=== PATIENT | female | born 1960 | race Caucasian/White ===

== ENCOUNTER → 2018-11-15 08:52 | Outpatient (CLI) | payer OTHER, SELFPAY ==
--- NOTE | 2018-11-15 08:55 | BI_ITS ---
MAMMOGRAPHY - UNILATERAL SCREENING: LEFT BREAST REASON FOR EXAM: Female, 58 years old. Routine annual screening examination (unilateral). PERTINENT HISTORY: Personal history of breast cancer. Prior right mastectomy. TECHNIQUE: Digital unilateral breast angie (3D mammographic acquisition) in the CC and MLO projections. 2-D mediolateral oblique (MLO) and craniocaudad (CC) views of both breasts were obtained. CAD: Full Field Digital Mammography with Computer Added Detection was performed. COMPARISON: Comparison is made with prior study dated September 03, 2017 and November 28, 2015. FINDINGS: Breast Composition: There are scattered areas of fibroglandular density. There are no dominant masses or suspicious calcifications. Stable small bilateral axillary lymph nodes. No other significant abnormalities are identified. There has been no significant change since the prior study. BI/UNILAT LT SCRN W/CAD IMPRESSION: Stable unilateral screening mammogram. Yearly follow-up mammogram recommended. (A) ASSESSMENT CATEGORY: BIRADS Category 2: Benign. A letter regarding these results will be sent to the patient by the facility within 30 days. Approximately 10% of breast cancers are not detected by mammography. A normal mammogram should not delay biopsy of a clinically suspicious abnormality. [id number] Electronically Signed: Dereje Glez MD at 8:52 EST , Service support ,
== END ==
PROVIDERS: Referring Provider Obstetrics & Gynecology; Visit Provider Obstetrics & Gynecology
DX: Z12.31 Encounter for screening mammogram for malignant neoplasm of breast (principal); Z85.3 Personal history of malignant neoplasm of breast; Z90.10 Acquired absence of unspecified breast and nipple
CPT/HCPCS: 77061; 77063; 77067; G0279

== ENCOUNTER 2018-12-15 10:44 | Day surgery (SDC) | payer OTHER, SELFPAY ==
--- NOTE | 2018-12-08 10:20 | PCM.HPOB.BLA ---
History and Physical Date of Admission: 12/08/18 Name: DANIELLE BERRY Age: 58 Date of : 1960 HISTORY OF PRESENT ILLNESS: On 12/08/2018, Danielle Berry, a 58 year old female 1 0 0 0 1, presented for: PREOPERATIVE HISTORY AND PHYSICAL Danielle is here for pre-op appt for LEEP. Consents are signed and packet provided. She wants antibiotic for possible infection of tooth. She has issue with her Dentist because he wants to try and preserve tooth and she just wants it pulled. Off and on pain and feels she needs something. She feels we did not discuss her pathology from the Colposcopy. Advised that we did talk to her about proceeding with LEEP d/t results of colpo. That is why she is here today. LMT -- Here for preop appt prior to planned LEEP for moderate cervical dysplasia confirmed on colposcopy after HGSIL pap obtained. Reviewed R,B,A of this procedure as well as the anticipated preop, operative and postop recovery (activity restrictions) and follow up paps. EB PATH: ECC: - POSITIVE FOR HIGH-GRADE SQUAMOUS INTRAEPITHELIAL LESION (MJ- II-III). Informed of this by phone when she was made aware that the LEEP procedure was recommended, and reviewed these path results again. Advised further that ABX NOT indicated for this procedure and reviewed rationale in limiting antibiotic use to avoid resistance over time. Recommend she see her dentist re any dental concerns. Will check CBC prior to surgery. EB ALLERGIES: Penicillin, Swelling MEDICATIONS HISTORY: Patient is also takin. No Meds REVIEW OF SYSTEMS: GENERAL - Denies fever, or chills SKIN - Denies skin changes EYES - Denies visual changes EARS - Denies difficulty hearing NOSE - Denies nasal congestion or bleeding MOUTH - tooth pain NECK - Denies pain or swelling RESPIRATORY - Denies shortness of breath or wheezing CARDIOVASCULAR - Denies palpitations or chest pain GASTROINTESTINAL - Denies nausea, vomiting, diarrhea, constipation GENITOURINARY - Denies dysuria, frequency of urination, urgency, or hesitancy MUSCULOSKELETAL - Denies joint or muscle pain NEUROLOGICAL - Denies localized numbness or weakness PSYCHIATRIC - Denies depression or anxiety ENDOCRINE - Denies heat or cold intolerance, weight loss or gain HEMATO-IMMUNOLOGIC - Denies excesive bleeding with cuts PAST HISTORY: Breast/Ovarian/Colon Cancers - denies family hx, self - rt breast Infections - Chicken pox and Measles Illnesses - h/o breast cancer and RT Mastectomy Accidents - no injuries of consequence History of Abnormal PAPS - YES Hospitalizations - see surgery and Childbirth colonoscopy and large polyp removed 2017; SURGICAL HISTORY: 1. Tonsils, 1963 2. , 1979 3. Right Mastectomy, 2002 MENSTRUAL HISTORY: LMP Known?- Postmenopausal, Prior Menses - 01/31/2007, LMP - 07/03/10 PAST PREGNANCIES: Total Pregnancies - 1; Full Term Pregnancies - 1; Premature - 0; Abortions, Induced - 0; Abortions, Spontaneous - 0; Ectopics - 0; Multiple Births - 0; Living Children - 1 FAMILY HISTORY: Mother - FH: Hypertension; Mother - Stroke; Brother - FH: Multiple sclerosis; SOCIAL HISTORY: Alcohol Use - denies drinking Smoking - 1 PPD, ATQ Diet - no special diet Lifestyle - single Exercise - minimal Seat Belt Use - always Employer - [employer] Job Description - [employer] Illicit Drug Use - denies use of street drugs Sexual Activity - Residence - lives with granddaughter Hours Worked - 40+ Children Name(s) - Anupam- has custody of Asharia, granddaughter Control - postmenopausal PHYSICAL EXAMINATION BP- 140/70 Sitting, Right arm, regular cuff Temp- 97.9 Taken Orally Weight- 186.00 lbs Height- 63.75 inch BMI:32.25 CONSTITUTIONAL - NAD, well nourished, and well developed HEENT - Normocephalic, PERRLA, EOMI NECK - no nuchal rigidity EXTREMITIES - No edema or calf tenderness NEUROLOGICAL - Cranial nerves II-XII grossly intact PSYCHIATRIC - A and O to time, place, person, mood and affect ASSESSMENT: 1. Moderate Cervical Dysplasia 2. High Grade Squamous Intraepithelial Lesion On Cytologic Smear Of Cervix (hgsil) PLAN BY DIAGNOSIS: 1. High Grade Squamous Intraepithelial Lesion On Cytologic Smear Of Cervix (hgsil) and Moderate Cervical Dysplasia Planned LEEP WITH TOP HAT in OR R,B,A and treatment success reviewed. Discussed the anticipated preop, operative and postop recovery courses. Resume activity but remain at pelvic rest for 2 wk after LEEP to allow healing. RTO in 2 wk for postop check up Plan pap q 4-6 mo for one year after LEEP to confirm full resolution, treatment.
[2018-12-08 10:49] LABS: Hematocrit 41.9 % (37-47); Hemoglobin 13.5 g/dl (12.0-15.0); Mean Corp Hgb Conc 32.2 g/gl (32-36); Mean Corpuscular Hgb 30.8 pg (27.0-32.0); Mean Corpuscular Volume 95.4 fL (81-99); Mean Platelet Vol. 8.9 fl (6.2-12.0); Platelet Count 339 K/mm3 (150-450); RBC Distribution Width CV 12.7 % (11.6-14.6); RBC Distribution Width SD 43.9 fl (35.1-43.9); Red Blood Count 4.39 M/mm3 (4.2-5.4); White Blood Count 11.7 K/mm3 (4.4-11.0)
[2018-12-08 10:50] LABS: Scan Indicated on CBC? Y/N NO
[2018-12-08 11:04] LABS: International Normalized Ratio 0.9; Prothrombin Time (Protime)PT. 12.3 SECONDS (11.7-14.9)
[2018-12-08 11:05] LABS: Partial Thromboplast Time 29.2 Seconds (24.1-36.2)
--- NOTE | 2018-12-15 | IMM_PTH ---
PATIENT: DANIELLE PARRA LOC: [facility] [place] U#:[id number] AGE/SX: 58/F ROOM: RE12/15/[address]: Dr. Suzanne Bardales MD : 1960 BED: DIS: 12/15/2018 SPEC #: [id number] RECD: 12/17/18 11:12 STATUS: NEDA MAXIMUS #: [id number] ANAI: 12/15/18 00:[address]: Suzanne Bardales DEPT: IMMUNOHISTOCHEMISTRY RECD BY: Florecita Rose ENTERED: 12/17/18 11:14 SP TYPE: IMMUNO OTHR DR: No Primary Care Phys Tissues: B - Endocervical Procedures: p16 (initial) KI-67 (add) P16 (add) PHYSICIAN & INSTITUTION [place] [id number] SPECIMEN INFORMATION: Tissue Source: B - Endocervical, LEEP conization Clinical Info: Moderate cervical dysplasia; HGSIL Specimen Number: [id number] B1 & B4 CPT code: 20772, 96721 x3 METHODOLOGY: Deparaffinized sections of prefer/formalin-fixed tissue or PAP/DQ stained slides are incubated with monoclonal/polyclonal antibodies/oligonucleotide probes. Localization is made via biotin free immunoperoxidase method. Appropriate controls are performed and reacted as expected. Results on target cell population are indicated in the following table: RESULTS: ANTIBODY / CLONE RESULT Block B1 P16 (E6H4) positive, focal and patchy Ki-67 (30-9) positive, low Block B4 P16 (E6H4) positive, focal block staining Ki-67 (30-9) positive These tests were developed and their performance characteristics determined by [facility]. They may not have been cleared or approved by the U.S. Food and Drug Administration. The FDA has determined that such clearance or approval is not necessary. INTERPRETATION: B. Endocervical, LEEP conization: Focal mild and moderate squamous dysplasia. SJ:nikko 12/20/18
[2018-12-15 11:18] VITALS: BP 138/68; PULSE 94; RESP 18; TEMP 36.8; O2SAT 94; BMI 31.4
--- NOTE | 2018-12-15 12:30 | CONE_PTH ---
PATIENT: DANIELLE PARRA LOC: [facility] [place] U#:[id number] AGE/SX: 58/F ROOM: RE12/15/[address]: Dr. Suzanne Bardales MD : 1960 BED: DIS: 12/15/2018 SPEC #: [id number] RECD: 12/15/18 16:19 STATUS: NEDA MAXIMUS #: [id number] ANAI: 12/15/18 12:[address]: Suzanne Bardales DEPT: SURGICAL PATHOLOGY RECD BY: Eusebio Jenkins ENTERED: 12/16/18 13:01 SP TYPE: Leep Cone CHRISTIAN DR: Shanon Primary Care Phys Tissues: A - UTERINE CERVIX LEEP B - UTERINE CERVIX LEEP Procedures: Surgery Specimen Level V HEADER OPERATION: LEEP cone PRE-OP DIAGNOSIS: Moderate cervical dysplasia; high-grade squamous intraepithelial lesion TISSUE SUBMITTED: A - Top hat of cervix, B - Endocervical LEEP MICROSCOPIC DIAGNOSIS A. Top hat of cervix, LEEP conization: Negative for dysplasia. B. Endocervical, LEEP conization: Focal mild to moderate squamous dysplasia with HPV changes (HGSIL and MJ I-II). Focal mild chronic inflammation. The resection margins are free of dysplastic changes. SJ:rg 12/17/18 COMMENT B. Immunohistochemistry ([id number]) for surrogate HPV marker (p16) supports the above diagnosis. MICROSCOPIC DESCRIPTION Slides are reviewed. GROSS DESCRIPTION A - Received in fixative is one container labeled with the patient's name and designated top hat of cervix. The specimen consists of a kennedy, indurated piece of tissue measuring 1 x 1 x 0.5 cm. No mucosal lesion is identified. The nonmucosal surface is inked black. The specimen is serially sectioned and submitted entirely in two cassettes. B - Received in fixative is one container labeled with the patient's name and designated endocervical LEEP. The specimen consists of a piece of kennedy, indurated tissue consistent with LEEP conization measuring 1.5 x 1.5 cm and up to 1 cm in length. No mucosal lesion is identified. The nonmucosal surface is inked black. The specimen is serially sectioned and submitted entirely in four cassettes with each containing one quadrant. / MARY:nikko 12/16/18 TC:5 CPT: 55662 x2
[2018-12-15] MEDS: FERRIC SUBSULFATE 8 GM SOLN (12:31)
--- NOTE | 2018-12-15 12:35 | DCINST_ITS ---
Discharge Diet: No Restrictions Discharge Activity: May Shower, May Take a Tub Bath Return to work on:: 12/16/18 May resume sexual activity in: 2 weeks Weight Bearing Status: Weight bearing as tolerated Additional Activity Instructions:: NOTHING IN VAGINA FOR TWO WEEKS TO ALLOW HEALING. Call your doctor if you observe: Fever of 101 or Higher, Using more than one pad per hour Additional Instructions: Take Tylenol 500 - 1000 mg by mouth every 8 hrs if needed for pain. You may add Aleve OR ibuprofen to this. This procedure normally does not require pain medication. Expect a discharge for a few weeks. Allergies/Adverse Reactions: Allergies Penicillins Allergy (Verified 12/07/18 14:04) Swelling Medications to take at Discharge Mv-Mn/Folic Acid/Calcium/Vit K [Women's 50 Plus Daily Formula] 1 each PO DAILY 12/07/18 [place]-3 Fatty Acids [Fish Oil Concentrate] 2,000 mg PO DAILY 12/07/18 Omeprazole 20 mg PO DAILY 12/07/18 Primary Care Physician: Care Physician,No Primary [Primary Care Provider] - Test Results: Test results from this visit will be discussed in further detail at your follow- up appointment, if applicable. Please Follow Up With: Suzanne Bardales MD - [phone] When: First pap due in March 2019 Proposed Discharge Date: 12/15/18
--- NOTE | 2018-12-15 12:35 | PCM.OPRPT ---
Report of Operation Date of Procedure: 12/15/18 Pre-Operative Diagnosis: HGSIL pap, moderate to severe cervical dysplasia Post-Operative Diagnosis: Same Surgery/Procedure Performed:: LEEP cervical biopsy with top hat Description of Surgical Findings:: OPERATIVE FINDINGS: Nonparous appearing cervix, with transitional zone within the endocervical canal Narrative Account: After the risks, benefits, alteratives of the procedure were reviewed with the patient informed consent was obtained. The patient was taken to the OR with IV running and placed in dorsal supine position on the operating table. She was given IV sedation , and then repositioned to the dorsal lithotomy position and was prepped and draped in the usual sterile fashion. A coated Graves speculum was placed, the cervix was identified and a 10cc paracervical block of 1% lidocaine was instilled at the 2:00, 4:00, 8:00 and 10:00 positions. A loop electrical excision procedure was then performed at a power of 50-50 with blend of 1 between cut and coag. The biopsy was performed with a single pass. Excellent hemostasis was noted. A top hat biopsy was then collected. Monsels was applied to the cervix then. Excellent hemostasis was noted. A sponge stick was then used to remove any remaining tissue and blood from the upper vagina and cervix . All instruments were then removed from the vagina. The patient was awakened from her IV sedation, and then transferred to her recovery room bed in stable condition after tolerating the procedure well. Sponge , instrument, and needle counts were correct x two. Medications given intraoperatively included: the 10cc of 1% lidocaine with epinephrine as paracervical block. For a complete listing of medications given intraoperatively, please see the anesthesia record. Type of Anesthesia:: IV Sedation, Local - paracervical block of 10 cc 1% lidocaine without epinephrine Anesthesiologist: Yolie Jauregui Specimen's removed: LEEP biopsy with top hat biopsy Drains: none Estimated Blood Loss (mL): minimal Description of Procedure: LR - Complications None. - Admit VTE Documentation VTE Present on Admission: No VTE Mechan Device Prophylaxis: SCD's VTE Pharm Prophylaxis ordered?: No
[2018-12-15 12:45] VITALS: BP 112/57; BP 138/68; PULSE 96; RESP 16; TEMP 36.1; O2SAT 95
[2018-12-15 12:50] VITALS: BP 106/54; BP 138/68; PULSE 84; RESP 16; O2SAT 97
[2018-12-15 12:55] VITALS: BP 105/60; BP 138/68; PULSE 85; RESP 16; O2SAT 97
[2018-12-15 13:00] VITALS: BP 107/65; BP 138/68; PULSE 83; RESP 16; TEMP 36.2; O2SAT 98
[2018-12-15 13:27] VITALS: BP 138/68
== END 2018-12-15 13:40 | disposition home or self-care (01) ==
LOC: SDC 10:47 → AC 10:53
PROVIDERS: Referring Provider Obstetrics & Gynecology; Visit Provider Obstetrics & Gynecology
PROC: 0UBC7ZZ Excision of Cervix, Via Natural or Artificial Opening (ICD-10-PCS; CPT 57522; principal; 2018-12-15 12:15)
DX: N87.1 Moderate cervical dysplasia (principal); F17.200 Nicotine dependence, unspecified, uncomplicated; Z78.0 Asymptomatic menopausal state; Z85.3 Personal history of malignant neoplasm of breast; Z90.11 Acquired absence of right breast and nipple
CPT/HCPCS: 57522; 36415; 85027; 85610; 85730; 88307; 88341; 88342; J7120; J2405

== ENCOUNTER → 2019-10-04 13:50 | Outpatient (CLI) | payer OTHER, SELFPAY ==
[2019-10-04 13:14] VITALS: BMI 31.9
--- NOTE | 2019-10-04 13:52 | CT_ITS ---
STUDY: LOW DOSE CT LUNG CANCER SCREENING REASON FOR EXAM: Female, 59 years old. Screening RADIATION DOSAGE (If Supplied By Facility): CTDIvol = ( 3.02 ) mGy, DLP = ( 103.82 ) mGycm TECHNIQUE: No contrast was administered. Low dose technique was utilized (average mAS-38 and kVp 120). 1.25 mm axial source images with a slice interval of 1.25-mm were reconstructed in lung windows. 2.5 mm axial source images with a slice interval of 2.5-mm were reconstructed in lung windows. 5.0 mm axial source images with a slice interval of 5.0-mm were reconstructed in soft tissue windows. Nodule measured using lung windows on PACS and/or independent workstation with automated measurement of minimum and maximum diameter. Nodule measurement reported as average diameter rounded to the nearest whole number. Growth is defined as an increase ins size of greater than 1.5 mm. COMPARISON: None. NODULES: Total lung nodules (excluding granulomas): 0 Emphysema: None Endobronchial lesion: None Aorta: Normal Coronary arteries: Mild coronary artery calcifications. Heart: Normal Pulmonary artery: Normal Mediastinal nodes: Normal Other chest and abdominal findings: There are innumerable centrilobular bilateral groundglass opacities, most prominent in the upper lobes. CT/Low Dose CT Lung Screening IMPRESSION: No significant pulmonary nodules or masses. Lung RADS 1. Innumerable centrilobular bilateral ground glass opacities most prominent in the upper lobes, likely inflammatory. Mild coronary artery calcifications. IMPORTANT NOTES FOR USE: ACR Lung-RADS Version 1.0 Assessment Categories Release Date: February 13, 2014 Category: Coded 0-4 bases on nodule(s) with highest degree of suspicion. Negative screen is defined as categories 1 and 2; a positive screen is defined as categories 3 and 4. Category 3 and 4A nodules that are unchanged on interval CT should be coded as category 2, and individuals returned to screening in 12 months. Category 4X: Category 3 or 4 nodules with additional imaging findings that increase the suspicion of lung cancer, such as spiculation, GGN that doubles in size in 1 year, enlarged lymph notes, etc. Category Modifiers: S (significant finding unrelated to lung cancer) and C (prior history of treated lung cancer) may be added to the 0-4 Lung-RADS Electronically Signed: Devan Minaya, at 19:24 EST Tel , Service support ,
== END ==
PROVIDERS: Referring Provider Nurse Practitioner Family; Visit Provider Nurse Practitioner Family
DX: Z12.2 Encounter for screening for malignant neoplasm of respiratory organs (principal); F17.200 Nicotine dependence, unspecified, uncomplicated
CPT/HCPCS: G0297

== ENCOUNTER → 2020-03-23 | Outpatient (CLI) | payer OTHER, SELFPAY ==
[2019-10-04 13:14] VITALS: BMI 31.9
[2020-03-27 14:08] LABS: Age Gdln ACOG Testing 30-65 (.)
[2020-03-28 05:34] LABS: HPV APTIMA, High Risk Negative (Negative); HPV Reflexed? NOT INDICATED
== END | disposition home or self-care (01) ==
LOC: LABSPEC 11:05
PROVIDERS: Visit Provider Obstetrics & Gynecology
DX: N87.1 Moderate cervical dysplasia (principal)
CPT/HCPCS: 88175; G0145

== ENCOUNTER → 2020-04-27 07:23 | Outpatient (CLI) | payer OTHER, SELFPAY ==
[2019-10-04 13:14] VITALS: BMI 31.9
--- NOTE | 2020-04-27 07:12 | BI_ITS ---
MAMMOGRAPHY - UNILATERAL SCREENING: LEFT BREAST REASON FOR EXAM: Female, 59 years old. Routine annual screening examination (unilateral). PERTINENT HISTORY: Personal history of breast cancer. Prior right mastectomy and chemotherapy. TECHNIQUE: Digital unilateral breast madiha (3D mammographic acquisition) in the CC and MLO projections. 2-D mediolateral oblique (MLO) and craniocaudad (CC) views of both breasts were obtained. CAD: Full Field Digital Mammography with Computer Added Detection was performed. COMPARISON: Comparison is made with prior examination degenerated September 03, 2017 and September 03, 2017. FINDINGS: Breast Composition: There are scattered areas of fibroglandular density. There are no dominant masses or suspicious calcifications. Stable small benign-appearing bilateral axillary lymph nodes. No other significant abnormalities are identified. There has been no significant change since the prior study. BI/SCREEN MAMM (CAD) W/MADIHA UNI L IMPRESSION: Stable unilateral screening mammogram. Yearly follow-up mammogram recommended. (A) ASSESSMENT CATEGORY: BIRADS Category 2: Benign. A letter regarding these results will be sent to the patient by the facility within 30 days. Approximately 10% of breast cancers are not detected by mammography. A normal mammogram should not delay biopsy of a clinically suspicious abnormality. [id number] Electronically Signed: Dereje Glez, at 8:23 EDT , Service support ,
== END ==
PROVIDERS: PCP Obstetrics & Gynecology; Referring Provider Obstetrics & Gynecology; Visit Provider Obstetrics & Gynecology
DX: Z12.31 Encounter for screening mammogram for malignant neoplasm of breast (principal); Z85.3 Personal history of malignant neoplasm of breast
CPT/HCPCS: 77063; 77067

== ENCOUNTER → 2020-10-09 15:15 | Outpatient (CLI) | payer OTHER, SELFPAY ==
[2019-10-04 13:14] VITALS: BMI 31.9
[2020-10-09 14:40] VITALS: BMI 31.6
--- NOTE | 2020-10-09 15:17 | CT_ITS ---
STUDY: LOW DOSE CT LUNG CANCER SCREENING REASON FOR EXAM: Female, 60 years old. TOBACCO USE.. 1 PPD X 47 YEARS. COPD. BREAST CANCER/MASTECTOMY/CHEMO/RAD RADIATION DOSAGE (If Supplied By Facility): CTDIvol = ( 3.02 ) mGy, DLP = ( 95.91 ) mGycm TECHNIQUE: No contrast was administered. Low dose technique was utilized (average mAS-38 and kVp 120). 1.25 mm axial source images with a slice interval of 1.25-mm were reconstructed in lung windows. 2.5 mm axial source images with a slice interval of 2.5-mm were reconstructed in lung windows. 5.0 mm axial source images with a slice interval of 5.0-mm were reconstructed in soft tissue windows. Nodule measured using lung windows on PACS and/or independent workstation with automated measurement of minimum and maximum diameter. Nodule measurement reported as average diameter rounded to the nearest whole number. Growth is defined as an increase ins size of greater than 1.5 mm. COMPARISON: Comparison is made with prior study dated 10/04/2019. Surgical clips are seen in the right axillary region. Small benign appearing axillary lymph nodes are seen in the left axillary region. NODULES: None Emphysema: None Endobronchial lesion: None Aorta: Atherosclerotic calcification of the aortic arch. Coronary arteries: Mild coronary artery calcification. Mediastinal nodes: Small benign-appearing mediastinal lymph nodes. Other chest and abdominal findings: CT/Low Dose CT Lung Screening IMPRESSION: Lung-RADS category 2 - Continue annual screening with LDCT in 12 months. IMPORTANT NOTES FOR USE: ACR Lung-RADS Version 1.0 Assessment Categories Release Date: February 13, 2014 Category: Coded 0-4 bases on nodule(s) with highest degree of suspicion. Negative screen is defined as categories 1 and 2; a positive screen is defined as categories 3 and 4. Category 3 and 4A nodules that are unchanged on interval CT should be coded as category 2, and individuals returned to screening in 12 months. Category 4X: Category 3 or 4 nodules with additional imaging findings that increase the suspicion of lung cancer, such as spiculation, GGN that doubles in size in 1 year, enlarged lymph notes, etc. Category Modifiers: S (significant finding unrelated to lung cancer) and C (prior history of treated lung cancer) may be added to the 0-4 Lung-RADS Electronically Signed: Dereje Glez, at 15:44 EST , Service support ,
== END ==
PROVIDERS: Referring Provider Nurse Practitioner Family; Visit Provider Nurse Practitioner Family
DX: Z12.2 Encounter for screening for malignant neoplasm of respiratory organs (principal); Z72.0 Tobacco use
CPT/HCPCS: G0297

== ENCOUNTER → 2020-11-20 15:44 | Outpatient (CLI) | payer OTHER, SELFPAY ==
[2020-10-25 18:00] VITALS: BMI 31.9
--- NOTE | 2020-11-20 15:51 | BD_ITS ---
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 COMPARISON: None. FINDINGS: Lumbar Spine (L1-L4): g/cm2 (1.108) / T-score (-0.6) / Z-score (0.8) Findings are suggestive of normal bone density with a low fracture risk. Left Femur Total: g/cm2 (0.896) / T-score (-0.9) / Z-score (0.1) Left Femoral Neck: g/cm2 (0.815) / T-score (-1.6) / Z-score (-0.3) Right Femur Total: g/cm2 (0.878) / T-score (-1.0) / Z-score (0.0) Right Femoral Neck: g/cm2 (0.816) / T-score (-1.6) / Z-score (-0.3) BD/Dexa Bone Density Study IMPRESSION: The patient is considered osteopenic as outlined below according to World Harrison Organization (WHO) criteria with a moderate fracture risk. Reference Information: The T-score is the number of standard deviations above or below the standard which is normal for young adults at their peak bone mineral density. The World Health Organization (WHO) interprets the T-scores as follows: Above -1 Normal bone density Between -1 and -2.5 Osteopenia Equal to / or below -2.5 Osteoporosis As a practical clinical guideline, osteopenia may be graded as follows: Mild -1 through -1.5 Moderate -1.6 through -2.0 Severe -2.1 through -2.4 The Z-score is the number of standard deviations above or below age-matched controls. A Z-score of less than -1.5 would be considered abnormal. References: 1. NIH Osteoporosis and Related Bone Diseases www osteo.org 2. International Society for Clinical Densitometry www iscd.org 3. National Osteoporosis Foundation www nof.org Electronically Signed: Dereje Glez MD at 9:34 EST , Service support ,
[2020-11-20 17:12] LABS: Absolute Lymphocyte Count 4.86 X10^3/uL (0.83-4.51); Absolute Neutrophil Count 8.1 X10^3/uL (2.0-7.7); Basophil# 0.09 X10^3/uL; Basophil% 0.6 % (0-1); Eosinophil# 0.35 X10^3/uL; Eosinophils% 2.5 % (0-5); Hematocrit 40.9 % (37-47); Hemoglobin 13.7 g/dL (12.0-15.0); Lymphocyte # 4.86 X10^3/ul (4.0); Lymphocyte % 34.2 % (19-41); Mean Corp Hgb Conc 33.5 g/dL (32-36); Mean Corpuscular Hgb 31.2 pg (27.0-32.0); Mean Corpuscular Volume 93.2 fL (81-99); Mean Platelet Vol. 8.9 fl (6.2-12.0); Monocyte# 0.79 X10^3/uL; Monocyte% 5.6 % (0-10); NRBC Flagged by Analyzer 0 % (0-5); Neutrophil # 8.05 X10^3/uL (2.7-7.7); Neutrophil % 56.7 % (47-70); Platelet Count 429 K/mm3 (150-450); RBC Distribution Width CV 12.2 % (11.6-14.6); RBC Distribution Width SD 42.6 fl (35.1-43.9); Red Blood Count 4.39 M/mm3 (4.2-5.4); White Blood Count 14.2 K/mm3 (4.4-11.0)
[2020-11-20 17:32] LABS: Vitamin D,25 Hydroxy 33.2 ng/mL
[2020-11-20 17:39] LABS: AST(SGOT) 20 U/L (15-37); Alanine Aminotransfer ALT/SGPT 27 U/L (13-56); Albumin, Serum 3.8 g/dL (3.2-5.0); Alkaline Phosphatase 123 U/L (45-117); Anion Gap 9 (5-15); BUN 17 mg/dL (7-18); BUN/Creat Ratio 18.8 RATIO (10-20); Calcium,Total 9.7 mg/dL (8.5-10.1); Chloride 109 mmol/L (98-107); Cholesterol 285 mg/dL (200); Creatinine, Serum 0.91 mg/dL (0.55-1.02); EST Glomerular Filtration Rate 67 mL/min (>60); Est Glom Filt Rate - Afr Amer 81 mL/min (>60); Glucose 98 mg/dL (74-106); High Density Lipoprotein 37 mg/dL; Protein, Total 7.8 g/dL (6.4-8.2); Sodium Level 139 mmol/L (136-145); Triglycerides 427 mg/dL
== END ==
PROVIDERS: PCP Internal Medicine; Referring Provider Internal Medicine; Visit Provider Internal Medicine
DX: R03.0 Elevated blood-pressure reading, without diagnosis of hypertension (principal); K21.9 Gastro-esophageal reflux disease without esophagitis; E55.9 Vitamin D deficiency, unspecified; Z78.0 Asymptomatic menopausal state; M85.80 Other specified disorders of bone density and structure, unspecified site
CPT/HCPCS: 36415; 77080; 80053; 80061; 82306; 85025

== ENCOUNTER 2021-10-22 16:27 | Outpatient (CLI) | payer OTHER, SELFPAY ==
--- NOTE | 2021-10-22 16:32 | CT_ITS ---
STUDY: LOW DOSE CT LUNG CANCER SCREENING REASON FOR EXAM: Female, 61 years old. Lung cancer screening -- 48 pk yr history;asymptomatic; current smoker RADIATION DOSAGE (If Supplied By Facility): CTDIvol = ( 2.01 ) mGy, DLP = ( 63.69 ) mGycm TECHNIQUE: No contrast was administered. Low dose technique was utilized (average mAS-38 and kVp 120). 1.25 mm axial source images with a slice interval of 1.25-mm were reconstructed in lung windows. 2.5 mm axial source images with a slice interval of 2.5-mm were reconstructed in lung windows. 5.0 mm axial source images with a slice interval of 5.0-mm were reconstructed in soft tissue windows. Nodule measured using lung windows on PACS and/or independent workstation with automated measurement of minimum and maximum diameter. Nodule measurement reported as average diameter rounded to the nearest whole number. Growth is defined as an increase ins size of greater than 1.5 mm. COMPARISON: Comparison is made with prior study dated 10/09/2020. Once again, surgical clips are seen in the right axillary region. The patient is status post right mastectomy. NODULES: No suspicious nodules are seen. Emphysema: No significant emphysematous changes are seen. Endobronchial lesion: None Aorta: Atherosclerotic plaque formation of the aortic arch. Coronary arteries: Mild degree of coronary artery calcification. Heart: Unremarkable Pulmonary artery: Unremarkable Mediastinal nodes: Small mediastinal lymphadenopathy. Other chest and abdominal findings: Degenerative changes of the dorsal spine. CT/Low Dose CT Lung Screening IMPRESSION: Lung-RADS category 2 - Continue annual screening with LDCT in 12 months. IMPORTANT NOTES FOR USE: ACR Lung-RADS Version 1.1 Assessment Categories Release Date: 2018 Category: Coded 0-4 bases on nodule(s) with highest degree of suspicion. Negative screen is defined as categories 1 and 2; a positive screen is defined as categories 3 and 4. Category 3 and 4A nodules that are unchanged on interval CT should be coded as category 2, and individuals returned to screening in 12 months. Category 4X: Category 3 or 4 nodules with additional imaging findings that increase the suspicion of lung cancer, such as spiculation, GGN that doubles in size in 1 year, enlarged lymph notes, etc. Category Modifiers: S (significant finding unrelated to lung cancer) Electronically Signed: Dereje Glez MD at 8:14 EST , Service support ,
== END 2021-10-22 23:59 | disposition short-term general hospital (02) ==
LOC: CT 16:30
PROVIDERS: PCP Internal Medicine; Referring Provider Nurse Practitioner Family; Visit Provider Nurse Practitioner Family
DX: Z12.2 Encounter for screening for malignant neoplasm of respiratory organs (principal); Z87.891 Personal history of nicotine dependence
CPT/HCPCS: 71271

== ENCOUNTER → 2022-04-10 | Outpatient (CLI) | payer OTHER, SELFPAY ==
[2022-04-16 17:19] LABS: HPV APTIMA, High Risk Negative (Negative)
== END | disposition home or self-care (01) ==
LOC: LABSPEC 15:40
PROVIDERS: PCP Internal Medicine; Visit Provider Student in an Organized Health Care Education/Training Program
DX: Z12.4 Encounter for screening for malignant neoplasm of cervix (principal)
CPT/HCPCS: 87624; 88175; G0145

== ENCOUNTER → 2022-04-28 | Outpatient (CLI) | payer OTHER, SELFPAY ==
--- NOTE | 2022-04-28 15:42 | BI_ITS ---
MAMMOGRAPHY - UNILATERAL SCREENING: LEFT BREAST REASON FOR EXAM: Female, 61 years old. Routine annual screening examination (unilateral). PERTINENT HISTORY: Personal history of breast cancer. Prior right mastectomy and chemotherapy. TECHNIQUE: Digital unilateral breast madiha (3D mammographic acquisition) in the CC and MLO projections. 2-D mediolateral oblique (MLO) and craniocaudad (CC) views of both breasts were obtained. CAD: Full Field Digital Mammography with Computer Added Detection was performed. COMPARISON: Comparison is made with prior study dated 04/27/2020 and 11/15/2018. FINDINGS: Breast Composition: There are scattered areas of fibroglandular density. There are no dominant masses or suspicious calcifications. Stable small benign-appearing bilateral axillary lymph nodes. No other significant abnormalities are identified. There has been no significant change since the prior study. BI/SCREEN MAMM (CAD) W/MADIHA UNI L IMPRESSION: Stable unilateral screening mammogram. Yearly follow-up mammogram recommended. (A) ASSESSMENT CATEGORY: BIRADS Category 2: Benign. A letter regarding these results will be sent to the patient by the facility within 30 days. Approximately 10% of breast cancers are not detected by mammography. A normal mammogram should not delay biopsy of a clinically suspicious abnormality. [id number] Electronically Signed: Dereje Glez MD at 8:17 EDT ,
== END | disposition home or self-care (01) ==
LOC: OPBI 15:40
PROVIDERS: PCP Internal Medicine; Visit Provider Student in an Organized Health Care Education/Training Program
DX: Z12.31 Encounter for screening mammogram for malignant neoplasm of breast (principal); Z85.3 Personal history of malignant neoplasm of breast; Z90.11 Acquired absence of right breast and nipple; Z92.21 Personal history of antineoplastic chemotherapy
CPT/HCPCS: 77063; 77067

== ENCOUNTER → 2023-07-17 | Outpatient (CLI) | payer OTHER, SELFPAY ==
[2023-07-17 12:17] LABS: Absolute Lymphocyte Count 2.83 X10^3/uL (0.83-4.51); Absolute Neutrophil Count 5.2 X10^3/uL (2.0-7.7); Basophil# 0.08 X10^3/uL; Basophil% 0.9 % (0-1); Eosinophil# 0.24 X10^3/uL; Eosinophils% 2.7 % (0-5); Hemoglobin 12.6 g/dL (12.0-15.0); Lymphocyte # 2.83 X10^3/ul (0.83-4.51); Lymphocyte % 31.5 % (19-41); Mean Corp Hgb Conc 32.3 g/dL (32-36); Mean Corpuscular Hgb 31.3 pg (27.0-32.0); Mean Corpuscular Volume 96.8 fL (81-99); Mean Platelet Vol. 9.3 fl (6.2-12.0); Monocyte# 0.57 X10^3/uL; Monocyte% 6.3 % (0-10); NRBC Flagged by Analyzer 0 % (0-5); Neutrophil # 5.21 X10^3/uL (2.7-7.7); Neutrophil % 57.9 % (47-70); Platelet Count 365 K/mm3 (150-450); RBC Distribution Width CV 12.5 % (11.6-14.6); RBC Distribution Width SD 44.9 fl (35.1-43.9); Red Blood Count 4.03 M/mm3 (4.2-5.4)
--- NOTE | 2023-07-17 12:36 | RAD_ITS ---
INDICATION: Right Knee Pain EXAMINATION/TECHNIQUE: X-RAY - RIGHT XR Knee 3 Views COMPARISON: FINDINGS: SOFT TISSUES: No soft tissue swelling or gas. No radiopaque foreign body. Mild effusion. BONES/JOINTS: No acute fracture or subluxation.. Normal alignment. Preservation of the joint space.. No sclerotic or destructive changes observed. RAD/Knee 3 Views IMPRESSION: No acute bony injury. Mild effusion. Electronically Signed: Hernandez Dye DO at 19:49 EDT ,
[2023-07-17 12:50] LABS: AST(SGOT) 14 U/L (15-37); Alanine Aminotransfer ALT/SGPT 21 U/L (13-56); Albumin, Serum 3.5 g/dL (3.2-5.0); Alkaline Phosphatase 84 U/L (45-117); Anion Gap 2 (5-15); BUN 13 mg/dL (7-18); BUN/Creat Ratio 16.7 RATIO (10-20); Calcium,Total 8.8 mg/dL (8.5-10.1); Chloride 110 mmol/L (98-107); Cholesterol 256 mg/dL (200); Creatinine, Serum 0.78 mg/dL (0.55-1.02); EST Glomerular Filtration Rate 79 mL/min (>60); Est Glom Filt Rate - Afr Amer 96 mL/min (>60); Globulin 3.5 g/dL (2.2-4.2); Glucose 104 mg/dL (74-106); High Density Lipoprotein 51 mg/dL; Potassium 4.1 mmol/L (3.5-5.1); Sodium Level 139 mmol/L (136-145); Triglycerides 183 mg/dL; Very Low Density Lipoprotein 37 mg/dL (5-40)
== END | disposition home or self-care (01) ==
PROVIDERS: PCP Internal Medicine; Referring Provider Internal Medicine; Visit Provider Internal Medicine
DX: E78.5 Hyperlipidemia, unspecified (principal); M25.561 Pain in right knee
CPT/HCPCS: 36415; 73562; 80053; 80061; 85025

== ENCOUNTER → 2023-12-03 | Outpatient (CLI) | payer OTHER, SELFPAY ==
--- NOTE | 2023-12-03 15:20 | BD_ITS ---
STUDY: DUAL ENERGY X-RAY ABSORPTIOMETRY / DXA REASON FOR EXAM: Female, 63 years old. Post Menopausal TECHNIQUE: Bone Mineral Density (BMD) measurements of lumbar spine and bilateral hips were obtained. COMPARISON: Comparison is made with prior study dated November 20, 2020. FINDINGS: Lumbar Spine (L1-L4): g/cm2 (0.968) / T-score (-0.8) / Z-score (1.0) Findings are suggestive of normal bone density with a low fracture risk. Left Femur Total: g/cm2 (0.787) / T-score (-1.3) / Z-score (0.0) Left Femoral Neck: g/cm2 (0.637) / T-score (-1.9) / Z-score (-0.4) Right Femur Total: g/cm2 (0.799) / T-score (-1.2) / Z-score (0.1) Right Femoral Neck: g/cm2 (0.636) / T-score (-1.9) / Z-score (-0.4) The T-Scores on the most recent prior examination were: Lumbar Spine (L1-L4): There has been worsening of bone density since the previous examination. Left Femur Total: which represents a worsening of 5.4%. Right Femur Total: which represents a worsening of 2%. BD/Dexa Bone Density Study IMPRESSION: The patient is considered osteopenic as outlined below according to World Harrison Organization (WHO) criteria with a moderate fracture risk. There has been worsening of bone density since the previous examination. Reference Information: The T-score is the number of standard deviations above or below the standard which is normal for young adults at their peak bone mineral density. The World Health Organization (WHO) interprets the T-scores as follows: Above -1 Normal bone density Between -1 and -2.5 Osteopenia Equal to / or below -2.5 Osteoporosis As a practical clinical guideline, osteopenia may be graded as follows: Mild -1 through -1.5 Moderate -1.6 through -2.0 Severe -2.1 through -2.4 The Z-score is the number of standard deviations above or below age-matched controls. A Z-score of less than -1.5 would be considered abnormal. References: 1. NIH Osteoporosis and Related Bone Diseases www osteo.org 2. International Society for Clinical Densitometry www iscd.org 3. National Osteoporosis Foundation www nof.org Electronically Signed: Dereje Glez MD at 13:27 EST ,
== END | disposition home or self-care (01) ==
LOC: OPBD 14:59
PROVIDERS: PCP Internal Medicine; Referring Provider Internal Medicine; Visit Provider Internal Medicine
DX: Z78.0 Asymptomatic menopausal state (principal)
CPT/HCPCS: 77080

== ENCOUNTER 2024-02-15 09:28 | Day surgery (SDC) | payer OTHER, SELFPAY ==
--- NOTE | 2024-02-15 | GASB_PTH ---
PATIENT: DANIELLE PARRA LOC: EN U#:[id number] AGE/SX: 63/F ROOM: RE02/15/[address]: Dr. Merissa Best MD : 1960 BED: DIS: 02/15/2024 SPEC #: [id number] RECD: 02/15/24 12:50 STATUS: NEDA MAXIMUS #: [id number] ANAI: 02/15/24 00:[address]: Merissa Best DEPT: SURGICAL PATHOLOGY RECD BY: Miguel Vila ENTERED: 02/15/24 12:50 SP TYPE: Gastric Bx OTHR DR: Dr. Naomi Ingram MD Tissues: A - Gastric mucous membrane B - Gastric mucous membrane C - Sigmoid colon biopsy D - Rectum, NOS Procedures: Surgery Specimen Level IV HEADER OPERATION: Colonoscopy with polypectomy and biopsy, EGD with biopsies PRE-OP DIAGNOSIS: Sol's esophagus, history of colon polyp, family history of colon cancer TISSUE SUBMITTED: A- Pre-pylorus erosion biopsy, B- GE junction biopsy, C- Sigmoid polyp x2, D- Rectum polyp biopsy MICROSCOPIC DIAGNOSIS A. Pre-pyloric erosion, biopsy: Chronic gastritis. B. Gastroesophageal junction, biopsy: Mild chronic inflammation. Focal change of reflux. Intestinal metaplasia (goblet cell metaplasia) is not identified. See comment. C. Sigmoid polyp, biopsy: Fragments of colonic mucosa with focal hyperplastic change and mucosal denudation. D. Rectal polyp, biopsy: Hyperplastic polyp. AM/mr 02/16/2024 COMMENT A. The results of immunohistochemistry for Helicobacter pylori will be reported separately ([id number]). B. Alcian blue/PAS stain with matched control supports the above diagnosis. MICROSCOPIC DESCRIPTION Slides are reviewed. GROSS DESCRIPTION A. Received in fixative is one container labeled with the patient's name and designated Pre-pylorus erosion biopsy. The specimen consists of one irregular fragment of light kennedy soft tissue that measures 0.5 x 0.25 x 0.25 cm. The specimen is totally submitted in one cassette. B. Received in fixative is one container labeled with the patient's name and designated GE junction biopsy. The specimen consists of multiple irregular fragments of light kennedy soft tissue that in aggregate measure 1.0 x 0.25 x 0.25 cm. The specimen is totally submitted in one cassette. C. Received in fixative is one container labeled with the patient's name and designated Sigmoid polyp x2. The specimen consists of two irregular fragments of light kennedy soft tissue that in aggregate measure 2.0 x 0.5 x 0.25 cm. The specimen is totally submitted in one cassette. D. Received in fixative is one container labeled with the patient's name and designated Rectum polyp biopsy. The specimen consists of one irregular fragment of light kennedy soft tissue that measures 0.25 x 0.25 x 0.25 cm. The specimen is totally submitted in one cassette. Mr 02/15/2024 TC:5 CPT:[id number]
[2024-02-15 09:40] VITALS: BP 135/96; PULSE 103; RESP 16; TEMP 36.6; O2SAT 99; BMI 26.4
--- NOTE | 2024-02-15 09:42 | HP.PCM_ITS ---
HPI - General General Date of Service: 02/15/24 [facility] Narrative DANIELLE PARRA, is a 63 F who presents for EGD and colonoscopy. Patient does have a history of Sol's however has not been taking omeprazole as she had some reactions with skin issue as well as achiness. Patient denies having any reflux or heartburn states she feels good. Otherwise patient denies other changes since office visit. office visit 12/09/23 [facility] HPI: 63-year-old female presents for EGD and colonoscopy. Patient's last EGD and colonoscopy was 2017- do not currently have the report- will request. Patient states she had a large polyp greater than a centimeter at that time, patient's sister also was diagnosed with colon cancer age 61. Patient also has a history of Sol's with no dysplasia. Patient states she was on omeprazole 20 mg back around 2018 but thought she was better and also had some questionable skin issue felt weird so she came off the omeprazole patient did recently go back on it she saw her PCP who encouraged her to take it again patient took it for about 2 weeks 40 mg p.o. daily and stated that she had some achiness in crampy abdominal discomfort so she stopped again states that she was only having reflux maybe twice a week and it was mild. Patient does have Pepcid at home that she would take occasionally if she was really nauseous or gagging. Patient states she has bowel movements daily denies any blood. Patient denies any chronic abdominal pain nausea or vomiting. [facility] Medical History (Updated 02/10/24 @ 14:13 by Anna Gonzales) Sol esophagus Breast cancer, right Cancer Colon cancer screening Difficulty chewing Effusion, right knee Encounter for screening for malignant neoplasm of lung in current smoker with 30 pack year history or greater GERD (gastroesophageal reflux disease) GI problem High cholesterol History of breast cancer History of stress test Hyperlipidemia leep cone Osteopenia Restless legs Right knee pain Seasonal allergies Smoker Tobacco use disorder, continuous Wears glasses Home Medications [id number] ac 400 mcg-calcium carb 500 mg-vit K1 20 mcg tablet 1 ea PO DAILY SUPPLEMENT 12/07/18 [History Last Taken Unknown] omega-3 fatty acids 1,000 mg capsule 2,000 mg PO DAILY SUPPLEMENT 12/07/18 [History Last Taken Unknown] cholecalciferol (vitamin D3) 50 mcg (2,000 unit) capsule 50 mcg PO DAILY 09/19 12/08 [History Last Taken Unknown] olopatadine 0.2 % eye drops (Pataday Once Daily Relief) 1 drp ophthalmic (eye) QAM PRN itching 07/17/23 [History Last Taken Unknown] Allergy/AdvReac Type Severity Reaction Status Date / Time Penicillins Allergy Swelling Verified 02/15/24 09:39 Family History Sister Colon cancer Thyroid disorder Mother Arthritis Hypertension Mental disorder Psychiatric care Thyroid disorder Father Hypertension Thyroid disorder Grandmother Mental disorder Brother Thyroid disorder Surgical History (Updated 02/10/24 @ 14:13 by Anna Gonzales) H/O LEEP History of section History of colonoscopy with polypectomy History of esophagogastroduodenoscopy (EGD) History of lumpectomy of right breast History of right mastectomy History of tonsillectomy History of tooth extraction (~08/2023) History of wisdom tooth extraction Social History Smoking Status: Current every day smoker tobacco type: cigarettes Tobacco: How many years used: 50 Electronic Cigarette Use: not used second hand exposure: No quit status: considering quitting alcohol intake: never substance use type: does not use what type of physical activity do you participate in: other details: AROUND THE HOUSE Past Medical/Surgical History Planned Operation Planned Operative Procedure/s: EGD, CSCOPE S.O.S: No Previous Hospitalizations/Surgeries HX Hospitalizations: No HX of Surgeries: TONSILLECTOMY CHILD WISDOM TEETH REMOVED ADULT 1980 RIGHT MOD RAD MASTECTOMY 2002 2017 COLONOSCOPY/EGD COLON POLYP REMOVAL Any Problems With Anesthesia: No You/Your Family Experience Fever (Hyperthermia) With Anes: No Cholinesterase deficiency: No Cardiovascular Hx Chest Pain within Last 2 months: No Hx of Irregular Heartbeat and/or Afib: No Hx Heart Attack: No Hx Congestive Heart Failure: No Hx Rheumatic Fever: No Hx Hypertension: No Hx Internal Defibrillator: No Hx Pacemaker: No Hx Cardiac Catheterization: No Hx Cardiac Surgery/Stents/Etc.: No Hx Stress Test: Yes (OVER 5 YRS AGO/ STATES NEG) Hx Pain in Legs when Walking/Leg Cramps: No Respiratory Chronic Cough: No HX of Shortness of Breath: No Hoarseness: No Hx Chronic Obstructive Pulmonary Disease (COPD): No Hx Asthma: No Hx Emphysema: No Hx Sleep Apnea: No Hx Respiratory Tract Infection/Cold (presently): No Do You Snore Loudly (louder than talking or can be heard): No Do You Often Feel Tired/ Fatigued/ Sleepy Dring Daytime?: No Has Anyone Observed You Stop Breathing During Sleep?: No Result (for STOP score): Negative Hx Smoking: Yes (1PPD X 47 YRS) Smoking Status: Current every day smoker Gastrointestinal Controlled With Meds: Yes (OMEPRAZOLE) Hx Gastrointestinal Disorders: Yes (COLON POLYP PER HX) Hx Gastrointestinal Bleed: No Hx Ulcer: No Hx Hiatal Hernia: No Difficulty Chewing/Swallowing: No Special diet followed at home: No Hx Unplanned Weight Loss of 20#: No HX Unplanned Weight Gain of 20#: No Neurological Hx Seizures: No HX Syncope/Blackout Spells/Unconsciousness: No Hx Transient Ischemic Attacks (TIA): No Hx Multiple Sclerosis: No Hx Parkinson's Disease: No Hx Head/Neck Injury: Yes (PER HX) Hx Headaches: No Hx Back Injury/Pain: No Recent Onset of Speech Difficulty: No Restless Legs: Yes (NO MEDS) Does patient have nerve stimulator: No Blood Disorder Hx Leukemia: No Bleeding Tendencies: No Hx Deep Vein Thrombosis: No Hx High Cholesterol: Yes (NO MEDS) Blood Transmitted Disease: No Hx Hepatitis: No Hx Cirrhosis: No Hx Anemia: No Hx Blood Disorders: No Reproduction : No Is Patient Lactating: No Hx Hysterectomy: No Hx Tubal Ligation: No Are You Post Menopause: Yes Genitourinary Hx Renal Disease: No (DENIES PROBLEMS VOIDING POST OP) Musculoskeletal Hx Arthritis: No Hx Rheumatoid Arthritis: No Hx Gout: No Recent Onset of an Orthopedic Problem: No Endocrine Hx Diabetes: No Thyroid Disease: No Hx Steroid Therapy: No Psycho/Social Hx Substance Use: No Hx Alcohol Use: No Hx Anxiety: No Hx Depression: No Mental Illness: No Hx Dementia: No Miscellaneous Hx Cancer: Yes (breast/ MASTECTOMY) Recent Exposure to Contagious Disease: No Hx of C-Diff: No Any Loose Teeth: No (RECENT DENTAL PAIN/ BAD TOOTH) Allergies Penicillins Allergy (Verified 02/15/24 09:39) Swelling Discharge Is Pt Admitted From a [facility], or a Skilled Nursing: No After D/C, Where Do you Plan to Go: Return Home From the PAT History Number of Risk Factors: 1 Physical Exam Const alert, oriented x3 and no apparent distress HEENT normocephalic and head/scalp atraumatic Resp normal respiratory effort Cardio regular rate GI soft to palpation and non-tender; Negative for non-distended Palpation: Negative for guarding Extremity no clubbing, cyanosis or edema Skin no rashes or lesions noted Neuro CN's II-XII intact bilaterally Psych mental status grossly normal Assessment & Plan Assessment/Plan (1) Sol esophagus: (2) Hx of colonic polyp: (3) FH: colon cancer: Surgery Risks - Colonoscopy I discussed with the patient the risks of the procedure: Yes Risks Include but are not Limited To: Risks include but are not limited to: Bleeding, perforation requiring further surgery, inability to complete colonoscopy requiring barium enema.
[2024-02-15] MEDS: Lactated Ringers 1,000 ML 15 ML IV (09:49)
--- NOTE | 2024-02-15 10:30 | IMM_PTH ---
PATIENT: DANIELLE PARRA LOC: EN U#:[id number] AGE/SX: 63/F ROOM: RE02/15/[address]: Dr. Merissa Best MD : 1960 BED: DIS: 02/15/2024 SPEC #: [id number] RECD: 02/15/24 12:47 STATUS: NEDA REQ #: [id number] ANAI: 02/15/24 10:[address]: Merissa Best DEPT: IMMUNOHISTOCHEMISTRY RECD BY: Austin Kaplan ENTERED: 02/15/24 12:48 SP TYPE: IMMUNO OTHR DR: Dr. Naomi Ingram MD Tissues: A - Pylorus Procedures: H Pylori (initial) PHYSICIAN & INSTITUTION [place] [address] SPECIMEN INFORMATION: Tissue Source: A- Pre-pylorus erosion Clinical Info: Sol's esophagus, history of colon polyp, family history of colon cancer Specimen Number: [id number] CPT code: 01983 METHODOLOGY: Deparaffinized sections of prefer/formalin-fixed tissue or PAP/DQ stained slides are incubated with monoclonal/polyclonal antibodies/oligonucleotide probes. Localization is made via biotin free immunoperoxidase method. Appropriate controls are performed and reacted as expected. Results on target cell population are indicated in the following table: RESULTS: ANTIBODY / CLONE RESULT Block A H Pylori (polyclonal) negative These tests were developed and their performance characteristics determined by [facility]. They may not have been cleared or approved by the U.S. Food and Drug Administration. The FDA has determined that such clearance or approval is not necessary. The above immunohistochemical/dualISH markers are ordered and reviewed by the Pathologist. INTERPRETATION: A. Pre-pylorus erosion, biopsy: Negative for Helicobacter pylori organisms. SHERLYN/ 02/16/2024
[2024-02-15 10:40] VITALS: BP 110/73; BP 135/96; PULSE 82; RESP 16; O2SAT 97
[2024-02-15 10:41] VITALS: BP 113/65; BP 135/96; PULSE 78; RESP 16; TEMP 36; O2SAT 97
--- NOTE | 2024-02-15 10:44 | OP.CCLET_ITS ---
02/15/2024 Naomi Ingram MD [address] [place] [address] [place] [address] Re : Upper GI endoscopy procedure for Alicia Berry Dear Dr. Ingram This procedure was performed on Thursday, February 15, 2024. My impressions and recommendations are as follows: Impressions : - Z-line irregular. Biopsied. - Erosive gastropathy with stigmata of recent bleeding. Biopsied. - Normal examined duodenum. - The examination was otherwise normal. Recommendations : - Await pathology results. - Discharge patient to home. - Resume previous diet. - Continue present medications. - Use Protonix (pantoprazole) 40 mg PO daily. My findings are described in the full procedure note, which is enclosed. If I can be of further assistance, please feel free to contact me at Doctor phone number(s): , Work: . Sincerely, MD Merissa Sun MD 02/15/2024 10:44:13 AM This report has been signed electronically.
--- NOTE | 2024-02-15 10:44 | OP.EGD_ITS ---
Patient Name: Alicia Berry Procedure Date: 02/15/2024 9:32 AM Date of : 1960 Age: 63 Procedure: Upper GI endoscopy Indications: Follow-up of Sol's esophagus Providers: Merissa Best MD Referring MD: Naomi Ingram MD Medicines: Monitored Anesthesia Care Patient Profile: This is a 63 year old female. Complications: No immediate complications. Procedure: Pre-Anesthesia Assessment: - Prior to the procedure, a History and Physical was performed, and patient medications and allergies were reviewed. The patient's tolerance of previous anesthesia was also reviewed. The risks and benefits of the procedure and the sedation options and risks were discussed with the patient. All questions were answered, and informed consent was obtained. Prior Anticoagulants: The patient has taken no anticoagulant or antiplatelet agents. ASA Grade Assessment: Per anesthesia. After reviewing the risks and benefits, the patient was deemed in satisfactory condition to undergo the procedure. After obtaining informed consent, the endoscope was passed under direct vision. Throughout the procedure, the patient's blood pressure, pulse, and oxygen saturations were monitored continuously. The pediatric colonoscope was introduced through the mouth, and advanced to the second part of duodenum. The upper GI endoscopy was accomplished without difficulty. The patient tolerated the procedure well. Scope In: 10:07:49 AM Scope Out: 10:13:14 AM Total Procedure Duration Time 0 hours 5 minutes 25 seconds Findings: The Z-line was irregular. Biopsies were taken with a cold forceps for histology. A few localized less than 5 mm erosions with stigmata of recent bleeding were found in the prepyloric region of the stomach. Biopsies were taken with a cold forceps for histology. Biopsies were taken with a cold forceps for Helicobacter pylori cultures. The examined duodenum was normal. The exam was otherwise without abnormality. Impression: - Z-line irregular. Biopsied. - Erosive gastropathy with stigmata of recent bleeding. Biopsied. - Normal examined duodenum. - The examination was otherwise normal. Recommendation: - Await pathology results. - Discharge patient to home. - Resume previous diet. - Continue present medications. - Use Protonix (pantoprazole) 40 mg PO daily. Procedure Code(s): --- Professional --- 21070, PT, Esophagogastroduodenoscopy, flexible, transoral; with biopsy, single or multiple Diagnosis Code(s): --- Professional --- K22.89, Other specified disease of esophagus K92.2, Gastrointestinal hemorrhage, unspecified K22.70, Sol's esophagus without dysplasia CPT copyright 2021 [employer]. All rights reserved. The codes documented in this report are preliminary and upon digital x ray service engineer review may be revised to meet current compliance requirements. MD Merissa Sun MD 02/15/2024 10:44:13 AM This report has been signed electronically. Number of Addenda: 0 Note Initiated On: 02/15/2024 9:32 AM
--- NOTE | 2024-02-15 10:50 | OP.CCLET_ITS ---
02/15/2024 Naomi Ingram MD [address] [place] [address] [place] [address] Re : Colonoscopy procedure for Alicia Berry Dear Dr. Ingram This procedure was performed on Thursday, February 15, 2024. My impressions and recommendations are as follows: Impressions : - Two 3 to 5 mm polyps in the sigmoid colon, removed with a hot snare. Resected and retrieved. - One less than 5 mm polyp in the rectum, removed with a cold biopsy forceps. Resected and retrieved. - The examination was otherwise normal. Recommendations : - Discharge patient to home. - Resume previous diet. - Continue present medications. - Await pathology results. - Repeat colonoscopy in 3 - 5 years for surveillance based on pathology results. My findings are described in the full procedure note, which is enclosed. If I can be of further assistance, please feel free to contact me at Doctor phone number(s): , Work: . Sincerely, MD Merissa Sun MD 02/15/2024 10:50:16 AM This report has been signed electronically.
--- NOTE | 2024-02-15 10:50 | OP.COLON_ITS ---
Patient Name: Alicia Berry Procedure Date: 02/15/2024 10:13 AM Date of : 1960 Age: 63 Procedure: Colonoscopy Indications: High risk colon cancer surveillance: Personal history of colonic polyps Providers: Merissa Best MD Referring MD: Naomi Ingram MD Medicines: Monitored Anesthesia Care Patient Profile: This is a 63 year old female. Last Colonoscopy: 2017. Complications: No immediate complications. Procedure: Pre-Anesthesia Assessment: - Prior to the procedure, a History and Physical was performed, and patient medications and allergies were reviewed. The patient's tolerance of previous anesthesia was also reviewed. The risks and benefits of the procedure and the sedation options and risks were discussed with the patient. All questions were answered, and informed consent was obtained. Prior Anticoagulants: The patient has taken no anticoagulant or antiplatelet agents. ASA Grade Assessment: Per anesthesia. After reviewing the risks and benefits, the patient was deemed in satisfactory condition to undergo the procedure. After I obtained informed consent, the scope was passed under direct vision. Throughout the procedure, the patient's blood pressure, pulse, and oxygen saturations were monitored continuously. The pediatric colonoscope was introduced through the anus and advanced to the cecum, identified by the appendiceal orifice, ileocecal valve and palpation. The colonoscopy was technically difficult and complex due to a tortuous colon. The patient tolerated the procedure well. The quality of the bowel preparation was good. Scope In: 10:14:16 AM Scope Withdrawal Time 0 hours 11 minutes 44 seconds Scope Out: 10:36:48 AM Total Procedure Duration Time 0 hours 22 minutes 32 seconds Findings: The perianal and digital rectal examinations were normal. Two semi-pedunculated polyps were found in the sigmoid colon. The polyps were 3 to 5 mm in size. These polyps were removed with a hot snare. Resection and retrieval were complete. A less than 5 mm polyp was found in the rectum. The polyp was sessile. The polyp was removed with a cold biopsy forceps. Resection and retrieval were complete. The exam was otherwise without abnormality. Impression: - Two 3 to 5 mm polyps in the sigmoid colon, removed with a hot snare. Resected and retrieved. - One less than 5 mm polyp in the rectum, removed with a cold biopsy forceps. Resected and retrieved. - The examination was otherwise normal. Recommendation: - Discharge patient to home. - Resume previous diet. - Continue present medications. - Await pathology results. - Repeat colonoscopy in 3 - 5 years for surveillance based on pathology results. Procedure Code(s): --- Professional --- 01473, PT, Colonoscopy, flexible; with removal of tumor(s), polyp(s), or other lesion(s) by snare technique 15403, 59, Colonoscopy, flexible; with biopsy, single or multiple Diagnosis Code(s): --- Professional --- Z86.010, Personal history of colonic polyps D12.5, Benign neoplasm of sigmoid colon D12.8, Benign neoplasm of rectum CPT copyright 2021 [employer]. All rights reserved. The codes documented in this report are preliminary and upon jig and fixture builder apprentice review may be revised to meet current compliance requirements. MD Merissa Sun MD 02/15/2024 10:50:16 AM This report has been signed electronically. Number of Addenda: 0 Note Initiated On: 02/15/2024 10:13 AM
[2024-02-15 10:51] VITALS: BP 126/58; BP 135/96; PULSE 74; RESP 16; TEMP 36.1; O2SAT 96
[2024-02-15 11:21] VITALS: BP 135/96
== END 2024-02-15 11:22 | disposition home or self-care (01) ==
LOC: EN 09:30 → AC 09:32
PROVIDERS: PCP Internal Medicine; Referring Provider Internal Medicine; Visit Provider Surgery
PROC: 0DJD8ZZ Inspection of Lower Intestinal Tract, Via Natural or Artificial Opening Endoscopic (ICD-10-PCS; CPT 45378; principal; 2024-02-15 10:25)
DX: Z12.11 Encounter for screening for malignant neoplasm of colon (principal); K22.70 Barrett's esophagus without dysplasia; K62.1 Rectal polyp; E78.00 Pure hypercholesterolemia, unspecified; F17.210 Nicotine dependence, cigarettes, uncomplicated; Z80.0 Family history of malignant neoplasm of digestive organs; Z86.010 Personal history of colon polyps; K21.00 Gastro-esophageal reflux disease with esophagitis, without bleeding; Z79.899 Other long term (current) drug therapy; K29.50 Unspecified chronic gastritis without bleeding
CPT/HCPCS: 45385; 45380; 43239; 88305; 88342; J7120

== ENCOUNTER 2024-02-25 18:45 | Emergency (ER) | payer OTHER, SELFPAY ==
[2024-02-25 18:46] VITALS: BP 170/78; PULSE 92; RESP 14; TEMP 35.5; O2SAT 100; BMI 27.9
--- NOTE | 2024-02-25 19:37 | EX.ED.DYSGE1 ---
HPI History of Present Illness Chief Complaint: Allergic Reaction Narrative Narrative: Concerns for sudden swelling right side of face and neck half hour ago after eating avocado and a little sardines. She has eaten this in the past. No trouble swallowing no dyspnea. 10 days post EGD with reported gastritis. She is on pantoprazole and Carafate for 2 weeks. Denies abdominal pain. Denies history of similar. Reports it was firm on her right jawline and upper neck region. Prior similar symptoms: No PFSH PFSH Medical History Sol esophagus Breast cancer, right Cancer Colon cancer screening Difficulty chewing Effusion, right knee Encounter for screening for malignant neoplasm of lung in current smoker with 30 pack year history or greater GERD (gastroesophageal reflux disease) GI problem High cholesterol History of breast cancer History of stress test Hyperlipidemia leep cone Osteopenia Restless legs Right knee pain Seasonal allergies Smoker Tobacco use disorder, continuous Wears glasses Home Medications dshfzxrs-rbn-bvttr ac 400 mcg-calcium carb 500 mg-vit K1 20 mcg tablet 1 ea PO DAILY SUPPLEMENT 12/07/18 [History Last Taken Unknown] omega-3 fatty acids 1,000 mg capsule 2,000 mg PO DAILY SUPPLEMENT 12/07/18 [History Last Taken Unknown] cholecalciferol (vitamin D3) 50 mcg (2,000 unit) capsule 50 mcg PO DAILY 10/09/20 [History Last Taken Unknown] olopatadine 0.2 % eye drops (Pataday Once Daily Relief) 1 drp ophthalmic (eye) QAM PRN itching 07/17/23 [History Last Taken Unknown] pantoprazole 40 mg tablet,delayed release 40 mg PO DAILY #30 tabs 02/15/24 [Rx Last Taken Unknown] sucralfate 1 gram tablet 1 g PO 4X/DAY #56 tabs 02/15/24 [Rx Last Taken Unknown] Allergy/AdvReac Type Severity Reaction Status Date / Time Penicillins Allergy Swelling Verified 02/25/24 18:47 Family History Sister Colon cancer Thyroid disorder Mother Arthritis Hypertension Mental disorder Psychiatric care Thyroid disorder Father Hypertension Thyroid disorder Grandmother Mental disorder Brother Thyroid disorder Surgical History H/O LEEP History of section History of colonoscopy with polypectomy History of esophagogastroduodenoscopy (EGD) History of lumpectomy of right breast History of right mastectomy History of tonsillectomy History of tooth extraction (~08/2023) History of wisdom tooth extraction Social History Smoking Status: Current every day smoker tobacco type: cigarettes Tobacco: How many years used: 50 Electronic Cigarette Use: not used second hand exposure: No quit status: considering quitting alcohol intake: never substance use type: does not use what type of physical activity do you participate in: other details: AROUND THE HOUSE ROS ROS ED Constitutional Constitutional ED: Denies chills, fever(s) or sweats Eyes Eyes: Denies change in vision ENT ENT ED: Reports other Details: Right side facial swelling ; Denies dysphagia or sore throat Cardiovascular Cardiovascular: Denies chest pain, leg edema, palpitations or racing heartbeat Respiratory/Chest Respiratory/Chest: Denies cough, dyspnea or dyspnea on exertion Gastrointestinal Gastrointestinal: Denies abdominal pain, diarrhea, nausea or vomiting Genitourinary Genitourinary ED: Denies dysuria, hematuria or urinary frequency Musculoskeletal Musculoskeletal: Denies back pain, extremity pain or neck pain Integumentary Denies rash or wounds Neurologic Neurologic: Denies headache(s), paresthesias or weakness EXAM Physical Exam Const Vital Signs: 02/25/24 18:46 Temperature 96 F L Temperature Source Temporal Pulse Rate 92 Respiratory Rate 14 Blood Pressure 170/78 H Blood Pressure Mean 108 Pulse Ox 100 Positive well nourished and well developed General Appearance ED: well developed and NAD HEENT Reports moist mucous membranes HEENT Narrative: No lip or tongue swelling. No stridor. Slight swelling noted submandibular asymmetric right compared to left. Airway patent. normocephalic and atraumatic Eyes PERRL, EOMs intact bilaterally and conjunctivae normal General Eye ED: Yes normal appearance of both eyes Neck no lymphadenopathy and supple General: Negative for tenderness Chest Wall Chest: Negative for tenderness Resp normal respiratory effort and normal air movement Effort and Inspection: symmetric chest movement; Negative for respiratory distress Cardio regular rate, regular rhythm and no murmurs Peripheral Pulses: pulses 2+ throughout GI normal to inspection, nondistended, normoactive bowel sounds and non-tender Palpation: Negative for guarding or rebound tenderness present Back/Spine no CVA tenderness and no thoracic nor lumbar tenderness Extremity normal to inspection General Extremety ED: Negative for edema or tenderness General Extremity: Negative for edema Neuro oriented x3 and no sensory deficits noted Sensorium / Orientation: awake and alert Skin no rashes or lesions noted and no wounds MDM MDM MDM Narrative Medical decision making narrative: Interventions / MDM: Differential diagnosis: Allergic reaction, facial swelling Diagnosis considered but do not suspect: No clinical infection. My EKG interpretation: N/A Imaging independently reviewed and interpreted by myself: N/A External documents reviewed: N/A Test considered but not ordered:N/A ED course: Patient no airway compromise she has asymmetric swelling currently is not as firm. She did confirm that it is improving. Order for Benadryl and Pepcid avoided prednisone as she is dealing with gastritis on medication with recent EGD. 193: Apparently patient declined Benadryl and Pepcid. She states she has this at home. Her swelling was more improved on reevaluation. Discussed if symptoms recur to take Benadryl and Pepcid with strict return precautions. All questions were answered. Re-evaluation: stable Disposition discussed with patient/family/significant other: Patient Case discussed with consulting clinician: N/A This note was generated with [employer] dictation software. It may contain incorrect words, spelling, and punctuation that were not noted in checking the note before signing. Discharge Plan Triage Chief Complaint: Allergic Reaction ED Provider: Henry Phillips Dx/Rx/DC Orders Clinical Impression: Right facial swelling, Allergic reaction Instructions: ED Allergic Reaction Local Other Prescriptions: No Action cholecalciferol (vitamin D3) 50 mcg (2,000 unit) capsule 50 mcg PO DAILY olopatadine [Pataday Once Daily Relief] 0.2 % drops 1 drp ophthalmic (eye) QAM PRN (Reason: itching) omega-3 fatty acids 1,000 MG capsule 2,000 mg PO DAILY [id number]-calcium carb-K1 1 EACH tablet 1 ea PO DAILY sucralfate [sucralfate] 1 gram tablet 1 g PO 4X/DAY Qty: 56 0RF Rx Instructions: Take 1 hour before meals and at bedtime pantoprazole 40 mg tablet,delayed release (DR/EC) 40 mg PO DAILY Qty: 30 3RF Primary Care Provider: Naomi Ingram Referrals: Naomi Ingram MD [Primary Care Provider] - 1 Week Activity Restrictions/Additional Instructions: Your symptoms are improving while in the ED. You declined the medications. May use Benadryl 25 mg every 6 hours as needed. Use Pepcid daily for the next 5 days. If symptoms worsens, return to the ED for reevaluation. Disposition Disposition: Home, Self Care
[2024-02-25 19:57] VITALS: BP 120/64; PULSE 92; RESP 16; TEMP 36.8; O2SAT 100
== END 2024-02-25 19:58 | disposition home or self-care (01) ==
PROVIDERS: Emergency Provider Emergency Medicine; PCP Internal Medicine; Visit Provider Emergency Medicine
DX: R22.0 Localized swelling, mass and lump, head (principal); T78.40XA Allergy, unspecified, initial encounter; F17.210 Nicotine dependence, cigarettes, uncomplicated; E78.00 Pure hypercholesterolemia, unspecified; K21.9 Gastro-esophageal reflux disease without esophagitis; Z79.899 Other long term (current) drug therapy
CPT/HCPCS: 99282

== ENCOUNTER → 2024-04-28 | Outpatient (CLI) | payer OTHER, SELFPAY ==
[2024-04-28 17:09] LABS: ALB/GLOB Ratio 0.9 RATIO (0.9-2.4); AST(SGOT) 13 U/L (15-37); Alanine Aminotransfer ALT/SGPT 16 U/L (13-56); Albumin, Serum 3.5 g/dL (3.2-5.0); Alkaline Phosphatase 77 U/L (45-117); Anion Gap 6 (5-15); BUN 13 mg/dL (7-18); BUN/Creat Ratio 15.3 RATIO (10-20); Calcium,Total 9.3 mg/dL (8.5-10.1); Chloride 108 mmol/L (98-107); Cholesterol 253 mg/dL (200); Creatinine, Serum 0.85 mg/dL (0.55-1.02); EST Glomerular Filtration Rate 72 mL/min (>60); Est Glom Filt Rate - Afr Amer 87 mL/min (>60); Globulin 3.8 g/dL (2.2-4.2); Glucose 109 mg/dL (74-106); High Density Lipoprotein 50 mg/dL; Potassium 4.6 mmol/L (3.5-5.1); Protein, Total 7.3 g/dL (6.4-8.2); Sodium Level 139 mmol/L (136-145); Triglycerides 151 mg/dL; Very Low Density Lipoprotein 30 mg/dL (5-40)
== END | disposition home or self-care (01) ==
LOC: BIMLAB 14:39
PROVIDERS: PCP Internal Medicine; Visit Provider Internal Medicine
DX: E78.5 Hyperlipidemia, unspecified (principal)
CPT/HCPCS: 36415; 80053; 80061

== ENCOUNTER → 2025-03-24 | Outpatient (CLI) | payer MEDICARE, OTHER, SELFPAY ==
[2025-03-24 12:25] LABS: Absolute Lymphocyte Count 3.17 X10^3/uL (0.83-4.51); Absolute Neutrophil Count 5.9 X10^3/uL (2.0-7.7); Basophil# 0.07 X10^3/uL; Basophil% 0.7 % (0-1); Eosinophil# 0.23 X10^3/uL; Eosinophils% 2.3 % (0-5); Hematocrit 34.8 % (37-47); Hemoglobin 11.1 g/dL (12.0-15.0); Lymphocyte # 3.17 X10^3/ul (0.83-4.51); Lymphocyte % 31.8 % (19-41); Mean Corp Hgb Conc 31.9 g/dL (32-36); Mean Corpuscular Hgb 28.7 pg (27.0-32.0); Mean Corpuscular Volume 89.9 fL (81-99); Mean Platelet Vol. 8.9 fl (6.2-12.0); NRBC Flagged by Analyzer 0 % (0-5); Neutrophil # 5.86 X10^3/uL (2.7-7.7); Neutrophil % 58.9 % (47-70); Platelet Count 357 K/mm3 (150-450); RBC Distribution Width CV 13.2 % (11.6-14.6); RBC Distribution Width SD 43.8 fl (35.1-43.9); Red Blood Count 3.87 M/mm3 (4.2-5.4)
[2025-03-24 12:49] LABS: ALB/GLOB Ratio 1.5 RATIO (0.9-2.4); AST(SGOT) 20 U/L (<=31); Alanine Aminotransfer ALT/SGPT 15 U/L (<=34); Albumin, Serum 4.1 g/dL (3.4-4.8); Alkaline Phosphatase 82 U/L (35-104); Anion Gap 10 (5-15); BUN 12 mg/dL (4-19); BUN/Creat Ratio 15.8 RATIO (10-20); Calcium,Total 9.2 mg/dL (7.6-11.0); Carbon Dioxide 21.6 mmol/L (21.0-32.0); Chloride 107 mmol/L (98-108); Cholesterol 268 mg/dL (<=200); Creatinine, Serum 0.76 mg/dL (0.70-1.20); EST Glomerular Filtration Rate 86 (>60); Globulin 2.8 g/dL (2.2-4.2); Glucose 94 mg/dL (70-99); High Density Lipoprotein 49 mg/dL; Low Density Lipoprotein Calc. 166 mg/dL; Potassium 4.1 mmol/L (3.3-5.1); Sodium Level 138 mmol/L (133-145); Total Bilirubin 0.15 mg/dL (0.00-1.30); Triglycerides 264 mg/dL; Very Low Density Lipoprotein 53 mg/dL (5-40); cholesterol:hdl ratio screen 5.43
== END | disposition home or self-care (01) ==
LOC: BIMLAB 11:04
PROVIDERS: PCP Internal Medicine; Referring Provider Internal Medicine; Visit Provider Internal Medicine
DX: E78.5 Hyperlipidemia, unspecified (principal)
CPT/HCPCS: 36415; 80053; 80061; 85025

== ENCOUNTER → 2025-04-20 | Outpatient (CLI) | payer MEDICARE, OTHER, SELFPAY ==
--- NOTE | 2025-04-20 07:59 | CT_ITS ---
PROCEDURE: LOW DOSE CT LUNG SCREENING 04/20/2025 REASON FOR EXAM: LUNG CA SCREENING 1 pack per day smoker times 50 years. History of right breast cancer TECHNIQUE: LOW DOSE CT LUNG SCREENING Coronal and Sagittal reconstruction series were provided. One or more dose reduction techniques were used (e.g., Automated exposure control, adjustment of the mA and/or kV according to patient size, use of iterative reconstruction technique). REFERENCE LINK: [email or web address] Lung-RADS RADIATION DOSE SUMMARY: CTDlvol: 12.19 mGy DLP: 292.45 mGycm COMPARISON: 10/22/2021 FINDINGS: PULMONARY NODULES: (Only nodules >3mm are reported) Lung windows show underlying emphysema with chronic interstitial changes in both lung wooten. Chronic bronchitis noted without organized infiltrate or effusion. No suspicious noncalcified mass or nodule. No significant interval change compared to the previous study. Limited soft tissue windows show a normal-appearing thyroid gland. No suspicious axillary mediastinal or perihilar adenopathy. There are punctate coronary artery calcifications. Evidence of previous mastectomy. Limited cuts of the upper abdomen show stable enlargement of the left adrenal gland. Bony structures show degenerative change CT/Low Dose CT Lung Screening IMPRESSION: No suspicious noncalcified mass or nodule. Chronic interstitial changes in bot h lung wooten without a superimposed process or significant change since the previous study Coronary artery calcification (CAC) is is present Lung-RADS Category: 2 BENIGN (BASED ON IMAGING FEATURES OR INDOLENT BEHAVIOR). RECOMMEND 12-MONTH SCREENING LDCT. Other Significant Findings: Reading Location: [id number]
--- OUTSIDE RECORDS SUMMARY | 2025-04-20 08:19 | XMS RPT_ITS | CCD ---
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 Naomi Devine Primary Care Provider [phone] Dr. Naomi Ingram Attending Provider [phone] Dr. Naomi Ingram Referring Provider [phone] Dr. Naomi Ingram Primary Care Provider [phone] Dr. Naomi Ingram Attending Provider [phone] Dr. Naomi Ingram Referring Provider [phone] Dr. Merissa Best Attending Provider Dr. Merissa Best Other Provider ADRIAN PINEDA MD Attending NAOMI Draper MD Primary Care NAOMI Devine MD Primary Care ADRIAN Paez MD Attending Dr. Naomi Draper MD Primary Care Provider Dr. Naomi Ingram MD Attending Provider [phone] Dr. Naomi Ingram MD Referring Provider [phone] Naomi Ingram Attending Naomi Draper Referring Naomi Draper Primary Care Unavailable Oleghe, Efewongbe Attending Unavailable Oleghe, Efewongbe Primary Care Unavailable Oleghe, Efewongbe Attending Unavailable Oleghe, Efewongbe Referring Unavailable Oleghe, Efewongbe Primary Care Unavailable Oleghe, Efewongbe Attending Unavailable Oleghe, Efewongbe Referring Unavailable Oleghe, Efewongbe Primary Care Unavailable Oleghe, Efewongbe Attending Unavailable Oleghe, Efewongbe Referring Unavailable Oleghe, Efewongbe Primary Care Unavailable Oleghe, Efewongbe Attending Unavailable Oleghe, Efewongbe Referring Unavailable Oleghe, Efewongbe Primary Care Unavailable Allergies Allergy Classification Reported Allergen(s) Allergy Type Date of Onset Reaction(s) Facility (8 sources) Penicillins; Translations: [Penicillins] Allergy to substance 2 [facility] (2 sources) Penicillin; Translations: [penicillin] Drug Allergy as a young child, thinks she had swelling [facility] Medications Current Medications Medication Drug Class(es) Dates Sig (Normalized) Sig (Original) boswalia (2 sources) Start: 03-24-2025 boswalia Active PO DAILY March 24, 2025 12:00am joint pain daily cholecalciferol 0.05 mg oral capsule (7 sources) Vitamin D Start: 10-09-2020 take 1 capsule by mouth once daily Cholecalciferol (Vitamin D3) 50 mcg (2,000 unit) capsule Active 50 ug PO DAILY October 09, 2020 1:00am Fish Oils (2 sources) Start: 07-15-2023 Fish Oil 1000 mg oral capsule Dose : 1,000 mg = 1 cap(s), Oral, 0 Refill(s) Start Date: 07/15/23 Status: Ordered Repeat number: 1 Start: 07-15-2023 Fish Oil 1000 mg oral capsule Dose : 1,000 mg = 1 cap(s), Oral, 0 Refill(s) Start Date: 07/15/23 Status: Ordered Multivitamin preparation (2 sources) Start: 07-15-2023 take 1 tablet by mouth once daily Multivitamin Dose = 1 tab(s), Oral, Daily, 0 Refill(s) Start Date: 07/15/23 Status: Ordered Repeat number: 1 Start: 07-15-2023 take 1 tablet by yadira th once daily Multivitamin Dose = 1 tab(s), Oral, Daily, 0 Refill(s) Start Date: 07/15/23 Status: Ordered Ng-Lof-Zcekc-Calcium Carb-K1 (5 sources) Start: 12-07-2018 St-Xzv-Ekhhi-C alcium Carb-K1 Active 1 EACH PO DAILY December 07, 2018 12:00am Start: 12-07-2018 Hl-Qdu-Npwus-C alcium Carb-K1 Active 1 EACH PO DAILY December 07, 2018 1:00am Wg-Rnd-Tfgdi-Calcium Carb-K1 1 EACH tablet (2 sources) Start: 12-07-2018 take 1 tablet by mouth once daily Ya-Uey-Umuua-Calcium Carb-K1 1 EACH tablet Active 1 NMA PO DAILY December 07, 2018 1:00am olopatadine 2 mg/ml ophthalmic solution (5 sources) Histamine-1 Receptor Inhibitor Start: 07-17-2023 take 0.2 drop(s) into the eye(s) once daily in the morning as needed Olopatadine (Pataday Once Daily Relief) 0.2 % drops Active 1 NMA OPHTHALMIC EVERY MORNING as needed for itching July 17, 2023 12:00am Start: 07-17-2023 take 0.2 drop(s) int o the eye(s) once daily in the morning Olopatadine (Pataday Once Daily Relief) 0.2 % drops Active 1 DRP OPHTHALMIC EVERY MORNING July 17, 2023 12:00am Dresden-3 Fatty Acids (5 sources) Start: 12-07-2018 take 2000 mg by mout h once daily Dresden-3 Fatty Acids Active 2000 MG PO DAILY December 07, 2018 12:00am Start: 12-07-2018 take 2000 mg by mouth once ciera ly Dresden-3 Fatty Acids Active 2000 MG PO DAILY December 07, 2018 1:00am Dresden-3 Fatty Acids 1,000 MG capsule (2 sources) Start: 12-07-2018 take 1 capsule by mouth once daily Dresden-3 Fatty Acids 1,000 MG capsule Active 2000 mg PO DAILY December 07, 2018 1:00am Vitamin D3 (2 sources) Start: 07-15-2023 Vitamin D3 qDa y, 0 Refill(s) Start Date: 07/15/23 Status: Ordered Repeat number: 1 Start: 07-15-2023 Vitamin D3 qDa y, 0 Refill(s) Start Date: 07/15/23 Status: Ordered Completed/Discontinued Medications Medication Drug Class(es) Dates Sig (Normalized) Sig (Original) 24 hr nicotine 0.875 mg/hr transdermal system (5 sources) Cholinergic Nicotinic Agonist Start: 07-17-2023 End: 02-10-2024 apply 1 dose transdermal route every twenty-four hours Nicotine 21 mg/24 hr patch 24 hour Discontinued 1 NMA TD Q24H July 17, 2023 12:00am February 10, 2024 2:01pm Start: 07-17-2023 End: 02-10-2024 apply 1 dose transdermal route every twenty-four hours Nicotine Discontinued 1 PATCH TD Q24H July 17, 2023 12:00am February 10, 2024 2:01pm omeprazole 40 mg delayed release oral capsule (12 sources) Proton Pump Inhibitor Start: 11-05-2023 End: 12-09-2023 take 1 capsule by mouth once daily 30 minutes before breakfast Omeprazole 40 mg capsule,delayed release(DR/EC) Discontinued 40 mg PO DAILY November 05, 2023 1:00am December 09, 2023 4:03pm Take 30 minutes before breakfast Start: 12-07-2018 End: 10-25-2020 take 1 tablet by mouth once daily Omeprazole 20 MG tablet,delayed release (DR/EC) Discontinued 20 mg PO DAILY December 07, 2018 1:00am October 25, 2020 6:57pm pantoprazole 40 mg delayed release oral tablet (7 sources) Proton Pump Inhibitor Start: 02-15-2024 End: 03-24-2025 take 1 tablet by mouth once daily 30 minutes before breakfast Pantoprazole 40 mg tablet,delayed release (DR/EC) Discontinued 40 mg PO DAILY April 28, 2024 12:00am March 24, 2025 10:43am Take 30 minutes before breakfast sucralfate 1000 mg oral tablet (4 sources) Aluminum Complex Start: 02-15-2024 End: 04-28-2024 take 1 tablet by mouth four times daily 1 hour(s) before bedtime Sucralfate 1 gram tablet Discontinued 1 g PO 4 TIMES DAILY February 15, 2024 12:00am April 28, 2024 1:53pm Take 1 hour before meals and at bedtime Problems Active Problems Problem Classification Problem Date Documented Date Episodic/Chronic Allergic reactions (3 sources) Allergic reaction; Translations: [Allergy, unspecified, initial encounter] 02-25-2024 Episodic Disorders of lipid metabolism (12 sources) Hyperlipidemia; Translations: [Hyperlipidemia, unspecified] Onset: 04-05-2025 07-17-2023 Chronic Esophageal disorders (14 sources) Sol's esophagus; Translations: [Sol's esophagus without dysplasia] 11-05-2023 Chronic Essential hypertension (5 sources) Hypertensive disorder; Translations: [Essential (primary) hypertension] Onset: 04-05-2025 04-28-2024 Chronic Gastritis and duodenitis (5 sources) Chronic gastritis; Translations: [Unspecified chronic gastritis without bleeding] Onset: 04-05-2025 03-24-2025 Chronic Nonmalignant breast conditions (1 source) Other specified disorders of breast; Translations: [Other specified disorders of breast] Onset: 03-10-2025 Episodic Other and unspecified benign neoplasm (4 sources) History of polyp of colon; Translations: [Personal history of colonic polyps] 12-09-2023 Episodic Other and unspecified benign neoplasm (4 sources) Personal history of colonic polyps; Translations: [Personal history of colonic polyps] 12-09-2023 Episodic Other bone disease and musculoskeletal deformities (7 sources) Osteopenia; Translations: [Other specified disorders of bone density and structure, unspecified site] 11-05-2023 Episodic Other bone disease and musculoskeletal deformities (4 sources) Other specified disorders of bone density and structure, unspecified site; Translations: [Disorder of bone and cartilage, unspecified] Onset: 04-05-2025 11-05-2023 Episodic Other bone disease and musculoskeletal deformities (1 source) Other specified disorders of bone density and structure, left thigh; Translations: [Other specified disorders of bone density and structure, left thigh] Onset: 03-10-2025 Episodic Other female genital disorders (2 sources) Dysplasia of cervix uteri, unspecified; Translations: [Dysplasia of cervix uteri, unspecified] Onset: 07-15-2023 Episodic Other non-traumatic joint disorders (5 sources) Effusion of right knee joint; Translations: [Effusion, right knee] 07-27-2023 Episodic Other non-traumatic joint disorders (5 sources) Pain in right knee; Translations: [Right knee pain] 07-17-2023 Episodic Other screening for suspected conditions (not mental disorders or infectious disease) (20 sources) Patient encounter status; Translations: [Encounter for screening for malignant neoplasm of respiratory organs] Onset: 03-10-2025 10-22-2021 Episodic Other skin disorders (3 sources) Facial swelling ; Translations: [Localized swelling, mass and lump, head] 02-25-2024 Episodic Residual codes; unclassified (4 sources) Family history of cancer of colon; Translations: [Family history of malignant neoplasm of digestive organs] 12-09-2023 Episodic Comment on above: Sister diagnosed at age 61 Residual codes; unclassified (4 sources) Family history of malignant neoplasm of digestive organs; Translations: [Family history of malignant neoplasm of gastrointestinal tract] 12-09-2023 Episodic Substance-related disorders (12 sources) Tobacco dependence, continuous; Translations: [Nicotine dependence, unspecified, with unspecified nicotine-induced disorders] Onset: 04-05-2025 07-17-2023 Chronic Unclassified (1 source) Mammographic fibroglandular density, left breast; Translations: [Mammographic fibroglandular density, left breast] Onset: 03-10-2025 Past or Other Problems Problem Classification Problem Date Documented Da te Episodic/Chronic Unclassified (5 sources) [place] 05-09-2022 Results Test Name Value Interpretation Reference Range Facility Absolute lymphocyte countOrd ered By: Naomi Ingram on 03-24-2025 Lymphocytes Auto (Unsp spec) [#/Vol] 3.17 10*3/uL 0.83-4.51 [facility] Absolute neutrophil countOrd ered By: Naomi Ingram on 03-24-2025 Neutrophils (Bld) [#/Vol] 5.9 10*3/uL 2.0-7.7 [facility] Anion gap in Serum or Plasma Ordered By: Naomi Ingram on 03-24-2025 Anion gap [Moles/Vol] 10 mmol/L 5-15 [facility] Automated lymphocyte count a s percentage of total leukocytesOrdered By: Naomi Ingram on 03-24-2025 Lymphocytes/100 WBC Auto (Unsp spec) 31.8 % 19-41 [facility] BUN/creatinine ratioOrdered By: Naomi Ingram on 03-24-2025 Urea nitrogen/Creatinine [Mass ratio] 15.8 mg/mg 10-20 [facility] Basophil percentageOrdered B y: Naomi Ingram on 03-24-2025 Basophils/100 WBC (Bld) 0.7 % 0-1 [facility] Bilirubin, totalOrdered By: Naomi Ingram on 03-24-2025 Bilirubin [Mass/Vol] 0.15 mg/dL 0.00-1.30 [facility] CBC W/Diff, Automatedon Absolute Lymph 3.17 X10 3/uL Normal 0.83-4.51 [facility] Comment on above: Performed By: #### L 100.0100, L500.4050, L500.4100 #### [facility] [address] [place], [address] Absolute Neut 5.9 X10 3/uL Normal 2.0-7.7 [facility] Comment on above: Performed By: #### L 100.0100, L500.4050, L500.4100 #### [facility] [address] [place], [address] Basophils/100 WBC (Bld) 0.7 % Normal 0-1 [facility] Comment on above: Performed By: #### L 100.0100, L500.4050, L500.4100 #### [facility] [address] [place], [address] Eosinophils/100 WBC (Bld) 2.3 % Normal 0-5 [facility] Comment on above: Performed By: #### L 100.0100, L500.4050, L500.4100 #### [facility] [address] [place], [address] Erythrocyte distribution width (RBC) [Ratio] 13.2 % Normal 11.6-14.6 [facility] Comment on above: Performed By: #### L 100.0100, L500.4050, L500.4100 #### [facility] [address] [place], [address] Hematocrit (Bld) [Volume fraction] 34.8 % Low 37-47 [facility] Comment on above: Performed By: #### L 100.0100, L500.4050, L500.4100 #### [facility] [address] [place], [address] Hemoglobin (Bld) [Mass/Vol] 11.1 g/dL Low 12.0-15.0 [facility] Comment on above: Performed By: #### L 100.0100, L500.4050, L500.4100 #### [facility] [address] [place], [address] IG% 0.300 Normal 0.0-0.9 [facility] Comment on above: Result Comment: IG% - Immature Granulocytes (promyelocytes, myelocytes and metamyelocytes) > 1% indicates that a LEFT SHIFT is Present. Performed By: #### L 100.0100, L500.4050, L500.4100 #### [facility] [address] [place], [address] Lymphocytes/100 WBC (Bld) 31.8 % Normal 19-41 [facility] Comment on above: Performed By: #### L 100.0100, L500.4050, L500.4100 #### [facility] [address] [place], [address] MCH (RBC) [Entitic mass] 28.7 pg Normal 27.0-32.0 [facility] Comment on above: Performed By: #### L 100.0100, L500.4050, L500.4100 #### [facility] [address] [place], [address] MCHC (RBC) [Mass/Vol] 31.9 g/dL Low 32-36 [facility] Comment on above: Performed By: #### L 100.0100, L500.4050, L500.4100 #### [facility] [address] [place], [address] MCV (RBC) [Entitic vol] 89.9 fL Normal 81-99 [facility] Comment on above: Performed By: #### L 100.0100, L500.4050, L500.4100 #### [facility] [address] [place], [address] Monocytes/100 WBC (Bld) 6.0 % Normal 0-10 [facility] Comment on above: Performed By: #### L 100.0100, L500.4050, L500.4100 #### [facility] [address] [place], [address] Neutrophils/100 WBC (Bld) 58.9 % Normal 47-70 [facility] Comment on above: Performed By: #### L 100.0100, L500.4050, L500.4100 #### [facility] [address] [place], [address] Nucleated RBC (Bld) [#/Vol] 0 10*3/uL Normal 0-5 [facility] Comment on above: Performed By: #### L 100.0100, L500.4050, L500.4100 #### [facility] [address] [place], [address] Platelet mean volume (Bld) [Entitic vol] 8.9 fL Normal 6.2-12.0 [facility] Comment on above: Performed By: #### L 100.0100, L500.4050, L500.4100 #### [facility] [address] [place], [address] Platelets (Bld) [#/Vol] 357 10*3/uL Normal 150-450 [facility] Comment on above: Performed By: #### L 100.0100, L500.4050, L500.4100 #### [facility] [address] [place], [address] RBC (Bld) [#/Vol] 3.87 10*6/uL Low 4.2-5.4 [facility] Comment on above: Performed By: #### L 100.0100, L500.4050, L500.4100 #### [facility] [address] [place], [address] RDW SD 43.8 fl Normal 35.1-43.9 [facility] Comment on above: Performed By: #### L 100.0100, L500.4050, L500.4100 #### [facility] [address] [place], [address] WBC (Bld) [#/Vol] 10.0 10*3/uL Normal 4.4-11.0 [facility] Comment on above: Performed By: #### L 100.0100, L500.4050, L500.4100 #### [facility] [address] [place], [address] Calculated very low density lipoprotein (VLDL) cholesterol measurementOrdered By: Naomi Ingram on 03-24-2025 Calculated very low density lipoprotein (VLDL) cholesterol measurement 53 mg/dL High 5-40 [facility] Carbon dioxide, total [Moles /volume] in Central venous bloodOrdered By: Naomi Ingram on 03-24-2025 CO2 [Moles/Vol] 21.6 mmol/L 21.0-32.0 [facility] Chloride assayOrdered By: Jeremiah Ingram on 03-24-2025 Chloride [Moles/Vol] 107 mmol/L 98-108 [facility] Comprehensive Metabolic Prof ilon 03-24-2025 Albumin [Mass/Vol] 4.1 g/dL Normal 3.4-4.8 [facility] Comment on above: Performed By: #### L 100.0100, L500.4050, L500.4100 #### [facility] [address] [place], [address] Albumin/Globulin [Mass ratio] 1.5 {ratio} Normal 0.9-2.4 [facility] Comment on above: Performed By: #### L 100.0100, L500.4050, L500.4100 #### [facility] [address] [place], [address] ALK PHOS 82 U/L Normal 35-104 [facility] Comment on above: Performed By: #### L 100.0100, L500.4050, L500.4100 #### [facility] [address] [place], [address] ALT [Catalytic activity/Vol] 15 U/L Normal <=34 [facility] Comment on above: Performed By: #### L 100.0100, L500.4050, L500.4100 #### [facility] [address] [place], [address] AST [Catalytic activity/Vol] 20 U/L Normal <=31 [facility] Comment on above: Performed By: #### L 100.0100, L500.4050, L500.4100 #### [facility] [address] [place], [address] Bilirubin [Mass/Vol] 0.15 mg/dL Normal 0.00-1.30 [facility] Comment on above: Performed By: #### L 100.0100, L500.4050, L500.4100 #### [facility] [address] [place], [address] BUN/CRE 15.8 RATIO Normal 10-20 [facility] Comment on above: Performed By: #### L 100.0100, L500.4050, L500.4100 #### [facility] [address] [place], [address] Calcium [Mass/Vol] 9.2 mg/dL Normal 7.6-11.0 [facility] Comment on above: Performed By: #### L 100.0100, L500.4050, L500.4100 #### [facility] [address] [place], [address] Chloride [Moles/Vol] 107 mmol/L Normal 98-108 [facility] Comment on above: Performed By: #### L 100.0100, L500.4050, L500.4100 #### [facility] [address] [place], [address] CO2 [Moles/Vol] 21.6 mmol/L Normal 21.0-32.0 [facility] Comment on above: Performed By: #### L 100.0100, L500.4050, L500.4100 #### [facility] [address] [place], [address] Creatinine [Mass/Vol] 0.76 mg/dL Normal 0.70-1.20 [facility] Comment on above: Performed By: #### L 100.0100, L500.4050, L500.4100 #### [facility] [address] [place], [address] GAP 10 Normal 5-15 [facility] Comment on above: Performed By: #### L 100.0100, L500.4050, L500.4100 #### [facility] [address] [place], [address] GFR/1.73 sq M.predicted among non-blacks MDRD (S/P/Bld) [Vol rate/Area] 86 mL/min/{1.73_m2} Normal >60 [facility] Comment on above: Result Comment: mL/m in/1.73m2 CKD-EPI Creatinine Equation (2020) Performed By: #### L 100.0100, L500.4050, L500.4100 #### [facility] [address] [place], [address] Globulin (S) [Mass/Vol] 2.8 g/dL Normal 2.2-4.2 [facility] Comment on above: Performed By: #### L 100.0100, L500.4050, L500.4100 #### [facility] [address] [place], [address] Glucose [Mass/Vol] 94 mg/dL Normal 70-99 [facility] Comment on above: Performed By: #### L 100.0100, L500.4050, L500.4100 #### [facility] [address] [place], [address] Potassium [Moles/Vol] 4.1 mmol/L Normal 3.3-5.1 [facility] Comment on above: Performed By: #### L 100.0100, L500.4050, L500.4100 #### [facility] [address] [place], [address] Sodium [Moles/Vol] 138 mmol/L Normal 133-145 [facility] Comment on above: Performed By: #### L 100.0100, L500.4050, L500.4100 #### [facility] [address] [place], [address] T PROT 7.0 g/dL Normal 5.9-8.4 [facility] Comment on above: Performed By: #### L 100.0100, L500.4050, L500.4100 #### [facility] [address] [place], [address] Urea nitrogen [Mass/Vol] 12 mg/dL Normal 4-19 [facility] Comment on above: Performed By: #### L 100.0100, L500.4050, L500.4100 #### [facility] [place], [address] Eosinophil percentageOrdered By: Naomi Ingram on 03-24-2025 Eosinophils/100 WBC (Bld) 2.3 % 0-5 [facility] Erythrocyte distribution wid th ratioOrdered By: [facility] on 03-24-2025 Erythrocyte distribution width (RBC) [Ratio] 13.2 % 11.6-14.6 [facility] Erythrocyte distribution wid th standard deviationOrdered By: harshacusterpamela Ingram on 03-24-2025 Erythrocyte distribution width (RBC) [Ratio] 43.8 fl 35.1-43.9 [facility] Glomerular filtration rate ( GFR) estimation/1.73 sq m using serum, plasma, or whole bOrdered By: harshacusterpamela Ingram on 03-24-2025 GFR/1.73 sq M.predicted among non-blacks MDRD (S/P/Bld) [Vol rate/Area] 86 mL/min/{1.73_m2} >60 [facility] Comment on above: mL/min/1.73m2 CKD-EP I Creatinine Equation (2020) Hematocrit Auto (Bld) [Volum e fraction]Ordered By: Naomi Ingram on 03-24-2025 Hematocrit (Bld) [Volume fraction] 34.8 % Low 37-47 [facility] Hemoglobin measurementOrdere d By: Naomi Ingram on 03-24-2025 Hemoglobin (Bld) [Mass/Vol] 11.1 g/dL Low 12.0-15.0 [facility] Immature granulocytes/100 WB C Auto (Bld)Ordered By: Naomi Ingram on 03-24-2025 Immature granulocytes/100 WBC (Bld) 0.300 % 0.0-0.9 [facility] Comment on above: IG% - Immature Granu locytes (promyelocytes, myelocytes and metamyelocytes) > 1% indicates that a LEFT SHIFT is Present. Internal Medicine Office Vis gautam 03-24-2025 Internal Medicine Office Visit [facility] [address] [place], [place] [address] OFFICE VISIT Date of Service: 03/24/25 MR#: [id number] Acct: [id number] Name: DANIELLE PARRA Rep #: [id number] : 1960 Provider: Dr. Naomi swenson MD Age/Sex: 64/F Location: [facility] Status: Signed Intake Vital Signs 08/29/24 15:06 03/24/25 10:41 Height 5 ft 4 in 5 ft 4 in Weight: 165 lb BMI 28.3 BP 136/60 H Blood Pressure Location Lt brachial Position Sitting Respiration 18 Pulse 81 Pulse Source Monitor Temp 97.4 F L Temp Source Temporal Pulse Oximetry (%) 95 Oxygen Delivery Method room air Intake Visit Reasons: 6 M FU Chief Complaint: 6 month Is patient in pain?: No Allergies Penicillins Allergy (Verified 03/24/25 10:42) Swelling Medications ???Medication ???Instructions ???Recorded ???Confirmed ???Type tdgmlscm-diy-cacpf ac 400 1 ea PO DAILY SUPPLEMENT 12/07/18 03/24/25 History mcg-calcium carb 500 mg-vit K1 20 mcg tablet omega-3 fatty acids 1,000 mg 2,000 mg PO DAILY SUPPLEMENT 12/0703/24/25 History capsule cholecalciferol (vitamin D3) 50 50 mcg PO DAILY 10/09/20 03/24/25 History mcg (2,000 unit) capsule olopatadine 0.2 % eye drops 1 drp ophthalmic (eye) QAM PRN 03/24/25 History (Pataday Once Daily Relief) itching boswalia PO DAILY 03/24/25 History Have you fallen in the past year?: No PFSH Medical History (Updated 03/24/25 @ 11:[address] Naomi Ingram MD) Health care maintenance Chronic gastritis Hypertension Wears glasses Cancer Restless legs Difficulty chewing Smoker History of stress test Osteopenia Colon cancer screening Effusion, right knee Right knee pain Hyperlipidemia Tobacco use disorder, continuous Encounter for screening for malignant neoplasm of lung in current smoker with 30 pack year history or greater Sol esophagus GERD (gastroesophageal reflux disease) GI problem History of breast cancer Seasonal allergies leep cone High cholesterol Breast cancer, right Surgical History History of tooth extraction ( 08/2023) History of esophagogastroduodenoscopy (EGD) H/O LEEP History of colonoscopy with polypectomy History of tonsillectomy History of wisdom tooth extraction History of lumpectomy of right breast History of section History of right mastectomy Family History Sister Colon cancer Thyroid disorder Mother Arthritis Hypertension Mental disorder Psychiatric care Thyroid disorder Father Hypertension Thyroid disorder Grandmother Mental disorder Brother Thyroid disorder Social History Smoking Status: Current every day smoker tobacco type: cigarettes Tobacco: How many years used: 50 Electronic Cigarette Use: not used second hand exposure: No quit status: considering quitting alcohol intake: never substance use type: does not use what type of physical activity do you participate in: other details: AROUND THE HOUSE HPI HPI Chief Complaint: 6 month Details: DANIELLE PARRA, is a 64 F who presents to the office today for follow-up of her chronic conditions. No acute concerns at this time. Since her last visit, she states that she retired and so has been more active. Has also cut back on how much she smokes and made dietary changes. History of hypertension currently not on medication. She states that she has checked it at home and her readings have been good. Blood pressure today at 136/60 mmHg. Also history of hyperlipidemia, currently not on medication and she is not really open to. Again as above she states that she has made dietary and lifestyle modifications. History of gastritis/reflux, had an EGD less than a year ago which was suggestive of chronic gastritis and recommendation was for Protonix. No dark or bloody stool or unintentional weight changes. For the most part, up-to-date on her age-appropriate screenings. Follows up with [facility] in [place] and recently had a mammogram/bone density scan. Last colonoscopy was less than a year ago and she questions her follow-up recommendation due to polyps and her family history. Up-to-date on her vaccines including pneumonia which she states that she received last year. ROS Const Constitutional: No body ache, chills, excessive sweating, fatigue, fever(s), frequent falls, headache(s), snoring, weight change, sleep problems, abnormal sleep pattern or change in appetite Eyes Eyes: No blurry vision, change in vision, bulging eyes, floaters, visual disturbances, eye pain or Light sensitivity ENT ENT: No abnormal hearing, ear or mastoid pain, tinnitus, balance problems, nosebleed/epistaxis, nasal (more content not included)... Normal [facility] LDL calc ser/plasOrdered By: Naomi Ingram on 03-24-2025 Cholesterol in LDL [Mass/Vol] 166 mg/dL [facility] Comment on above: Gaptzijazi=314-616 m g/dL & Higher Isdf=845 mg/dL or greater Laboratory - Chemistry and C hemistry - challengeOrdered By: Naomi Ingram on 03-24-2025 AST [Catalytic activity/Vol] 20 U/L <32 [facility] Lipid Profileon 03-24-2025 CHOL:HDL 5.43 Normal [facility] Comment on above: Performed By: #### L 100.0100, L500.4050, L500.4100 #### [facility] [address] [place], [address] Cholesterol [Mass/Vol] 268 mg/dL High <=200 [facility] Comment on above: Result Comment: Chol esterol level, Desirable <200 mg/dL Borderline high cholesterol 200-239 mg/dL High cholesterol >=240 mg/dL Recommendations of the NCEP Adult Treatment Panel for the following risk-cutoff thresholds for the [place] population. Performed By: #### L 100.0100, L500.4050, L500.4100 #### [facility] [address] [place], [address] Cholesterol in HDL [Mass/Vol] 49 mg/dL Normal [facility] Comment on above: Result Comment: [place] onal Cholesterol Education Program (NCEP) guidelines: <40 mg/dL: Low HDL-cholesterol (major risk factor for CHD) >= 60 mg/dL: High HDL-cholesterol (negative risk factor for CHD) HDL-cholesterol is affected by a number of factors, e.g. smoking, exercise, hormones, sex and age. Performed By: #### L 100.0100, L500.4050, L500.4100 #### [facility] [address] [place], [address] Cholesterol in LDL [Mass/Vol] 166 mg/dL Normal [facility] Comment on above: Result Comment: Bord cilrck=123-153 mg/dL Higher Otrc=305 mg/dL or greater Performed By: #### L 100.0100, L500.4050, L500.4100 #### [facility] [address] [place], [address] Cholesterol in VLDL [Mass/Vol] 53 mg/dL High 5-40 [facility] Comment on above: Performed By: #### L 100.0100, L500.4050, L500.4100 #### [facility] [address] [place], [address] Triglyceride [Mass/Vol] 264 mg/dL High [facility] Comment on above: Result Comment: The drugs N-Acetylcysteine and Metamizole may falsely depress this assay. Normal range: <150 mg/dL Borderline High: 150-199 mg/dL High: 200-499 mg/dL Very High: >500 mg/dL Performed By: #### L 100.0100, L500.4050, L500.4100 #### [facility] [address] [place], [address] MCV (mean corpuscular volume ) determinationOrdered By: Naomi Ingram on 03-24-2025 MCV (RBC) [Entitic vol] 89.9 fL 81-99 [facility] Mean corpuscular hemoglobin (MCH) determinationOrdered By: Naomi Ingram on 03-24-2025 MCH (RBC) [Entitic mass] 28.7 pg 27.0-32.0 [facility] Mean corpuscular hemoglobin concentration (MCHC) determinationOrdered By: Naomi Ingram on 03-24-2025 MCHC (RBC) [Mass/Vol] 31.9 g/dL Low 32-36 [facility] Mean platelet volume determi nationOrdered By: Naomi Ingram on 03-24-2025 Platelet mean volume (Bld) [Entitic vol] 8.9 fL 6.2-12.0 [facility] Monocyte percentageOrdered B y: Naomi Ingram on 03-24-2025 Monocytes/100 WBC (Bld) 6.0 % 0-10 [facility] Neutrophil percentageOrdered By: Naomi Ingram on 03-24-2025 Neutrophils/100 WBC (Bld) 58.9 % 47-70 [facility] Nucleated red blood cell per centageOrdered By: Naomi Ingram on 03-24-2025 Nucleated RBC/100 WBC (Bld) [Ratio] 0 % 0-5 [facility] Platelet countOrdered By: Jeremiah Ingram on 03-24-2025 Platelets (Bld) [#/Vol] 357 10*3/uL 150-450 [facility] Potassium measurement (mass/ volume)Ordered By: Naomi Ingram on 03-24-2025 Potassium (Unsp spec) [Mass/Vol] 4.1 mmol/L 3.3-5.1 [facility] RBC Auto (Bld) [#/Vol]Ordere d By: Naomi Ingram on 03-24-2025 RBC (Bld) [#/Vol] 3.87 10*6/uL Low 4.2-5.4 [facility] Screening total cholesterol/ high density lipoprotein (HDL) cholesterol ratioOrdered By: Naomi Ingram on 03-24-2025 Cholesterol.total/Chol esterol in HDL [Mass ratio] 5.43 {ratio} [facility] Serum creatinine measurement (mass/volume)Ordered By: Naomi Ingram on 03-24-2025 Creatinine [Mass/Vol] 0.76 mg/dL 0.70-1.20 [facility] Serum globulin measurementOr dered By: Naomi Ingram on 03-24-2025 Globulin (S) [Mass/Vol] 2.8 g/dL 2.2-4.2 [facility] Serum glucose measurement (m ass/volume)Ordered By: Naomi Ingram on 03-24-2025 Glucose [Mass/Vol] 94 mg/dL 70-99 [facility] Serum or plasma alanine zhao otransferase (ALT) measurementOrdered By: Naomi Ingram on 03-24-2025 ALT [Catalytic activity/Vol] 15 U/L <35 [facility] Serum or plasma albumin gladys urement (mass/volume)Ordered By: Naomi Ingram on 03-24-2025 Albumin [Mass/Vol] 4.1 g/dL 3.4-4.8 [facility] Serum or plasma albumin/glob ulin mass ratioOrdered By: [facility]pamela Ingram on 03-24-2025 Albumin/Globulin [Mass ratio] 1.5 {ratio} 0.9-2.4 [facility] Serum or plasma alkaline evan sphatase measurementOrdered By: Naomi Ingram 03-24-2025 ALP [Catalytic activity/Vol] 82 U/L 35-104 [facility] Serum or plasma calcium gladys urement (mass/volume)Ordered By: Naomi Ingram 03-24-2025 Calcium [Mass/Vol] 9.2 mg/dL 7.6-11.0 [facility] Serum or plasma cholesterol in HDL measurement (mass/volume)Ordered By: Naomi Ingram on 03-24-2025 Cholesterol in HDL [Mass/Vol] 49 mg/dL >40 [facility] Comment on above: National Cholesterol Education Program (NCEP) guidelines:<40 mg/dL: Low HDL-cholesterol (major risk factor for CHD)>= 60 mg/dL: High HDL-cholesterol (negative risk factor for CHD)HDL-cholesterol is affected by a number of factors, e.g. smoking, exercise, hormones, sex and age. Serum or plasma cholesterol measurement (mass/volume)Ordered By: Naomi Ingram on 03-24-2025 Cholesterol [Mass/Vol] 268 mg/dL High <201 [facility] Comment on above: Cholesterol level, D esirable <200 mg/dLBorderline high cholesterol 200-239 mg/dLHigh cholesterol >=240 mg/dLRecommendations of the NCEP Adult Treatment Panel for the following risk-cutoff thresholds for the [place] population. Serum or plasma urea nitroge n measurement (mass/volume)Ordered By: Naomi Ingram on 03-24-2025 Urea nitrogen [Mass/Vol] 12 mg/dL 4-19 [facility] Sodium levelOrdered By: Clyde bah Nataly on 03-24-2025 Sodium [Moles/Vol] 138 mmol/L 133-145 [facility] Total proteinOrdered By: Ankush paintingpamela Ingram on 03-24-2025 Protein [Mass/Vol] 7.0 g/dL 5.9-8.4 [facility] Triglycerides measurementOrd ered By: Naomi Ingram on 03-24-2025 Triglyceride [Mass/Vol] 264 mg/dL High <199 [facility] Comment on above: The drugs N-Acetylcy steine and Metamizole may falsely depress this assay. Normal range: <150 mg/dLBorderline High: 150-199 mg/dLHigh: 200-499 mg/dLVery High: >500 mg/dL White blood cell (WBC) count Ordered By: Naomi Ingram on 03-24-2025 WBC (Bld) [#/Vol] 10.0 10*3/uL 4.4-11.0 [facility] US BREAST LEFT LIMITEDon US BREAST LEFT LIMITED ORIGINAL FROM: [place] [id number] PROCEDURE FOR: DANIELLE PARRA [address] [place] [address] Home: PID#: [id number] Exam#: [id number] : 1960 Age: 64 TO: ADRIAN PINEDA MD [address] [place], [place] [address] Fax: NO FAX EXAMINATION: ULTRASOUND OF THE LEFT BREAST 03/17/2025 8:24 am TECHNIQUE: Color flow and tidwell scale targeted ultrasound of the left breast were performed. Permanently stored images were reviewed. COMPARISON: 03/17/2025, 03/10/2025 HISTORY: ORDERING SYSTEM PROVIDED HISTORY: Reason for Exam: Asymmetry FINDINGS: There are no significant sonographic findings to correlate with the mammographic findings from the 03/10/2025 screening mammogram. IMPRESSION: There are no significant sonographic findings to correlate with the mammographic findings, this is consistent with normal breast tissue, this is benign and no follow-up imaging is needed. Edison Osheazipallavi risk calculations do not apply for this patient. BIRADS: BI-RADS: 1: Negative RECALL: 1 year screening RECALL TYPE: mammo LETTER SENT: Normal BI-RADS 1 and 2 Interpreted by: Gabriel Mendoza MD Preliminary Report By: Gabriel Mendoza MD Electronically signed By Gabriel Mendoza MD Dictated Date: 03/20/2025 1:09:37 PM Prelim Date: 03/20/2025 1:11:06 PM Sign Date: 03/20/2025 1:11:06 PM Ordering Provider: ADRIAN PINEDA [employer] Sales Agent: DOUG CAMPOS RT (R, CT), [facility] letter sent: Normal BI-RADS 1 and 2 Ultrasound BI-RADS: 1 Negative Normal [facility] MAMMOGRAM DIAGNOSTIC LEFT W/TOMOon 03-17-2025 MD MAMMOGRAM DIAGNOSTIC LEFT W/NORM ORIGINAL FROM: [place] [address] PROCEDURE FOR: DANIELLE PARRA [address] [place] [address] Home: PID#: [id number] Exam#: [id number] : 1960 Age: 64 TO: ADRIAN PINEDA MD [address] [place] [address] Fax: NO FAX EXAMINATION: DIAGNOSTIC DIGITAL LEFT BREAST MAMMOGRAM WITH TOMOSYNTHESIS, 03/17/2025 8:24 am TECHNIQUE: Diagnostic mammography of the left breast was performed with tomosynthesis. 2D standard and 3D tomosynthesis combination imaging performed through the left breast. Computer aided detection was utilized in the interpretation of this exam. Current study was also evaluated with a Computer Aided Detection (CAD) system. COMPARISON: 03/10/2025 HISTORY: ORDERING SYSTEM PROVIDED HISTORY: Reason for Exam: Left breast asymmetry FINDINGS: BREAST DENSITY: There are scattered areas of fibroglandular density. Left breast asymmetry does not persist with additional imaging. No significant masses, calcifications, or other findings. IMPRESSION: Left breast asymmetry does not persist with additional imaging, ultrasound is recommended to further evaluate, ultrasound will be performed the same day and reported separately. Edison Miranda risk calculations do not apply for this patient. BIRADS: BI-RADS: 0: Incomplete: Need Additional Imaging Evaluation RECALL: immediate RECALL TYPE: US LETTER SENT: Normal-Needs additional work up BI-RADS 0 Interpreted by: Gabriel Mendoza MD Preliminary Report By: Gabriel Mendoza MD Electronically signed By Gabriel Mendoza MD Dictated Date: 03/17/2025 8:47:55 AM Prelim Date: 03/17/2025 1:35:14 PM Sign Date: 03/17/2025 1:35:14 PM Ordering Provider: ADRIAN PINEDA [employer] Sales Agent: LUIS CUTLER RT (R)(M) letter sent: Normal-Needs additional work up BI-RADS 0 Mammogram BI-RADS: 0 Indeterminate Normal [facility] BD BONE DENSITY DEXA AXIAL S [facility] 03-14-2025 BD BONE DENSITY DEXA AXIAL [place] ORIGINAL EXAMINATION: BONE DENSITOMETRY 03/10/2025 1:55 pm TECHNIQUE: A bone density dual x-ray absorptiometry (DEXA) scan was performed of the axial (e.g. hips, spine) and/or appendicular (e.g. radius) skeleton as appropriate. COMPARISON: None. HISTORY: Reason for Exam: Screening FINDINGS: T Score Left Femoral Neck: -2.0 Left Femoral Neck: 0.625 (g/cm2) T Score Left Hip: -1.4 Left Hip: 0.768 (g/cm2) T Score Lumbar Spine: -0.9 Lumbar Spine: 0.951 (g/cm2) FRAX: 10 year fracture risk assessment Major osteoporotic fracture: 11% Hip fracture: 2.7% The BHOF f/k/a NOF recommends that FDA-approved medical therapies be considered in post-menopausal women and men age >/= 50 years with a: * Hip or vertebral fracture, or * T-score of /= 20% for major osteoporotic fractures or * >/= 3% for hip fractures All treatment decisions require clinical judgement and consideration of individual patient factors, including patient preferences, comorbidities, previous drug use, risk factors not captured in the FRAX registered model (e.g., frailty, falls, vitamin D deficiency, increased bone turnover, interval significant decline in bone density) and possible under- or over-estimation of fracture risk by FRAX. IMPRESSION: Osteopenia. I have personally reviewed the images of this examination and agree with the resident's findings and interpretation. Interpreted by: Suzette Fortune MD Preliminary Report By: Ac Jiménez MD Electronically signed By Suzette Fortune MD Dictated Date: 03/14/2025 8:37:34 AM Prelim Date: 03/14/2025 5:24:52 PM Sign Date: 03/14/2025 5:24:52 PM Ordering Provider: ADRIAN Pollard [facility] MA MAMMOGRAM SCREENING LEFT W/TOMOon 03-13-2025 MA MAMMOGRAM SCREENING LEFT W/NORM ORIGINAL FROM: [place] [address] PROCEDURE FOR: DANIELLE PARRA [address] [place] [address] Home: PID#: [id number] Exam#: [id number] : 1960 Age: 64 TO: ADRIAN PINEDA MD [address] [place] [address] Fax: NO FAX EXAMINATION: SCREENING DIGITAL LEFT MAMMOGRAM WITH TOMOSYNTHESIS, 03/10/2025 1:41 pm TECHNIQUE: Screening mammography of the left breast was performed with tomosynthesis. 2D standard and 3D tomosynthesis combination imaging performed through the left breast in the MLO and CC projection. Computer aided detection was utilized in the interpretation of this exam. COMPARISON: 07/23/2023 HISTORY: Breast cancer screening. FINDINGS: BREAST DENSITY: There are scattered areas of fibroglandular density. There is a 7 mm asymmetry in the superior portion of the left breast posterior depth seen only on the MLO view. There are no other significant masses, calcifications, or other findings. IMPRESSION: The 7 mm asymmetry in the superior portion of the left breast seen only on the MLO view is indeterminate. Additional views with spot compression tomosynthesis in the MLO projection along with a regular full field ML view are recommended. If a mass is confirmed, then an ultrasound will be recommended. We will contact the patient to arrange for the exam. Edison Miranda risk calculations do not apply for this patient. BIRADS: BI-RADS: 0: Incomplete: Need Additional Imaging Evaluation RECALL: immediate RECALL TYPE: Mammo+US LETTER SENT: Abnormal-Needs additional work up BI-RADS 0 Interpreted by: Dk Perry MD Preliminary Report By: Dk Perry MD Electronically signed By Dk Perry MD Dictated Date: 03/13/2025 9:25:27 PM Prelim Date: 03/13/2025 9:27:58 PM Sign Date: 03/13/2025 9:27:58 PM Ordering Provider: ADRIAN PINEDA [employer] Sales Agent: LUIS CUTLER RT (R)(M) letter sent: Abnormal-Needs additional work up BI-RADS 0 Mammogram BI-RADS: 0 Indeterminate Normal [facility] Internal Medicine Office Vis gautam 08-29-2024 Internal Medicine Office Visit [facility] [address] [place] [address] OFFICE VISIT Date of Service: 08/29/24 MR#: [id number] Acct: [id number] Name: DANIELLE PARRA Rep #: [id number] : 1960 Provider: Dr. Naomi swenson MD Age/Sex: 63/F Location: [facility] Status: Signed Intake Vital Signs 04/28/24 13:52 08/29/24 15:06 Height 5 ft 4 in 5 ft 4 in Weight: 156 lb BMI 26.7 BP 148/84 H Blood Pressure Location Lt brachial Position Sitting Respiration 14 Pulse 75 Pulse Source Monitor Temp 97.2 F L Temp Source Temporal Pulse Oximetry (%) 99 Oxygen Delivery Method room air Intake Visit Reasons: 4 m fu Chief Complaint: 6 month Log Cut Off Sawyer Required: No Is patient in pain?: No Allergies Penicillins Allergy (Verified 08/29/24 15:02) Swelling Medications ???Medication ???Instructions ???Recorded ???Confirmed ???Type yqrvekvs-eux-xvvel ac 400 1 ea PO DAILY SUPPLEMENT 12/07/18 08/29/24 History mcg-calcium carb 500 mg-vit K1 20 mcg tablet omega-3 fatty acids 1,000 mg 2,000 mg PO DAILY SUPPLEMENT 12/07/18 08/29/24 History capsule cholecalciferol (vitamin D3) 50 50 mcg PO DAILY 10/09/20 08/29/24 History mcg (2,000 unit) capsule olopatadine 0.2 % eye drops 1 drp ophthalmic (eye) QAM PRN 07/17/23 08/29/24 History (Pataday Once Daily Relief) itching pantoprazole 40 mg tablet,delayed 40 mg PO DAILY #90 tabs 04/28/24 08/29/24 Rx release Have you fallen in the past year?: No Nurse's Note: Declines flu vaccine. [facility] Medical History Hypertension Wears glasses Cancer Restless legs Difficulty chewing Smoker History of stress test Osteopenia Colon cancer screening Effusion, right knee Right knee pain Hyperlipidemia Tobacco use disorder, continuous Encounter for screening for malignant neoplasm of lung in current smoker with 30 pack year history or greater Sol esophagus GERD (gastroesophageal reflux disease) GI problem History of breast cancer Seasonal allergies leep cone High cholesterol Breast cancer, right Surgical History History of tooth extraction ( 08/2023) History of esophagogastroduodenoscopy (EGD) H/O LEEP History of colonoscopy with polypectomy History of tonsillectomy History of wisdom tooth extraction History of lumpectomy of right breast History of section History of right mastectomy Family History Sister Colon cancer Thyroid disorder Mother Arthritis Hypertension Mental disorder Psychiatric care Thyroid disorder Father Hypertension Thyroid disorder Grandmother Mental disorder Brother Thyroid disorder Social History Smoking Status: Current every day smoker tobacco type: cigarettes Tobacco: How many years used: 50 Electronic Cigarette Use: not used second hand exposure: No quit status: considering quitting alcohol intake: never substance use type: does not use what type of physical activity do you participate in: other details: AROUND THE HOUSE HPI HPI Chief Complaint: 6 month Details: DANIELLE PARRA, is a 63 F who presents to the office today for follow-up. No acute concerns at this time. She states that she feels well. Blood pressure remains elevated. She states that her readings at home have been normal. She however also states that her brother checked it and it was elevated. Has not brought in her monitor for comparison. Continues to smoke. History of hyperlipidemia, repeat lipid profile today but worsening LDL. Recommendation was made for statin however, she is not open to this. History of Sol's esophagus, has been prescribed a PPI but she is currently not taking it. She states that she feels well with dietary and lifestyle changes and is not open to taking the PPI. ROS Const Constitutional: No body ache, chills, excessive sweating, fatigue, fever(s), frequent falls, headache(s), snoring, weakness, sleep problems or change in appetite Eyes Eyes: No blurry vision, change in vision, bulging eyes, floaters, visual disturbances, eye pain or Light sensitivity ENT ENT: No abnormal hearing, ear or mastoid pain, tinnitus, balance problems, nosebleed/epistaxis, nasal congestion, headache(s), neck pain or sore throat Resp Respiratory: No cough, excessive phlegm production, pain on inspiration, shortness of breath, snoring or wheezing Cardio Cardiology: No chest pain at rest, chest pain with exertion, excessive sweating, shortness of breath, dyspnea on exertion, lightheadedness, orthopnea or palpitations Gastro GI: No abdominal pain, change in bowel habits, cons (more content not included)... Normal [facility] Comprehensive Metabolic Prof breanna 04-28-2024 Albumin [Mass/Vol] 3.5 g/dL Normal 3.2-5.0 [facility] Comment on above: Performed By: #### L 500.4050, L500.4100 #### [facility] [address] [place], [address] Albumin/Globulin [Mass ratio] 0.9 {ratio} Normal 0.9-2.4 [facility] Comment on above: Performed By: #### L 500.4050, L500.4100 #### [facility] [address] [place], [address] ALK P 77 U/L Normal 45-117 [facility] Comment on above: Performed By: #### L 500.4050, L500.4100 #### [facility] [address] [place], [address] ALT [Catalytic activity/Vol] 16 U/L Normal 13-56 [facility] Comment on above: Performed By: #### L 500.4050, L500.4100 #### [facility] Laboratory [address] [place], [address] AST [Catalytic activity/Vol] 13 U/L Low 15-37 [facility] Comment on above: Performed By: #### L 500.4050, L500.4100 #### [facility] [address] [place], [address] Bilirubin [Mass/Vol] 0.50 mg/dL Normal 0.20-1.00 [facility] Comment on above: Result Comment: For patients on eltrombopag therapy, use of Dimension [place] TBIL is not recommended. Performed By: #### L 500.4050, L500.4100 #### [facility] [address] [place], [address] BUN/CRE 15.3 RATIO Normal 10-20 [facility] Comment on above: Performed By: #### L 500.4050, L500.4100 #### [facility] [address] [place], [address] CA,Total 9.3 mg/dL Normal 8.5-10.1 [facility] Comment on above: Performed By: #### L 500.4050, L500.4100 #### [facility] [address] [place], [address] Chloride [Moles/Vol] 108 mmol/L High 98-107 [facility] Comment on above: Performed By: #### L 500.4050, L500.4100 #### [facility] [address] [place], [address] CO2 [Moles/Vol] 25.0 mmol/L Normal 21.0-32.0 [facility] Comment on above: Performed By: #### L 500.4050, L500.4100 #### [facility] [address] [place], [address] Creatinine [Mass/Vol] 0.85 mg/dL Normal 0.55-1.02 [facility] Comment on above: Result Comment: The validity of the calculated GFR GFRAA in patients over 70 years has not been determined. Clinical correlation is essential. Performed By: #### L 500.4050, L500.4100 #### [facility] [address] [place], [address] EST GFR - AA 87 mL/min Normal >60 [facility] Comment on above: Result Comment: Afri can Lithuanian GFR Calc Performed By: #### L 500.4050, L500.4100 #### [facility] [address] [place], [address] GAP 6 Normal 5-15 [facility] Comment on above: Performed By: #### L 500.4050, L500.4100 #### [facility] [address] [place], [address] GFR/1.73 sq M.predicted among non-blacks MDRD (S/P/Bld) [Vol rate/Area] 72 mL/min/{1.73_m2} Normal >60 [facility] Comment on above: Result Comment: Non- GFR Calc Performed By: #### L 500.4050, L500.4100 #### [facility] [address] [place], [address] Globulin (S) [Mass/Vol] 3.8 g/dL Normal 2.2-4.2 [facility] Comment on above: Performed By: #### L 500.4050, L500.4100 #### [facility] [address] [place], [address] Glucose [Mass/Vol] 109 mg/dL High 74-106 [facility] Comment on above: Result Comment: Fast ing Glucose result from 100 to 125 mg/dL suggests IMPAIRED HOMEOSTASIS per A.D.A. criteria. Performed By: #### L 500.4050, L500.4100 #### [facility] [address] [place], [address] Potassium [Moles/Vol] 4.6 mmol/L Normal 3.5-5.1 [facility] Comment on above: Performed By: #### L 500.4050, L500.4100 #### [facility] [address] [place], [address] Sodium [Moles/Vol] 139 mmol/L Normal 136-145 [facility] Comment on above: Performed By: #### L 500.4050, L500.4100 #### [facility] [address] [place], [address] T PROT 7.3 g/dL Normal 6.4-8.2 [facility] Comment on above: Performed By: #### L 500.4050, L500.4100 #### [facility] [address] [place], [address] Urea nitrogen [Mass/Vol] 13 mg/dL Normal 7-18 [facility] Comment on above: Performed By: #### L 500.4050, L500.4100 #### [facility] [address] [place], [address] Internal Medicine Office Vis gautam 04-28-2024 Internal Medicine Office Visit [facility] [address] [place] [address] [address] [place] [address] OFFICE VISIT Date of Service: 04/28/24 MR#: [id number] Acct: [id number] Name: DANIELLE PARRA Rep #: [id number] : 1960 Provider: Dr. Naomi swenson MD Age/Sex: 63/F Location: [facility] Status: Signed Intake Vital Signs 11/05/23 16:13 02/25/24 18:46 04/28/24 13:52 Height 5 ft 4 in 5 ft 4 in 5 ft 4 in Weight: 156 lb BMI 26.7 BP 144/68 H Blood Pressure Location Lt brachial Position Sitting Respiration 17 Pulse 82 Pulse Source Monitor Temp 97.2 F L Temp Source Temporal Pulse Oximetry (%) 98 Oxygen Delivery Method room air Intake Visit Reasons: 6 month Chief Complaint: 6 month Is patient in pain?: No Allergies Penicillins Allergy (Verified 04/28/24 13:52) Swelling Medications ???Medication ???Instructions ???Recorded ???Confirmed ???Type xyiibqgc-tkd-zhmss ac 400 1 ea PO DAILY SUPPLEMENT 12/07/18 04/28/24 History mcg-calcium carb 500 mg-vit K1 20 mcg tablet omega-3 fatty acids 1,000 mg 2,000 mg PO DAILY SUPPLEMENT 12/07/18 04/28/24 History capsule cholecalciferol (vitamin D3) 50 50 mcg PO DAILY 10/09/20 04/28/24 History mcg (2,000 unit) capsule olopatadine 0.2 % eye drops 1 drp ophthalmic (eye) QAM PRN 07/17/23 04/28/24 History (Pataday Once Daily Relief) itching pantoprazole 40 mg tablet,delayed 40 mg PO DAILY #90 tabs 04/28/24 04/28/24 Rx release Have you fallen in the past year?: No PFSH Medical History (Updated 04/28/24 @ 15:[address] Naomi Ingram MD) Hypertension Wears glasses Cancer Restless legs Difficulty chewing Smoker History of stress test Osteopenia Colon cancer screening Effusion, right knee Right knee pain Hyperlipidemia Tobacco use disorder, continuous Encounter for screening for malignant neoplasm of lung in current smoker with 30 pack year history or greater Sol esophagus GERD (gastroesophageal reflux disease) GI problem History of breast cancer Seasonal allergies leep cone High cholesterol Breast cancer, right Surgical History History of tooth extraction ( 08/2023) History of esophagogastroduodenoscopy (EGD) H/O LEEP History of colonoscopy with polypectomy History of tonsillectomy History of wisdom tooth extraction History of lumpectomy of right breast History of section History of right mastectomy Family History Sister Colon cancer Thyroid disorder Mother Arthritis Hypertension Mental disorder Psychiatric care Thyroid disorder Father Hypertension Thyroid disorder Grandmother Mental disorder Brother Thyroid disorder Social History Smoking Status: Current every day smoker tobacco type: cigarettes Tobacco: How many years used: 50 Electronic Cigarette Use: not used second hand exposure: No quit status: considering quitting alcohol intake: never substance use type: does not use what type of physical activity do you participate in: other details: AROUND THE HOUSE HPI HPI Chief Complaint: 6 month Details: DANIELLE PARRA, is a 63 F who presents to the office today for follow-up of her chronic medical conditions. No acute concerns at this time. Since last visit, had an EGD and colonoscopy. She states that she was given a months worth of Carafate due to esophagitis. She however states that she took Protonix for a month and discontinued it. Previous history of Sol's esophagus however no evidence of Sol's seen during his EGD. Any concerns in that regard. Continues to smoke, she states that she is working on cutting back/quitting. Did not get her low- dose screening last year. Other chronic medical conditions are largely stable. History of hyperlipidemia, currently not on any medication. Initial and repeat blood pressure elevated however, also not on medication. Does not routinely check it at home. ROS Const Constitutional: No body ache, chills, excessive sweating, fatigue, fever(s), frequent falls, headache(s), snoring, weight change, sleep problems, abnormal sleep pattern or change in appetite Eyes Eyes: No blurry vision, change in vision, floaters, visual disturbances, eye pain or Light sensitivity ENT ENT: No abnormal hearing, ear or mastoid pain, tinnitus, balance problems, nosebleed/epistaxis, nasal congestion, headache(s), neck pain or sore throat Resp Respiratory: No cough, excessive phlegm production, pain on inspiration, shortness of breath, snoring or wheezing Cardio Cardiology: No chest pain at rest, chest pain with exertion, excessive sweating, shortness of breath, dyspnea on exertion, lightheadedness, orthopnea or palpitations Gastro (more content not included)... Normal [facility] Lipid Profileon 04-28-2024 Cholesterol [Mass/Vol] 253 mg/dL High 200 [facility] Comment on above: Result Comment: <200 mg/dL Desirable 200-240 mg/dL Borderline >240 mg/dL High Risk Performed By: #### L 500.4050, L500.4100 #### [facility] [address] [place], [address] Cholesterol in HDL [Mass/Vol] 50 mg/dL Normal [facility] Comment on above: Result Comment: The drugs N-Acetylcysteine and Metamizole may falsely depress this assay. Reference Range HDL <40 mg/dL Low HDL Cholesterol HDL >or= 60 mg/dL High HDL Cholesterol Performed By: #### L 500.4050, L500.4100 #### [facility] [address] [place], [address] Cholesterol in LDL [Mass/Vol] 173 mg/dL High 0-130 [facility] Comment on above: Performed By: #### L 500.4050, L500.4100 #### [facility] [address] [place], [address] Cholesterol in VLDL [Mass/Vol] 30 mg/dL Normal 5-40 [facility] Comment on above: Performed By: #### L 500.4050, L500.4100 #### [facility] [address] [place], [address] Triglyceride [Mass/Vol] 151 mg/dL Normal [facility] Comment on above: Result Comment: The drugs N-Acetylcysteine and Metamizole may falsely depress this assay. Serum Triglycerides Reference Interval Normal <150 mg/dL Borderline high 150 - 199 mg/dL High 200 - 499 mg/dL Very High > or = 500 mg/dL Performed By: #### L 500.4050, L500.4100 #### [facility] [address] [place], [address] MA MAMMOGRAM SCREENING LEFT W/TOMOon 07-24-2023 MA MAMMOGRAM SCREENING LEFT W/NORM ORIGINAL FROM: DARIUSZ WALES [address] [place], [place] [address] PROCEDURE FOR: DANIELLE Degroot A[address] [place] [address] Home: PID#: [id number] Exam#: [id number] : 1960 Age: 62 TO: ADRIAN PINEDA MD [address] [place], [place] [address] Fax: NO FAX EXAMINATION: SCREENING DIGITAL LEFT MAMMOGRAM WITH TOMOSYNTHESIS, 07/23/2023 2:39 pm TECHNIQUE: Screening mammography of the left breast was performed with tomosynthesis. 2D standard and 3D tomosynthesis combination imaging performed through the left breast in the MLO and CC projection. Computer aided detection was utilized in the interpretation of this exam. COMPARISON: April 28, 2022, April 27, 2020 HISTORY: Breast cancer screening The patient is status post right mastectomy. FINDINGS: BREAST DENSITY: Scattered fibroglandular tissue The patient is status post right mastectomy. There are no significant masses or calcifications in the left breast. IMPRESSION: Status post right mastectomy. No mammographic evidence of malignancy in the left breast. Continued screening with annual mammograms is recommended. Tyrer-Cuzick risk calculations do not apply for this patient. BIRADS: MAMMOGRAM BI-RADS: 1: Negative RECALL: 1 year screening RECALL TYPE: mammo LETTER SENT: Normal BI-RADS 1 and 2 Interpreted by: Yocasta Santizo Preliminary Report By: Yocasta Santizo Electronically signed By Yocasta Santizo Dictated Date: 07/24/2023 4:46:23 PM Prelim Date: 07/24/2023 4:51:01 PM Sign Date: 07/24/2023 4:51:01 PM Ordering Provider: ADRIAN PINEDA [employer] Sales Agent: NEWTON MATHUR RT(R) (M) letter sent: Normal BI-RADS 1 and 2 Mammogram BI-RADS: 1 Negative Normal [facility] ([place]) [employer] Cytology Reporton 2022 [employer] Cytology Report . Pathology Reports Accession: Collected Date/Time: Received Date/Time: Pathologist: [id number] 07/15/2023 14:42 EDT 07/16/2023 18:00 EDT [employer] Cytology Report SPECIMEN: Specimen Description: Liquid Prep w/ HPV Specimen: Cervical/Endocervical Screening or Diagnostic: Screening RELEVANT HISTORY: LMP: menopausal Other clinical information: Hx of LEEP 2019 SPECIMEN ADEQUACY: SATISFACTORY FOR EVALUATION Endocervical/Transformation al zone component present INTERPRETATION/RESULTS: NEGATIVE FOR INTRAEPITHELIAL LESION OR MALIGNANCY HIGH RISK HPV TESTING: Event Code Result HPV Interp See Interp HPVN HPV Interp Text: High Risk HPV Typing: NEGATIVE HPV types 16, 18, 31, 33, 35, 39, 45, 51, 52, 56, 58, 59, 66 and 68 DNA were undetectable or below the pre-set threshold. The justin High-Risk HPV DNA Test is not intended for use as a screening device for Pap normal women under age 30 and is not intended to substitute for regular Pap screening. The justin High-Risk HPV DNA Test is designed to augment existing methods for the detection of cervical disease and should be used in conjunction with clinical information derived from other diagnostic and screening tests, physical examinations and full medical history in accordance with appropriate patient management procedures. NOTE: A negative result does not preclude the presence of HPV infection because results depend on adequate specimen collection, absence of inhibitors and sufficient DNA to be detected. As of: 07/22/23 10:57 EDT COMMENT: This Pap Test was successfully processed and evaluated with the assistance of the [employer] ASPrep Test Imaging System. Pathology Reports Accession: Collected Date/Time: Received Date/Time: Pathologist: [id number] 07/15/2023 14:42 EDT 07/16/2023 18:00 EDT Electronically Signed by Pathology report verified by [facility] Screened by: [place] Electronically signed by Gayle Fallon CT (ASCP) Sign-Out Date: 07/22/2023 10:57 Performing Lab: [facility], [address] [place] [address] Pathology Dept Disclaimer The Pap test is a screening test for cervical cancer. As evidenced by published data, it is subject to both inherent false negative and false positive results. Your patient's results should be interpreted in context with pertinent clinical history including gynecological examination. Normal [facility] [place] HPVon 07-21-2023 HPV Interp Normal See Interp HPVN [facility] [place] Comment on above: Order Comment: Order placed by AP_HPV_ORDER rule from [id number] Result Comment: High Risk HPV Typing: NEGATIVE HPV types 16, 18, 31, 33, 35, 39, 45, 51, 52, 56, 58, 59, 66 and 68 DNA were undetectable or below the pre-set threshold. The justin High-Risk HPV DNA Test is not intended for use as a screening device for Pap normal women under age 30 and is not intended to substitute for regular Pap screening. The justin High-Risk HPV DNA Test is designed to augment existing methods for the detection of cervical disease and should be used in conjunction with clinical information derived from other diagnostic and screening tests, physical examinations and full medical history in accordance with appropriate patient management procedures. NOTE: A negative result does not preclude the presence of HPV infection because results depend on adequate specimen collection, absence of inhibitors and sufficient DNA to be detected. See [facility] HPVN Performed By: #### H PV #### [place] [address] HPV Source Cervix Normal [facility] ([place]) Comment on above: Order Comment: Order placed by AP_HPV_ORDER rule from [id number] Performed By: #### H PV #### [address] [address] Cervical or vagninal specime n microscopic examination by cytology stain (reported ason 04-10-2022 Cytology report Cyto stain Doc (Cvx/Vag) Comment . [facility] Work Phone: Comment on above: The Pap smear is a s creening test designed to aid in thedetection of premalignant and malignant conditions of theuterine cervix. It is not a diagnostic procedure andshould not be used as the sole means of detecting cervicalcancer. Both false-positive and false-negative reports dooccur. Detection in cervical specim en of any of human papilloma virus (HPV) 16, 18, 31, 33,on 04-10-2022 HPV 16+18+31+33+35+39+45+5 1+52+56+58+59+66+68 DNA Probe+sig amp Ql (Cvx) Negative Negative [facility] Work Phone: Comment on above: This nucleic acid am plification test detects fourteen high- risk HPV types (16,18,31,33,35,39,45,51,52,56,58,59,66,68)without differentiation.Performed at: - [facility] [id number] Director: Yessenia Webb MD, Phone: [phone] at: = - [facility] [address] [id number] Director: Yessenia Webb MD, Phone: [phone] Laboratory - Cytologyon 03-20 Cardiac Exercise Specialist Cyto stain Nom (Cvx/Vag) [ID] Comment . [facility] Work Phone: Comment on above: Bharat Soni Cytotec hnologist (ASCP) Laboratory - Miscellaneous t estson 04-10-2022 Service comment (Unsp spec) [Interp] Comment . [facility] Work Phone: Comment on above: This liquid based Th inPrep(R) pap test was screened withthe use of an image guided system. Service comment (Unsp spec) [Interp] . . [facility] Work Phone: No Panel Informationon 04-10 Pathology report final diagnosis Narrative Comment . [facility] Work Phone: Comment on above: NEGATIVE FOR INTRAEP ITHELIAL LESION OR MALIGNANCY.THIS SPECIMEN WAS RESCREENED PART OF OUR CREPING MACHINE OPERATOR PROGRAM. PROGRESSon 12-09-2019 PROGRESS HNO ID: [id number] Author: Nasima SchmidCasino Gaming InspectorAsh Melendez Service: ? Author Type: Administrative Assistant Data Entry Type: Progress Notes Filed: 12/09/2019 7:32 AM Note Text: [facility] MACHINIST MECHANIC QUICKNOTE Provider Action/FYI: Patient returned call and states she's NOT a patient of Dr. Reyes and she would appreciate it if we stop sending mail to her. I removed Dr. Reyes as PCP. Patient identified by name and . Nasima Al [facility] PROGRESSon 12-02-2019 PROGRESS HNO ID: [id number] Author: Nasima SchmidCasino Gaming InspectorAsh Al Service: ? Author Type: Administrative Assistant Data Entry Type: Progress Notes Filed: 12/02/2019 9:54 AM Note Text: [facility] MACHINIST MECHANIC QUICKNOTE Provider Action/FYI: 4th attempt - letter mailed to patient. Patient identified by name and . Nasima Melendez [facility] PROGRESS HNO ID: [id number] Author: Nasima SchmidCasino Gaming InspectorAsh Melendez Service: ? Author Type: Administrative Assistant Data Entry Type: Progress Notes Filed: 12/02/2019 9:54 AM Note Text: [facility] MACHINIST MECHANIC QUICKNOTE Provider Action/FYI: 3rd attempt - the number you have dialed is not in service. Patient identified by name and . Nasima Melendez [facility] PROGRESSon 11-30-2019 PROGRESS HNO ID: [id number] Author: Nasima SchmidCasino Gaming InspectorAsh Melendez Service: ? Author Type: Administrative Assistant Data Entry Type: Progress Notes Filed: 12/02/2019 9:54 AM Note Text: [facility] MACHINIST MECHANIC QUICKNOTE Provider Action/FYI: 2nd attempt - the number you have dialed is not in service. I will try back later. Patient identified by name and . Nasima Melendez [facility] CNPTOUTREACHon 11-22-2019 CNPTOUTREACH Patient Outreach (IN TMWS) DANIELLE [id number]) 1960 F Date Time Provider Department 11/22/19 NASIMA MELENDEZ ([facility]) INTMWS During your visit today, we recorded the following information about you: Nasima Melendez CMA 12/02/2019 9:54 AM Signed PHMA TEAMLET DOCUMENTATION Provider Action/FYI: PSR Action/FYI: Last patient activity 03/23/2018 Last PCP visit NONE - never establish care I will call patient to verify PCP/schedule re-establish care appointment (if patient agreeable). Health Maintenance Due: DTAP,TDAP,TD(1 - Tdap) due on 1969 ONE PNEUMOVAX PRIOR TO AGE 65 due on 1977 HPV TESTING due on 1988 HEPATITIS C SCREENING due on 2002 SHINGRIX VACCINE(1 of 2) due on 2008 PAP TESTING due on 01/25/2017 MAMMOGRAM due on 09/03/2018 INFLUENZA(1) due on 06/19/2019 Teamlet has identified patient by name and date of . Team: Dr. Amy landrum ? Last Office Visit:Visit date not found ? Next Office Visit: Visit date not found ? Last BP/Labs: Blood Pressure: Last 3 Encounter BP Readings: Date: BP: 12/19/2017 122/70 11/30/2017 110/70 11/09/2017 138/81 Lipids: Cholesterol, Total (mg/dL) Date Value 11/26/2017 224 08/20/2017 291 HDL Cholesterol (mg/dL) Date Value 11/26/2017 42 08/20/2017 42 LDL Cholesterol (mg/dL) Date Value 11/26/2017 128 08/20/2017 Unable to calculate due to increased Triglycerides. See LDL-Chol, Direct. Triglyceride (mg/dL) Date Value 11/26/2017 268 08/20/2017 402 HGB A1C: No results found for: HBA1C TSH: No results found for: TSH) Care Gap: needs to establish care with Provider (Dr. Reyes listed as PCP) Mammogram Plan: ? Confirm PCP / Status - unknown ? Type of appointment needed: establish care ? Consultation Appointments: n/a Labs, HM and Immunization: Health Maintenance Due: DTAP,TDAP,TD(1 - Tdap) due on 1969 ONE PNEUMOVAX PRIOR TO AGE 65 due on 1977 HPV TESTING due on 1988 HEPATITIS C SCREENING due on 2002 SHINGRIX VACCINE(1 of 2) due on 2008 PAP TESTING due on 01/25/2017 MAMMOGRAM due on 09/03/2018 INFLUENZA(1) due on 06/19/2019 SHANICE Abad, [facility] 12/02/2019 9:54 AM Signed [facility] ASSISTANT QUICKNOTE Provider Action/FYI: 1st attempt - Entigral Systemst message sent. Patient identified by name and . SHANICE Abad [facility] 12/02/2019 9:54 AM Signed [facility] ASSISTANT QUICKNOTE Provider Action/FYI: 2nd attempt - the number you have dialed is not in service. I will try back later. Patient identified by name and . SHANICE Abad [facility] 12/02/2019 9:54 AM Signed [facility] ASSISTANT QUICKNOTE Provider Action/FYI: 3rd attempt - the number you have dialed is not in service. Patient identified by name and . SHANICE Abad [facility] 12/02/2019 9:54 AM Signed [facility] ASSISTANT QUICKNOTE Provider Action/FYI: 4th attempt - letter mailed to patient. Patient identified by name and . [facility] 12/09/2019 7:32 AM Signed [facility] ASSISTANT QUICKNOTE Provider Action/FYI: Patient returned call and states she's NOT a patient of Dr. Reyes and she would appreciate it if we stop sending mail to her. I removed Dr. Reyes as PCP. Patient identified by name and . Nasima Melendez [facility] Allergies As of Date: 11/22/2019 Noted Allergy Reaction PENICILLINS 03/12/2011 7 - Swelling Date Reviewed: 12/19/2017 Reviewed by: Soumya Avery Ma - Fully Assessed Reason for Visit: PHMA/Care Gap Outreach [2026] Prescriptions as of 11/22/2019 Sig: VARENICLINE 1 MG TABLET Take 1 tablet by mouth twice * OMEPRAZOLE 20 MG CAPSULE,DIAMOND* Take 1 capsule by mouth daily* Problem List As Of Date 11/22/2019 Noted Resolved Breast cancer [C50.919] 03/12/2011 Sebaceous cyst [L72.3] 05/01/2012 Heartburn [R12] 09/30/2017 More... Other dysphagia [R13.19] 09/30/2017 More... 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 Encounter for screening for malignant neoplasm *09/30/2017 More... Letter Text Encounter Status:Closed by NASIMA MELENDEZ CMA on 12/02/19 [facility] PROGRESSon 11-22-2019 PROGRESS HNO ID: [id number] Author: Nasima Melendez Service: ? Author Type: Administrative Assistant Data Entry Type: Progress Notes Filed: 12/02/2019 9:54 AM Note Text: POPULATION HEALTH MACHINIST MECHANIC QUICKNOTE Provider Action/FYI: 1st attempt - Entigral Systemst message sent. Patient identified by name and . Nasima Melendez CMA [facility] PROGRESS HNO ID: [id number] Author: Nasima Melendez Service: ? Author Type: Administrative Assistant Data Entry Type: Progress Notes Filed: 12/02/2019 9:54 AM Note Text: PHMA TEAMLET DOCUMENTATION Provider Action/FYI: PSR Action/FYI: Last patient activity 03/23/2018 Last PCP visit NONE - never establish care I will call patient to verify PCP/schedule re-establish care appointment (if patient agreeable). Health Maintenance Due: DTAP,TDAP,TD(1 - Tdap) due on 1969 ONE PNEUMOVAX PRIOR TO AGE 65 due on 1977 HPV TESTING due on 1988 HEPATITIS C SCREENING due on 2002 SHINGRIX VACCINE(1 of 2) due on 2008 PAP TESTING due on 01/25/2017 MAMMOGRAM due on 09/03/2018 INFLUENZA(1) due on 06/19/2019 Teamlet has identified patient by name and date of . Team: Dr. Amy landrum ? Last Office Visit:Visit date not found ? Next Office Visit: Visit date not found ? Last BP/Labs: Blood Pressure: Last 3 Encounter BP Readings: Date: BP: 12/19/2017 122/70 11/30/2017 110/70 11/09/2017 138/81 Lipids: Cholesterol, Total (mg/dL) Date Value 11/26/2017 224 08/20/2017 291 HDL Cholesterol (mg/dL) Date Value 11/26/2017 42 08/20/2017 42 LDL Cholesterol (mg/dL) Date Value 11/26/2017 128 08/20/2017 Unable to calculate due to increased Triglycerides. See LDL-Chol, Direct. Triglyceride (mg/dL) Date Value 11/26/2017 268 08/20/2017 402 HGB A1C: No results found for: HBA1C TSH: No results found for: TSH) Care Gap: needs to establish care with Provider (Dr. Reyes listed as PCP) Mammogram Plan: ? Confirm PCP / Status - unknown ? Type of appointment needed: establish care ? Consultation Appointments: n/a Labs, HM and Immunization: Health Maintenance Due: DTAP,TDAP,TD(1 - Tdap) due on 1969 ONE PNEUMOVAX PRIOR TO AGE 65 due on 1977 HPV TESTING due on 1988 HEPATITIS C SCREENING due on 2002 SHINGRIX VACCINE(1 of 2) due on 2008 PAP TESTING due on 01/25/2017 MAMMOGRAM due on 09/03/2018 INFLUENZA(1) due on 06/19/2019 Nasima Melendez, NEWS CORRESPONDENT Normal [facility] Vital Signs Date Time Vital Sign Value Performing Clinician Nhi tavares 03-24-2025 10:41-0400 Body height 162.[address] Naomi Ingram MD Work Phone: [facility] 03-24-2025 10:41-0400 Body mass index (BMI) [Ratio] 28.3 kg/m2 Dr. Naomi Ingram MD Work Phone: [facility] 03-24-2025 10:41-0400 Body temperature 97.4 [degF] Dr. Naomi Ingram MD Work Phone: [facility] 03-24-2025 10:41-0400 Body weight 74.[address] Naomi Ingram MD Work Phone: [facility] 03-24-2025 10:41-0400 Diastolic blood pressure 60 mm[Hg] Dr. Naomi Ingram MD Work Phone: [facility] 03-24-2025 10:41-0400 Heart rate 81 /min Dr. Naomi Ingram MD Work Phone: [facility] 03-24-2025 10:41-0400 Respiratory rate 18 /min Dr. Naomi Ingram MD Work Phone: [facility] 03-24-2025 10:41-0400 SaO2% (BldA) [Mass fraction] 95 % Dr. Naomi Ingram MD Work Phone: [facility] 03-24-2025 10:41-0400 Systolic blood pressure 136 mm[Hg] Dr. Naomi Ingram MD Work Phone: [facility] 02-25-2024 19:57-0400 Body temperature 98.3 [degF] Dr. Naomi Ingram Work Phone: [facility] 02-25-2024 19:57-0400 Diastolic blood pressure 64 mm[Hg] Dr. Naomi Ingram Work Phone: [facility] 02-25-2024 19:57-0400 Heart rate 92 /min Dr. Naomi nIgram Work Phone: [facility] 02-25-2024 19:57-0400 Respiratory rate 16 /min Dr. Naomi Ingram Work Phone: [facility] 02-25-2024 19:57-0400 SaO2% (BldA) [Mass fraction] 100 % Dr. Naomi Ingram Work Phone: [facility] 02-25-2024 19:57-0400 Systolic blood pressure 120 mm[Hg] Dr. Naomi Ingram Work Phone: [facility] 02-25-2024 18:46-0400 Body height 162.[address] Naomi Ingram Work Phone: [facility] 02-25-2024 18:46-0400 Body mass index (BMI) [Ratio] 27.9 kg/m2 Dr. Naomi Ingram Work Phone: [facility] 02-25-2024 18:46-0400 Body weight 73.[address] Naomi Ingram Work Phone: [facility] 02-15-2024 10:51-0400 Body temperature 96.9 [degF] Dr. Naomi Ingram Work Phone: [facility] 02-15-2024 10:51-0400 Diastolic blood pressure 58 mm[Hg] Dr. Naomi Ingram Work Phone: [facility] 02-15-2024 10:51-0400 Heart rate 74 /min Dr. Naomi Ingram Work Phone: [facility] 02-15-2024 10:51-0400 Respiratory rate 16 /min Dr. Naomi Ingram Work Phone: [facility] 02-15-2024 10:51-0400 SaO2% (BldA) [Mass fraction] 96 % Dr. Naomi Ingram Work Phone: [facility] 02-15-2024 10:51-0400 Systolic blood pressure 126 mm[Hg] Dr. Naomi Ingram Work Phone: [facility] 02-15-2024 09:40-0400 Body height 162.[address] Naomi Ingram Work Phone: [facility] 02-15-2024 09:40-0400 Body mass index (BMI) [Ratio] 26.4 kg/m2 Dr. Naomi Ingram Work Phone: [facility] 02-15-2024 09:40-0400 Body weight 69.[address] Naomi Ingram Work Phone: [facility] 12-09-2023 15:01-0500 Body mass index (BMI) [Ratio] 27.3 kg/m2 Dr. Naomi Ingram Work Phone: [facility] 12-09-2023 15:01-0500 Body weight 72.[address] Naomi Ingram Work Phone: [facility] 12-09-2023 15:01-0500 Diastolic blood pressure 82 mm[Hg] Dr. Naomi Ingram Work Phone: [facility] 12-09-2023 15:01-0500 Heart rate 79 /min Dr. Naomi Ingram Work Phone: [facility] 12-09-2023 15:01-0500 Respiratory rate 17 /min Dr. Naomi Ingram Work Phone: [facility] 12-09-2023 15:01-0500 SaO2% (BldA) [Mass fraction] 96 % Dr. Naomi Ingram Work Phone: [facility] 12-09-2023 15:01-0500 Systolic blood pressure 153 mm[Hg] Dr. Naomi Ingram Work Phone: [facility] 12-03-2023 15:21-0500 Body height 162.[address] Naomi Ingram Work Phone: [facility] 11-05-2023 16:13-0500 Body mass index (BMI) [Ratio] 27.5 kg/m2 Dr. Naomi Ingram Work Phone: [facility] 11-05-2023 16:13-0500 Body temperature 98 [degF] Dr. Naomi Ingram Work Phone: [facility] 11-05-2023 16:13-0500 Body weight 72.[address] Naomi Ingram Work Phone: [facility] 11-05-2023 16:13-0500 Diastolic blood pressure 80 mm[Hg] Dr. Naomi Ingram Work Phone: [facility] 11-05-2023 16:13-0500 Heart rate 100 /min Dr. Naomi Ingram Work Phone: [facility] 11-05-2023 16:13-0500 Respiratory rate 16 /min Dr. Naomi Ingram Work Phone: [facility] 11-05-2023 16:13-0500 SaO2% (BldA) [Mass fraction] 97 % Dr. Naomi Ingram Work Phone: [facility] 11-05-2023 16:13-0500 Systolic blood pressure 140 mm[Hg] Dr. Naomi Ingram Work Phone: [facility] Encounters Encounter Date Encounter Type Care Provider Facility Start: 04-20-2025 [facility] Start: 04-05-2025 Encounter for genera l adult medical examination without abnormal findings Naomi Ingram [facility] Start: 03-24-2025 End: 03-24-[address] Naomi Ingram MD -[facility] Work Phone: Start: 03-24-2025 End: 03-24-[address] Naomi Ingram MD [facility] Start: 03-24-2025 End: 03-24-[address] Naomi Ingram MD Work Phone: [facility] Work Phone: Start: 03-24-2025 End: 03-24-2025 ambulatory Naomi Ingram Facility:[facility] Start: 03-17-2025 End: 03-17-2025 ambulatory NAOMI INGRAM MD Facility:[facility] Start: 03-17-2025 End: 03-17-2025 Patient encounter procedure ADRIAN PINEDA MD [facility] Start: 03-10-2025 End: 03-10-2025 ambulatory ADRIAN PINEDA MD Facility:[facility] Start: 08-29-2024 End: 08-29-2024 ambulatory Naomi Ingram Facility:[facility] Start: 04-28-2024 End: 04-28-2024 ambulatory Clydesaravananpamela Ingram Facility:[facility] Start: 04-28-2024 End: 04-28-2024 ambulatory Clydecusterpamela Arceobianka Facility:[facility] Start: 02-25-2024 End: 02-25-2024 Emergency department patient visit Dr. Naomi Ingram Work Phone: [facility]-Emergency Department Work Phone: Start: 02-15-2024 Non-patient / Non-visit Dr. Jeremiah Ingram Work Phone: [facility] Start: 02-15-2024 End: 02-15-2024 Admission to same day surgery center Dr. Naomi Ingram Work Phone: [facility]-Endoscopy Work Phone: Start: 02-15-2024 End: 02-15-[address] Naomi Ingram Work Phone: [facility] Work Phone: Start: 12-09-2023 End: 12-09-[address] Naomi Ingram Work Phone: [facility] Work Phone: Start: 12-03-2023 End: 12-03-[address] Naomi Ingram Work Phone: [facility] Work Phone: Start: 12-03-2023 End: 12-03-[address] Naomi Ingram Work Phone: [facility]-Outpatient Bone Densitometry Work Phone: Start: 11-05-2023 End: 11-05-[address] Naomi Ingram Work Phone: [facility] Work Phone: Start: 07-23-2023 End: 07-24-2023 ambulatory ADRIAN PINEDA MD Facility:[facility] Start: 07-15-2023 End: 07-20-2023 ambulatory ADRIAN PINEDA MD Facility:[facility] Start: 07-15-2023 End: 07-20-2023 Encounter for gynecological examination (general) (routine) without abnormal findings ADRIAN PINEDA MD Facility:[facility] Start: 07-15-2023 End: 07-19-2023 Outreach Lab ADRIAN PINEDA MD [facility] Start: 04-28-2022 End: 04-28-2022 Patient encounter procedure [facility]-Outpatient Breast Imaging Start: 04-10-2022 End: 04-10-2022 Patient encounter procedure [facility]-Laboratory, Specimen Procedures Date Procedure Procedure Detail Performing Clinician Start: 02-15-[address] Primo Ingram Work Phone: Start: 12-03-2023 Dual energy X-ray absorptiometry Dr. Naomi Ingram Work Phone: Start: 04-28-2022 Screening mammograph y of left breast Start: 10-19-2002 Mastectomy of right breast ADRIAN PINEDA MD Start: 10-19-1979 section ADRIAN PINEDA MD Loop electrosurgical excision procedure ADRIAN PINEDA MD Polyp of colon (disorder) SHERLYN PINEDA MD Structure of wisdom tooth (body structure) ADRIAN PINEDA MD Tonsillectomy ADRIAN Ramos Plan of Treatment Date Care Activity Detail Author Start: 03-24-2025 CBC W Auto Differential panel - Blood [facility] Start: 03-24-2025 Comprehensive metabolic 2000 panel - Serum or Plasma [facility] Start: 03-24-2025 Lipid 1996 panel - Serum or Plasma [facility] Start: 02-25-2024 [facility] Start: 02-15-2024 Colonoscopy w/biopsy single/multiple COLONOSCOPY AND BIOPSY [facility] Start: 02-15-2024 Colsc flx w/rmvl of tumor polyp lesion snare tq COLONOSCOPY W/LESION REMOVAL [facility] Start: 02-15-2024 Egd transoral biopsy single/multiple EGD BIOPSY SINGLE/MULTIPLE [facility] Start: 02-15-2024 Patient discharge [facility] Start: 11-05-2023 Patient referral [facility] Work Phone: Alanine aminotransfe rase [Enzymatic activity/volume] in Serum or Plasma [facility] Albumin [Mass/volume ] in Serum or Plasma [facility] Alkaline phosphatase [Enzymatic activity/volume] in Serum or Plasma [facility] Anion gap in Serum o r Plasma [facility] Bilirubin, total measurement [facility] BUN/Creatinine ratio [facility] Calcium [Mass/volume ] in Serum or Plasma [facility] Carbon dioxide, tota l [Moles/volume] in Central venous blood [facility] Cholesterol [Mass/vo lume] in Serum or Plasma [facility] Cholesterol in HDL [Mass/volume] in Serum or Plasma [facility] Colonoscopy [facility] Creatinine [Mass/vol ume] in Serum or Plasma [facility] CT Chest [facility] Erythrocyte mean corpuscular volume determination [facility] Glucose [Mass/volume ] in Serum or Plasma [facility] Hematocrit [Volume Fraction] of Blood [facility] Hemoglobin [Mass/vol ume] in Blood [facility] Leukocytes [#/volume ] in Blood [facility] Low density lipoprot ein cholesterol measurement [facility] Mean corpuscular hem oglobin concentration determination [facility] Mean corpuscular hem oglobin determination [facility] Measurement of renal function [facility] Neutrophil count [facility] Neutrophil percent differential count [facility] Path report.final Dx Spec [facility] Work Phone: Patient Education ED Allergic Re action Local Other [facility] Work Phone: Patient referral [facility] Work Phone: Platelets [#/volume] in Blood [facility] Potassium measurement [facility] Red blood cell count [facility] Red cell distributio n width determination [facility] Serum chloride measurement [facility] Sodium measurement [facility] Total cholesterol:HD L ratio measurement [facility] Total protein measurement [facility] Triglycerides measurement [facility] Urea nitrogen [Mass/ volume] in Serum or Plasma [facility] VLDL cholesterol measurement [facility] Payers Date Payer Category Payer Medicare [id number] 2025 Private Health Insurance [id number] 2025 Medicare [id number] 2025 Private Health Insurance [id number] 2024 Self-pay [id number] 2023 Private Health Insurance [id number] 2022 Private Health Insurance [id number] 2005 Private Health Insurance [facility] [id number] 1960 Unknown [id number] 1960 Unknown [id number] 1960 Unknown [id number] 1960 Unknown [id number] 27 Unknown [id number] 62 Unknown [id number] 62 Unknown [id number] 62 Unknown [id number] 62 Unknown [id number] 62 Unknown [id number] 62 Unknown [id number] 62 Social History Date Type Detail Facility Start: 10-22-2021 End: 02-25-2024 Tobacco smoking status NHIS Unknown if ever smoked [facility] Start: 12-07-2018 Cigarettes [facility] Start: 1960 Sex Assigned At Female [facility] Start: 07-15-2023 Tobacco smoking status Heavy t obacco smoker (finding) [facility] Sexual Orientation Dariusz Rock osbernice [facility] Sex Female (finding) [facility] Start: 02-25-2024 Tobacco smoking stat us NHIS Smokes tobacco daily (finding) [facility] NEGATED: Highlighted row [facility] Goals Date Patient Goal Desired Activity /State Mental Status Date Assessment Result Facility 02-15-2024 Cognitive function Awake;Alert;Appropriat e [facility] Work Phone: 02-15-2024 Cognitive function Arousable To Voice/Nam e [facility] Work Phone: Clinical Notes 04-10-2022 to 03-24-2025 Note Date & Type Note Facility 03-24-2025 Evaluation note Diagnosis Onset Date Resolution Health care maintenance acute J une 2024 10:31am Chronic gastritis chronic March 10:31am Hyperlipidemia chronic March 24, 2025 10:31am Hypertension chronic March 24 10:31am Osteopenia chronic March 24, 2025 10:31am [facility] Work Phone: [phone] 866-181205-30-2025 Note* Exam Date Time Procedure Performing Provider Status 03/17/25 8:41 AM MA Mammo Diagnostic Left w/GABRIEL Soliz MD; Auth (Verified) [id number] ORIGINAL FROM: [id number] [id number] PROCEDURE FOR: DANIELLE PARRA [address] [place] [address] Home: PID#: [id number] Exam#: [id number] : 1960 Age: 64 TO: ADRIAN PINEDA MD [address] [address] Fax: NO FAX EXAMINATION: DIAGNOSTIC DIGITAL LEFT BREAST MAMMOGRAM WITH TOMOSYNTHESIS, 03/17/2025 8:24 am TECHNIQUE: Diagnostic mammography of the left breast was performed with tomosynthesis. 2D standard and 3D tomosynthesis combination imaging performed through the left breast. Computer aided detection was utilized in the interpretation of this exam. Current study was also evaluated with a Computer Aided Detection (CAD) system. COMPARISON: 03/10/2025 HISTORY: ORDERING SYSTEM PROVIDED HISTORY: Reason for Exam: Left breast asymmetry FINDINGS: BREAST DENSITY: There are scattered areas of fibroglandular density. Left breast asymmetry does not persist with additional imaging. No significant masses, calcifications, or other findings. IMPRESSION: Left breast asymmetry does not persist with additional imaging, ultrasound is recommended to further evaluate, ultrasound will be performed the same day and reported separately. Tyrer Cuzick risk calculations do not apply for this patient. BIRADS: BI-RADS: 0: Incomplete: Need Additional Imaging Evaluation RECALL: immediate RECALL TYPE: US LETTER SENT: Normal-Needs additional work up BI-RADS 0 Interpreted by: Gabriel Mendoza MD Preliminary Report By: Gabriel Mendoza MD Electronically signed By Gabriel Mendoza MD Dictated Date: 03/17/2025 8:47:55 AM Prelim Date: 03/17/2025 1:35:14 PM Sign Date: 03/17/2025 1:35:14 PM Ordering Provider: ADRIAN PINEDA [employer] Sales Agent: LUIS CUTLER RT (R)(M) letter sent: Normal-Needs additional work up BI-RADS 0 Mammogram BI-RADS: 0 Indeterminate [facility]05-27-2025 Evaluation + Plan note Future Scheduled Tests Laboratory* [facility] Lab Send out (Blood Specimens) 03/14/25 [facility] 05-09-2024 Discharge summary Author Henry Phillips [facility] February 25, 2024 7:40pm Note Date/Time February 25, 2024 7:40pm [facility] Medical Records Department [address] [place] [address] Emergency Department Summary 02/25/24 MR#: [id number] Acct: [id number] Name: DANIELLE PARRA Rep #:[id number] : 1960 63 From: [facility] Gonzales PCP: Dr. Naomi Ingram MD Status:R EG ER Location: ED HPI History of Present Illness Chief Complaint: Allergic Reaction Narrative Narrative: Concerns for sudden swelling right side of face and neck half hour ago after eating avocado and a little sardines. She has eaten this in the past. No trouble swallowing no dyspnea. 10 days post EGD with reported gastritis. She is on pantoprazole and Carafate for 2 weeks. Denies abdominal pain. Denies history of similar. Reports it was firm on her right jawline and upper neck region. Prior similar symptoms: No PFSH PFSH Medical History Sol esophagus Breast cancer, right Cancer Colon cancer screening Difficulty chewing Effusion, right knee Encounter for screening for malignant neoplasm of lung in current smoker with 30pack year history or greater GERD (gastroesophageal reflux disease) GI problem High cholesterol History of breast cancer History of stress test Hyperlipidemia leep cone Osteopenia Restless legs Right knee pain Seasonal allergies Smoker Tobacco use disorder, continuous Wears glasses Home Medications [id number] ac 400 mcg-calcium carb 500 mg-vit K1 20 mcg tablet 1 ea PO DAILY SUPPLEMENT 12/07/18 [History Last Taken Unknown] omega-3 fatty acids 1,000 mg capsule 2,000 mg PO DAILY SUPPLEMENT 12/07/18 [History Last Taken Unknown] cholecalciferol (vitamin D3) 50 mcg (2,000 unit) capsule 50 mcg PO DAILY 10/09/20 [History Last Taken Unknown] olopatadine 0.2 % eye drops (Pataday Once Daily Relief) 1 drp ophthalmic (eye) QAM PRN itching 07/17/23 [History Last Taken Unknown] pantoprazole 40 mg tablet,delayed release 40 mg PO DAILY #30 tabs 02/15/24 [Rx Last Taken Unknown] sucralfate 1 gram tablet 1 g PO 4X/DAY #56 tabs 02/15/24 [Rx Last Taken Unknown] Allergy/AdvReac Type Severity Reaction Status Date / Time Penicillins Allergy Swelling Verified 02/25/24 18:47 Family History Sister Colon cancer Thyroid disorder Mother Arthritis Hypertension Mental disorder Psychiatric care Thyroid disorder Father Hypertension Thyroid disorder Grandmother Mental disorder Brother Thyroid disorder Surgical History H/O LEEP History of section History of colonoscopy with polypectomy History of esophagogastroduodenoscopy (EGD) History of lumpectomy of right breast History of right mastectomy History of tonsillectomy History of tooth extraction (~08/2023) History of wisdom tooth extraction Social History Smoking Status: Current every day smoker tobacco type: cigarettes Tobacco: How many years used: 50 Electronic Cigarette Use: not used second hand exposure: No quit status: considering quitting alcohol intake: never substance use type: does not use what type of physical activity do you participate in: other details: 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 ED Constitutional Constitutional ED: Denies chills, fever(s) or sweats Eyes Eyes: Denies change in vision ENT ENT ED: Reports other Details: Right side facial swelling ; Denies dysphagia or sore throat Cardiovascular Cardiovascular: Denies chest pain, leg edema, palpitations or racing heartbeat Respiratory/Chest Respiratory/Chest: Denies cough, dyspnea or dyspnea on exertion Gastrointestinal Gastrointestinal: Denies abdominal pain, diarrhea, nausea or vomiting Genitourinary Genitourinary ED: Denies dysuria, hematuria or urinary frequency Musculoskeletal Musculoskeletal: Denies back pain, extremity pain or neck pain Integumentary Denies rash or wounds Neurologic Neurologic: Denies headache(s), paresthesias or weakness EXAM Physical Exam Const Vital Signs: 02/25/24 18:46 Temperature 96 F L Temperature Source Temporal Pulse Rate 92 Respiratory Rate 14 Blood Pressure 170/78 H Blood Pressure Mean 108 Pulse Ox 100 Positive well nourished and well developed General Appearance ED: well developed and NAD HEENT Reports moist mucous membranes HEENT Narrative: No lip or tongue swelling. No stridor. Slight swelling noted submandibular asymmetric right compared to left. Airway patent. normocephalic and atraumatic Eyes PERRL, EOMs intact bilaterally and conjunctivae normal General Eye ED: Yes normal appearance of both eyes Neck no lymphadenopathy and supple General: Negative for tenderness Chest Wall Chest: Negative for tenderness Resp normal respiratory effort and normal air movement Effort and Inspection: symmetric chest movement; Negative for respiratory distress Cardio regular rate, regular rhythm and no murmurs Peripheral Pulses: pulses 2+ throughout GI normal to inspection, nondistended, normoactive bowel sounds and non-tender Palpation: Negative for guarding or rebound tenderness present Back/Spine no CVA tenderness and no thoracic nor lumbar tenderness Extremity normal to inspection General Extremety ED: Negative for edema or tenderness General Extremity: Negative for edema Neuro oriented x3 and no sensory deficits noted Sensorium / Orientation: awake and alert Skin no rashes or lesions noted and no wounds MDM MDM MDM Narrative Medical decision making narrative: Interventions / MDM: Differential diagnosis: Allergic reaction, facial swelling Diagnosis considered but do not suspect: No clinical infection. My EKG interpretation: N/A Imaging independently reviewed and interpreted by myself: N/A External documents reviewed: N/A Test considered but not ordered:N/A ED course: Patient no airway compromise she has asymmetric swelling currently isnot as firm. She did confirm that it is improving. Order for Benadryl and Pepcid avoided prednisone as she is dealing with gastritis on medication with recent EGD. 1935: Apparently patient declined Benadryl and Pepcid. She states she has this at home. Her swelling was more improved on reevaluation. Discussed if symptomsrecur to take Benadryl and Pepcid with strict return precautions. All questionswere answered. Re-evaluation: stable Disposition discussed with patient/family/significant other: Patient Case discussed with consulting clinician: N/A This note was generated with [employer] dictation software. It may contain incorrectwords, spelling, and punctuation that were not noted in checking the note beforesigning. Discharge Plan Triage Chief Complaint: Allergic Reaction ED Provider: Henry Phillips Dx/Rx/DC Orders Clinical Impression: Right facial swelling, Allergic reaction Instructions: ED Allergic Reaction Local Other Prescriptions: No Action cholecalciferol (vitamin D3) 50 mcg (2,000 unit) capsule 50 mcg PO DAILY olopatadine [Pataday Once Daily Relief] 0.2 % drops 1 drp ophthalmic (eye) QAM PRN (Reason: itching) omega-3 fatty acids 1,000 MG capsule 2,000 mg PO DAILY [id number]-calcium carb-K1 1 EACH tablet 1 ea PO DAILY sucralfate [sucralfate] 1 gram tablet 1 g PO 4X/DAY Qty: 56 0RF Rx Instructions: Take 1 hour before meals and at bedtime pantoprazole 40 mg tablet,delayed release (DR/EC) 40 mg PO DAILY Qty: 30 3RF Primary Care Provider: Naomi Ingram Referrals: Naomi Ingram MD [Primary Care Provider] - 1 Week Activity Restrictions/Additional Instructions: Your symptoms are improving while in the ED. You declined the medications. Mayuse Benadryl 25 mg every 6 hours as needed. Use Pepcid daily for the next 5 days. If symptoms worsens, return to the ED for reevaluation. Disposition Disposition: Home, Self Care What to do if you have Problems For any increased pain, shortness of breath, bleeding, nausea or vomiting, chestpain, or any unexpected problems, contact your Primary Care Provider. Call [facility] ([phone]) or report to the closest Emergency Room. Call 911 if necessary. 02/25/241939 <Electronically signed by Henry Gonzales> Cosigner Signature (if applicable): CC: Dr. Naomi Ingram MD ~ Signed [facility] Work Phone: [phone]) 263-707004-29-2024 [facility] 02-15-2024 [facility]2024 Procedure note [facility]04-29-2024 [facility] 04-10-2022 NotePap Smear Specimen AdequacyJune 2021 3:45pmComment. Satisfactory for evaluation. Endocervical and/or squamous metaplasticcells (endocervical component)are present.[facility] A#[id number] [facility] Work Phone: Comment on above:Satisfactory for evaluation. Endocervical and/or squamous metaplasticcells (endocervical component)are present.04-10-2022 NotePap Smear QC ReviewJune 2021 3:45pmComment.Octavia Toledo, Supervisory Radiology Physician (ASCP)[facility] A#[id number] [facility] Work Phone: Comment on above:Octavia Toledo, Supervisory Radiology Physician (ASCP)Evaluation + Plan note Future Appointments Appointment Date:07/23/2023 03:00:00 PM Scheduled Provider: Location:RAD Appointment Type:MA Mammogram Screening Left w/ Norm Future Scheduled Tests Radiology* MA Mammo Screening Left w/ Norm 07/23/23 [facility] Evhnmation noteNo assessment information available [facility] Work Phone: Evaluation note* Diagnosis Onset Date Resolution Status Colon cancer screening acute Sol esophagus chronic Hyperlipidemia chronic Osteopenia chronic Tobacco use disorder, continuous chronic [facility] Work Phone: Evaluation note* Diagnosis Onset Date Resolution Status Colon cancer screening acute Sol esophagus chronic Hyperlipidemia chronic Osteopenia chronic Tobacco use disorder, continuous chronic FH: colon cancer acute Hx of colonic polyp acute Sol esophagus chronic FH: colon cancer acute Hx of colonic polyp acute Sol esophagus chronic [facility] Work Phone: Evaluation note* Diagnosis Onset Date Resolution Status Admit Date Health care maintenance acute J une 2024 10:31am Chronic gastritis chronic March 10:31am Hyperlipidemia chronic March 24, 2025 10:31am Hypertension chronic March 24 10:31am Osteopenia chronic March 24, 2025 10:31am [facility] Work Phone: History and physical note Author Merissa Best [facility] February 15, 2024 9:47am Note Date/Time February 15, 2024 9:[address] [facility] Medical Records Department [address] [place] [address] History & Physical Exam 02/15/24 0942 MR#: [id number] Acct: [id number] Name: DANIELLE PARRA Rep #:[id number] : 1960 63 From: Merissa Best MD PCP: Dr. Naomi Ingram MD Status:[facility] Location: [place] [address] HPI - General General Date of Service: 02/15/24 HPI Narrative DANIELLE PARRA, is a 63 F who presents for EGD and colonoscopy. Patient does have a history of Sol's however has not been taking omeprazole as she had some reactions with skin issue as well as achiness. Patient denies having any refluxor heartburn states she feels good. Otherwise patient denies other changes since office visit. office visit 12/09/23 HPI HPI: 63-year-old female presents for EGD and colonoscopy. Patient's last EGD and colonoscopy was 2017- do not currently have the report- will request. Patient states she had a large polyp greater than a centimeter at that time, patient's sister also was diagnosed with colon cancer age 61. Patient also has a history of Sol's with no dysplasia. Patient states she was on omeprazole 20 mg backaround 2017 but thought she was better and also had some questionable skin issuefelt weird so she came off the omeprazole patient did recently go back on it she saw her PCP who encouraged her to take it again patient took it for about 2 weeks 40 mg p.o. daily and stated that she had some achiness in crampy abdominaldiscomfort so she stopped again states that she was only having reflux maybe twice a week and it was mild. Patient does have Pepcid at home that she would take occasionally if she was really nauseous or gagging. Patient states she hasbowel movements daily denies any blood. Patient denies any chronic abdominal pain nausea or vomiting. [facility] Medical History (Updated 02/10/24 @ 14:13 by Anna Gonzales) Sol esophagus Breast cancer, right Cancer Colon cancer screening Difficulty chewing Effusion, right knee Encounter for screening for malignant neoplasm of lung in current smoker with 30pack year history or greater GERD (gastroesophageal reflux disease) GI problem High cholesterol History of breast cancer History of stress test Hyperlipidemia leep cone Osteopenia Restless legs Right knee pain Seasonal allergies Smoker Tobacco use disorder, continuous Wears glasses Home Medications ydvuuvii-vei-iiwsh ac 400 mcg-calcium carb 500 mg-vit K1 20 mcg tablet 1 ea PO DAILY SUPPLEMENT 12/07/18 [History Last Taken Unknown] omega-3 fatty acids 1,000 mg capsule 2,000 mg PO DAILY SUPPLEMENT 12/07/18 [History Last Taken Unknown] cholecalciferol (vitamin D3) 50 mcg (2,000 unit) capsule 50 mcg PO DAILY 10/09/20 [History Last Taken Unknown] olopatadine 0.2 % eye drops (Pataday Once Daily Relief) 1 drp ophthalmic (eye) QAM PRN itching 07/17/23 [History Last Taken Unknown] Allergy/AdvReac Type Severity Reaction Status Date / Time Penicillins Allergy Swelling Verified 02/15/24 09:39 Family History Sister Colon cancer Thyroid disorder Mother Arthritis Hypertension Mental disorder Psychiatric care Thyroid disorder Father Hypertension Thyroid disorder Grandmother Mental disorder Brother Thyroid disorder Surgical History (Updated 02/10/24 @ 14:13 by Anna Gonzales) H/O LEEP History of section History of colonoscopy with polypectomy History of esophagogastroduodenoscopy (EGD) History of lumpectomy of right breast History of right mastectomy History of tonsillectomy History of tooth extraction (~08/2023) History of wisdom tooth extraction Social History Smoking Status: Current every day smoker tobacco type: cigarettes Tobacco: How many years used: 50 Electronic Cigarette Use: not used second hand exposure: No quit status: considering quitting alcohol intake: never substance use type: does not use what type of physical activity do you participate in: other details: AROUND [employer]HOUSE Past Medical/Surgical History Planned Operation Planned Operative Procedure/s: EGD, CSCOPE S.O.S: No Previous Hospitalizations/Surgeries HX Hospitalizations: No HX of Surgeries: TONSILLECTOMY CHILD WISDOM TEETH REMOVED ADULT 1979 RIGHT MOD RAD MASTECTOMY 2002 2017 COLONOSCOPY/EGD COLON POLYP REMOVAL Any Problems With Anesthesia: No You/Your Family Experience Fever (Hyperthermia) With Anes: No Cholinesterase deficiency: No Cardiovascular Hx Chest Pain within Last 2 months: No Hx of Irregular Heartbeat and/or Afib: No Hx Heart Attack: No Hx Congestive Heart Failure: No Hx Rheumatic Fever: No Hx Hypertension: No Hx Internal Defibrillator: No Hx Pacemaker: No Hx Cardiac Catheterization: No Hx Cardiac Surgery/Stents/Etc.: No Hx Stress Test: Yes (OVER 5 YRS AGO/ STATES NEG) Hx Pain in Legs when Walking/Leg Cramps: No Respiratory Chronic Cough: No HX of Shortness of Breath: No Hoarseness: No Hx Chronic Obstructive Pulmonary Disease (COPD): No Hx Asthma: No Hx Emphysema: No Hx Sleep Apnea: No Hx Respiratory Tract Infection/Cold (presently): No Do You Snore Loudly (louder than talking or can be heard): No Do You Often Feel Tired/ Fatigued/ Sleepy Dring Daytime?: No Has Anyone Observed You Stop Breathing During Sleep?: No Result (for STOP score): Negative Hx Smoking: Yes (1PPD X 47 YRS) Smoking Status: Current every day smoker Gastrointestinal Controlled With Meds: Yes (OMEPRAZOLE) Hx Gastrointestinal Disorders: Yes (COLON POLYP PER HX) Hx Gastrointestinal Bleed: No Hx Ulcer: No Hx Hiatal Hernia: No Difficulty Chewing/Swallowing: No Special diet followed at home: No Hx Unplanned Weight Loss of 20#: No HX Unplanned Weight Gain of 20#: No Neurological Hx Seizures: No HX Syncope/Blackout Spells/Unconsciousness: No Hx Transient Ischemic Attacks (TIA): No Hx Multiple Sclerosis: No Hx Parkinson's Disease: No Hx Head/Neck Injury: Yes (PER HX) Hx Headaches: No Hx Back Injury/Pain: No Recent Onset of Speech Difficulty: No Restless Legs: Yes (NO MEDS) Does patient have nerve stimulator: No Blood Disorder Hx Leukemia: No Bleeding Tendencies: No Hx Deep Vein Thrombosis: No Hx High Cholesterol: Yes (NO MEDS) Blood Transmitted Disease: No Hx Hepatitis: No Hx Cirrhosis: No Hx Anemia: No Hx Blood Disorders: No Reproduction : No Is Patient Lactating: No Hx Hysterectomy: No Hx Tubal Ligation: No Are You Post Menopause: Yes Genitourinary Hx Renal Disease: No (DENIES PROBLEMS VOIDING POST OP) Musculoskeletal Hx Arthritis: No Hx Rheumatoid Arthritis: No Hx Gout: No Recent Onset of an Orthopedic Problem: No Endocrine Hx Diabetes: No Thyroid Disease: No Hx Steroid Therapy: No Psycho/Social Hx Substance Use: No Hx Alcohol Use: No Hx Anxiety: No Hx Depression: No Mental Illness: No Hx Dementia: No Miscellaneous Hx Cancer: Yes (breast/ MASTECTOMY) Recent Exposure to Contagious Disease: No Hx of C-Diff: No Any Loose Teeth: No (RECENT DENTAL PAIN/ BAD TOOTH) Allergies Penicillins Allergy (Verified 02/15/24 09:39) Swelling Discharge Is Pt Admitted From a [facility], or a Longterm: No After D/C, Where Do you Plan to Go: Return Home From the [facility] History Number of Risk Factors: 1 Physical Exam Const alert, oriented x3 and no apparent distress HEENT normocephalic and head/scalp atraumatic Resp normal respiratory effort Cardio regular rate GI soft to palpation and non-tender; Negative for non-distended Palpation: Negative for guarding Extremity no clubbing, cyanosis or edema Skin no rashes or lesions noted Neuro CN's II-XII intact bilaterally Psych mental status grossly normal Assessment & Plan Assessment/Plan (1) Sol esophagus: (2) Hx of colonic polyp: (3) FH: colon cancer: Surgery Risks - Colonoscopy I discussed with the patient the risks of the procedure: Yes Risks Include but are not Limited To: Risks include but are not limited to: Bleeding, perforation requiring further surgery, inability to complete colonoscopy requiring barium enema. 02/15/24 0947 <Electronically signed by Merissa Best MD> Cosigner Signature (if applicable): CC: Dr. Naomi Ingram MD; Dr. Merissa Best MD~ Signed [facility] Work Phone: Hospital course Narrative No data available for this section [facility] Discharge instructions No data available for this section [facility] Discharge instructions Additional Instructions Your symptoms are improving while in the ED. You declined the medications. May use Benadryl 25 mg every 6 hours as needed. Use Pepcid daily for the next 5 days. If symptoms worsens, return to the ED for reevaluation.[facility] Work Phone: Progress note No data available for this section [facility] Reason for referral (narrative)No reason for [facility] Work [facility]: Summary Purpose Family History No Family History Records Found Relationship Condition Age at Onset Recorded Date/T rudy sister Malignant neoplasm of colon Unknown Disorder of thyroid Unknown mother Arthritis Unknown Hypertension Unknown Mental disorder Unknown Psychiatric care Unknown father Hypertension Unknown grandmother Mental disorder Unknown brother Disorder of thyroid Unknown Advance Directives No Advanced Directives Records Found Advance Directive Response Recorded Date/ Time Living Will Yes December 07 019 3:07pm Power of Product Ambassador Yes December 07, 2018 3:07pm Advance Directive Response Recorded Date/ Time Living Will Yes December 07 2:07pm Power of Product Ambassador Yes December 07, 2018 2:07pm Advance Directive Response Recorded Date/ Time Name of Medical Power of Product Ambassador BROTHER February 10, 2024 2:03pm Living Will Yes February 10, 2024 2:03pm Power of Product Ambassador Yes February 09 2:03pm Advance Directive Response Recorded Date/ Time Living Will No February 25, 2024 7: 05pm Power of Product Ambassador No February 25, 2024 7:05pm Name of Medical Power of Product Ambassador BROTHER February 10, 2024 2:03pm Chief Complaint and Reason for Visit Chief Complaint SCREENING Chief Complaint 2 m fu POST [facility]EREM[facility]H Reason for Visit Colon cancer screeni ng Sol esophagus Hyperlipidemia Osteopenia Tobacco use disorder, continuous Chief Complaint 2 m fu POST [facility]EM[facility] EGD AND COLONOSCOPY SCREENING Reason for Visit Colon cancer screeni ng Sol esophagus Hyperlipidemia Osteopenia Tobacco use disorder, continuous FH: colon cancer Hx of colonic polyp Sol esophagus FH: colon cancer Hx of colonic polyp Sol esophagus Chief Complaint 2 m fu POST [place]EM[place] EGD AND COLONOSCOPY SCREENING ALLERGIC REACTION Reason for Visit Colon cancer screeni ng Sol esophagus Hyperlipidemia Osteopenia Tobacco use disorder, continuous FH: colon cancer Hx of colonic polyp Sol esophagus FH: colon cancer Hx of colonic polyp Sol esophagus Chief Complaint Admit Date 6 M FU March 24, 2025 10:31 am Reason for Visit Admit Date Health care maintenance March 24, 2025 1 0:31am Chronic gastritis March 24, 2025 10:31 am Hyperlipidemia March 24, 2025 10:31 am Hypertension March 24, 2025 10:31 am Osteopenia March 24, 2025 10:31 am Additional Source Comments INFORMATION SOURCE (unrecogn ized section and content) DATE CREATED AUTHOR 12/10/2019 [facility] DATE CREATED AUTHOR AUTHOR'S ORGANIZ ATION 08/21/2023 [facility] ([place]) DATE CREATED AUTHOR AUTHOR'S ORGANIZ ATION 03/24/2025 [facility] DATE CREATED AUTHOR AUTHOR'S ORGANIZ ATION 04/19/[address] [facility] Goals (unrecognized section and content) Goals may be documented in a n alternate sectionGoals may be documented in an alternate section No data available for this sectionGoals may be documented in an alternate section No data available for this sectionGoals may be documented in an alternate sectionGoals may be documented in an alternate section Patient Care team informatio n (unrecognized section and content) Team Status: Active Member Role Status Dates Dr. Naomi Ingram MD Primary Care Provider Active Team Status: Inactive Member Role Status Dates Dr. Naomi Ingram MD Primary Care Provider Active Start: March 24, 2025 End: March 24, 2025 Dr. Naomi Ingram MD Attending Provider Active Start: March 24, 2025 End: March 24, 2025 Dr. Naomi Ingram MD Referring Provider Active Start: March 24, 2025 End: March 24, 2025 Team Status: Active Member Role Status Dates No Primary Care Physician Family Provider Active Dr. Naomi Ingram MD Primary Care Provider Active Team Status: Inactive Member Role Status Dates Dr. Naomi Ingram MD Primary Care P wilda, Attending Provider, Referring Provider Active Team Status: Inactive Member Role Status Dates Dr. Naomi Ingram MD Primary Care Provider, Refer ring Provider Active Dr. Merissa Best MD Attending Provider Active Team Status: Active Member Role Status Dates Dr. Naomi Ingram MD Primary Care Provider, Refer ring Provider Active Dr. Merissa Best MD Attending Provider, Other Pro vider Active Team Status: Inactive Member Role Status Dates Dr. Naomi Ingram MD Primary Care Provider Active Dr. Henry Phillips DO Emergency Provider Active Team Status: Active Member Role Status Dates Dr. Naomi Ingram MD Primary Care Provider Active Start: March 24, 2025 Dr. Naomi Ingram MD Attending Provider Active Start: March 24, 2025 Dr. Naomi Ingram MD Referring Provider Active Start: March 24, 2025 FOR RECORDS PERTAINING TO PATIENTS WHO ARE OR HAVE BEEN ENROLLED IN A CHEMICAL DEPENDENCY/SUBSTANCEABUSE PROGRAM, SOME INFORMATION MAY BE OMITTED. This clinical summary was aggregated from multiple sources. Caution should be exercised in using it in the provision of clinical care. This summary normalizes information from multiple sources, and as a consequence, information in this document may materially change the coding, format and clinical context of patient data. In addition, data may be omitted in some cases. CLINICAL DECISIONS SHOULD BE BASED ON THE PRIMARY CLINICAL RECORDS. [employer] provides no warranty or guarantee of the accuracy or completeness of information in this document.
--- NOTE | 2025-04-20 13:22 | CA.SCORE ---
Calcium Scoring Date of Study:: 04/20/25 Indications Indications: Hyperlipidemia Coronary Calcium Scoring: High-resolution Computed Tomographic imaging of the chest was performed on [04/20/2025], with particular attention paid to the coronary arteries. Images from the examination were analyzed for the presence and extent of coronary artery calcification , using coronary calcium quantification software. The patient tolerated the procedure well and there were no complications. The results of the coronary calcification analysis are provided below. Findings Coronary Artery Left Main (LM): 0 Left Anterior Descending (LAD): 159 Left Circumflex (LCX): 0 Right Coronary Artery (RCA): 3.57 Total Agatston Score: 162.57 Percentile Rankinth percentile to 90th percentile Calcium Scoring Interpretation: Different methods to categorize the overall amount of coronary plaque. Overall amount CAC SIS Visual of coronary plaque P1 Mild -100 <2 1-2 vessels with mild amount of plaque P2 Moderate 101-300 3-4 1-2 vessels with moderate amount, 3 vessels with mild amount of plaque P3 Severe 301-999 5-7 3 vessels with moderate amount, 1 vessel with severe amount of plaque P4 Extensive >1000 >8 2-3 vessels with severe amount of plaque Calcium Score: Moderate: 1-2 vessels w/moderate amt, 3 vessels w/mild amt of plaque Conclusion: Moderate amount of plaque noted in a single vessel.
== END | disposition home or self-care (01) ==
LOC: CT 07:57
PROVIDERS: PCP Internal Medicine; Referring Provider Internal Medicine; Visit Provider Internal Medicine
DX: Z12.2 Encounter for screening for malignant neoplasm of respiratory organs (principal); F17.210 Nicotine dependence, cigarettes, uncomplicated
CPT/HCPCS: 71271

== ENCOUNTER 2025-07-07 11:21 | Emergency (ER) | payer MEDICARE, OTHER, SELFPAY ==
[2025-07-07] VITALS (7 sets, daily range): BP systolic 128–174; BP diastolic 56–77; PULSE 83–114; RESP 14–21; TEMP 36.1; O2SAT 96–98; BMI 27.6
--- NOTE | 2025-07-07 11:51 | EDS_ITS ---
HPI History of Present Illness Chief Complaint: Shortness of Breath PFSH PFS Medical History (Updated 03/24/25 @ 13:[address] Naomi Ingram MD) Screening for cardiovascular condition Health care maintenance Chronic gastritis Hypertension Wears glasses Cancer Restless legs Difficulty chewing Smoker History of stress test Osteopenia Colon cancer screening Effusion, right knee Right knee pain Hyperlipidemia Tobacco use disorder, continuous Encounter for screening for malignant neoplasm of lung in current smoker with 30 pack year history or greater Sol esophagus GERD (gastroesophageal reflux disease) GI problem History of breast cancer Seasonal allergies leep cone High cholesterol Breast cancer, right Home Medications ?Medication ?Instructions ?Recorded ?Last Taken ?Type mxbnvohv-[id number] ac 400 1 ea PO DAILY SUPPLEMENT 07/04/25 History mcg-calcium carb 500 mg-vit K1 20 mcg tablet omega-3 fatty acids 1,000 mg 2,000 mg PO DAILY SUPPLEM ENT 12/07/18 07/04/25 History capsule cholecalciferol (vitamin D3) 50 50 mcg PO DAILY 07/04/25 History mcg (2,000 unit) capsule boswalia 500 mg PO DAILY 03/24/25 History Allergy/AdvReac Type Severity Reaction Status Date / Time Penicillins Allergy Swelling Verified 03/24/25 10:42 Family History Sister Colon cancer Thyroid disorder Mother Arthritis Hypertension Mental disorder Psychiatric care Thyroid disorder Father Hypertension Thyroid disorder Grandmother Mental disorder Brother Thyroid disorder Surgical History History of tooth extraction (~08/2023) History of esophagogastroduodenoscopy (EGD) H/O LEEP History of colonoscopy with polypectomy History of tonsillectomy History of wisdom tooth extraction History of lumpectomy of right breast History of section History of right mastectomy Social History Smoking Status: Current every day smoker tobacco type: cigarettes Tobacco: How many years used: 50 Electronic Cigarette Use: not used second hand exposure: No quit status: considering quitting alcohol intake: never substance use type: does not use what type of physical activity do you participate in: other details: AROUND THE HOUSE EXAM Physical Exam Const Vital Signs: 07/07/25 11:22 Temperature 96.9 F L Temperature Source Temporal Pulse Rate 114 H Respiratory Rate 18 Blood Pressure 174/76 H Blood Pressure Mean 108 Pulse Ox 98 Oxygen Delivery Method Room Air [facility] [place] Narrative Medical decision making narrative: HISTORY OF PRESENT ILLNESS: Chief complaint: Shortness of breath 64-year-old female history as below who presents with prior blood per rectum. 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 She states since then she has had bleeding when she wipes. She denies history of hemorrhoids or does no history of colon cancer. States last colonoscopy was 1 year ago in which polyps were removed. Notes exertional lightheadedness/dizziness. Exertional shortness of breath. Denies shortness of breath or chest pain at rest. Denies leg swelling. Denies cough fever or chills. Denies vomiting or abdominal pain REVIEW OF SYSTEMS: Pertinent positives: Bright red blood per rectum, dizziness shortness of breath Pertinent negatives: [] PHYSICAL EXAM: Nursing triage notes reviewed, Vital signs reviewed Constitutional: please see mdm HENT: MMM Eyes: Pupils equal round and reactive to light, Extraocular muscles intact Neck: No stridor, no JVD, full neck ROM Lungs: Clear to auscultation, No wheezing or rales. No increased work of breathing, no conversational dyspnea, no accessory muscle use, no nasal flaring. No respiratory distress noted Heart: Regular rate and rhythm, No murmurs, No rubs and No gallops, 2+ distal pulses (radial, femoral, posterior tibial) in all extremities Abdomen: Soft, there is no tenderness, rigidity, rebound or guarding, no obvious peritoneal signs, no palpable pulsatile abdominal masses, no auscultated abdominal bruit : No CVAT Extremities: No edema Rectal: Performed with mud logger nurse Chloe present. Verbal consent obtained. Rectal exam showed Neuro: No n alert and oriented x3, neuro exam at baseline, cranial nerves II through XII are intact. No pain with extraocular muscle movement. There is negative test of skew. 5 of 5 strength in upper and lower extremities in flexion extension. Intact sensation to light touch in upper and lower extremity dermatomes. No truncal or extremity ataxia. No dysdiadochokinesia. Normal gait. 2+ reflexes in upper and lower extremities. No meningeal signs. Negative Babinski. NIH of 0. Skin: No rash or lesions noted MEDICAL DECISION MAKING: Chief Complaint: please see HPI External records reviewed: Reviewed prior imaging studies Factors affecting care: History of colon cancer, Sol's esophagus, hyperlipidemia, tobacco abuse Social determinants of health: none History obtained from others: Friend Consults: none [] [facility] Narrative: The patient was initially hypertensive with a blood pressure 174/76, tachycardic with heart rate of 114, afebrile saturating 90% room air I considered the following differential diagnosis: Anemia, GI bleed, arrhythmia, ACS, pneumonia I obtained a broad lab and imaging evaluation to further determine if the patient was suffering from a life-threatening etiology. ALL IMAGES (IF OBTAINED) HAVE BEEN PERSONALLY REVIEWED AND INTERPRETED BY MYSELF.
--- NOTE | 2025-07-07 11:51 | ED.VIS.DYS ---
HPI History of Present Illness Chief Complaint: Shortness of Breath PFSH PFSH Medical History Screening for cardiovascular condition Health care maintenance Chronic gastritis Hypertension Wears glasses Cancer Restless legs Difficulty chewing Smoker History of stress test Osteopenia Colon cancer screening Effusion, right knee Right knee pain Hyperlipidemia Tobacco use disorder, continuous Encounter for screening for malignant neoplasm of lung in current smoker with 30 pack year history or greater Sol esophagus GERD (gastroesophageal reflux disease) GI problem History of breast cancer Seasonal allergies leep cone High cholesterol Breast cancer, right Home Medications ?Medication ?Instructions ?Recorded ?Last Taken ?Type [id number]-[id number] ac 400 1 ea PO DAILY SUPPLEMENT 12/07/18 07/04/25 History mcg-calcium carb 500 mg-vit K1 20 mcg tablet omega-3 fatty acids 1,000 mg 2,000 mg PO DAILY SUPPLEMENT 12/07/18 07/04/25 History capsule cholecalciferol (vitamin D3) 50 50 mcg PO DAILY 10/09/20 07/04/25 History mcg (2,000 unit) capsule boswalia 500 mg PO DAILY 03/24/25 07/04/25 History pantoprazole 40 mg granules 40 mg PO DAILY 30 days #30 ea 07/07/25 Unknown Rx delayed-release for susp in packet (Protonix) Allergy/AdvReac Type Severity Reaction Status Date / Time Penicillins Allergy Swelling Verified 03/24/25 10:42 Family History Sister Colon cancer Thyroid disorder Mother Arthritis Hypertension Mental disorder Psychiatric care Thyroid disorder Father Hypertension Thyroid disorder Grandmother Mental disorder Brother Thyroid disorder Surgical History History of tooth extraction (~08/2023) History of esophagogastroduodenoscopy (EGD) H/O LEEP History of colonoscopy with polypectomy History of tonsillectomy History of wisdom tooth extraction History of lumpectomy of right breast History of section History of right mastectomy Social History Smoking Status: Current every day smoker tobacco type: cigarettes Tobacco: How many years used: 50 Electronic Cigarette Use: not used second hand exposure: No quit status: considering quitting alcohol intake: never substance use type: does not use what type of physical activity do you participate in: other details: AROUND THE HOUSE EXAM Physical Exam Const Vital Signs: 07/07/25 11:22 07/07/25 12:16 07/07/25 12:22 Temperature 96.9 F L Temperature Source Temporal Pulse Rate 114 H 99 Respiratory Rate 18 17 Respiratory Effort Normal Non-Labored Respiratory Depth Normal Respiratory Pattern Normal Blood Pressure 174/76 H 128/56 H Blood Pressure Mean 108 80 Pulse Ox 98 98 Oxygen Delivery Method Room Air Room Air Room Air 07/07/25 13:00 07/07/25 13:18 07/07/25 14:00 Temperature 96.9 F L Temperature Source Pulse Rate 89 83 88 Respiratory Rate 19 H 21 H 16 Respiratory Effort Respiratory Depth Respiratory Pattern Blood Pressure 134/63 H 134/63 H 162/77 H Blood Pressure Mean 86 86 105 Pulse Ox 97 96 Oxygen Delivery Method Room Air 07/07/25 14:23 Temperature Temperature Source Pulse Rate 91 Respiratory Rate 14 Respiratory Effort Respiratory Depth Respiratory Pattern Blood Pressure 143/58 H Blood Pressure Mean 86 Pulse Ox Oxygen Delivery Method MDM MDM MDM Narrative Medical decision making narrative: HISTORY OF PRESENT ILLNESS: Chief complaint: Shortness of breath 64-year-old female history as below who presents with prior blood per rectum. 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 She states since then she has had bleeding when she wipes. She denies history of hemorrhoids or does no history of colon cancer. States last colonoscopy was 1 year ago in which polyps were removed. Notes exertional lightheadedness/dizziness. Exertional shortness of breath. Denies shortness of breath or chest pain at rest. Denies leg swelling. Denies cough fever or chills. Denies vomiting or abdominal pain REVIEW OF SYSTEMS: Pertinent positives: Bright red blood per rectum, dizziness shortness of breath Pertinent negatives: [] PHYSICAL EXAM: Nursing triage notes reviewed, Vital signs reviewed Constitutional: please see mdm HENT: MMM Eyes: Pupils equal round and reactive to light, Extraocular muscles intact Neck: No stridor, no JVD, full neck ROM Lungs: Clear to auscultation, No wheezing or rales. No increased work of breathing, no conversational dyspnea, no accessory muscle use, no nasal flaring. No respiratory distress noted Heart: Regular rate and rhythm, No murmurs, No rubs and No gallops, 2+ distal pulses (radial, femoral, posterior tibial) in all extremities Abdomen: Soft, there is no tenderness, rigidity, rebound or guarding, no obvious peritoneal signs, no palpable pulsatile abdominal masses, no auscultated abdominal bruit : No CVAT Extremities: No edema Rectal: Performed with locksmith helper nurse Chloe present. Verbal consent obtained. Rectal exam showed Neuro: No n alert and oriented x3, neuro exam at baseline, cranial nerves II through XII are intact. No pain with extraocular muscle movement. There is negative test of skew. 5 of 5 strength in upper and lower extremities in flexion extension. Intact sensation to light touch in upper and lower extremity dermatomes. No truncal or extremity ataxia. No dysdiadochokinesia. Normal gait. 2+ reflexes in upper and lower extremities. No meningeal signs. Negative Babinski. NIH of 0. Skin: No rash or lesions noted MEDICAL DECISION MAKING: Chief Complaint: please see HPI External records reviewed: Reviewed prior imaging studies Factors affecting care: History of colon cancer, Sol's esophagus, hyperlipidemia, tobacco abuse Social determinants of health: none History obtained from others: Friend Consults: Gastroenterology (Dr. Zaragoza) recommended admission for urgent scope. Discussed with hospitalist (Dr. Farnsworth) MDM Narrative: The patient was initially hypertensive with a blood pressure 174/76, tachycardic with heart rate of 114, afebrile saturating 98% room air I considered the following differential diagnosis: Anemia, GI bleed, arrhythmia, ACS, pneumonia I obtained a broad lab and imaging evaluation to further determine if the patient was suffering from a life-threatening etiology. ALL IMAGES (IF OBTAINED) HAVE BEEN PERSONALLY REVIEWED AND INTERPRETED BY MYSELF. Stool occult sample positive High-sensitivity troponin is negative, no evidence of myocardial ischemia CBC with leukocytosis suggestive of systemic elevation, noted severe anemia High-sensitivity troponin is negative, no evidence of myocardial ischemia EKG with sinus tachycardia rate of 103, normal axis, normal intervals, no STEMI Given symptomatic GI bleed with significant drop in hemoglobin and initial tachycardia I opted to admit the patient. Discussed with GI and medicine who agreed. Once this was discussed with patient she was concerned about her pets as well as insurance coverage and potential cost. She was alert and oriented x 3 and had capacity to make own medical decisions. She chose to leave AGAINST MEDICAL ADVICE. AMA note: I have recommended admission to the hospital, but the patient refuses. The risks (including but not limited to suffering and ) as well as the benefits were explained to the patient. Questions were sought and answered, the patient voiced understanding and accepts these risks. I have encouraged the patient to return to have their evaluation completed as we are glad to do so. Patient had capacity to make his or her own medical decisions. Patient was alert and orient x3 and of sound mind at time of discussion. I have also instructed the patient on the importance of follow-up and to return for any worsening or worrisome concerns. The patient appears competent to make medical decisions at this time. The patient and/or family, caregivers express understanding. The patient and/or family, caregivers agrees with the plan. Shared decision making: I will have a discussion with the patient and or visitors regarding risk/benefits of further testing or admission. They will be made aware of of the risk/benefits inherent in this decision they will be given the opportunity to voice understanding. Total critical care time today provided was at least 0 minutes. This excludes separately billable procedures. Critical care time (if documented) is secondary to the patient having high probability of clinically significant/life threatening deterioration in the patient's condition which required my urgent intervention. Impression: 1. Shortness of breath 2. GI bleed Dispo: Discharge AMA This note was generated with [employer] dictation software. It may contain incorrect words, spelling, and punctuation that were not noted in review of the chart prior to signing. Lab Data Attestation: I reviewed the patient's lab results. Labs: Laboratory Results - last 24 hr 07/07/25 12:10 WBC 11.3 H RBC 2.86 L Hgb 8.7 L Hct 26.0 L MCV 90.9 MCH 30.4 MCHC 33.5 RDW Std Deviation 46.1 H RDW Coeff of Jean 13.8 Plt Count 328 MPV 8.8 Immature Gran % (Auto) 0.500 Neut % (Auto) 61.9 Lymph % (Auto) 31.1 Woodward % (Auto) 4.9 Eos % (Auto) 1.1 Baso % (Auto) 0.5 Absolute Neuts (auto) 7.0 Absolute Lymphs (auto) 3.52 Nucleated RBC % 0 Sodium 138 Potassium 3.8 Chloride 105 Carbon Dioxide 20.7 L Anion Gap 12 BUN 16 Creatinine 0.71 Estim Creat Clear Calc 67.73 Est GFR (MDRD) Non-Af 95 BUN/Creatinine Ratio 22.7 H Glucose 104 H Calcium 9.1 Troponin T High Sens 6 Radiography Diagnostic Testing: Clinical Impression(s) from Imaging Studies Chest X-Ray 07/07/25 12:25 IMPRESSION: No acute cardiopulmonary abnormality Reading Location: [facility] Discharge Plan Triage Chief Complaint: Shortness of Breath ED Provider: Caden Lazar Dx/Rx/DC Orders Instructions: Anemia Prescriptions: New pantoprazole [Protonix] [address] for susp in packet 40 mg PO DAILY 30 Days Qty: 30 0RF No Action cholecalciferol (vitamin D3) 50 mcg (2,000 unit) capsule 50 mcg PO DAILY boswalia 500 mg capsule 500 mg PO DAILY Rx Instructions: joint pain daily omega-3 fatty acids 1,000 MG capsule 2,000 mg PO DAILY [id number] 1 EACH tablet 1 ea PO DAILY Primary Care Provider: Naomi Ingram Referrals: Naomi Ingram MD [Primary Care Provider, Internal Medicine] Friend,DO Jerry [Med Staff - Active Staff, Gastroenterology] Activity Restrictions/Additional Instructions: Thank you for trusting us with your care today! Please take Protonix as prescribed. Please return to the emergency department if your symptoms change or worsen. Specifically if you develop loss of conscious, heavy bleeding, chest pain, shortness of breath. If your hemoglobin is less than 7. Please follow with your primary care physician and Gastroenterology for further outpatient evaluation and management. Print Language: Surinamese Disposition Disposition: Home, Self Care Discharge Date/Time: 07/07/25 14:37
--- NOTE | 2025-07-07 12:02 | EKG12_ITS ---
Test Reason : SOB Blood Pressure : */* mmHG Vent. Rate : 103 BPM Atrial Rate : 103 BPM P-R Int : 150 ms QRS Dur : 72 ms QT Int : 342 ms P-R-T Axes : 68 36 105 degrees QTcB Int : 448 ms Sinus tachycardia Nonspecific ST and T wave abnormality Abnormal ECG Confirmed by SRINATH DUNLAP, RANDY ([id number]), online editor ALEXA DIAL ([id number]) on 07/10/2025 8:08:40 AM Referred By: CARMENCITA/ERIC Confirmed By: RANDY YO MD
--- NOTE | 2025-07-07 12:25 | RAD_ITS ---
PROCEDURE: CHEST 1 VIEW (PORTABLE) 07/07/2025 REASON FOR EXAM: SHORTNESS OF BREATH TECHNIQUE: Frontal view of the chest. COMPARISON: None FINDINGS: Hardware: Monitoring electrodes overlying chest wall. Heart: Cardiac and mediastinal contours are stable. Lungs: The lungs are clear. Bones: The bones are unremarkable. RAD/Chest 1 View (Portable) IMPRESSION: No acute cardiopulmonary abnormality Reading Location: [id number]
[2025-07-07 12:39] LABS: Hematocrit 26.0 % (37-47); Hemoglobin 8.7 g/dL (12.0-15.0); Immature Granulocytes Count 0.060 X10^3/uL (0.0-0.0); Mean Corp Hgb Conc 33.5 g/dL (32-36); Mean Corpuscular Volume 90.9 fL (81-99); Mean Platelet Vol. 8.8 fl (6.2-12.0); NRBC Flagged by Analyzer 0 % (0-5); Platelet Count 328 K/mm3 (150-450); RBC Distribution Width CV 13.8 % (11.6-14.6); RBC Distribution Width SD 46.1 fl (35.1-43.9); Red Blood Count 2.86 M/mm3 (4.2-5.4); White Blood Count 11.3 K/mm3 (4.4-11.0)
[2025-07-07 12:42] LABS: Anion Gap 12 (5-15); BUN 16 mg/dL (4-19); BUN/Creat Ratio 22.7 RATIO (10-20); Calcium,Total 9.1 mg/dL (7.6-11.0); Carbon Dioxide 20.7 mmol/L (21.0-32.0); Chloride 105 mmol/L (98-108); Estimated Creatinine Clearance 67.73 ml/min (50-250); Glucose 104 mg/dL (70-99); Potassium 3.8 mmol/L (3.3-5.1); Troponin T High Sensitivity 6 ng/L (<=14)
--- NOTE | 2025-07-07 14:11 | ED.RN ---
Assisted Dr austin with rectal exam
--- NOTE | 2025-07-07 14:22 | ED.RN ---
Witnessed with Dr Lazar- Pt requesting to leave AMA.
== END 2025-07-07 14:37 | disposition home or self-care (01) ==
PROVIDERS: Emergency Provider Emergency Medicine; PCP Internal Medicine; Visit Provider Emergency Medicine
DX: R06.02 Shortness of breath (principal); K92.2 Gastrointestinal hemorrhage, unspecified; F17.210 Nicotine dependence, cigarettes, uncomplicated
CPT/HCPCS: 71045; 80048; 82274; 84484; 85025; 93005; 99284

== ENCOUNTER → 2025-07-10 | Outpatient (CLI) | payer MEDICARE, OTHER, SELFPAY ==
[2025-07-10 16:14] LABS: Hematocrit 25.0 % (37-47); Hemoglobin 8.2 g/dL (12.0-15.0); Immature Granulocytes Count 0.020 X10^3/uL (0.0-0.0); Mean Corp Hgb Conc 32.8 g/dL (32-36); Mean Corpuscular Volume 94.0 fL (81-99); Mean Platelet Vol. 8.6 fl (6.2-12.0); NRBC Flagged by Analyzer 0 % (0-5); Platelet Count 358 K/mm3 (150-450); RBC Distribution Width CV 14.3 % (11.6-14.6); RBC Distribution Width SD 48.2 fl (35.1-43.9); Red Blood Count 2.66 M/mm3 (4.2-5.4); White Blood Count 8.6 K/mm3 (4.4-11.0)
[2025-07-10 17:00] LABS: AST(SGOT) 19 U/L (<=31); Alanine Aminotransfer ALT/SGPT 13 U/L (<=34); Albumin, Serum 4.0 g/dL (3.4-4.8); Alkaline Phosphatase 64 U/L (35-104); Anion Gap 12 (5-15); BUN 11 mg/dL (4-19); BUN/Creat Ratio 14.2 RATIO (10-20); Calcium,Total 9.0 mg/dL (7.6-11.0); Carbon Dioxide 21.6 mmol/L (21.0-32.0); Chloride 107 mmol/L (98-108); Globulin 2.5 g/dL (2.2-4.2); Glucose 97 mg/dL (70-99); Potassium 4.2 mmol/L (3.3-5.1)
--- OUTSIDE RECORDS SUMMARY | 2025-07-10 18:09 | XMS RPT_ITS | CCD ---
Author Organization [facility] CliniSywy Care Team Providers Care Outside Maintenance Worker Name Role Phone LEELA INGRAM MD Primary Care Physician [phone] EDWIN DUNLAP, ADRIAN Attending LEELA Draper MD Primary Care Darlyn Duncan MD, ADRIAN Attending LEELA Draper MD Primary Care Dr. Leela Devine Primary Care Provider [phone] Dr. Leela Ingram Attending Provider [phone] Dr. Leela Ingram Referring Provider [phone] Dr. Leela Ingram Primary Care Provider [phone] Dr. Leela Ingram Attending Provider [phone] Dr. Leela Ingram Referring Provider [phone] Dr. Merissa Best Attending Provider Dr. Merissa Best Other Provider ADRIAN PINEDA MD Attending LEELA Draper MD Primary Care LEELA Devine MD Primary Care ADRIAN Paez MD Attending Dr. Leela Draper MD Primary Care Provider Dr. Leela Ingram MD Attending Provider [phone] Dr. Leela Ingram MD Referring Provider [phone] Dr. Leela Ingram MD Other Provider [phone] Dr. Justin Liu MD Attending Provider Oleghe, Efewongbe Referring Unavailable Oleghe, Efewongbe Primary Care Unavailable Oleghe, Efewongbe Attending Unavailable Caden Lazar Attending Unavailable Oleghe, Efewongbe Primary Care Unavailable Oleghe, Efewongbe Referring Unavailable Oleghe, Efewongbe Attending Unavailable Oleghe, Efewongbe Primary Care Unavailable Oleghe, Efewongbe Referring Unavailable Oleghe, Efewongbe Primary Care Unavailable Malvin Oro Attending Unavailable Oleghe, Efewongbe Referring Unavailable Oleghe, Efewongbe Consulting Unavailable Oleghe, Efewongbe Primary Care Unavailable Justin Liu Attending Unavailable Oleghe, Efewongbe Primary Care Unavailable Oleghe, Efewongbe Referring Unavailable Oleghe, Efewongbe Attending Unavailable Oleghe, Efewongbe Primary Care Unavailable Oleghe, Efewongbe Referring Unavailable Oleghe, Efewongbe Attending Unavailable Oleghe, Efewongbe Referring Unavailable Oleghe, Efewongbe Attending Unavailable Oleghe, Efewongbe Primary Care Unavailable Allergies Allergy Classification Reported Allergen(s) Allergy Type Date of Onset Reaction(s) Facility (9 sources) Penicillins; Translations: [Penicillins] Allergy to substance 2 Swelling [facility] (2 sources) Penicillin; Translations: [penicillin] Drug Allergy as a young child, thinks she had swelling [facility] Medications Current Medications Medication Drug Class(es) Dates Sig (Normalized) Sig (Original) boswalia (3 sources) Start: 03-24-2025 boswalia Active PO DAILY March 24, 2025 12:00am joint pain daily cholecalciferol 0.05 mg oral capsule (8 sources) Vitamin D Start: 10-09-2020 take 1 [...] 0 Refill(s) Start Date: 07/15/23 Status: Ordered Jb-Mxa-Lshma-Calcium Carb-K1 (5 sources) Start: 12-07-2018 Je-Lls-Gbmjs-C alcium Carb-K1 Active 1 EACH PO DAILY December 07, 2018 12:00am Start: 12-07-2018 Cc-Vbg-Qrjft-C alcium Carb-K1 Active 1 EACH PO DAILY December 07, 2018 1:00am Vi-Olh-Fujxo-Calcium Carb-K1 1 EACH tablet (3 sources) Start: 12-07-2018 take 1 tablet by mouth once daily Re-Bgj-Sdqeo-Calcium Carb-K1 1 EACH tablet Active 1 NMA PO DAILY December 07, 2018 1:00am SUPPLEMENT Start: 12-07-2018 take 1 tablet by yadira th once daily Rg-Uyw-Sbwgm-Calcium Carb-K1 1 EACH tablet Active 1 NMA PO DAILY December 07, 2018 1:00am olopatadine 2 mg/ml ophthalmic solution (6 sources) Histamine-1 Receptor Inhibitor Start: 07-17-2023 take [...] OPHTHALMIC EVERY MORNING July 17, 2023 12:00am Denton-3 Fatty Acids (5 sources) Start: 12-07-2018 take 2000 mg by mout h once daily Denton-3 Fatty Acids Active 2000 MG PO DAILY December 07, 2018 12:00am Start: 12-07-2018 take 2000 mg by mouth once ciera ly Denton-3 Fatty Acids Active 2000 MG PO DAILY December 07, 2018 1:00am Denton-3 Fatty Acids 1,000 MG capsule (3 sources) Start: 12-07-2018 take 1 capsule by mouth once daily Denton-3 Fatty Acids 1,000 MG capsule Active 2000 mg PO DAILY December 07, 2018 1:00am SUPPLEMENT Start: 12-07-2018 take 1 capsule by mo [facility] once daily Denton-3 Fatty Acids 1,000 MG capsule Active 2000 [...] 24 hr nicotine 0.875 mg/hr transdermal system (6 sources) Cholinergic Nicotinic Agonist Start: 07-17-2023 End: 02-10-2024 apply 1 dose transdermal route every twenty-four hours Nicotine 21 mg/24 hr patch 24 hour Discontinued 1 NMA TD Q24H 16 12July 17, 2023 12:00am February 10, 2024 2:01pm Start: 07-17-2023 End: 02-10-2024 apply 1 dose transdermal route every twenty-four hours Nicotine Discontinued 1 PATCH TD Q24H July 17, 2023 12:00am February 10, 2024 2:01pm omeprazole 40 mg delayed release oral capsule (14 sources) Proton Pump Inhibitor Start: 11-05-2023 End: 12-09-2023 take 1 capsule by mouth once daily 30 minutes before breakfast Omeprazole 40 mg capsule,delayed release(DR/EC) Discontinued 40 mg PO DAILY 90 3 November 05, 2023 1:00am December 09, 2023 4:03pm Take 30 minutes before breakfast Start: 12-07-2018 End: 10-25-2020 take 1 tablet by mouth once daily Omeprazole 20 MG tablet,delayed release (DR/EC) Discontinued 20 mg PO DAILY December 07, 2018 1:00am October 25, 2020 6:57pm GERD pantoprazole 40 mg delayed release oral tablet (10 sources) Proton Pump Inhibitor Start: 02-15-2024 End: 03-24-2025 take 1 tablet by mouth once daily 30 minutes before breakfast Pantoprazole 40 mg tablet,delayed release (DR/EC) Discontinued 40 mg PO DAILY 90 3 April 28, 2024 12:00am March 24, 2025 10:43am Take 30 minutes before breakfast sucralfate 1000 mg oral tablet (5 sources) Aluminum Complex Start: 02-15-2024 End: 04-28-2024 take 1 tablet by mouth four times daily 1 hour(s) before bedtime Sucralfate 1 gram tablet Discontinued 1 g PO 4 TIMES DAILY 56 0 February 15, 2024 12:00am April 28, 2024 1:53pm Take 1 hour before meals and at bedtime Problems Active Problems Problem Classification Problem Date Documented Date Episodic/Chronic Allergic reactions (4 sources) Allergic reaction; Translations: [Allergy, unspecified, initial encounter] 02-25-2024 Episodic Disorders of lipid metabolism (14 sources) Hyperlipidemia; Translations: [Hyperlipidemia, unspecified] Onset: 04-20-2025 07-17-2023 Chronic Esophageal disorders (16 sources) Sol's esophagus; Translations: [Sol's esophagus without dysplasia] 11-05-2023 Chronic Essential hypertension (7 sources) Hypertensive disorder; Translations: [Essential (primary) hypertension] Onset: 04-05-2025 04-28-2024 Chronic Gastritis and duodenitis (7 sources) Chronic gastritis; Translations: [Unspecified chronic gastritis without bleeding] Onset: 04-05-2025 03-24-2025 Chronic Nonmalignant breast conditions (1 source) Other specified disorders of breast; Translations: [Other specified disorders of breast] Onset: 03-10-2025 Episodic Other and unspecified benign neoplasm (5 sources) History of polyp of colon; Translations: [Personal history of colonic polyps] 12-09-2023 Episodic Other and unspecified benign neoplasm (4 sources) Personal history of colonic polyps; Translations: [Personal history of colonic polyps] 12-09-2023 Episodic Other bone disease and musculoskeletal deformities (9 sources) Osteopenia; Translations: [Other specified disorders of [...] cervix uteri, unspecified] Onset: 07-15-2023 Episodic Other lower respiratory disease (1 source) Shortness of breath; Translations: [Shortness of breath] Onset: 07-10-2025 Episodic Other non-traumatic joint disorders (6 sources) Effusion of right knee joint; Translations: [Effusion, right knee] 07-27-2023 Episodic Other non-traumatic joint disorders (6 sources) Pain in right knee; Translations: [Right knee pain] 07-17-2023 Episodic Other screening for suspected conditions (not mental disorders or infectious disease) (20 sources) Patient encounter status; Translations: [Encounter for screening for malignant neoplasm of respiratory organs] Onset: 03-10-2025 10-22-2021 Episodic Other skin disorders (4 sources) Facial swelling ; Translations: [Localized swelling, mass and lump, head] 02-25-2024 Episodic Residual codes; unclassified (5 sources) Family history of cancer of colon; Translations: [Family history of malignant neoplasm of digestive organs] 12-09-2023 Episodic Comment on above: Sister diagnosed at age 61 Residual codes; unclassified (4 sources) Family history of malignant neoplasm of digestive organs; Translations: [Family history of malignant neoplasm of gastrointestinal tract] 12-09-2023 Episodic Substance-related disorders (13 sources) Tobacco dependence, continuous; Translations: [Nicotine dependence, unspecified, with unspecified nicotine-induced disorders] Onset: 04-05-2025 07-17-2023 Chronic Unclassified (1 source) Mammographic fibroglandular density, left breast; Translations: [Mammographic fibroglandular density, left breast] Onset: 03-10-2025 Past or Other Problems Problem Classification Problem Date Documented Da te Episodic/Chronic Other bone disease and musculoskeletal deformities (4 sources) Other specified disorders of bone density and structure, unspecified site; Translations: [Disorder of bone and cartilage, unspecified] Onset: 04-05-2025 11-05-2023 Episodic Unclassified (6 sources) [place]ep cone 05-09-2022 Results Test Name Value Interpretation Reference Range Facility 12 Lead EKGon 07-07-2025 12 Lead EKG [facility] [address] [place] [address] 12 Lead EKG 07/07/25 1130 MR#: [id number] Acct: [id number] Name: DANIELLE PARRA Rep #: [id number] : 1960 64 From: Justin Liu MD Attending Dr: Status: DEP ER Ordering Dr: Caden Lazar DO Date: 07/07/25 Location: ED Sex: F C Admitted: Test Reason : SOB Blood Pressure : */* mmHG Vent. Rate : 103 BPM Atrial Rate : 103 BPM P-R Int : 150 ms QRS Dur : 72 ms QT Int : 342 ms P-R-T Axes : 68 36 105 degrees QTcB Int : 448 ms Sinus tachycardia Nonspecific ST and T wave abnormality Abnormal ECG Confirmed by JUSTIN LIU MD ([id number]), machine carton marker ALEXA DIAL ([id number]) on 07/10/2025 8:08:40 AM Referred By: TA/AR Confirmed By: JUSTIN LIU MD 07/10/25 0808 Date Justin Liu MD CC: Dr. Leela Ingram MD; Dr. Caden Lazar DO Signed Normal [facility] Basic Metabolic Profile (BMP )on 07-07-2025 BUN/CRE 22.7 RATIO High 10-20 [facility] Comment on above: Performed By: #### L 100.0100, L501.4021, M100.7900, L500.2500 #### [facility] [address] [place], [address] Calcium [Mass/Vol] 9.1 mg/dL Normal 7.6-11.0 [facility] Comment on above: Performed By: #### L 100.0100, L501.4021, M100.7900, L500.2500 #### [facility] [address] [place], [address] Chloride [Moles/Vol] 105 mmol/L Normal 98-108 [facility] Comment on above: Performed By: #### L 100.0100, L501.4021, M100.7900, L500.2500 #### [facility] [address] [place], [address] CO2 [Moles/Vol] 20.7 mmol/L Low 21.0-32.0 [facility] Comment on above: Performed By: #### L 100.0100, L501.4021, M100.7900, L500.2500 #### [facility] [address] [place], [address] Creatinine [Mass/Vol] 0.71 mg/dL Normal 0.70-1.20 [facility] Comment on above: Performed By: #### L 100.0100, L501.4021, M100.7900, L500.2500 #### [facility] [address] [place], [address] ECRCL 67.73 ml/min Normal 50-250 [facility] Comment on above: Performed By: #### L 100.0100, L501.4021, M100.7900, L500.2500 #### [facility] [address] [place], [address] GAP 12 Normal 5-15 [facility] Comment on above: Performed By: #### L 100.0100, L501.4021, M100.7900, L500.2500 #### [facility] [address] [place], [address] GFR/1.73 sq M.predicted among non-blacks MDRD (S/P/Bld) [Vol rate/Area] 95 mL/min/{1.73_m2} Normal >60 [facility] Comment on above: Result Comment: mL/m in/1.73m2 CKD-EPI Creatinine Equation (2020) Performed By: #### L 100.0100, L501.4021, M100.7900, L500.2500 #### [facility] [address] [place], [address] Glucose [Mass/Vol] 104 mg/dL High 70-99 [facility] [place] Comment on above: Performed By: #### L 100.0100, L501.4021, M100.7900, L500.2500 #### [facility] [address] [place], [address] Potassium [Moles/Vol] 3.8 mmol/L Normal 3.3-5.1 [facility] Comment on above: Performed By: #### L 100.0100, L501.4021, M100.7900, L500.2500 #### [facility] [address] [place], [address] Sodium [Moles/Vol] 138 mmol/L Normal 133-145 [facility] Comment on above: Performed By: #### L 100.0100, L501.4021, M100.7900, L500.2500 #### [facility] [address] [place], [address] Urea nitrogen [Mass/Vol] 16 mg/dL Normal 4-19 [facility] Comment on above: Performed By: #### L 100.0100, L501.4021, M100.7900, L500.2500 #### [facility] [address] [place], [address] CBC W/Diff, Automatedon 06-19 Absolute Lymph 3.52 X10 3/uL Normal 0.83-4.51 [facility] Comment on above: Performed By: #### L 100.0100, L501.4021, M100.7900, L500.2500 #### [facility] [address] [place], [address] Absolute Neut 7.0 X10 3/uL Normal 2.0-7.7 [facility] Comment on above: Performed By: #### L 100.0100, L501.4021, M100.7900, L500.2500 #### [facility] [address] [place], [address] Basophils/100 WBC (Bld) 0.5 % Normal 0-1 [facility] Comment on above: Performed By: #### L 100.0100, L501.4021, M100.7900, L500.2500 #### [facility] [address] [place], [address] Eosinophils/100 WBC (Bld) 1.1 % Normal 0-5 [facility] Comment on above: Performed By: #### L 100.0100, L501.4021, M100.7900, L500.2500 #### [facility] [address] [place], [address] Erythrocyte distribution width (RBC) [Ratio] 13.8 % Normal 11.6-14.6 [facility] Comment on above: Performed By: #### L 100.0100, L501.4021, M100.7900, L500.2500 #### [facility] [address] [place], [address] Hematocrit (Bld) [Volume fraction] 26.0 % Low 37-47 [facility] Comment on above: Performed By: #### L 100.0100, L501.4021, M100.7900, L500.2500 #### [facility] [address] [place], [address] Hemoglobin (Bld) [Mass/Vol] 8.7 g/dL Low 12.0-15.0 [facility] Comment on above: Performed By: #### L 100.0100, L501.4021, M100.7900, L500.2500 #### [facility] [address] [place], [address] IG% 0.500 Normal 0.0-0.9 [facility] Comment on above: Result Comment: IG% - Immature Granulocytes (promyelocytes, myelocytes and metamyelocytes) > 1% indicates that a LEFT SHIFT is Present. Performed By: #### L 100.0100, L501.4021, M100.7900, L500.2500 #### [facility] [address] [place], [address] Lymphocytes/100 WBC (Bld) 31.1 % Normal 19-41 [facility] Comment on above: Performed By: #### L 100.0100, L501.4021, M100.7900, L500.2500 #### [facility] [address] [place], [address] MCH (RBC) [Entitic mass] 30.4 pg Normal 27.0-32.0 [facility] Comment on above: Performed By: #### L 100.0100, L501.4021, M100.7900, L500.2500 #### [facility] [address] [place], [address] MCHC (RBC) [Mass/Vol] 33.5 g/dL Normal 32-36 [facility] Comment on above: Performed By: #### L 100.0100, L501.4021, M100.7900, L500.2500 #### [facility] [address] [place], [address] MCV (RBC) [Entitic vol] 90.9 fL Normal 81-99 [facility] Comment on above: Performed By: #### L 100.0100, L501.4021, M100.7900, L500.2500 #### [facility] [address] [place], [address] Monocytes/100 WBC (Bld) 4.9 % Normal 0-10 [facility] Comment on above: Performed By: #### L 100.0100, L501.4021, M100.7900, L500.2500 #### [facility] [address] [place], [address] Neutrophils/100 WBC (Bld) 61.9 % Normal 47-70 [facility] Comment on above: Performed By: #### L 100.0100, L501.4021, M100.7900, L500.2500 #### [facility] [address] [place], [address] Nucleated RBC (Bld) [#/Vol] 0 10*3/uL Normal 0-5 [facility] Comment on above: Performed By: #### L 100.0100, L501.4021, M100.7900, L500.2500 #### [facility] [address] [place], [address] Platelet mean volume (Bld) [Entitic vol] 8.8 fL Normal 6.2-12.0 [facility] Comment on above: Performed By: #### L 100.0100, L501.4021, M100.7900, L500.2500 #### [facility] [address] [place], [address] Platelets (Bld) [#/Vol] 328 10*3/uL Normal 150-450 [facility] Comment on above: Performed By: #### L 100.0100, L501.4021, M100.7900, L500.2500 #### [facility] [address] [place], [address] RBC (Bld) [#/Vol] 2.86 10*6/uL Low 4.2-5.4 [facility] Comment on above: Performed By: #### L 100.0100, L501.4021, M100.7900, L500.2500 #### [facility] [address] [place], [address] RDW SD 46.1 fl High 35.1-43.9 [facility] Comment on above: Performed By: #### L 100.0100, L501.4021, M100.7900, L500.2500 #### [facility] [address] [place], [address] WBC (Bld) [#/Vol] 11.3 10*3/uL High 4.4-11.0 [facility] Comment on above: Performed By: #### L 100.0100, L501.4021, M100.7900, L500.2500 #### [facility] [address] [place], [address] Chest 1 View (Portable)on Chest 1 View (Portable) [facility] Imaging Services [address] [place] [address] Chest 1 View (Portable) MR#: [id number] Acct: [id number] Name: DANIELLE PARRA Rep #: [id number] : 1960 F 64 From: Angel Fletcher MD PCP: Dr. Leela Ingram MD Status: [facility] ER Study: Chest 1 View (Portable) Date of Exam: 07/07/25 Exam# [id number] Ordering Dr: Caden Lazar DO PROCEDURE: CHEST 1 VIEW (PORTABLE) 07/07/2025 REASON FOR EXAM: SHORTNESS OF BREATH TECHNIQUE: Frontal view of the chest. COMPARISON: None FINDINGS: Hardware: Monitoring electrodes overlying chest wall. Heart: Cardiac and mediastinal contours are stable. Lungs: The lungs are clear. Bones: The bones are unremarkable. RAD/Chest 1 View (Portable) IMPRESSION: No acute cardiopulmonary abnormality Reading Location: [id number] CC: Dr. Leela Ingram MD; Dr. Caden Lazar DO Customer Engineering Specialist: Signed Normal [facility] Emergency Department Summary on 07-07-2025 Emergency Department Summary [facility] Medical Records Department [address] [place] [address] Emergency Department Summary 07/07/25 MR#: [id number] Acct: [id number] Name: DANIELLE PARRA Rep #: [id number] : 1960 64 From: Caden Lazar DO PCP: Dr. Leela Ingram MD Status:DEP ER Location: ED HPI History of Present Illness Chief Complaint: Shortness of Breath PFSH PFSH Medical History Screening for cardiovascular condition Health care maintenance Chronic gastritis Hypertension Wears [...] [place]ep [place] High cholesterol Breast cancer, right Home Medications ???Medication ???Instructions ???Recorded ???Last Taken ???Type smjjrawt-xaa-jinwy ac 400 1 ea PO DAILY SUPPLEMENT 12/07/18 07/04/25 History mcg-calcium carb 500 mg-vit K1 20 mcg tablet omega-3 fatty acids 1,000 mg 2,000 mg PO DAILY SUPPLEMENT 12/0707/04/25 History capsule cholecalciferol (vitamin D3) 50 50 mcg PO DAILY 10/09/20 07/04/25 History mcg (2,000 unit) capsule boswalia 500 mg PO DAILY 03/24/25 07/04/25 History pantoprazole 40 mg granules 40 mg PO DAILY 30 days #30 ea 06/19 07/13 Unknown Rx delayed-release for susp in packet (Protonix) Allergy/AdvReac Type Severity Reaction Status Date / Time Penicillins Allergy Swelling Verified 03/24/25 10:42 Family History Sister Colon cancer Thyroid disorder Mother Arthritis Hypertension Mental disorder Psychiatric care Thyroid disorder Father Hypertension Thyroid disorder Grandmother Mental disorder Brother Thyroid disorder Surgical History History of tooth extraction ( 08/2023) History of esophagogastroduodenoscopy (EGD) H/O LEEP History of colonoscopy with polypectomy History of tonsillectomy History of wisdom tooth extraction History of lumpectomy of right breast History of section History of right mastectomy Social History Smoking Status: Current every day smoker tobacco type: cigarettes Tobacco: How many years used: 50 Electronic Cigarette Use: not used second hand exposure: No quit status: considering quitting alcohol intake: never substance use type: does not use what type of physical activity do you participate in: other details: AROUND THE HOUSE EXAM Physical Exam Const Vital Signs: 07/07/25 11:22 07/07/25 12:16 07/07/25 12:22 Temperature 96.9 F L Temperature Source Temporal Pulse Rate 114 H 99 Respiratory Rate 18 17 Respiratory Effort Normal Non-Labored Respiratory Depth Normal Respiratory Pattern Normal Blood Pressure 174/76 H 128/56 H Blood Pressure Mean 108 80 Pulse Ox 98 98 Oxygen Delivery Method Room Air Room Air Room Air 07/07/25 13:00 07/07/25 13:18 07/07/25 14:00 Temperature 96.9 F L Temperature Source Pulse Rate 89 83 88 Respiratory Rate 19 H 21 H 16 Respiratory Effort Respiratory Depth Respiratory Pattern Blood Pressure 134/63 H 134/63 H 162/77 H Blood Pressure Mean 86 86 105 Pulse Ox 97 96 Oxygen Delivery Method Room Air 07/07/25 14:23 Temperature Temperature Source Pulse Rate 91 Respiratory Rate 14 Respiratory Effort Respiratory Depth Respiratory Pattern Blood Pressure 143/58 H Blood Pressure Mean 86 Pulse Ox Oxygen Delivery Method MDM MDM MDM Narrative Medical decision making narrative: HISTORY OF PRESENT ILLNESS: Chief complaint: Shortness of breath 64-year-old female history as below who presents with prior blood per rectum. 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 She states since then she has had bleeding when she wipes. She denies history of hemorrhoids or does no history of colon cancer. States last colonoscopy was 1 year ago in which polyps were removed. Notes exertional lightheadedness/dizziness. Exertional shortness of breath. Denies shortness of breath or chest pain at rest. Denies leg swelling. Denies cough fever or chills. Denies vomiting or abdominal pain REVIEW OF SYSTEMS: Pertinent positives: Bright red blood per rectum, dizziness shortness of breath Pertinent negatives: [] PHYSICAL EXAM: Nursing triage notes reviewed, Vital signs reviewed Co (more content not included)... Normal [facility] L501.4021on 07-07-2025 Trop T High Sen 6 ng/L Normal <=14 [facility] Comment on above: Performed By: #### L 100.0100, L501.4021, M100.7900, L500.2500 #### [facility] [address] [place], [address] Stool Occult Blood iFOBon STOB Normal Reference Ran ge = Negative Immunochemical Fecal Occult Blood (iFOBT) method. Hemoccult Stl Ql IA Limitation: Menstrual bleeding, constipation bleeding, bleeding hemorrhoids, and urinary bleeding conditions may interfere with test. Occult Blood A Positive A OCCULT BLOOD POSITIVE Normal [facility] Comment on above: Performed By: #### L 100.0100, L501.4021, M100.7900, L500.2500 #### [facility] Laboratory [address] [place], [address] Troponin T HS 2 HRon 025 Trop T High Sen Normal <=14 [facility] Comment on above: Result Comment: Canc elled via OM: MD Ordered Performed By: #### L 100.0100, L501.4021, M100.7900, L500.2500 #### [facility] Laboratory [address] [place], [address] Troponin T HS 4 HRon 025 Trop T High Sen Normal <=14 [facility] Comment on above: Result Comment: Canc elled via OM: Ordered Performed By: #### L 100.0100, L501.4021, M100.7900, L500.2500 #### [facility] Laboratory [address] [place], [address] Coronary Angiography CTon Coronary Angiography CT [facility] Imaging Services [address] [place] [address] 04/20/25 1322 MR#: [id number] Acct: [id number] Name: DANIELLE PARRA Rep #: [id number] : 1960 64 From: Justin Liu MD PCP: Dr. Leela Ingram MD Status:REG CLI Y Location: CT Calcium Scoring Date of Study:: 04/20/25 Indications Indications: Hyperlipidemia Coronary Calcium Scoring: High-resolution Computed Tomographic imaging of the chest was performed on [04/20/2025], with particular attention paid to the coronary arteries. Images from the examination were analyzed for the presence and extent of coronary artery calcification , using coronary calcium quantification software. The patient tolerated the procedure well and there were no complications. The results of the coronary calcification analysis are provided below. Findings Coronary Artery Left Main (LM): 0 Left Anterior Descending (LAD): 159 Left Circumflex (LCX): 0 Right Coronary Artery (RCA): 3.57 Total Agatston Score: 162.57 Percentile Rankinth percentile to 90th percentile Calcium Scoring Interpretation: Different methods to categorize the overall amount of coronary plaque. Overall amount CAC SIS Visual of coronary plaque P1 Mild -100 <2 1-2 vessels with mild amount of plaque P2 Moderate 101-300 3-4 1-2 vessels with moderate amount, 3 vessels with mild amount of plaque P3 Severe 301-999 5-7 3 vessels with moderate amount, 1 vessel with severe amount of plaque P4 Extensive >1000 >8 2-3 vessels with severe amount of plaque Calcium Score: Moderate: 1-2 vessels w/moderate amt, 3 vessels w/mild amt of plaque Conclusion: Moderate amount of plaque noted in a single vessel. 04/20/25 1323 Date Justin Liu MD Cosigner Signature (if applicable): Date CC: Dr. Justin Liu MD; Dr. Leela Ingram MD Signed Normal [facility] Limited Chest CT Cardiac Onl yon 04-20-[address] Cardiac Only [facility] Imaging Services [address] [place] [address] Cardiac Only MR#: [id number] Acct: [id number] Name: DANIELLE PARRA Rep #: [id number] : 1960 From: Dk Ramos PCP: Dr. Leela Ingram MD Status: REG REF Study: Limited Chest CT Cardiac Only Date of Exam: Exam# [id number] Ordering Dr: Leela Ingram MD PROCEDURE: LIMITED CHEST CT CARDIAC ONLY 04/20/2025 REASON FOR EXAM: HYPERLIPIDEMIA TECHNIQUE: CT for coronary artery calcification One or more dose reduction techniques were used (e.g., Automated exposure control, adjustment of the mA and/or kV according to patient size, use of iterative reconstruction technique). RADIATION DOSE SUMMARY: CTDlvol: 15.21 mGy DLP: 292.45 mGycm COMPARISON: Chest x-ray of 10/22/2021. CT/Limited Chest CT Cardiac Only IMPRESSION: A left adrenal adenoma is noted. Limited imaging of the lungs demonstrates no acute process. No pleural effusion or pneumothorax is seen in visualized areas. No adenopathy is noted. The visualized upper abdomen demonstrates no other significant abnormality. Reading Location: [place] [address] CC: Dr. Leela Ingram MD Customer Engineering Specialist: Signed Normal [facility] Low Dose CT Lung Screeningon 04-20-[address] Lung Screening [facility] Imaging Services [address] [place], [place] [id number] Low Dose CT Lung Screening MR#: [id number] Acct: [id number] Name: DANIELLE PARRA Rep #: [id number] : 1960 From: Jann Glass MD PCP: Dr. Leela Ingram MD Status: [facility] Study: Low Dose CT Lung Screening Date of Exam: 04/20 Exam# [id number] Ordering Dr: Leela Ingram MD PROCEDURE: LOW DOSE CT LUNG SCREENING 04/20/2025 REASON FOR EXAM: LUNG CA SCREENING 1 pack per day smoker times 50 years. History of right breast cancer TECHNIQUE: LOW DOSE CT LUNG SCREENING Coronal and Sagittal reconstruction series were provided. One or more dose reduction techniques were used (e.g., Automated exposure control, adjustment of the mA and/or kV according to patient size, use of iterative reconstruction technique). REFERENCE LINK: [facility] Lung-RADS RADIATION DOSE SUMMARY: CTDlvol: 12.19 mGy DLP: 292.45 mGycm COMPARISON: 10/22/2021 FINDINGS: PULMONARY NODULES: (Only nodules >3mm are reported) Lung windows show underlying emphysema with chronic interstitial changes in both lung wooten. Chronic bronchitis noted without organized infiltrate or effusion. No suspicious noncalcified mass or nodule. No significant interval change compared to the previous study. Limited soft tissue windows show a normal-appearing thyroid gland. No suspicious axillary mediastinal or perihilar adenopathy. There are punctate coronary artery calcifications. Evidence of previous mastectomy. Limited cuts of the upper abdomen show stable enlargement of the left adrenal gland. Bony structures show degenerative change CT/Low Dose CT Lung Screening IMPRESSION: No suspicious noncalcified mass or nodule. Chronic interstitial changes in both lung wooten without a superimposed process or significant change since the previous study Coronary artery calcification (CAC) is is present Lung-RADS Category: 2 BENIGN (BASED ON IMAGING FEATURES OR INDOLENT BEHAVIOR). RECOMMEND 12-MONTH SCREENING LDCT. Other Significant Findings: Reading Location: [facility] CC: Dr. Leela Ingram MD Customer Engineering Specialist: Signed Normal [facility] Absolute lymphocyte countOrd ered By: Leela Ingram on 03-24-2025 Lymphocytes Auto (Unsp spec) [#/Vol] 3.17 10*3/uL 0.83-4.51 [facility] Absolute neutrophil countOrd ered By: Leela Ingram on 03-24-2025 Neutrophils (Bld) [#/Vol] 5.9 10*3/uL 2.0-7.7 [facility] Anion gap in Serum or Plasma Ordered By: Leela Ingram on 03-24-2025 Anion gap [Moles/Vol] 10 mmol/L - [facility] Automated lymphocyte count a s percentage of total leukocytesOrdered By: Leela Ingram on 03-24-2025 Lymphocytes/100 WBC Auto (Unsp spec) 31.8 % - [facility] BUN/creatinine ratioOrdered By: harshabuffalopamela Ingram on 03-24-2025 Urea nitrogen/Creatinine [Mass ratio] 15.8 mg/mg 10- [facility] Basophil percentageOrdered B y: Leela Ingram on 03-24-2025 Basophils/100 WBC (Bld) 0.7 % 0- [facility] Bilirubin, totalOrdered By: Leela Ingram on 03-24-2025 Bilirubin [Mass/Vol] 0.15 mg/dL 0.00-1.30 [facility] CBC W/Diff, Automatedon Absolute Lymph 3.17 X10 3/uL Normal 0.83-4.51 [facility] Comment on above: Performed By: #### L 100.0100, L500.4050, L500.4100 #### [facility] Laboratory [address] [place], [address] Absolute Neut 5.9 X10 3/uL Normal 2.0-7.7 [facility] Comment on above: Performed By: #### L 100.0100, L500.4050, L500.4100 #### [facility] Laboratory [address] [place], [address] Basophils/100 WBC (Bld) 0.7 % Normal 0-1 [facility] Comment on above: Performed By: #### L 100.0100, L500.4050, L500.4100 #### [facility] Laboratory [address] [place], [address] Eosinophils/100 WBC (Bld) 2.3 % Normal 0-5 [facility] Comment on above: Performed By: #### L 100.0100, L500.4050, L500.4100 #### [facility] Laboratory [address] [place], [address] Erythrocyte distribution width (RBC) [Ratio] 13.2 % Normal 11.6-14.6 [facility] Comment on above: Performed By: #### L 100.0100, L500.4050, L500.4100 #### [facility] Laboratory [address] [place], [address] Hematocrit (Bld) [Volume fraction] 34.8 % Low 37-47 [facility] Comment on above: Performed By: #### L 100.0100, L500.4050, L500.4100 #### [facility] Laboratory [address] [place], [address] Hemoglobin (Bld) [Mass/Vol] 11.1 g/dL Low 12.0-15.0 [facility] Comment on above: Performed By: #### L 100.0100, L500.4050, L500.4100 #### [facility] Laboratory [address] [place], [address] IG% 0.300 Normal 0.0-0.9 [facility] Comment on above: Result Comment: IG% - Immature Granulocytes (promyelocytes, myelocytes and metamyelocytes) > 1% indicates that a LEFT SHIFT is Present. Performed By: #### L 100.0100, L500.4050, L500.4100 #### [facility] Laboratory [address] [place], [address] Lymphocytes/100 WBC (Bld) 31.8 % Normal 19-41 [facility] Comment on above: Performed By: #### L 100.0100, L500.4050, L500.4100 #### [facility] Laboratory [address] [place], [address] MCH (RBC) [Entitic mass] 28.7 pg Normal 27.0-32.0 [facility] Comment on above: Performed By: #### L 100.0100, L500.4050, L500.4100 #### [facility] Laboratory [address] [place], [address] MCHC (RBC) [Mass/Vol] 31.9 g/dL Low 32-36 [facility] Comment on above: Performed By: #### L 100.0100, L500.4050, L500.4100 #### [facility] Laboratory [address] [place], [address] MCV (RBC) [Entitic vol] 89.9 fL Normal 81-99 [facility] Comment on above: Performed By: #### L 100.0100, L500.4050, L500.4100 #### [facility] Laboratory [address] [place], [address] Monocytes/100 WBC (Bld) 6.0 % Normal 0-10 [facility] Comment on above: Performed By: #### L 100.0100, L500.4050, L500.4100 #### [facility] Laboratory [address] [place], [address] Neutrophils/100 WBC (Bld) 58.9 % Normal 47-70 [facility] Comment on above: Performed By: #### L 100.0100, L500.4050, L500.4100 #### [facility] Laboratory [address] [place], [address] Nucleated RBC (Bld) [#/Vol] 0 10*3/uL Normal 0-5 [facility] Comment on above: Performed By: #### L 100.0100, L500.4050, L500.4100 #### [facility] Laboratory [address] [place], [address] Platelet mean volume (Bld) [Entitic vol] 8.9 fL Normal 6.2-12.0 [facility] Comment on above: Performed By: #### L 100.0100, L500.4050, L500.4100 #### [facility] Laboratory [address] [place], [address] Platelets (Bld) [#/Vol] 357 10*3/uL Normal 150-450 [facility] Comment on above: Performed By: #### L 100.0100, L500.4050, L500.4100 #### [facility] Laboratory [address] [place], [address] RBC (Bld) [#/Vol] 3.87 10*6/uL Low 4.2-5.4 [facility] Comment on above: Performed By: #### L 100.0100, L500.4050, L500.4100 #### [facility] Laboratory [address] [place], [address] RDW SD 43.8 fl Normal 35.1-43.9 [facility] Comment on above: Performed By: #### L 100.0100, L500.4050, L500.4100 #### [facility] Laboratory [address] [place], [address] WBC (Bld) [#/Vol] 10.0 10*3/uL Normal 4.4-11.0 [facility] Comment on above: Performed By: #### L 100.0100, L500.4050, L500.4100 #### [facility] Laboratory [address] [place], [address] Calculated very low density lipoprotein (VLDL) cholesterol measurementOrdered By: Leela Ingram on 03-24-2025 Calculated very low density lipoprotein (VLDL) cholesterol measurement 53 mg/dL High 5-40 [facility] Carbon dioxide, total [Moles /volume] in Central venous bloodOrdered By: Lelea Ingram on 03-24-2025 CO2 [Moles/Vol] 21.6 mmol/L 21.0-32.0 [facility] Chloride assayOrdered By: Jeremiah Ingram on 03-24-2025 Chloride [Moles/Vol] 107 mmol/L 98-108 [facility] Comprehensive Metabolic Prof ilon 03-24-2025 Albumin [Mass/Vol] 4.1 g/dL Normal 3.4-4.8 [facility] Comment on above: Performed By: #### L 100.0100, L500.4050, L500.4100 #### [facility] Laboratory [address] [place], [address] Albumin/Globulin [Mass ratio] 1.5 {ratio} Normal 0.9-2.4 [facility] Comment on above: Performed By: #### L 100.0100, L500.4050, L500.4100 #### [facility] Laboratory [address] [place], [address] ALK PHOS 82 U/L Normal 35-104 [facility] Comment on above: Performed By: #### L 100.0100, L500.4050, L500.4100 #### [facility] Laboratory [address] [place], [address] ALT [Catalytic activity/Vol] 15 U/L Normal <=34 [facility] Comment on above: Performed By: #### L 100.0100, L500.4050, L500.4100 #### [facility] Laboratory [address] [place], [address] AST [Catalytic activity/Vol] 20 U/L Normal <=31 [facility] Comment on above: Performed By: #### L 100.0100, L500.4050, L500.4100 #### [facility] Laboratory [address] [place], [address] Bilirubin [Mass/Vol] 0.15 mg/dL Normal 0.00-1.30 [facility] Comment on above: Performed By: #### L 100.0100, L500.4050, L500.4100 #### [facility] Laboratory [address] [place], [address] BUN/CRE 15.8 RATIO Normal 10-20 [facility] Comment on above: Performed By: #### L 100.0100, L500.4050, L500.4100 #### [facility] Laboratory [address] [place], [address] Calcium [Mass/Vol] 9.2 mg/dL Normal 7.6-11.0 [facility] Comment on above: Performed By: #### L 100.0100, L500.4050, L500.4100 #### [facility] Laboratory [address] [place], [address] Chloride [Moles/Vol] 107 mmol/L Normal 98-108 [facility] Comment on above: Performed By: #### L 100.0100, L500.4050, L500.4100 #### [facility] Laboratory [address] [place], [address] CO2 [Moles/Vol] 21.6 mmol/L Normal 21.0-32.0 [facility] Comment on above: Performed By: #### L 100.0100, L500.4050, L500.4100 #### [facility] Laboratory [address] [place], [address] Creatinine [Mass/Vol] 0.76 mg/dL Normal 0.70-1.20 [facility] Comment on above: Performed By: #### L 100.0100, L500.4050, L500.4100 #### [facility] Laboratory [address] [place], [address] GAP 10 Normal 5-15 [facility] Comment on above: Performed By: #### L 100.0100, L500.4050, L500.4100 #### [facility] Laboratory [address] [place], [address] GFR/1.73 sq M.predicted among non-blacks MDRD (S/P/Bld) [Vol rate/Area] 86 mL/min/{1.73_m2} Normal >60 [facility] Comment on above: Result Comment: mL/m in/1.73m2 CKD-EPI Creatinine Equation (2020) Performed By: #### L 100.0100, L500.4050, L500.4100 #### [facility] Laboratory [address] [place], [address] Globulin (S) [Mass/Vol] 2.8 g/dL Normal 2.2-4.2 [facility] Comment on above: Performed By: #### L 100.0100, L500.4050, L500.4100 #### [facility] Laboratory [address] [place], [address] Glucose [Mass/Vol] 94 mg/dL Normal 70-99 [facility] Comment on above: Performed By: #### L 100.0100, L500.4050, L500.4100 #### [facility] Laboratory [address] [place], [address] Potassium [Moles/Vol] 4.1 mmol/L Normal 3.3-5.1 [facility] Comment on above: Performed By: #### L 100.0100, L500.4050, L500.4100 #### [facility] Laboratory [address] [place], [address] Sodium [Moles/Vol] 138 mmol/L Normal 133-145 [facility] Comment on above: Performed By: #### L 100.0100, L500.4050, L500.4100 #### [facility] Laboratory [address] [place], [address] T PROT 7.0 g/dL Normal 5.9-8.4 [facility] Comment on above: Performed By: #### L 100.0100, L500.4050, L500.4100 #### [facility] Laboratory [address] [place], [address] Urea nitrogen [Mass/Vol] 12 mg/dL Normal 4-19 [facility] Comment on above: Performed By: #### L 100.0100, L500.4050, L500.4100 #### [facility] Laboratory [address] [place], [address] Eosinophil percentageOrdered By: Leela Ingram on 03-24-2025 Eosinophils/100 WBC (Bld) 2.3 % 0-5 [facility] Erythrocyte distribution wid th ratioOrdered By: Leela Ingram on 03-24-2025 Erythrocyte distribution width (RBC) [Ratio] 13.2 % 11.6-14.6 [facility] Erythrocyte distribution wid th standard deviationOrdered By: Leela Ingram on 03-24-2025 Erythrocyte distribution width (RBC) [Ratio] 43.8 fl 35.1-43.9 [facility] Glomerular filtration rate ( GFR) estimation/1.73 sq m using serum, plasma, or whole bOrdered By: Leela Ingram on 03-24-2025 GFR/1.73 sq M.predicted among non-blacks MDRD (S/P/Bld) [Vol rate/Area] 86 mL/min/{1.73_m2} >60 [facility] Comment on above: mL/min/1.73m2 CKD-EP I Creatinine Equation (2020) Hematocrit Auto (Bld) [Volum e fraction]Ordered By: Leela Ingram on 03-24-2025 Hematocrit (Bld) [Volume fraction] 34.8 % Low 37-47 [facility] Hemoglobin measurementOrdere d By: Leela Ingram on 03-24-2025 Hemoglobin (Bld) [Mass/Vol] 11.1 g/dL Low 12.0-15.0 [facility] Immature granulocytes/100 WB C Auto (Bld)Ordered By: Leela Ingram on 03-24-2025 Immature granulocytes/100 WBC (Bld) 0.300 % 0.0-0.9 [facility] Comment on above: IG% - Immature Granu locytes (promyelocytes, myelocytes and metamyelocytes) > 1% indicates that a LEFT SHIFT is Present. Internal Medicine Office Vis iton 03-24-2025 Internal Medicine Office Visit [facility] [address] [place] [address] [place] [address] OFFICE VISIT Date of Service: 03/24/25 MR#: [id number] Acct: [id number] Name: DNAIELLE PARRA Rep #: [id number] : 1960 Provider: Dr. Leela swenson MD Age/Sex: 64/F Location: [facility] Status: Signed Intake Vital Signs 08/29/24 15:06 [...] Swelling Medications ???Medication ???Instructions ???Recorded ???Confirmed ???Type haeiifai-axr-zhuol ac 400 1 ea PO DAILY SUPPLEMENT [...] History (Updated 03/24/25 @ 11:[address] Leela Ingram MD) Health care maintenance Chronic gastritis [...] on her age-appropriate screenings. Follows up with [facility] in [place] and recently had a mammogram/bone density scan. [...] nosebleed/epistaxis, nasal (more content not included)... Normal [facility] LDL calc ser/plasOrdered By: Leela Ingram on 03-24-2025 Cholesterol in LDL [Mass/Vol] 166 mg/dL [facility] Comment on above: Bhiplthgqv=731-121 m g/dL & Higher Hnov=770 mg/dL or greater Laboratory - Chemistry and C hemistry - challengeOrdered By: Leela Ingram on 03-24-2025 AST [Catalytic activity/Vol] 20 U/L <32 [facility] Lipid Profileon 03-24-2025 CHOL:HDL 5.43 Normal [facility] Comment on above: Performed By: #### L 100.0100, L501.4021, M100.7900, L500.2500 #### [facility] Laboratory [address] [place], [place], [address] Cholesterol [Mass/Vol] 268 mg/dL High <=200 [facility] Comment on above: Result Comment: Chol esterol level, Desirable <200 mg/dL Borderline high cholesterol 200-239 mg/dL High cholesterol >=240 mg/dL Recommendations of the NCEP Adult Treatment Panel for the following risk-cutoff thresholds for the [place] population. Performed By: #### L 100.0100, L501.4021, M100.7900, L500.2500 #### [facility] Laboratory [address] [place], [address] Cholesterol in HDL [Mass/Vol] 49 mg/dL Normal [facility] Comment on above: Result Comment: [place] on[place] Cholesterol Education Program (NCEP) guidelines: <40 mg/dL: Low HDL-cholesterol (major risk factor for CHD) >= 60 mg/dL: High HDL-cholesterol (negative risk factor for CHD) HDL-cholesterol is affected by a number of factors, e.g. smoking, exercise, hormones, sex and age. Performed By: #### L 100.0100, L501.4021, M100.7900, L500.2500 #### [facility] Laboratory [address] [place], [address] Cholesterol in LDL [Mass/Vol] 166 mg/dL Normal [facility] Comment on above: Result Comment: Bord eaqyoi=350-136 mg/dL Higher Dmrh=811 mg/dL or greater Performed By: #### L 100.0100, L501.4021, M100.7900, L500.2500 #### [facility] [address] [place], [address] Cholesterol in VLDL [Mass/Vol] 53 mg/dL High 5-40 [facility] Comment on above: Performed By: #### L 100.0100, L501.4021, M100.7900, L500.2500 #### [facility] [address] [place], [address] Triglyceride [Mass/Vol] 264 mg/dL High [facility] Comment on above: Result Comment: The drugs N-Acetylcysteine and Metamizole may falsely depress this assay. Normal range: <150 mg/dL Borderline High: 150-199 mg/dL High: 200-499 mg/dL Very High: >500 mg/dL Performed By: #### L 100.0100, L501.4021, M100.7900, L500.2500 #### [facility] [address] [place], [address] MCV (mean corpuscular volume ) determinationOrdered By: Leela Ingram on 03-24-2025 MCV (RBC) [Entitic vol] 89.9 fL 81-99 [facility] Mean corpuscular hemoglobin (MCH) determinationOrdered By: Leela Ingram on 03-24-2025 MCH (RBC) [Entitic mass] 28.7 pg 27.0-32.0 [facility] Mean corpuscular hemoglobin concentration (MCHC) determinationOrdered By: Leela Ingram on 03-24-2025 MCHC (RBC) [Mass/Vol] 31.9 g/dL Low 32-36 [facility] Mean platelet volume determi nationOrdered By: Leela Ingram on 03-24-2025 Platelet mean volume (Bld) [Entitic vol] 8.9 fL 6.2-12.0 [facility] Monocyte percentageOrdered B y: Leela Ingram on 03-24-2025 Monocytes/100 WBC (Bld) 6.0 % 0-10 [facility] Neutrophil percentageOrdered By: harshabuffalopamela Ingram on 03-24-2025 Neutrophils/100 WBC (Bld) 58.9 % 47-70 [facility] Nucleated red blood cell per centageOrdered By: Leela Ingram on 03-24-2025 Nucleated RBC/100 WBC (Bld) [Ratio] 0 % 0-5 [facility] Platelet countOrdered By: Jeremiah Ingram on 03-24-2025 Platelets (Bld) [#/Vol] 357 10*3/uL 150-450 [facility] Potassium measurement (mass/ volume)Ordered By: Leela Ingram on 03-24-2025 Potassium (Unsp spec) [Mass/Vol] 4.1 mmol/L 3.3-5.1 [facility] RBC Auto (Bld) [#/Vol]Ordere d By: Leela Ingram on 03-24-2025 RBC (Bld) [#/Vol] 3.87 10*6/uL Low 4.2-5.4 [facility] Screening total cholesterol/ high density lipoprotein (HDL) cholesterol ratioOrdered By: Leela Ingram on 03-24-2025 Cholesterol.total/Chol esterol in HDL [Mass ratio] 5.43 {ratio} [facility] Serum creatinine measurement (mass/volume)Ordered By: Leela Ingram on 03-24-2025 Creatinine [Mass/Vol] 0.76 mg/dL 0.70-1.20 [facility] Serum globulin measurementOr dered By: Leela Ingram on 03-24-2025 Globulin (S) [Mass/Vol] 2.8 g/dL 2.2-4.2 [facility] Serum glucose measurement (m ass/volume)Ordered By: Leela Ingram on 03-24-2025 Glucose [Mass/Vol] 94 mg/dL 70-99 [facility] Serum or plasma alanine zhao otransferase (ALT) measurementOrdered By: Leela Ingram on 03-24-2025 ALT [Catalytic activity/Vol] 15 U/L <35 [facility] Serum or plasma albumin gladys urement (mass/volume)Ordered By: Leela Ingram on 03-24-2025 Albumin [Mass/Vol] 4.1 g/dL 3.4-4.8 [facility] Serum or plasma albumin/glob ulin mass ratioOrdered By: Leela Ingram on 03-24-2025 Albumin/Globulin [Mass ratio] 1.5 {ratio} 0.9-2.4 [facility] Serum or plasma alkaline evan sphatase measurementOrdered By: Leela Ingram on 03-24-2025 ALP [Catalytic activity/Vol] 82 U/L 35-104 [facility] Serum or plasma calcium gladys urement (mass/volume)Ordered By: Leela Ingram on 03-24-2025 Calcium [Mass/Vol] 9.2 mg/dL 7.6-11.0 [facility] Serum or plasma cholesterol in HDL measurement (mass/volume)Ordered By: Leela Ingram on 03-24-2025 Cholesterol in HDL [Mass/Vol] 49 mg/dL >40 [facility] Comment on above: National Cholesterol Education Program (NCEP) guidelines:<40 mg/dL: Low HDL-cholesterol (major risk factor for CHD)>= 60 mg/dL: High HDL-cholesterol (negative risk factor for CHD)HDL-cholesterol is affected by a number of factors, e.g. smoking, exercise, hormones, sex and age. Serum or plasma cholesterol measurement (mass/volume)Ordered By: Leela Ingram on 03-24-2025 Cholesterol [Mass/Vol] 268 mg/dL High <201 [facility] Comment on above: Cholesterol level, D esirable <200 mg/dLBorderline high cholesterol 200-239 mg/dLHigh cholesterol >=240 mg/dLRecommendations of the NCEP Adult Treatment Panel for the following risk-cutoff thresholds for the [place] population. Serum or plasma urea nitroge n measurement (mass/volume)Ordered By: Leela Ingram on 03-24-2025 Urea nitrogen [Mass/Vol] 12 mg/dL 4-19 [facility] Sodium levelOrdered By: Clyde Ingram on 03-24-2025 Sodium [Moles/Vol] 138 mmol/L 133-145 [facility] Total proteinOrdered By: Ankush Ingram on 03-24-2025 Protein [Mass/Vol] 7.0 g/dL 5.9-8.4 [facility] Triglycerides measurementOrd ered By: Leela Ingram on 03-24-2025 Triglyceride [Mass/Vol] 264 mg/dL High <199 [facility] Comment on above: The drugs N-Acetylcy steine and Metamizole may falsely depress this assay. Normal range: <150 mg/dLBorderline High: 150-199 mg/dLHigh: 200-499 mg/dLVery High: >500 mg/dL White blood cell (WBC) count Ordered By: Leela Ingram on 03-24-2025 WBC (Bld) [#/Vol] 10.0 10*3/uL 4.4-11.0 [facility] US BREAST LEFT LIMITEDon BREAST LEFT LIMITED ORIGINAL FROM: JERROD DOAN [address] [place], [place] [address] PROCEDURE FOR: DANIELLE PARRA [address] [place] [address] Home: PID#: [id number] Exam#: [id number] : 1960 Age: 64 TO: ADRIAN PINEDA MD [address] [facility] [address] [place] [phone] Fax: NO FAX EXAMINATION: ULTRASOUND OF THE [...] benign and no follow-up imaging is needed. Tyrer Cuzick risk calculations do not apply [...] 03/20/2025 1:11:06 PM Ordering Provider: ADRIAN PINEDA Ice Cream Chef: DOUG CAMPOS RT (R, CT), [facility] letter sent: Normal BI-RADS 1 and 2 Ultrasound BI-RADS: 1 Negative Normal [facility] MAMMOGRAM DIAGNOSTIC LEFT W/TOMOon 03-17-2025 MA MAMMOGRAM DIAGNOSTIC LEFT W/NORM ORIGINAL FROM: [facility] [address], [place] [address] PROCEDURE FOR: DANIELLE MartinezSung PARRA [address] [place] [address] Home: PID#: [id number] Exam#: [id number] : 1960 Age: 64 TO: ADRIAN PINEDA MD [address] [facility] [address] [place] [address] Fax: NO FAX EXAMINATION: DIAGNOSTIC DIGITAL LEFT [...] 03/17/2025 1:35:14 PM Ordering Provider: ADRIAN PINEDA Ice Cream Chef: LUIS CUTLER RT (R)(M) letter sent: Normal-Needs additional work up BI-RADS 0 Mammogram BI-RADS: 0 Indeterminate Normal [facility] BD BONE DENSITY DEXA AXIAL S Tahir 03-14-2025 BD BONE DENSITY DEXA AXIAL SKELETON [...] 03/14/2025 5:24:52 PM Ordering Provider: ADRIAN Pollard [facility] MAMMOGRAM SCREENING LEFT W/Aarti 03-13-2025 UT MAMMOGRAM SCREENING LEFT W/NORM ORIGINAL FROM: [facility] [address] [place] [address] PROCEDURE FOR: DANIELLE PARRA [address] [place] [address] Home: PID#: [id number] Exam#: [id number] : 1960 Age: 64 TO: ADRIAN PINEDA MD [address] [facility] [address] [place], [place] [address] Fax: NO FAX EXAMINATION: SCREENING DIGITAL LEFT [...] the patient to arrange for the exam. Tyrer Cuzick risk calculations do not apply [...] 03/13/2025 9:27:58 PM Ordering Provider: ADRIAN PINEDA Ice Cream Chef: LUIS CUTLER RT (R)(M) letter sent: Abnormal-Needs additional work up BI-RADS 0 Mammogram BI-RADS: 0 Indeterminate Normal [facility] Internal Medicine Office Vis gautam 08-29-2024 Internal Medicine Office Visit [facility] [address] [place] [id number] OFFICE VISIT Date of Service: 08/29/24 MR#: [id number] Acct: [id number] Name: DANIELLE PARRA Rep #: [id number] : 1960 Provider: Dr. Leela swenson MD Age/Sex: 63/F Location: [facility] Status: Signed Intake Vital Signs 04/28/24 13:52 [...] 4 m fu Chief Complaint: 6 month Insulation Nozzleman Required: No Is patient in pain?: No Allergies Penicillins Allergy (Verified 08/29/24 15:02) Swelling Medications ???Medication ???Instructions ???Recorded ???Confirmed ???Type qyqhmkek-vcz-dnwpo ac 400 1 ea PO DAILY SUPPLEMENT [...] year?: No Nurse's Note: Declines flu vaccine. [facility] Medical History Hypertension Wears glasses Cancer Restless [...] habits, cons (more content not included)... Normal [facility] MA MAMMOGRAM SCREENING LEFT W/TOMOon 07-24-2023 MA MAMMOGRAM SCREENING LEFT W/NORM [facility] [address] [place], [place] [address] PROCEDURE FOR: DANIELLE PARRA [address] [place] [address] Home: PID#: [id number] Exam#: [id number] : 1960 Age: 62 TO: ADRIAN PINEDA MD [address] [facility] [address] [place], [place] [address] Fax: NO FAX EXAMINATION: SCREENING DIGITAL LEFT [...] 07/24/2023 4:51:01 PM Ordering Provider: ADRIAN PINEDA Ice Cream Chef: NEWTON MATHUR RT(R) (M) letter sent: Normal BI-RADS 1 and 2 Mammogram BI-RADS: 1 Negative Normal [facility] ([place]) Operating Theatre Technician Cytology Reporton 2022 Operating Theatre Technician Cytology Report . Pathology Reports Accession: Collected Date/Time: Received Date/Time: Pathologist: [id number] 07/15/2023 14:42 EDT 07/16/2023 18:00 EDT Operating Theatre Technician Cytology Report SPECIMEN: Specimen Description: Liquid Prep [...] and evaluated with the assistance of the Rezdy ThinPrep Test Imaging System. Pathology Reports Accession: Collected Date/Time: Received Date/Time: Pathologist: [id number] 07/15/2023 14:42 EDT 07/16/2023 18:00 EDT Electronically Signed by Pathology report verified by [facility] Screened by: [place] Electronically signed by Gayle NOE (ASCP) Sign-Out Date: 07/22/2023 10:57 Performing Lab: [facility], [address] [place] [address] Pathology Dept Disclaimer The Pap test is a screening test for cervical cancer. As evidenced by published data, it is subject to both inherent false negative and false positive results. Your patient's results should be interpreted in context with pertinent clinical history including gynecological examination. Normal [facility] ([place] HPVon 07-21-2023 HPV Interp Normal See [facility] HPVN [facility] ([place] Comment on above: Order Comment: Order placed by AP_HPV_ORDER rule from [id number] Result Comment: High Risk HPV Typing: NEGATIVE [...] and sufficient DNA to be detected. See [facility] HPVN Performed By: #### H PV #### [place] [address] HPV Source Cervix Normal [facility] ([place]) Comment on above: Order Comment: Order placed by AP_HPV_ORDER rule from [id number] Performed By: #### H PV #### [place] [id number] Cervical or vagninal specime n microscopic examination by cytology stain ([facility] Cytology report Cyto stain Doc (Cvx/Vag) Comment . [facility] Work Phone: Comment on above: [...] DNA Probe+sig amp Ql (Cvx) Negative Negative [facility] Work Phone: Comment on above: This nucleic acid am plification test detects fourteen high- risk HPV types (16,18,31,33,35,39,45,51,52,56,58,59,66,68)without differentiation.Performed at: [facility] - [facility] [id number] Director: Yessenia Webb MD, Phone: [phone] at: =G - [facility] [address] [id number] Director: Yessenia Webb MD, Phone: [phone] Laboratory - Cytologyon 03-20 Die Filer Cyto stain Nom (Cvx/Vag) [ID] Comment . [facility] Work Phone: Comment on above: Bharat Soni Cytotec hnologist (ASCP) Laboratory - Miscellaneous t estson 04-10-2022 Service comment (Unsp spec) [Interp] Comment . [facility] Work Phone: Comment on above: This liquid based Th inPrep(R) pap test was screened withthe use of an image guided system. Service comment (Unsp spec) [Interp] . . [facility] Work Phone: No Panel Informationon 04-10 Pathology report final diagnosis Narrative Comment . [facility] Work Phone: Comment on above: NEGATIVE FOR INTRAEP ITHELIAL LESION OR MALIGNANCY.THIS SPECIMEN WAS RESCREENED PART OF OUR IMCU SPECIALIST PROGRAM. PROGRESSon 12-09-2019 PROGRESS HNO ID: [id number] Author: Nasima Melendez Service: ? Author Type: Interlocking Installer Type: Progress Notes Filed: 12/09/2019 7:32 AM Note Text: [facility] [place] [facility] INVESTMENT EXECUTIVE QUICKNOTE Provider Action/FYI: Patient returned call and states she's NOT a patient of Dr. Reyes and she would appreciate it if we stop sending mail to her. I removed Dr. Reyes as PCP. Patient identified by name and . Nasima Melendez JERARDO [facility] PROGRESSon 12-02-2019 PROGRESS HNO ID: [id number] Author: Nasima SharmaineJerardoAsh Al Service: ? Author Type: Interlocking Installer Type: Progress Notes Filed: 12/02/2019 9:54 AM Note Text: POPULATION HEALTH INVESTMENT EXECUTIVE QUICKNOTE Provider Action/FYI: 4th attempt - letter mailed to patient. Patient identified by name and . Nasima Al JERARDO [facility] PROGRESS HNO ID: [id number] Author: Nsaima Melendez Service: ? Author Type: Interlocking Installer Type: Progress Notes Filed: 12/02/2019 9:54 AM Note Text: POPULATION [facility] INVESTMENT EXECUTIVE QUICKNOTE Provider Action/FYI: 3rd attempt - the number you have dialed is not in service. Patient identified by name and . Nasima Melendez JERARDO [facility] PROGRESSon 11-30-2019 PROGRESS HNO ID: [id number] Author: Nasima Melendez Service: ? Author Type: Interlocking Installer Type: Progress Notes Filed: 12/02/2019 9:54 AM Note Text: POPULATION [facility] INVESTMENT EXECUTIVE QUICKNOTE Provider Action/FYI: 2nd attempt - the number you have dialed is not in service. I will try back later. Patient identified by name and . Nasima Melendez CMA [facility] CNPTOUTREACHon 11-22-2019 CNPTOUTREACH Patient Outreach (IN TMWS) DANIELLE PARRA ([id number]) 1960 F Date Time Provider Department 11/22/19 NASIMA MELENDEZ) INTMWS During your visit today, we recorded [...] due on 09/03/2018 INFLUENZA(1) due on 06/19/2019 JERARDO Abad [facility] 12/02/2019 9:54 AM Signed [facility] ASSISTANT QUICKNOTE Provider Action/FYI: 1st attempt - Rhapso message sent. Patient identified by name and . JERARDO Abad CMA 12/02/2019 9:54 AM Signed [facility] ASSISTANT QUICKNOTE Provider Action/FYI: 2nd attempt - the number you have dialed is not in service. I will try back later. Patient identified by name and . JERARDO Abad [facility] 12/02/2019 9:54 AM Signed [facility] ASSISTANT QUICKNOTE Provider Action/FYI: 3rd attempt - the number you have dialed is not in service. Patient identified by name and . JERARDO Abad [facility] 12/02/2019 9:54 AM Signed [facility] ASSISTANT QUICKNOTE Provider Action/FYI: 4th attempt - letter mailed to patient. Patient identified by name and . JERARDO Abad [facility] 12/09/2019 7:32 AM Signed [facility] ASSISTANT QUICKNOTE Provider Action/FYI: Patient returned call and states she's NOT a patient of Dr. Reyes and she would appreciate it if we stop sending mail to her. I removed Dr. Reyes as PCP. Patient identified by name and . Nasima Melendez [facility] Allergies As of Date: 11/22/2019 Noted Allergy Reaction PENICILLINS 03/12/2011 7 - Swelling Date Reviewed: 12/19/2017 Reviewed by: Soumya Avery Ma - Fully Assessed Reason for Visit: PHMA/Care Gap Outreach [6960] Prescriptions as of 11/22/2019 Sig: VARENICLINE 1 [...] Status:Closed by NASIMA MELENDEZ CMA on 12/02/19 [facility] PROGRESSon 11-22-2019 PROGRESS HNO ID: [id number] Author: Nasima Jerardo Al Service: ? Author Type: Interlocking Installer Type: Progress Notes Filed: 12/02/2019 9:54 AM Note Text: POPULATION HEALTH INVESTMENT EXECUTIVE QUICKNOTE Provider Action/FYI: 1st attempt - FlameStowert message sent. Patient identified by name and . Nasima AlJERARDO [facility] PROGRESS HNO ID: [id number] Author: Nasima Melendez Service: ? Author Type: Interlocking Installer Type: Progress Notes Filed: 12/02/2019 9:54 AM [...] 09/03/2018 INFLUENZA(1) due on 06/19/2019 Nasima Melendez, AVIONICS SUPERVISOR Normal [facility] Vital Signs Date Time Vital Sign Value Performing Clinician Faci lity 03-24-2025 10:41-0400 Body height 162.[address] Leela Ingram MD Work Phone: [facility] 03-24-2025 10:41-0400 Body mass index (BMI) [Ratio] 28.3 kg/m2 Dr. Leela Ingram MD Work Phone: [facility] 03-24-2025 10:41-0400 Body temperature 97.4 [degF] Dr. Leela Ingram MD Work Phone: [facility] 03-24-2025 10:41-0400 Body weight 74.[address] Leela Ingram MD Work Phone: [facility] 03-24-2025 10:41-0400 Diastolic blood pressure 60 mm[Hg] Dr. Leela Ingram MD Work Phone: [facility] 03-24-2025 10:41-0400 Heart rate 81 /min Dr. Leela Ingram MD Work Phone: [facility] 03-24-2025 10:41-0400 Respiratory rate 18 /min Dr. Leela Ingram MD Work Phone: [facility] 03-24-2025 10:41-0400 SaO2% (BldA) [Mass fraction] 95 % Dr. Leela Ingram MD Work Phone: [facility] 03-24-2025 10:41-0400 Systolic blood pressure 136 mm[Hg] Dr. Leela Ingram MD Work Phone: [facility] 02-25-2024 19:57-0400 Body temperature 98.3 [degF] Dr. Leela Ingram Work Phone: [facility] 02-25-2024 19:57-0400 Diastolic blood pressure 64 mm[Hg] Dr. Leela Ingram Work Phone: [facility] 02-25-2024 19:57-0400 Heart rate 92 /min Dr. Leela Ingram Work Phone: [facility] 02-25-2024 19:57-0400 Respiratory rate 16 /min Dr. Leela Ingram Work Phone: [facility] 02-25-2024 19:57-0400 SaO2% (BldA) [Mass fraction] 100 % Dr. Leela Ingram Work Phone: [facility] 02-25-2024 19:57-0400 Systolic blood pressure 120 mm[Hg] Dr. Leela Ingram Work Phone: [facility] 02-25-2024 18:46-0400 Body height 162.[address] Leela Ingram Work Phone: [facility] 02-25-2024 18:46-0400 Body mass index (BMI) [Ratio] 27.9 kg/m2 Dr. Leela Ingram Work Phone: [facility] 02-25-2024 18:46-0400 Body weight 73.[address] Leela Ingram Work Phone: [facility] 02-15-2024 10:51-0400 Body temperature 96.9 [degF] Dr. Leela Ingram Work Phone: [facility] 02-15-2024 10:51-0400 Diastolic blood pressure 58 mm[Hg] Dr. Leela Ingram Work Phone: [facility] 02-15-2024 10:51-0400 Heart rate 74 /min Dr. Leela Ingram Work Phone: [facility] 02-15-2024 10:51-0400 Respiratory rate 16 /min Dr. Leela Ingram Work Phone: [facility] 02-15-2024 10:51-0400 SaO2% (BldA) [Mass fraction] 96 % Dr. Leela Ingram Work Phone: [facility] 02-15-2024 10:51-0400 Systolic blood pressure 126 mm[Hg] Dr. Leela Ingram Work Phone: [facility] 02-15-2024 09:40-0400 Body height 162.[address] Leela Ingram Work Phone: [facility] 02-15-2024 09:40-0400 Body mass index (BMI) [Ratio] 26.4 kg/m2 Dr. Leela Ingram Work Phone: [facility] 02-15-2024 09:40-0400 Body weight 69.[address] Leela Ingram Work Phone: [facility] 12-09-2023 15:01-0500 Body mass index (BMI) [Ratio] 27.3 kg/m2 Dr. Leela Ingram Work Phone: [facility] 12-09-2023 15:01-0500 Body weight 72.[address] Leela Ingram Work Phone: [facility] 12-09-2023 15:01-0500 Diastolic blood pressure 82 mm[Hg] Dr. Leela Ingram Work Phone: [facility] 12-09-2023 15:01-0500 Heart rate 79 /min Dr. Leela Ingram Work Phone: [facility] 12-09-2023 15:01-0500 Respiratory rate 17 /min Dr. Leela Ingram Work Phone: [facility] 12-09-2023 15:01-0500 SaO2% (BldA) [Mass fraction] 96 % Dr. Leela Ingram Work Phone: [facility] 12-09-2023 15:01-0500 Systolic blood pressure 153 mm[Hg] Dr. Leela Ingram Work Phone: [facility] 12-03-2023 15:21-0500 Body height 162.[address] Leela Ingram Work Phone: [facility] 11-05-2023 16:13-0500 Body mass index (BMI) [Ratio] 27.5 kg/m2 Dr. Leela Ingram Work Phone: [facility] 11-05-2023 16:13-0500 Body temperature 98 [degF] Dr. Leela Ingram Work Phone: [facility] 11-05-2023 16:13-0500 Body weight 72.[address] Leela Ingram Work Phone: [facility] 11-05-2023 16:13-0500 Diastolic blood pressure 80 mm[Hg] Dr. Leela Ingram Work Phone: [facility] 11-05-2023 16:13-0500 Heart rate 100 /min Dr. Leela Ingram Work Phone: [facility] 11-05-2023 16:13-0500 Respiratory rate 16 /min Dr. Leela Ingram Work Phone: [facility] 11-05-2023 16:13-0500 SaO2% (BldA) [Mass fraction] 97 % Dr. Leela Ingram Work Phone: [facility] 11-05-2023 16:13-0500 Systolic blood pressure 140 mm[Hg] Dr. Leela Ingram Work Phone: [facility] Encounters Encounter Date Encounter Type Care Provider Facility Start: 07-07-2025 ambulatory Leela Johni ty:[facility] Start: 07-07-2025 End: 07-07-2025 Emergency department patient visit Caden Lazar Facility:[facility] Start: 04-20-2025 ambulatory Clydebuffalopamela Johni ty:[facility] Start: 04-20-2025 Non-patient / Non-visit Dr. Elaine DUNLAP -[facility] Start: 04-20-[address] Primo Ingram MD -Cat Scan [facility] Work Phone: Start: 04-20-2025 End: 04-20-[address] Leela Ingram MD Work Phone: -Cat Scan [facility] Start: 04-20-2025 End: 04-20-[address] Leela Ingram MD -Cat Scan [facility] Work Phone: Start: 04-20-2025 End: 04-20-2025 ambulatory Clydebuffalopamela Ingram Facility:[facility] Start: 04-05-2025 Encounter for genera l adult medical examination without abnormal findings [facility] Start: 03-24-2025 End: 03-24-[address] Leela Ingram MD -[facility] Work Phone: Start: 03-24-2025 End: 03-24-[address] Leela Ingram MD [facility] Start: 03-24-2025 End: 03-24-[address] Leela Ingram MD Work Phone: [facility] Work Phone: Start: 03-24-2025 End: 03-24-2025 ambulatory Leela Ingram Facility:[facility] Start: 03-17-2025 End: 03-17-2025 ambulatory LEELA INGRAM MD Facility:[facility] Start: 03-17-2025 End: 03-17-2025 Patient encounter procedure ADRIAN PINEDA MD [facility] Start: 03-10-2025 End: 03-10-2025 ambulatory ADRIAN PINEDA MD Facility:[facility] Start: 08-29-2024 End: 08-29-2024 ambulatory Leela Ingram Facility:[facility] Start: 02-25-2024 End: 02-25-2024 Emergency department patient visit Dr. Leela Ingram Work Phone: [facility]-Emergency Department Work Phone: Start: 02-15-2024 Non-patient / Non-visit Dr. Jeremiah Ingram Work Phone: [facility] Start: 02-15-2024 End: 02-15-2024 Admission to same day surgery center Dr. Leela Ingram Work Phone: [facility]Endoscopy Work Phone: Start: 02-15-2024 End: 02-15-[address] Leela Ingram Work Phone: [facility] Work Phone: Start: 12-09-2023 End: 12-09-[address] Leela Ingram Work Phone: [facility] Work Phone: Start: 12-03-2023 End: 12-03-[address] Leela Ingram Work Phone: [facility] Work Phone: Start: 12-03-2023 End: 12-03-[address] Leela Ingram Work Phone: [facility]-Outpatient Bone Densitometry Work Phone: Start: 11-05-2023 End: 11-05-[address] Leela Ingram Work Phone: [facility] Work Phone: Start: 07-23-2023 End: 07-24-2023 ambulatory ADRIAN PINEDA MD Facility:[facility] Start: 07-15-2023 End: 07-20-2023 ambulatory ADRIAN PINEDA MD Facility:[facility] Start: 07-15-2023 End: 07-20-2023 Encounter for gynecological examination (general) (routine) without abnormal findings ADRIAN PINEDA MD Facility:[facility] Start: 07-15-2023 End: 07-19-2023 Outreach Lab ADRIAN PINEDA MD [facility] Start: 04-28-2022 End: 04-28-2022 Patient encounter procedure [facility]-Outpatient Breast Imaging Start: 04-10-2022 End: 04-10-2022 Patient encounter procedure [facility]-Laboratory, Specimen Procedures Date Procedure Procedure Detail Performing Clinician Start: 04-20-2025 CT angiography of co ronary arteries Dr. Leela Ingram MD Work Phone: Start: 04-20-[address] Primo Ingram MD Work Phone: Start: 02-15-[address] Primo Ingram Work Phone: Start: 12-03-2023 Dual energy X-ray absorptiometry Dr. Leela Ingram Work Phone: Start: 04-28-2022 Screening mammograph y of left breast Start: 10-19-2002 Mastectomy of right breast ADRIAN PINEDA MD Start: 10-19-1979 section ADRIAN PINEDA MD Loop electrosurgical excision procedure ADRIAN PINEDA MD Polyp of colon (disorder) AM KELLE PINEDA MD Structure of wisdom tooth (body structure) ADRIAN PINEDA MD Tonsillectomy ADRIAN Ramos Plan of Treatment Date Care Activity Detail Author Start: 03-24-2025 CBC W Auto Differential panel - Blood [facility] Start: 03-24-2025 Comprehensive metabolic 2000 panel - Serum or Plasma [facility] Start: 03-24-2025 Lipid 1996 panel - Serum or Plasma [facility] Start: 02-25-2024 [facility] Start: 02-15-2024 Colonoscopy w/biopsy single/multiple COLONOSCOPY AND BIOPSY [facility] Start: 02-15-2024 Colsc flx w/rmvl of tumor polyp lesion snare tq COLONOSCOPY W/LESION REMOVAL [facility] Start: 02-15-2024 Egd transoral biopsy single/multiple EGD BIOPSY SINGLE/MULTIPLE [facility] Start: 02-15-2024 Patient discharge [facility] Start: 11-05-2023 Patient referral [facility] Work Phone: Alanine aminotransfe rase [Enzymatic activity/volume] in Serum or Plasma [facility] Albumin [Mass/volume ] in Serum or Plasma [facility] Alkaline phosphatase [Enzymatic activity/volume] in Serum or Plasma [facility] Anion gap in Serum o r Plasma [facility] Bilirubin, total measurement [facility] BUN/Creatinine ratio [facility] Calcium [Mass/volume ] in Serum or Plasma [facility] Carbon dioxide, tota l [Moles/volume] in Central venous blood [facility] Cholesterol [Mass/vo lume] in Serum or Plasma [facility] Cholesterol in HDL [Mass/volume] in Serum or Plasma [facility] Colonoscopy [facility] Creatinine [Mass/vol ume] in Serum or Plasma [facility] CT Chest [facility] Erythrocyte mean corpuscular volume determination [facility] Glucose [Mass/volume ] in Serum or Plasma [facility] Hematocrit [Volume Fraction] of Blood [facility] Hemoglobin [Mass/vol ume] in Blood [facility] Leukocytes [#/volume ] in Blood [facility] Low density lipoprot ein cholesterol measurement [facility] Mean corpuscular hem oglobin concentration determination [facility] Mean corpuscular hem oglobin determination [facility] Measurement of renal function [facility] Neutrophil count [facility] Neutrophil percent differential count [facility] Path report.final Dx Spec [facility] Work Phone: Patient Education ED Allergic Re action Local Other [facility] Work Phone: Patient referral [facility] Work Phone: Platelets [#/volume] in Blood [facility] Potassium measurement [facility] Red blood cell count [facility] Red cell distributio n width determination [facility] Serum chloride measurement [facility] Sodium measurement [facility] Total cholesterol:HD L ratio measurement [facility] Total protein measurement [facility] Triglycerides measurement [facility] Urea nitrogen [Mass/ volume] in Serum or Plasma [facility] VLDL cholesterol measurement [facility] Payers Date Payer Category Payer Unknown 2025 Medicare [id number] 2025 Private Health Insurance [id number] 2025 Medicare [id number] 2025 Private Health Insurance [id number] 2024 Self-pay [id number] 2024 Private Health Insurance [id number] 2022 Private Health Insurance [id number] 2005 Private Health Insurance [facility] [id number] 1960 Unknown [id number] 27 1960 Unknown [id number] [id number] 27 1960 Unknown [id number] 2.16.840.1.933232.3.579.2.6 27 1960 Unknown [id number] 2.16.840.1.260147.3.579.2.6 27 Unknown [id number] 2.16.840.1.167185.3.579.2.4 62 Unknown [id number] 2.16.840.1.805578.3.579.2.4 62 Unknown [id number] 2.16.840.1.370165.3.579.2.4 62 Unknown [id number] 2.16.840.1.380858.3.579.2.4 62 Unknown [id number] 2.16.840.1.518145.3.579.2.4 62 Unknown [id number] 2.16.840.1.421434.3.579.2.4 62 Unknown [id number] 2.16.840.1.807053.3.579.2.4 62 Unknown [id number] 2.16.840.1.025235.3.579.2.4 62 Social History Date Type Detail Facility Start: 10-22-2021 End: 02-25-2024 Tobacco smoking status NEIS Unknown if ever smoked [facility] Start: 12-07-2018 Cigarettes [facility] Start: 1960 Sex Assigned At Female A [facility] Start: 07-15-2023 Tobacco smoking status Heavy t obacco smoker (finding) [facility] Sexual Orientation [facility] Sex Female (finding) [facility] Start: 02-25-2024 Tobacco smoking stat us NHIS Smokes tobacco daily (finding) [facility] NEGATED: Highlighted row [facility] Goals Date Patient Goal Desired Activity /State Mental Status Date Assessment Result Facility 02-15-2024 Cognitive function Awake;Alert;Appropriat e [facility] Work Phone: 02-15-2024 Cognitive function Arousable To Voice/Nam e [facility] Work Phone: Clinical Notes 04-10-2022 to 04-20-2025 Note Date & Type Note Facility 04-20-2025 Radiology Diagnostic study note [facility] Imaging Services [address] [place] [address] 04/20/25 1322 MR#: [id number] Acct: [id number] Name: DANIELLE PARRA Rep #:[id number] : 1960 64 From: Justin Liu MD PCP: Dr. Leela Ingram MD Status:Martina EG CLI Y Location: CT Calcium Scoring Date of Study:: 04/20/25 Indications Indications: Hyperlipidemia Coronary Calcium Scoring: High-resolution Computed Tomographic imaging of the chest was performed on [04/20/2025], with particular attention paid to the coronary arteries. Images from the examination were analyzed for the presence and extent of coronary artery calcification , using coronary calcium quantification software. The patient tolerated the procedure well and there were no complications. The results of the coronary calcification analysis are provided below. Findings Coronary Artery Left Main (LM): 0 Left Anterior Descending (LAD): 159 Left Circumflex (LCX): 0 Right Coronary Artery (RCA): 3.57 Total Agatston Score: 162.57 Percentile Rankinth percentile to 90th percentile Calcium Scoring Interpretation: Different methods to categorize the overall amount of coronary plaque. Overall amount CAC SIS Visual of coronary plaque P1 Mild -100 <2 1-2 vessels with mild amount of plaque P2 Moderate 101-300 3-4 1-2 vessels with moderate amount, 3 vessels with mild amount of plaque P3 Severe 301-999 5-7 3 vessels with moderate amount, 1 vessel with severe amount of plaque P4 Extensive >1000 >8 2-3 vessels with severe amount of plaque Calcium Score: Moderate: 1-2 vessels w/moderate amt, 3 vessels w/mild amt of plaque Conclusion: Moderate amount of plaque noted in a single vessel. 04/20/25 1323 Date ___ _ Justin Liu MD Cosigner Signature (if applicable): Date ____ CC: Dr. Justin Liu MD; Dr. Leela Ingram MD ~ Signed [facility] Work Phone: 04-20-2025 Radiology Diagnostic study note [facility] Imaging Services [address] [place] [id number] Lung Screening MR#: [id number] Acct: [id number] Name: DANIELLE PARRA Rep #: [id number] : 1960 F 64 From: Evelyn Glass MD PCP: Dr. Leela Ingram MD Status: R CLI Study:Low Dose CT Lung Screening Date of Exam : 04/20/25 Exam# [id number] Ordering Dr: Jenaro Ingram MD PROCEDURE: LOW DOSE CT LUNG SCREENING 04/20/2025 REASON FOR EXAM: LUNG CA SCREENING 1 pack per day smoker times 50 years. History of right breast cancer TECHNIQUE: LOW DOSE CT LUNG SCREENING Coronal and Sagittal reconstruction series were provided. One or more dose reduction techniques were used (e.g., Automated exposure control, adjustment of the mA and/or kV according to patient size, use of iterative reconstruction technique). REFERENCE LINK: [facility] Lung-RADS RADIATION DOSE SUMMARY: CTDlvol: 12.19 mGy DLP: 292.45 mGycm COMPARISON: 10/22/2021 FINDINGS: PULMONARY NODULES: (Only nodules >3mm are reported) Lung windows show underlying emphysema with chronic interstitial changes in bothlung wooten. Chronic bronchitis noted without organized infiltrate or effusion. No suspicious noncalcified mass or nodule. No significant interval change compared to the previous study. Limited soft tissue windows show a normal-appearing thyroid gland. No suspicious axillary mediastinal or perihilar adenopathy. There are punctate coronary artery calcifications. Evidence of previous mastectomy. Limited cuts of the upper abdomen show stable enlargement of the left adrenal gland. Bony structures show degenerative change CT/Low Dose CT Lung Screening IMPRESSION: No suspicious noncalcified mass or nodule. Chronic interstitial changes in bothlung wooten without a superimposed process or significant change since the previous study Coronary artery calcification (CAC) is is present Lung-RADS Category: 2 BENIGN (BASED ON IMAGING FEATURES OR INDOLENT BEHAVIOR). RECOMMEND 12-MONTH SCREENING LDCT. Other Significant Findings: Reading Location: [facility] CC: Dr. Leela Ingram MD ~ Customer Engineering Specialist: Signed [facility] 03-24-2025 Evaluation note Diagnosis Onset Date Resolution Health care maintenance acute J une 2024 10:31am Chronic gastritis chronic March 10:31am Hyperlipidemia chronic March 24, 2025 10:31am Hypertension chronic March 24 10:31am Osteopenia chronic March 24, 2025 10:31am [facility] Work Phone: 1(460) 480-238705-30-2025 Note* Exam Date Time Procedure Performing Provider Status 03/17/25 8:41 AM MA Mammo Diagnostic Left w/GABRIEL Soliz MD; Auth (Verified) [id number] ORIGINAL FROM: [address] [address] PROCEDURE FOR: DANIELLE JuanSung PARRA [address] [place] [address] Home: PID#: [id number] Exam#: [id number] : 1960 Age: 64 TO: ADRIAN PINEDA MD [address] [facility] [address] [place], [place] [address] Fax: NO FAX EXAMINATION: DIAGNOSTIC DIGITAL LEFT [...] the same day and reported separately. Edison Osheazipallavi risk calculations do not apply [...] 03/17/2025 1:35:14 PM Ordering Provider: ADRIAN PINEDA Ice Cream Chef: LUIS CUTLER RT (R)(M) letter sent: Normal-Needs additional work up BI-RADS 0 Mammogram BI-RADS: 0 Indeterminate [facility]05-27-2025 Evaluation + Plan note Future Scheduled Tests Laboratory* [facility] Lab Send out (Blood Specimens) 03/14/25 [facility] 05-09-2024 Discharge summary Author Henry Phillips [facility] February 25, 2024 7:40pm Note Date/Time February 25, 2024 7:40pm [facility] Medical Records Department [address] [place] [address] Emergency Department Summary 02/25/24 MR#: [id number] Acct: [id number] Name: DANIELLE PARRA Rep #:[id number] : 1960 63 From: Henry Gonzales PCP: Dr. Leela Ingram MD Status:R EG ER Location: ED [...] use disorder, continuous Wears glasses Home Medications fcqvovlf-lxw-kmhcp ac 400 mcg-calcium carb 500 mg-vit K1 [...] clinician: N/A This note was generated with Chatwala dictation software. It may contain incorrectwords, spelling, [...] 1,000 MG capsule 2,000 mg PO DAILY bk-txq-yfwpi-calcium carb-K1 1 EACH tablet 1 ea PO DAILY sucralfate [sucralfate] 1 gram tablet 1 g PO 4X/DAY Qty: 56 0RF Rx Instructions: Take 1 hour before meals and at bedtime pantoprazole 40 mg tablet,delayed release (DR/EC) 40 mg PO DAILY Qty: 30 3RF Primary Care Provider: Leela Ingram Referrals: Leela Ingram MD [Primary Care Provider] - 1 [...] your Primary Care Provider. Call [facility] ([phone]) or report to the closest Emergency Room. Call 911 if necessary. 02/25/241939 <Electronically signed by Henry Gonzales> Cosigner Signature (if applicable): CC: Dr. Leela Ingram MD ~ Signed [facility] Work Phone: 1(202) 271-328304-29-2024 Procedure [facility] 02-15-2024 Procedure [facility]04-29-2024 Procedure note [facility]04-29-2024 Procedure [facility] 04-10-2022 NotePap Smear Specimen AdequacyJune 2021 3:45pmComment. Satisfactory for evaluation. Endocervical and/or squamous metaplasticcells (endocervical component)are present.[facility] INTER[facility]ACED A#[id number] Work Phone: Comment on above:Satisfactory for evaluation. Endocervical and/or squamous metaplasticcells (endocervical component)are present.04-10-2022 NotePap Smear QC ReviewJune 2021 3:45pmComment.Octavia Toledo, Supervisory Internet Marketing Consultant (ASCP)[facility] INTER[facility]ACED A#[id number] [facility] Work Phone: Comment on above:Octavia Toledo, Supervisory Internet Marketing Consultant (ASCP)Evaluation + Plan note Future Appointments Appointment Date:07/23/2023 03:00:00 PM Scheduled Provider: Location:[facility] Appointment Type:MA Mammogram Screening Left w/ Norm Future Scheduled Tests Radiology* MA Mammo Screening Left w/ Norm 07/23/23 [facility] Evaluation noteNo assessment information available [facility] Work Phone: Evaluation note* Diagnosis Onset Date Resolution Status Colon cancer screening acute Sol esophagus chronic Hyperlipidemia chronic Osteopenia chronic Tobacco use disorder, continuous chronic [facility] Work Phone: evaluation note* Diagnosis Onset Date Resolution Status Colon cancer screening acute Sol esophagus chronic Hyperlipidemia chronic Osteopenia chronic Tobacco use disorder, continuous chronic FH: colon cancer acute Hx of colonic polyp acute Sol esophagus chronic FH: colon cancer acute Hx of colonic polyp acute Sol esophagus chronic [facility] Work Phone: Evaluation note* Diagnosis Onset Date Resolution Status Admit Date Health care maintenance acute J 2024 10:31am Chronic gastritis chronic March 10:31am Hyperlipidemia chronic March 24, 2025 10:31am Hypertension chronic March 24 10:31am Osteopenia chronic March 24, 2025 10:31am [facility] Work Phone: History and physical note Author Merissa Best [facility] February 15, 2024 9:47am Note Date/Time February 15, 2024 9:4 5am [facility] Medical Records Department [address] [place] [address] History & Physical Exam 02/15/24 0942 MR#: [id number] Acct: [id number] Name: AIDAILIAMaryuri Martinez Rep #:[id number] : 1960 63 From: Merissa Best MD PCP: Dr. Leela Ingram MD Status:[facility] Location: [place] [address] HPI - General General Date of Service: [...] colonoscopy. Patient's last EGD and colonoscopy was 2018- do not currently have the report- will request. Patient states she had a large polyp greater than a centimeter at that time, patient's sister also was diagnosed with colon cancer age 61. Patient also has a history of Sol's with no dysplasia. Patient states she was on omeprazole 20 mg backaround 2018 but thought she was better and also [...] any chronic abdominal pain nausea or vomiting. [facility] Medical History (Updated 02/10/24 @ 14:13 by [...] use disorder, continuous Wears glasses Home Medications nndordpq-tdk-qkced ac 400 mcg-calcium carb 500 mg-vit K1 [...] Swelling Discharge Is Pt Admitted From a Long-Term, or a Fpc: No After D/C, Where Do you Plan to Go: Return Home From the PAT History Number of Risk Factors: 1 Physical [...] to complete colonoscopy requiring barium enema. 02/15/24 7278 <Electronically signed by Merissa Best MD> Cosigner Signature (if applicable): CC: Dr. Leela Ingram MD; Dr. Merissa Best MD~ Signed [facility] Work Phone: Hospital course Narrative No data available for this section [facility] Hospital Discharge instructions No data available for this section [facility] Hospital Discharge instructions Additional Instructions Your symptoms are improving while in the ED. You declined the medications. May use Benadryl 25 mg every 6 hours as needed. Use Pepcid daily for the next 5 days. If symptoms worsens, return to the ED for reevaluation.[facility] Work Phone: Progress note No data available for this section [facility] Reason for referral (narrative)No reason for referral [facility] Work Phone: Summary Purpose Family History No [...] Recorded Date/ Time Living Will Yes December 07, 019 3:07pm Power of Reliability Engineer Yes December 07, 2018 3:07pm Advance Directive Response Recorded Date/ Time Living Will Yes December 07 019 2:07pm Power of Reliability Engineer Yes December 07, 2018 2:07pm Advance Directive Response Recorded Date/ Time Name of Medical Power of Reliability Engineer BROTHER February 10, 2024 2:03pm Living Will Yes February 10, 2024 2:03pm Power of Reliability Engineer Yes February 09 2:03pm Advance Directive Response Recorded Date/ Time Living Will No February 25, 2024 7: 05pm Power of Reliability Engineer No February 25, 2024 7:05pm Name of Medical Power of Reliability Engineer BROTHER February 10, 2024 2:03pm Chief Complaint [...] am Osteopenia March 24, 2025 10:31 am Chief Complaint Admit Date 6 M FU March 24, 2025 10:31 am SCREENING April 20, 2025 7:56a m HYPERLIPIDEMIA April 20, 2025 7:58a m SCREENING April 20, 2025 1:22p m Additional Source Comments INFORMATION SOURCE (unrecogn ized section and content) DATE CREATED AUTHOR 12/10/2019 [facility] DATE CREATED AUTHOR AUTHOR'S ORGANIZ ATION 08/21/2023 [facility] ([place]) DATE CREATED AUTHOR AUTHOR'S ORGANIZ ATION 03/24/2025 [facility] DATE CREATED AUTHOR AUTHOR'S ORGANIZ ATION 07/10/2025 [facility] Goals (unrecognized section and content) Goals [...] Status: Active Member Role Status Dates Dr. Leela Ingram MD Primary Care Provider Active Team Status: Inactive Member Role Status Dates Dr. Leela Ingram MD Primary Care Provider Active Start: March 24, 2025 End: March 24, 2025 Dr. Leela Ingram MD Attending Provider Active Start: March 24, 2025 End: March 24, 2025 Dr. Leela Ingram MD Referring Provider Active Start: March 24, 2025 End: March 24, 2025 Team Status: Active Member Role Status Dates No Primary Care Physician Family Provider Active Dr. Leela Ingram MD Primary Care Provider Active Team Status: Inactive Member Role Status Dates Dr. Leela Ingram MD Primary Care P wilda, Attending Provider, Referring Provider Active Team Status: Inactive Member Role Status Dates Dr. Leela Ingram MD Primary Care Provider, Refer ring Provider Active Dr. Merissa Best MD Attending Provider Active Team Status: Active Member Role Status Dates Dr. Leela Ingram MD Primary Care Provider, Refer ring Provider Active Dr. Merissa Best MD Attending Provider, Other Pro vider Active Team Status: Inactive Member Role Status Dates Dr. Leela Ingram MD Primary Care Provider Active Dr. Henry Phillips DO Emergency Provider Active Team Status: Active Member Role Status Dates Dr. Leela Ingram MD Primary Care Provider Active Start: March 24, 2025 Dr. Leela Ingram MD Attending Provider Active Start: March 24, 2025 Dr. Leela Ingram MD Referring Provider Active Start: March 24, 2025 Team Status: Active Member Role/Relationship Status Dates Dr. Leela Ingram MD Primary Care Provider Active Team Status: Inactive Member Role/Relationship Status Dates Dr. Leela Ingram MD Primary Care Provider Active Start: March 24, 2025 End: March 24, 2025 Dr. Leela Ingram MD Attending Provider Active Start: March 24, 2025 End: March 24, 2025 Dr. Leela Ingram MD Referring Provider Active Start: March 24, 2025 End: March 24, 2025 Team Status: Inactive Member Role/Relationship Status Dates Dr. Leela Ingram MD Primary Care Provider Active Start: March 24, 2025 End: March 24, 2025 Dr. Leela Ingram MD Attending Provider Active Start: March 24, 2025 End: March 24, 2025 Dr. Leela Ingram MD Referring Provider Active Start: March 24, 2025 End: March 24, 2025 Team Status: Inactive Member Role/Relationship Status Dates Dr. Leela Ingram MD Primary Care Provider Active Start: April 20, 2025 End: April 20, 2025 Dr. Leela Ingram MD Attending Provider Active Start: April 20, 2025 End: April 20, 2025 Dr. Leela Ingram MD Referring Provider Active Start: April 20, 2025 End: April 20, 2025 Team Status: Active Member Role/Relationship Status Dates Dr. Leela Ingram MD Primary Care Provider Active Start: April 20, 2025 Dr. Leela Ingram MD Attending Provider Active Start: April 20, 2025 Dr. Leela Ingram MD Referring Provider Active Start: April 20, 2025 Team Status: Active Member Role/Relationship Status Dates Dr. Leela Ingram MD Primary Care Provider Active Start: April 20, 2025 Dr. Leela Ingram MD Referring Provider Active Start: April 20, 2025 Dr. Leela Ingram MD Other Provider Active Start: April 20, 2025 Dr. Justin Liu MD Attending Provider Active S tart: April 20, 2025 FOR RECORDS PERTAINING TO PATIENTS WHO [...] BE BASED ON THE PRIMARY CLINICAL RECORDS. [employer] [facility]. provides no warranty or guarantee of the accuracy or completeness of information in this document.
== END | disposition home or self-care (01) ==
LOC: LAB 15:45
PROVIDERS: PCP Internal Medicine; Referring Provider Nurse Practitioner Family; Visit Provider Nurse Practitioner Family
DX: K29.51 Unspecified chronic gastritis with bleeding (principal); M79.18 Myalgia, other site
CPT/HCPCS: 36415; 80053; 85025

== ENCOUNTER 2025-07-14 09:42 | Day surgery (SDC) | payer MEDICARE, OTHER, SELFPAY ==
--- NOTE | 2025-07-12 14:57 | PAT.ANESEVAL ---
Pre-Assessment Diagnosis/Proposed Procedure Planned Operative Procedure(s): EGD/CSCOPE Anesthesia History Anesthesia History - hospital aide: Anesthesia History - hospital aide Hx Hospitalization No 07/12/25 08:43 Any Problems With Anesthesia No 07/12/25 08:43 Cholinesterase deficiency No 07/12/25 08:43 You/Your Family Experience No 07/12/25 08:43 fever (hyperthermia) with Relationship Recent Exposure to Contagious No 02/15/24 09:45 Disease Does patient have nerve No 07/12/25 08:43 stimulator Patient instructed to have device shut off --Does patient have Pacemaker or ICD? When Was Last Pacemaker Check QUESTION #4 FULL TEXT: You/Your Family Experience fever (hyperthermia) with Anesthesia Last Oral Intake Last Oral intake: Last Oral Intake NPO since Meds taken in AM with sips of water? Meds patient instructed to take am of surgery PONV PONV - hospital aide: PONV - hospital aide Female Yes 07/12/25 08:43 HX of Motion Sickness No 07/12/25 08:43 HX of N/V After Surgery No 07/12/25 08:43 Non-Smoker No 07/12/25 08:43 Duration of Surgery greater No 07/12/25 08:43 than 60 minutes Number of Risk Factors 1 07/12/25 08:43 PONV Score Low Risk 07/12/25 08:43 Height & Weight Height & Weight: Anesthesia: Height & Weight Height 5 ft 4 in 07/10/25 15:02 Respiratory Assessment Respiratory Assessment - hospital aide: Respiratory Tract Infection Hx - hospital aide Hx Respiratory Tract Infection No 07/12/25 08:43 STOP Sleep Apnea STOP Sleep Apnea - hospital aide: STOP Sleep Apnea - hospital aide Hx Hypertension No 07/12/25 08:43 Hx Sleep Apnea No 07/12/25 08:43 CPAP No 02/15/24 10:41 BIPAP Do you snore loudly (louder Yes 07/12/25 08:43 than talking or can be heard Do you often feel tired/ Yes 07/12/25 08:43 fatigued/ sleepy during daytime? Has anyone observed you stop No 07/12/25 08:43 breathing during sleep? STOP Results Positive 07/12/25 08:43 QUESTION #5 FULL TEXT : Do you snore loudly (louder than talking or can be heard through closed doors)? 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 Specify any problems Hx of Preganancy in last 3 No 07/12/25 08:43 Months Nurse Filling Out Transfusion DSCHRIBER 07/12/25 08:43 & Questions: Date: 07/12/25 07/12/25 08:43 Time: 08:45 07/12/25 08:43 Patient unable to answer at this time (ie. confused, unrespo /Reproduction History /Reproductive History - hospital aide: /Reproductive Hx- hospital aide Hx Now No 07/12/25 08:43 Gestational Age (in weeks): EDC: Hx Hx Para Hx Section SAB No 07/12/25 08:43 PFSH Medical History Post-menopausal Anemia Injury of head and neck History of GI bleed Gastric reflux Leg cramps Wears glasses Cancer Restless legs Smoker History of stress test Osteopenia Sol esophagus High cholesterol Home Medications ?Medication ?Instructions ?Recorded ?Last Taken ?Type [id number] ac 400 1 ea PO DAILY SUPPLEMENT 12/07/18 07/05/25 History mcg-calcium carb 500 mg-vit K1 20 mcg tablet omega-3 fatty acids 1,000 mg 2,000 mg PO DAILY SUPPLEMENT 12/07/18 07/05/25 History capsule cholecalciferol (vitamin D3) 50 50 mcg PO DAILY 10/09/20 07/05/25 History mcg (2,000 unit) capsule Allergy/AdvReac Type Severity Reaction Status Date / Time Penicillins Allergy Swelling Verified 07/12/25 09:31 Family History Sister Colon cancer Thyroid disorder Mother Arthritis Hypertension Mental disorder Psychiatric care Thyroid disorder Father Hypertension Thyroid disorder Grandmother Mental disorder Brother Thyroid disorder Surgical History History of tooth extraction (~08/2023) History of esophagogastroduodenoscopy (EGD) H/O LEEP History of colonoscopy with polypectomy History of tonsillectomy History of wisdom tooth extraction History of lumpectomy of right breast History of section History of right mastectomy Social History Smoking Status: Current every day smoker tobacco type: cigarettes Tobacco: How many years used: 50 Electronic Cigarette Use: not used second hand exposure: No quit status: considering quitting alcohol intake: never substance use type: does not use what type of physical activity do you participate in: other details: AROUND THE HOUSE Audit: Pertinent Findings Pertinent Findings EKG Perinent findings: EKG 07/07/2025. Sinus tachycardia. Nonspecific ST and T wave abnormality. Recommendation Anesthesia Recommendation Anesthesia recommendation: OPTIMIZED for anesthesia
[2025-07-14] VITALS (8 sets, daily range): BP systolic 98–134; BP diastolic 51–66; PULSE 76–102; RESP 14–16; TEMP 36.1–36.8; O2SAT 97–100; BMI 26.2
--- OUTSIDE RECORDS SUMMARY | 2025-07-14 10:09 | XMS RPT_ITS | CCD ---
Author Organization [facility] Cl[facility] Care Team Providers Care Tobacco Curer Name Role Phone LEELA INGRAM MD Primary [...] Dr. Merissa Best Attending Provider Dr. Merissa eBst Other Provider ADRIAN PINEDA MD Attending LEELA [...] Referring Unavailable Oleghe, Efewongbe Primary Care Unavailable Mary Jo Bartlett Attending Unavailable Oleghe, Efewongbe Attending Unavailable Oleghe, Efewongbe Referring Unavailable Oleghe, Efewongbe Primary Care Unavailable Oleghe, Efewongbe Attending Unavailable Oleghe, Efewongbe Referring Unavailable Oleghe, Efewongbe Primary Care Unavailable Louann Washington Attending Unavailable Ungerer Louann Referring Unavailable Oleghe, Efewongbe Primary Care Unavailable Oleghe, Efewongbe Attending Unavailable Oleghe, Efewongbe Referring Unavailable Oleghe, Efewongbe Primary Care Unavailable Oleghe, Efewongbe Primary Care Unavailable Merissa Best Attending Unavailable Caden Lazar Attending Unavailable Oleghe, Efewongbe Primary Care Unavailable Malvin Barnett Attending Unavailable Oleghe, Efewongbe Referring Unavailable Oleghe, Efewongbe Primary Care Unavailable Oleghe, Efewongbe Primary Care Unavailable Oleghe, Efewongbe Attending Unavailable Oleghe, Efewongbe Referring Unavailable Oleghe, Efewongbe Primary Care Unavailable Oleghe, Efewongbe Attending Unavailable Oleghe, Efewongbe Referring Unavailable Oleghe, Efewongbe Referring Unavailable Oleghe, Efewongbe Primary Care Unavailable Opal Nowak Attending Unavailable RickererLouann Attending Unavailable Oleghe, Efewongbe Referring Unavailable Oleghe, Efewongbe Primary Care Unavailable Oleghe, Efewongbe Consulting Unavailable Justin Liu Attending Unavailable Oleghe, Efewongbe Referring Unavailable Oleghe, Efewongbe Primary Care Unavailable Allergies Allergy Classification Reported Allergen(s) Allergy Type Date of Onset Reaction(s) Facility (9 sources) Penicillins; Translations: [Penicillins] Allergy to substance 2 Swelling [facility] (2 sources) Penicillin; Translations: [penicillin] Drug Allergy as a young child, thinks she had swelling [facility] Medications Current Medications Medication [...] 0 Refill(s) Start Date: 07/15/23 Status: Ordered Os-Mbs-Inhei-Calcium Carb-K1 (5 sources) Start: 12-07-2018 Ct-Eww-Bqzih-C alcium Carb-K1 Active 1 EACH PO DAILY December 07, 2018 12:00am Start: 12-07-2018 Rc-Tpv-Bkmod-C alcium Carb-K1 Active 1 EACH PO DAILY December 07, 2018 1:00am Gh-Jng-Uamfi-Calcium Carb-K1 1 EACH tablet (3 sources) Start: 12-07-2018 take 1 tablet by mouth once daily Cb-Csg-Zpsxr-Calcium Carb-K1 1 EACH tablet Active 1 NMA PO DAILY December 07, 2018 1:00am SUPPLEMENT Start: 12-07-2018 take 1 tablet by yadira th once daily Dd-Vqn-Tbeal-Calcium Carb-K1 1 EACH tablet Active 1 NMA [...] OPHTHALMIC EVERY MORNING July 17, 2023 12:00am [place]-3 Fatty Acids (5 sources) Start: 12-07-2018 take 2000 mg by mout h once daily [place]-3 Fatty Acids Active 2000 MG PO DAILY December 07, 2018 12:00am Start: 12-07-2018 take 2000 mg by mouth once ciera ly [place]-3 Fatty Acids Active 2000 MG PO DAILY December 07, 2018 1:00am [place]-3 Fatty Acids 1,000 MG capsule (3 sources) Start: 12-07-2018 take 1 capsule by mouth once daily [place]-3 Fatty Acids 1,000 MG capsule Active 2000 mg PO DAILY December 07, 2018 1:00am SUPPLEMENT Start: 12-07-2018 take 1 capsule by mo uth once daily [place]-3 Fatty Acids 1,000 MG capsule Active 2000 [...] 24 hour Discontinued 1 NMA TD Q24H 28 July 17, 2023 12:00am February 10, 2024 [...] Active Problems Problem Classification Problem Date Documented Da te Episodic/Chronic Allergic reactions (4 sources) Allergic reaction; Translations: [Allergy, unspecified, initial encounter] 02-25-2024 Episodic Disorders of lipid metabolism (14 sources) Hyperlipidemia; Translations: [Hyperlipidemia, unspecified] Onset: 5 07-17-2023 Chronic Esophageal disorders (16 sources) Sol's esophagus; Translations: [Sol's esophagus without dysplasia] 11-05-2023 Chronic Essential hypertension (7 sources) Hypertensive disorder; Translations: [Essential (primary) hypertension] Onset: 5 04-28-2024 Chronic Gastritis and duodenitis (7 sources) Chronic gastritis; Translations: [Unspecified chronic gastritis without bleeding] Onset: 5 03-24-2025 Chronic Gastrointestinal hemorrhage (1 source) Gastrointestinal hemorrhage, unspecified; Translations: [Gastrointestinal hemorrhage, unspecified] Onset: 5 Episodic Nonmalignant breast conditions (1 source) Other specified disorders of breast; Translations: [Other specified disorders of breast] Onset: 5 Episodic Other and unspecified benign neoplasm (5 [...] bone density and structure, left thigh] Onset: 5 Episodic Other connective tissue disease (1 source) Myalgia, other site; Translations: [Myalgia, other site] Onset: 5 Episodic Other female genital disorders (2 sources) Dysplasia of cervix uteri, unspecified; Translations: [Dysplasia of cervix uteri, unspecified] Onset: 3 Episodic Other lower respiratory disease (1 source) Shortness of breath; Translations: [Shortness of breath] Onset: 5 Episodic Other non-traumatic joint disorders (6 sources) Effusion of right knee joint; Translations: [Effusion, right knee] 07-27-2023 Episodic Other non-traumatic joint disorders (6 sources) Pain in right knee; Translations: [Right knee pain] 07-17-2023 Episodic Other screening for suspected conditions (not mental disorders or infectious disease) (20 sources) Patient encounter status; Translations: [Encounter for screening for malignant neoplasm of respiratory organs] Onset: 5 10-22-2021 Episodic Other skin disorders (4 sources) [...] dependence, unspecified, with unspecified nicotine-induced disorders] Onset: 5 07-17-2023 Chronic Unclassified (1 source) Mammographic fibroglandular density, left breast; Translations: [Mammographic fibroglandular density, left breast] Onset: 5 Past or Other Problems Problem Classification Problem Date Documented Da te Episodic/Chronic Other bone disease and musculoskeletal deformities (4 sources) Other specified disorders of bone density and structure, unspecified site; Translations: [Disorder of bone and cartilage, unspecified] Onset: 04-05-2025 11-05-2023 Episodic Unclassified (6 sources) [place] 05-09-2022 Results Test Name Value Interpretation Reference Range Facility MR/PATMich 07-12-2025 MR/PAT.TIM [facility] Medical Records Department [address] [place] [address] PAT - Anesthesia 07/12/25 1457 MR#: [id number] Acct: [id number] Name: DANIELLE PARRA Rep #: [id number] : 1960 64 From: Bryce Lopez MD PCP: Dr. Leela Ingram MD Status:[place] [facility] [place] Race: C Location: EN Pre-Assessment Diagnosis/Proposed Procedure Planned Operative Procedure(s): EGD/CSCOPE Anesthesia History Anesthesia History - smutter: Anesthesia History - smutter Hx Hospitalization No 07/12/25 08:43 Any Problems With Anesthesia No 07/12/25 08:43 Cholinesterase deficiency No 07/12/25 08:43 You/Your Family Experience No 07/12/25 08:43 fever (hyperthermia) with Relationship Recent Exposure to Contagious No 02/15/24 09:45 Disease Does patient have nerve No 07/12/25 08:43 stimulator Patient instructed to have device shut off --Does patient have Pacemaker or ICD? When Was Last Pacemaker Check QUESTION #4 FULL TEXT: You/Your Family Experience fever (hyperthermia) with Anesthesia Last Oral Intake Last Oral intake: Last Oral Intake NPO since Meds taken in AM with sips of water? Meds patient instructed to take am of surgery PONV PONV - smutter: PONV - smutter Female Yes 07/12/25 08:43 HX of Motion Sickness No 07/12/25 08:43 HX of N/V After Surgery No 07/12/25 08:43 Non-Smoker No 07/12/25 08:43 Duration of Surgery greater No 07/12/25 08:43 than 60 minutes Number of Risk Factors 1 07/12/25 08:43 PONV Score Low Risk 07/12/25 08:43 Height Weight Height Weight: Anesthesia: Height Weight Height 5 ft 4 in 07/10/25 15:02 Respiratory Assessment Respiratory Assessment - smutter: Respiratory Tract Infection Hx - smutter Hx Respiratory Tract Infection No 07/12/25 08:43 STOP Sleep Apnea STOP Sleep Apnea - smutter: STOP Sleep Apnea - smutter Hx Hypertension No 07/12/25 08:43 Hx Sleep Apnea No 07/12/25 08:43 CPAP No 02/15/24 10:41 BIPAP Do you snore loudly (louder Yes 07/12/25 08:43 than talking or can be heard Do you often feel tired/ Yes 07/12/25 08:43 fatigued/ sleepy during daytime? Has anyone observed you stop No 07/12/25 08:43 breathing during sleep? STOP Results Positive 07/12/25 08:43 QUESTION #5 FULL TEXT : Do you snore loudly (louder than talking or can be heard through closed doors)? 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 Specify any problems Hx of Preganancy in last 3 No 07/12/25 08:43 Months Nurse Filling Out Transfusion DSCHRIBER 07/12/25 08:43 Questions: Date: 07/12/25 07/12/25 08:43 Time: 08:45 07/12/25 08:43 Patient unable to answer at this time (ie. confused, unrespo /Reproduction History /Reproductive History - smutter: /Reproductive Hx- smutter Hx Now No 07/12/25 08:43 Gestational Age (in weeks): EDC: Hx Hx Para Hx Section SAB No 07/12/25 08:43 [facility] Medical History Post-menopausal Anemia Injury of head and neck History of GI bleed Gastric reflux Leg cramps Wears glasses Cancer Restless legs Smoker History of stress test Osteopenia Sol esophagus High cholesterol Home Medications ???Medication ???Instructions ???Recorded ???Last Taken ???Type lowgcvdt-ebr-zeyxq ac 400 1 ea PO DAILY SUPPLEMENT 12/07/18 07/05/25 History mcg-calcium carb 500 mg-vit K1 20 mcg tablet omega-3 fatty acids 1,000 mg 2,000 mg PO DAILY SUPPLEMENT 12/0707/05/25 History capsule cholecalciferol (vitamin D3) 50 50 mcg PO DAILY 10/09/20 07/05/25 History mcg (2,000 unit) capsule Allergy/AdvReac Type Severity Reaction Status Date / Time Penicillins Allergy Swelling Verified 07/12/25 09:31 Family History Sister Colon cancer Thyroid disorde (more content not included)... Normal [facility] Surgery Visit Reporton 07-12 Surgery Visit Report [facility] [address] [address] [place] [address] OFFICE VISIT Date of Service: 07/12/25 MR#: [id number] Acct: [id number] Name: DANIELLE PARRA Rep #: [id number] : 1960 Provider: TALI marroquin Age/Sex: 64/F Location: [facility] Status: Signed Intake Vital Signs 07/10/25 15:02 07/12/25 09:30 Height 5 ft 4 in 5 ft 4 in Weight: 161 lb 160 lb BMI 27.6 27.4 BP 158/72 H 150/73 H Blood Pressure Location Lt brachial Lt brachial Position Sitting Sitting Respiration 16 18 Pulse 80 87 Pulse Source Monitor Monitor Temp 97.8 F 97.5 F L Temp Source Temporal Temporal Pulse Oximetry (%) 99 97 Oxygen Delivery Method room air room air Intake Visit Reasons: RECTAL BLEEDING ABNORMAL LABS Chief Complaint: rectal bleeding abdnormal labs Is patient in pain?: No Allergies Penicillins Allergy (Verified 07/12/25 09:31) Swelling Medications ???Medication ???Instructions ???Recorded ???Confirmed ???Type lckutfso-kds-uthwn ac 400 1 ea PO DAILY SUPPLEMENT 12/07/18 07/12/25 History mcg-calcium carb 500 mg-vit K1 20 mcg tablet omega-3 fatty acids 1,000 mg 2,000 mg PO DAILY SUPPLEMENT 12/0707/12/25 History capsule cholecalciferol (vitamin D3) 50 50 mcg PO DAILY 10/09/20 07/12/25 History mcg (2,000 unit) capsule Have you fallen in the past year?: No PFSH Medical History Post-menopausal Anemia Injury of head and neck History of GI bleed Gastric reflux Leg cramps Wears glasses Cancer Restless legs Smoker History of stress test Osteopenia Sol esophagus High cholesterol Surgical History History of tooth extraction ( [...] other details: AROUND THE HOUSE HPI HPI HPI: Patient is a 64 y/o F who I am seeing for new onset of rectal bleeding and anemia. Patient states since she completed chemotherapy approximately 22 years ago she has been diagnosed with anemia. She made a diet change at that time to include more bulk and grains. She notes her bowel habits are more on the looser side with intermittent constipation. 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 She states she has a gait belt that she keeps around him to help her guide him. She notes right after this incident she had pain across her shoulders and had a large belch, which tasted horrible. Patient states a couple hours later she went to the bathroom and had bright red blood per rectum. She states 15 minutes later she had another bloody bowel movement. She is unaware if she has hemorrhoids. She states the rectal bleeding continued for the remaining of last week. She notes having a machine at home that will test your hemoglobin. She notes last Thursday her Hgb was 11.0 and by Thursday it had dropped to 8 something. She notes this was a little frightening so she proceeded to the ED on Thursday for evaluation. 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 She notes her insurance since intermediate has been a struggle to figure out. She states she was offered admission however declined and left against medical advice because she wanted Dr. Best to perform her scope and due to her insurance willing to pay better doing the procedure as an outpatient instead of a hospital stay. Patient followed up with her PCP this past Thursday. She states they repeated her Hgb, which was 8.2. They had recommended a referral to GI. Again, patient was adamant she wanted Dr. Best, who performed her last colonoscopy in 2023. Patient notes a personal history of breast cancer, which she had a mastectomy and chemotherapy for. She not (more content not included)... Normal [facility] CBC W/Diff, Automatedon 09-2 -2024 Absolute Lymph 3.69 X10 3/uL Normal 0.83-4.51 [facility] Comment on above: Performed By: #### L 100.0100, L500.4050 #### [facility] [address] [place], [address] Absolute Neut 4.0 X10 3/uL Normal 2.0-7.7 [facility] Comment on above: Performed By: #### L 100.0100, L500.4050 #### [facility] [address] [place], [address] Basophils/100 WBC (Bld) 0.6 % Normal 0-1 [facility] Comment on above: Performed By: #### L 100.0100, L500.4050 #### [facility] [address] [place], [address] Eosinophils/100 WBC (Bld) 2.8 % Normal 0-5 [facility] Comment on above: Performed By: #### L 100.0100, L500.4050 #### [facility] [address] [place], [address] Erythrocyte distribution width (RBC) [Ratio] 14.3 % Normal 11.6-14.6 [facility] Comment on above: Performed By: #### L 100.0100, L500.4050 #### [facility] [address] [place], [address] Hematocrit (Bld) [Volume fraction] 25.0 % Low 37-47 [facility] Comment on above: Performed By: #### L 100.0100, L500.4050 #### [facility] [address] [place], [address] Hemoglobin (Bld) [Mass/Vol] 8.2 g/dL Low 12.0-15.0 [facility] Comment on above: Performed By: #### L 100.0100, L500.4050 #### [facility] [address] [place], [address] IG% 0.200 Normal 0.0-0.9 [facility] Comment on above: Result Comment: IG% - Immature Granulocytes (promyelocytes, myelocytes and metamyelocytes) > 1% indicates that a LEFT SHIFT is Present. Performed By: #### L 100.0100, L500.4050 #### [facility] [address] [place], [address] Lymphocytes/100 WBC (Bld) 43.1 % High 19-41 [facility] Comment on above: Performed By: #### L 100.0100, L500.4050 #### [facility] [address] [place], [address] MCH (RBC) [Entitic mass] 30.8 pg Normal 27.0-32.0 [facility] Comment on above: Performed By: #### L 100.0100, L500.4050 #### [facility] [address] [place], [address] MCHC (RBC) [Mass/Vol] 32.8 g/dL Normal 32-36 [facility] Comment on above: Performed By: #### L 100.0100, L500.4050 #### [facility] [address] [place], [address] MCV (RBC) [Entitic vol] 94.0 fL Normal 81-99 [facility] Comment on above: Performed By: #### L 100.0100, L500.4050 #### [facility] [address] [place], [address] Monocytes/100 WBC (Bld) 6.2 % Normal 0-10 [facility] Comment on above: Performed By: #### L 100.0100, L500.4050 #### [facility] [address] [place], [address] Neutrophils/100 WBC (Bld) 47.1 % Normal 47-70 [facility] Comment on above: Performed By: #### L 100.0100, L500.4050 #### [facility] [address] [place], [address] Nucleated RBC (Bld) [#/Vol] 0 10*3/uL Normal 0-5 [facility] Comment on above: Performed By: #### L 100.0100, L500.4050 #### [facility] [address] [place], [address] Platelet mean volume (Bld) [Entitic vol] 8.6 fL Normal 6.2-12.0 [facility] Comment on above: Performed By: #### L 100.0100, L500.4050 #### [facility] [address] [place], [address] Platelets (Bld) [#/Vol] 358 10*3/uL Normal 150-450 [facility] Comment on above: Performed By: #### L 100.0100, L500.4050 #### [facility] [address] [place], [address] RBC (Bld) [#/Vol] 2.66 10*6/uL Low 4.2-5.4 [facility] Comment on above: Performed By: #### L 100.0100, L500.4050 #### [facility] [address] [place], [address] RDW SD 48.2 fl High 35.1-43.9 [facility] Comment on above: Performed By: #### L 100.0100, L500.4050 #### [facility] [address] [place], [address] WBC (Bld) [#/Vol] 8.6 10*3/uL Normal 4.4-11.0 [facility] Comment on above: Performed By: #### L 100.0100, L500.4050 #### [facility] [address] [place], [address] Comprehensive Metabolic Prof ilon 07-10-2025 Albumin [Mass/Vol] 4.0 g/dL Normal 3.4-4.8 [facility] Comment on above: Performed By: #### L 100.0100, L500.4050 #### [facility] [address] [place], [address] Albumin/Globulin [Mass ratio] 1.6 {ratio} Normal 0.9-2.4 [facility] Comment on above: Performed By: #### L 100.0100, L500.4050 #### [facility] [address] [place], [address] ALK PHOS 64 U/L Normal 35-104 [facility] Comment on above: Performed By: #### L 100.0100, L500.4050 #### [facility] [address] [place], [address] ALT [Catalytic activity/Vol] 13 U/L Normal <=34 [facility] Comment on above: Performed By: #### L 100.0100, L500.4050 #### [facility] [address] [place], [address] AST [Catalytic activity/Vol] 19 U/L Normal <=31 [facility] Comment on above: Performed By: #### L 100.0100, L500.4050 #### [facility] [address] [place], [address] BUN/CRE 14.2 RATIO Normal 10-20 [facility] Comment on above: Performed By: #### L 100.0100, L500.4050 #### [facility] [address] [place], [address] Calcium [Mass/Vol] 9.0 mg/dL Normal 7.6-11.0 [facility] Comment on above: Performed By: #### L 100.0100, L500.4050 #### [facility] [address] [place], [address] Chloride [Moles/Vol] 107 mmol/L Normal 98-108 [facility] Comment on above: Performed By: #### L 100.0100, L500.4050 #### [facility] [address] [place], [address] CO2 [Moles/Vol] 21.6 mmol/L Normal 21.0-32.0 [facility] Comment on above: Performed By: #### L 100.0100, L500.4050 #### [facility] [address] [place], [address] Creatinine [Mass/Vol] 0.76 mg/dL Normal 0.70-1.20 [facility] Comment on above: Performed By: #### L 100.0100, L500.4050 #### [facility] [address] [place], [address] GAP 12 Normal 5-15 [facility] Comment on above: Performed By: #### L 100.0100, L500.4050 #### [facility] [address] [place], [address] GFR/1.73 sq M.predicted among non-blacks MDRD (S/P/Bld) [Vol rate/Area] 87 mL/min/{1.73_m2} Normal >60 [facility] Comment on above: Result Comment: mL/m in/1.73m2 CKD-EPI Creatinine Equation (2020) Performed By: #### L 100.0100, L500.4050 #### [facility] [address] [place], [address] Globulin (S) [Mass/Vol] 2.5 g/dL Normal 2.2-4.2 [facility] Comment on above: Performed By: #### L 100.0100, L500.4050 #### [facility] [address] [place], [address] Glucose [Mass/Vol] 97 mg/dL Normal 70-99 [facility] Comment on above: Performed By: #### L 100.0100, L500.4050 #### [facility] [address] [place], [address] Potassium [Moles/Vol] 4.2 mmol/L Normal 3.3-5.1 [facility] Comment on above: Performed By: #### L 100.0100, L500.4050 #### [facility] [address] [place], [address] Sodium [Moles/Vol] 141 mmol/L Normal 133-145 [facility] Comment on above: Performed By: #### L 100.0100, L500.4050 #### [facility] [address] [place], [address] T BILI < 0.15 Normal 0.00-1.30 [facility] Comment on above: Performed By: #### L 100.0100, L500.4050 #### [facility] [address] [place], [address] T PROT 6.5 g/dL Normal 5.9-8.4 [facility] Comment on above: Performed By: #### L 100.0100, L500.4050 #### [facility] [address] [place], [address] Urea nitrogen [Mass/Vol] 11 mg/dL Normal 4-19 [facility] [facility] Comment on above: Performed By: #### L 100.0100, L500.4050 #### [facility] [address] [place], [address] Internal Medicine Office Vis gautam 07-10-2025 Internal Medicine Office Visit [facility] [address] [place] [address] OFFICE VISIT Date of Service: 07/10/25 MR#: [id number] Acct: [id number] Name: DANIELLE PARRA Rep #: [id number] : 1960 Provider: CHIRAG moser Age/Sex: 64/F Location[facility] Status: Signed Intake Vital Signs 07/07/25 11:22 07/10/25 15:02 Height 5 ft 4 in 5 ft 4 in Weight: 161 lb BMI 27.6 BP 158/72 H Blood Pressure Location Lt brachial Position Sitting Respiration 16 Pulse 80 Pulse Source Monitor Temp 97.8 F Temp Source Temporal Pulse Oximetry (%) 99 Oxygen Delivery Method room air 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 Required: No Accompanied by: Self Is patient in pain?: No Allergies Penicillins Allergy (Verified 07/10/25 14:56) Swelling Medications ???Medication ???Instructions ???Recorded ???Confirmed ???Type aijbbkhb-dre-vkupf ac 400 1 ea PO DAILY SUPPLEMENT 12/07/18 07/10/25 History mcg-calcium carb 500 mg-vit K1 20 mcg tablet omega-3 fatty acids 1,000 mg 2,000 mg PO DAILY SUPPLEMENT 12/0707/10/25 History capsule cholecalciferol (vitamin D3) 50 50 mcg PO DAILY 10/09/20 07/10/25 History mcg (2,000 unit) capsule Have you fallen in the past year?: No PFSH Medical History Screening for cardiovascular condition [...] other details: AROUND THE HOUSE HPI HPI Details: DANIELLE PARRA, is a 64 F who presents to the office today for evaluation after ER visit 919 and 25. Patient was seen in the ER for GI bleed. Patient had had several days at this point now 1 week with rectal bleeding. She did have a bowel movement this morning with some maroon characteristics. When she was in the ER her hemoglobin was 8.7 she was recommended to be admitted to the hospital however she chose to leave AGAINST MEDICAL ADVICE. Patient states she called GI to make an appointment and she needed a referral. She states she continues to have some left lower quadrant pain as well as having blood in her stools. She also complains of some leg and hip cramping. She has denies shortness of breath at this time no headache no nausea or vomiting. She does not complain of diarrhea. She states the muscles in her legs feel somewhat weak. ROS Const Constitutional: Positive for fatigue and weakness; No body ache, chills, excessive sweating, fever(s), frequent falls, headache(s), snoring, weight change, [...] exertion, lightheadedness, orthopnea or palpitations Gastro GI: Positive for change in bowel habits, change in stool character and Blood in stool; No abdominal pain, blo (more content not included)... Normal [facility] 12 Lead EKGon 07-07-2025 12 Lead EKG [facility] Cardiovascular Services [address] [place] [address] 12 Lead EKG 07/07/25 1130 MR#: [id number] Acct: [id number] Name: DANIELLE PARRA Rep #: [id number] : 1960 64 From: Justin Liu MD [...] Abnormal ECG Confirmed by JUSTIN LIU MD ([id number]), editorial cartoonist [employer] ([id number]) on 07/10/2025 8:08:40 AM Referred By: CARMENCITA/ERIC Confirmed By: JUSTIN LIU MD 07/10/25 0808 Date Justin Liu MD CC: Dr. Leela Ingram MD; Dr. Caden Lazar DO Signed Normal [facility] Basic Metabolic Profile (BMP )on 07-07-2025 BUN/CRE 22.7 RATIO High 10-20 [facility] Comment on above: Performed By: #### L 500.2500, L100.0100, L501.4021, M100.7900 ####[facility] [address] [place], [address] Calcium [Mass/Vol] 9.1 mg/dL Normal 7.6-11.0 [facility] Comment on above: Performed By: #### L 500.2500, L100.0100, L501.4021, M100.7900 ####[facility] [address] [place], [address] Chloride [Moles/Vol] 105 mmol/L Normal 98-108 [facility] Comment on above: Performed By: #### L 500.2500, L100.0100, L501.4021, M100.7900 ####[facility] [address] [place], [address] CO2 [Moles/Vol] 20.7 mmol/L Low 21.0-32.0 [facility] Comment on above: Performed By: #### L 500.2500, L100.0100, L501.4021, M100.7900 ####[facility] [address] [place], [address] Creatinine [Mass/Vol] 0.71 mg/dL Normal 0.70-1.20 [facility] Comment on above: Performed By: #### L 500.2500, L100.0100, L501.4021, M100.7900 ####[facility] [address] [place], [address] ECRCL 67.73 ml/min Normal 50-250 [facility] Comment on above: Performed By: #### L 500.2500, L100.0100, L501.4021, M100.7900 ####[facility] [address] [place], [address] GAP 12 Normal 5-15 [facility] Comment on above: Performed By: #### L 500.2500, L100.0100, L501.4021, M100.7900 ####[facility] [address] [place], [address] GFR/1.73 sq M.predicted among non-blacks MDRD (S/P/Bld) [Vol rate/Area] 95 mL/min/{1.73_m2} Normal >60 [facility] Comment on above: Result Comment: mL/m in/1.73m2 CKD-EPI Creatinine Equation (2020) Performed By: #### L 500.2500, L100.0100, L501.4021, M100.7900 ####[facility] [address] [place], [address] Glucose [Mass/Vol] 104 mg/dL High 70-99 [facility] Comment on above: Performed By: #### L 500.2500, L100.0100, L501.4021, M100.7900 ####[facility] [address] [place], [address] Potassium [Moles/Vol] 3.8 mmol/L Normal 3.3-5.1 [facility] Comment on above: Performed By: #### L 500.2500, L100.0100, L501.4021, M100.7900 ####[facility] [address] [place], [address] Sodium [Moles/Vol] 138 mmol/L Normal 133-145 [facility] Comment on above: Performed By: #### L 500.2500, L100.0100, L501.4021, M100.7900 ####[facility] [address] [place], [address] Urea nitrogen [Mass/Vol] 16 mg/dL Normal 4-19 [facility] Comment on above: Performed By: #### L 500.2500, L100.0100, L501.4021, M100.7900 ####[facility] [address] [place], [address] CBC W/Diff, Automatedon 06-19 Absolute Lymph 3.52 X10 3/uL Normal 0.83-4.51 [facility] Comment on above: Performed By: #### L 500.2500, L100.0100, L501.4021, M100.7900 ####[facility] [address] [place], [address] Absolute Neut 7.0 X10 3/uL Normal 2.0-7.7 [facility] Comment on above: Performed By: #### L 500.2500, L100.0100, L501.4021, M100.7900 ####[facility] [address] [place], [address] Basophils/100 WBC (Bld) 0.5 % Normal 0-1 [facility] Comment on above: Performed By: #### L 500.2500, L100.0100, L501.4021, M100.7900 ####[facility] [address] [place], [address] Eosinophils/100 WBC (Bld) 1.1 % Normal 0-5 [facility] Comment on above: Performed By: #### L 500.2500, L100.0100, L501.4021, M100.7900 ####[facility] [address] [place], [address] Erythrocyte distribution width (RBC) [Ratio] 13.8 % Normal 11.6-14.6 [facility] Comment on above: Performed By: #### L 500.2500, L100.0100, L501.4021, M100.7900 ####[facility] [address] [place], [address] Hematocrit (Bld) [Volume fraction] 26.0 % Low 37-47 [facility] Comment on above: Performed By: #### L 500.2500, L100.0100, L501.4021, M100.7900 ####[facility] [address] [place], [address] Hemoglobin (Bld) [Mass/Vol] 8.7 g/dL Low 12.0-15.0 [facility] Comment on above: Performed By: #### L 500.2500, L100.0100, L501.4021, M100.7900 ####[facility] [address] [place], [address] IG% 0.500 Normal 0.0-0.9 [facility] Comment on above: Result Comment: IG% - Immature Granulocytes (promyelocytes, myelocytes and metamyelocytes) > 1% indicates that a LEFT SHIFT is Present. Performed By: #### L 500.2500, L100.0100, L501.4021, M100.7900 ####[facility] [address] [place], [address] Lymphocytes/100 WBC (Bld) 31.1 % Normal 19-41 [facility] Comment on above: Performed By: #### L 500.2500, L100.0100, L501.4021, M100.7900 ####[facility] [address] [place], [address] MCH (RBC) [Entitic mass] 30.4 pg Normal 27.0-32.0 [facility] Comment on above: Performed By: #### L 500.2500, L100.0100, L501.4021, M100.7900 ####[facility] [address] [place], [address] MCHC (RBC) [Mass/Vol] 33.5 g/dL Normal 32-36 [facility] Comment on above: Performed By: #### L 500.2500, L100.0100, L501.4021, M100.7900 ####[facility] [address] [place], [address] MCV (RBC) [Entitic vol] 90.9 fL Normal 81-99 [facility] Comment on above: Performed By: #### L 500.2500, L100.0100, L501.4021, M100.7900 ####[facility] [address] [place], [address] Monocytes/100 WBC (Bld) 4.9 % Normal 0-10 [facility] Comment on above: Performed By: #### L 500.2500, L100.0100, L501.4021, M100.7900 ####[facility] [address] [place], [address] Neutrophils/100 WBC (Bld) 61.9 % Normal 47-70 [facility] Comment on above: Performed By: #### L 500.2500, L100.0100, L501.4021, M100.7900 ####[facility] [address] [place], [address] Nucleated RBC (Bld) [#/Vol] 0 10*3/uL Normal 0-5 [facility] Comment on above: Performed By: #### L 500.2500, L100.0100, L501.4021, M100.7900 ####[facility] [address] [place], [address] Platelet mean volume (Bld) [Entitic vol] 8.8 fL Normal 6.2-12.0 [facility] Comment on above: Performed By: #### L 500.2500, L100.0100, L501.4021, M100.7900 ####[facility] [address] [place], [address] Platelets (Bld) [#/Vol] 328 10*3/uL Normal 150-450 [facility] Comment on above: Performed By: #### L 500.2500, L100.0100, L501.4021, M100.7900 ####[facility] [address] [place], [address] RBC (Bld) [#/Vol] 2.86 10*6/uL Low 4.2-5.4 [facility] Comment on above: Performed By: #### L 500.2500, L100.0100, L501.4021, M100.7900 ####[facility] [address] [place], [address] RDW SD 46.1 fl High 35.1-43.9 [facility] Comment on above: Performed By: #### L 500.2500, L100.0100, L501.4021, M100.7900 ####[facility] [address] [place], [address] WBC (Bld) [#/Vol] 11.3 10*3/uL High 4.4-11.0 [facility] Comment on above: Performed By: #### L 500.2500, L100.0100, L501.4021, M100.7900 ####[facility] [address] [place], [address] Chest 1 View (Portable)on Chest 1 View (Portable) [facility] Imaging Services [address] [place] [address] Chest 1 View (Portable) MR#: [id number] Acct: [id number] Name: DANIELLE PARRA Rep #: [id number] : 1960 F 64 From: Angel Fletcher MD PCP: Dr. Leela Ingram MD Status: [facility] ER Study: Chest 1 View (Portable) Date of Exam: 07/07/25 Exam# [id number] Ordering Dr: Caden Lazar DO PROCEDURE: CHEST 1 VIEW (PORTABLE) 07/07/2025 REASON FOR EXAM: SHORTNESS OF BREATH TECHNIQUE: Frontal view of the chest. COMPARISON: None FINDINGS: Hardware: Monitoring electrodes overlying chest wall. Heart: Cardiac and mediastinal contours are stable. Lungs: The lungs are clear. Bones: The bones are unremarkable. RAD/Chest 1 View (Portable) IMPRESSION: No acute cardiopulmonary abnormality Reading Location: [id number] CC: Dr. Leela Ingram MD; Dr. Caden Lazar DO Supervisor Maintenance: Signed Normal [facility] Emergency Department Summary on 07-07-2025 Emergency Department Summary [facility] Medical Records Department [address] [place] [address] Emergency Department Summary 07/07/25 MR#: [id number] Acct: [id number] Name: DANIELLE PARRA Rep #: [id number] : 1960 64 From: Caden Lazar DO PCP: Dr. Leela Ingram MD Status:DEP ER Location: ED HPI History of Present Illness Chief Complaint: Shortness of Breath [facility] Medical History Screening for cardiovascular condition Health [...] Medications ???Medication ???Instructions ???Recorded ???Last Taken ???Type xqobumpx-dyo-ujjxq ac 400 1 ea PO DAILY SUPPLEMENT [...] reviewed Co (more content not included)... Normal [facility] L501.4021on 07-07-2025 Trop T High Sen 6 ng/L Normal <=14 [facility] Comment on above: Performed By: #### L 500.2500, L100.0100, L501.4021, M100.7900 ####[facility] [address] [place], [address] Stool Occult Blood iFOBon STOB Normal Reference Ran ge = Negative Immunochemical Fecal Occult Blood (iFOBT) method. Hemoccult Stl Ql IA Limitation: Menstrual bleeding, constipation bleeding, bleeding hemorrhoids, and urinary bleeding conditions may interfere with test. Occult Blood A Positive A OCCULT BLOOD POSITIVE Normal [facility] Comment on above: Performed By: #### L 500.2500, L100.0100, L501.4021, M100.7900 ####[facility] [address] [place], [address] Troponin T HS 2 HRon 025 Trop T High Sen Normal <=14 [facility] Comment on above: Result Comment: Jeanette corral via OM: Ordered Performed By: #### L 499.0042 #### [facility] [address] [place], [address] Troponin T HS 4 HRon 025 Trop T High Sen Normal <=14 [facility] Comment on above: Result Comment: Jeanette corral via OM: MD Ordered Performed By: #### L 499.0043 #### [facility] [address] [place], [address] Coronary Angiography CTon Coronary Angiography CT [facility] Imaging Services [address] [place] [address] 04/20/25 1322 MR#: [id number] Acct: [id number] Name: DANIELLE PARRA Rep #: [id number] : 1960 64 From: Justin Liu MD [...] MD; Dr. Leela Ingram MD Signed Normal [facility] Limited Chest CT Cardiac Onl yon 04-20-[address] Cardiac Only [facility] Imaging Services [address] [place], [place] [address] Limited Chest CT Cardiac Only MR#: [id number] Acct: [id number] Name: DANIELLE PARRA Rep #: [id number] : 1960 F 64 From: Dk Ramos PCP: Dr. Leela Ingram MD Status: REG REF Study: Limited Chest CT Cardiac Only Date of Exam: Exam# [id number] Ordering Dr: Leela Ingram MD PROCEDURE: LIMITED [...] demonstrates no other significant abnormality. Reading Location: [place] [address] CC: Dr. Leela Ingram MD Supervisor Maintenance: Signed Normal [facility] Low Dose CT Lung Screeningon 04-20-[address] Lung Screening [facility] Imaging Services [address] [place] [address] Lung Screening MR#: [id number] Acct: [id number] Name: DANIELLE PARRA Rep #: [id number] : 1960 F 64 From: Jann Glass MD PCP: Dr. Leela Ingarm MD Status: REG CLI Study: Low Dose CT Lung Screening Date of Exam: 04/20 Exam# [id number] Ordering Dr: Leela Ingram MD PROCEDURE: LOW [...] use of iterative reconstruction technique). REFERENCE LINK: [facility]-RADS RADIATION DOSE SUMMARY: CTDlvol: 12.19 mGy [...] SCREENING LDCT. Other Significant Findings: Reading Location: [facility] CC: Dr. Leela Ingram MD Supervisor Maintenance: Signed Normal [facility] Absolute lymphocyte countOrd ered By: Leela Hujenaro on 03-24-2025 Lymphocytes Auto (Unsp spec) [#/Vol] 3.17 10*3/uL 0.83-4.51 [facility] Absolute neutrophil countOrd ered By: Leela Hujenaro on 03-24-2025 Neutrophils (Bld) [#/Vol] 5.9 10*3/uL 2.0-7.7 [facility] Anion gap in Serum or Plasma Ordered By: Leela Ingram on 03-24-2025 Anion gap [Moles/Vol] 10 mmol/L 5-15 [facility] Automated lymphocyte count a s percentage of total leukocytesOrdered By: Jeremiahselvin Ingram on 03-24-2025 Lymphocytes/100 WBC Auto (Unsp spec) 31.8 % 19- [facility] BUN/creatinine ratioOrdered By: harsh[place]idays[place]pamela Ingram on 03-24-2025 Urea nitrogen/Creatinine [Mass ratio] 15.8 mg/mg 10-20 [facility] Basophil percentageOrdered B y: Jeremiahharshasaravananpamela Arceoaramjenaro on 03-24-2025 Basophils/100 WBC (Bld) 0.7 % 0-1 [facility] Bilirubin, totalOrdered By: Jeremiahharshasaravananpamela Arceoaramjenaro on 03-24-2025 Bilirubin [Mass/Vol] 0.15 mg/dL 0.00-1.30 [facility] CBC W/Diff, Automatedon Absolute Lymph 3.17 X10 3/uL Normal 0.83-4.51 [facility] Comment on above: Performed By: #### L 100.0100, L500.4050, L500.4100 #### [facility] [address] [place], [address] Absolute Neut 5.9 X10 3/uL Normal 2.0-7.7 [facility] Comment on above: Performed By: #### L 100.0100, L500.4050, L500.4100 #### [facility] [address] [place], [address] Basophils/100 WBC (Bld) 0.7 % Normal 0-1 [facility] Comment on above: Performed By: #### L 100.0100, L500.4050, L500.4100 #### [facility] [address] [place], [address] Eosinophils/100 WBC (Bld) 2.3 % Normal 0-5 [facility] Comment on above: Performed By: #### L 100.0100, L500.4050, L500.4100 #### [facility] [address] [place], [address] Erythrocyte distribution width (RBC) [Ratio] 13.2 % Normal 11.6-14.6 [facility] Comment on above: Performed By: #### L 100.0100, L500.4050, L500.4100 #### [facility] [address] [place], [address] Hematocrit (Bld) [Volume fraction] 34.8 % Low 37-47 [facility] Comment on above: Performed By: #### L 100.0100, L500.4050, L500.4100 #### [facility] [address] [place], [address] Hemoglobin (Bld) [Mass/Vol] 11.1 g/dL Low 12.0-15.0 [facility] Comment on above: Performed By: #### L 100.0100, L500.4050, L500.4100 #### [facility] [address] [place], [address] IG% 0.300 Normal 0.0-0.9 [facility] Comment on above: Result Comment: IG% - Immature Granulocytes (promyelocytes, myelocytes and metamyelocytes) > 1% indicates that a LEFT SHIFT is Present. Performed By: #### L 100.0100, L500.4050, L500.4100 #### [facility] [address] [place], [address] Lymphocytes/100 WBC (Bld) 31.8 % Normal 19-41 [facility] Comment on above: Performed By: #### L 100.0100, L500.4050, L500.4100 #### [facility] [address] [place], [address] MCH (RBC) [Entitic mass] 28.7 pg Normal 27.0-32.0 [facility] Comment on above: Performed By: #### L 100.0100, L500.4050, L500.4100 #### [facility] [address] [place], [address] MCHC (RBC) [Mass/Vol] 31.9 g/dL Low 32-36 [facility] Comment on above: Performed By: #### L 100.0100, L500.4050, L500.4100 #### [facility] [address] [place], [address] MCV (RBC) [Entitic vol] 89.9 fL Normal 81-99 [facility] Comment on above: Performed By: #### L 100.0100, L500.4050, L500.4100 #### [facility] [address] [place], [address] Monocytes/100 WBC (Bld) 6.0 % Normal 0-10 [facility] Comment on above: Performed By: #### L 100.0100, L500.4050, L500.4100 #### [facility] [address] [place], [address] Neutrophils/100 WBC (Bld) 58.9 % Normal 47-70 [facility] Comment on above: Performed By: #### L 100.0100, L500.4050, L500.4100 #### [facility] [address] [place], [address] Nucleated RBC (Bld) [#/Vol] 0 10*3/uL Normal 0-5 [facility] Comment on above: Performed By: #### L 100.0100, L500.4050, L500.4100 #### [facility] [address] [place], [address] Platelet mean volume (Bld) [Entitic vol] 8.9 fL Normal 6.2-12.0 [facility] Comment on above: Performed By: #### L 100.0100, L500.4050, L500.4100 #### [facility] [address] [place], [address] Platelets (Bld) [#/Vol] 357 10*3/uL Normal 150-450 [facility] Comment on above: Performed By: #### L 100.0100, L500.4050, L500.4100 #### [facility] [address] [place], [address] RBC (Bld) [#/Vol] 3.87 10*6/uL Low 4.2-5.4 [facility] Comment on above: Performed By: #### L 100.0100, L500.4050, L500.4100 #### [facility] [address] [place], [address] RDW SD 43.8 fl Normal 35.1-43.9 [facility] Comment on above: Performed By: #### L 100.0100, L500.4050, L500.4100 #### [facility] [address] [place], [address] WBC (Bld) [#/Vol] 10.0 10*3/uL Normal 4.4-11.0 [facility] Comment on above: Performed By: #### L 100.0100, L500.4050, L500.4100 #### [facility] [address] [place], [address] Calculated very low density lipoprotein (VLDL) cholesterol measurementOrdered By: Leela Ingram on 03-24-2025 Calculated very low density lipoprotein (VLDL) cholesterol measurement 53 mg/dL High 5-40 [facility] Carbon dioxide, total [Moles /volume] in Central venous bloodOrdered By: Leela Ingram on 03-24-2025 CO2 [Moles/Vol] 21.6 mmol/L 21.0-32.0 [facility] Chloride assayOrdered By: Jeremiah Ingram on 03-24-2025 Chloride [Moles/Vol] 107 mmol/L 98-108 [facility] Comprehensive Metabolic Prof ilon 03-24-2025 Albumin [Mass/Vol] 4.1 g/dL Normal 3.4-4.8 [facility] Comment on above: Performed By: #### L 100.0100, L500.4050, L500.4100 #### [facility] [address] [place], [address] Albumin/Globulin [Mass ratio] 1.5 {ratio} Normal 0.9-2.4 [facility] Comment on above: Performed By: #### L 100.0100, L500.4050, L500.4100 #### [facility] [address] [place], [address] ALK PHOS 82 U/L Normal 35-104 [facility] Comment on above: Performed By: #### L 100.0100, L500.4050, L500.4100 #### [facility] [address] [place], [address] ALT [Catalytic activity/Vol] 15 U/L Normal <=34 [facility] Comment on above: Performed By: #### L 100.0100, L500.4050, L500.4100 #### [facility] [address] [place], [address] AST [Catalytic activity/Vol] 20 U/L Normal <=31 [facility] Comment on above: Performed By: #### L 100.0100, L500.4050, L500.4100 #### [facility] [address] [place], [address] Bilirubin [Mass/Vol] 0.15 mg/dL Normal 0.00-1.30 [facility] Comment on above: Performed By: #### L 100.0100, L500.4050, L500.4100 #### [facility] [address] [place], [address] BUN/CRE 15.8 RATIO Normal 10-20 [facility] Comment on above: Performed By: #### L 100.0100, L500.4050, L500.4100 #### [facility] [address] [place], [address] Calcium [Mass/Vol] 9.2 mg/dL Normal 7.6-11.0 [facility] Comment on above: Performed By: #### L 100.0100, L500.4050, L500.4100 #### [facility] [address] [place], [address] Chloride [Moles/Vol] 107 mmol/L Normal 98-108 [facility] Comment on above: Performed By: #### L 100.0100, L500.4050, L500.4100 #### [facility] [address] [place], [address] CO2 [Moles/Vol] 21.6 mmol/L Normal 21.0-32.0 [facility] Comment on above: Performed By: #### L 100.0100, L500.4050, L500.4100 #### [facility] [address] [place], [address] Creatinine [Mass/Vol] 0.76 mg/dL Normal 0.70-1.20 [facility] Comment on above: Performed By: #### L 100.0100, L500.4050, L500.4100 #### [facility] [address] [place], [address] GAP 10 Normal 5-15 [facility] Comment on above: Performed By: #### L 100.0100, L500.4050, L500.4100 #### [facility] [address] [place], [address] GFR/1.73 sq M.predicted among non-blacks MDRD (S/P/Bld) [Vol rate/Area] 86 mL/min/{1.73_m2} Normal >60 [facility] Comment on above: Result Comment: mL/m in/1.73m2 CKD-EPI Creatinine Equation (2020) Performed By: #### L 100.0100, L500.4050, L500.4100 #### [facility] [address] [place], [address] Globulin (S) [Mass/Vol] 2.8 g/dL Normal 2.2-4.2 [facility] Comment on above: Performed By: #### L 100.0100, L500.4050, L500.4100 #### [facility] [facility] [address] [place], [address] Glucose [Mass/Vol] 94 mg/dL Normal 70-99 [facility] Comment on above: Performed By: #### L 100.0100, L500.4050, L500.4100 #### [facility] [address] [place], [address] Potassium [Moles/Vol] 4.1 mmol/L Normal 3.3-5.1 [facility] Comment on above: Performed By: #### L 100.0100, L500.4050, L500.4100 #### [facility] [address] [place], [address] Sodium [Moles/Vol] 138 mmol/L Normal 133-145 [facility] Comment on above: Performed By: #### L 100.0100, L500.4050, L500.4100 #### [facility] [address] [place], [address] T PROT 7.0 g/dL Normal 5.9-8.4 [facility] Comment on above: Performed By: #### L 100.0100, L500.4050, L500.4100 #### [facility] [address] [place], [address] Urea nitrogen [Mass/Vol] 12 mg/dL Normal 4-19 [facility] Comment on above: Performed By: #### L 100.0100, L500.4050, L500.4100 #### [facility] [address] [place], [address] Eosinophil percentageOrdered By: Leela Ingram on 03-24-2025 Eosinophils/100 WBC (Bld) 2.3 % 0-5 [facility] Erythrocyte distribution wid th ratioOrdered By: Leela Ingram on 03-24-2025 Erythrocyte distribution width (RBC) [Ratio] 13.2 % 11.6-14.6 [facility] Erythrocyte distribution wid th standard deviationOrdered By: Leela Ingram on 03-24-2025 Erythrocyte distribution width (RBC) [Ratio] 43.8 fl 35.1-43.9 [facility] Glomerular filtration rate ( GFR) estimation/1.73 sq m using serum, plasma, or whole bOrdered By: Leela Ingram on 03-24-2025 GFR/1.73 sq M.predicted among non-blacks MDRD (S/P/Bld) [Vol rate/Area] 86 mL/min/{1.73_m2} >60 [facility] Comment on above: mL/min/1.73m2 CKD-EP I Creatinine Equation (2020) Hematocrit Auto (Bld) [Volum e fraction]Ordered By: Leela Ingram on 03-24-2025 Hematocrit (Bld) [Volume fraction] 34.8 % Low 37-47 [facility] Hemoglobin measurementOrdere d By: Leela Ingram on 03-24-2025 Hemoglobin (Bld) [Mass/Vol] 11.1 g/dL Low 12.0-15.0 [facility] Immature granulocytes/100 WB C Auto (Bld)Ordered By: Leela Ingram on 03-24-2025 Immature granulocytes/100 WBC (Bld) 0.300 % 0.0-0.9 [facility] Comment on above: IG% - Immature Granu locytes (promyelocytes, myelocytes and metamyelocytes) > 1% indicates that a LEFT SHIFT is Present. Internal Medicine Office Vis gautam 03-24-2025 Internal Medicine Office Visit [facility] [place] [address] [place] [address] OFFICE VISIT Date of Service: 03/24/25 MR#: [id number] Acct: [id number] Name: DANIELLE PARRA Rep #: [id number] : 1960 Provider: Dr. Leela swenson MD Age/Sex: 64/F Location[facility] Status: Signed Intake Vital Signs 08/29/24 15:06 [...] Swelling Medications ???Medication ???Instructions ???Recorded ???Confirmed ???Type efipnolv-xta-bcuof ac 400 1 ea PO DAILY SUPPLEMENT [...] on her age-appropriate screenings. Follows up with [employer] in [place] and recently had a mammogram/bone density scan. [...] nosebleed/epistaxis, nasal (more content not included)... Normal [facility] LDL calc ser/plasOrdered By: Leela Ingram on 03-24-2025 Cholesterol in LDL [Mass/Vol] 166 mg/dL [facility] Comment on above: Wxfopzidyo=343-487 m g/dL & Higher Yxim=318 mg/dL or greater Laboratory - Chemistry and C hemistry - challengeOrdered By: Leela Ingram on 03-24-2025 AST [Catalytic activity/Vol] 20 U/L <32 [facility] Lipid Profileon 03-24-2025 CHOL:HDL 5.43 Normal [facility] Comment on above: Performed By: #### L 100.0100, L500.4050, L500.4100 #### [facility] [address] [place], [place], [address] Cholesterol [Mass/Vol] 268 mg/dL High <=200 [facility] Comment on above: Result Comment: Chol esterol level, Desirable <200 mg/dL Borderline high cholesterol 200-239 mg/dL High cholesterol >=240 mg/dL Recommendations of the NCEP Adult Treatment Panel for the following risk-cutoff thresholds for the [place] population. Performed By: #### L 100.0100, L500.4050, L500.4100 #### [facility] [address] [place], [address] Cholesterol in HDL [Mass/Vol] 49 mg/dL Normal [facility] Comment on above: Result Comment: [place] onal Cholesterol Education Program (NCEP) guidelines: <40 mg/dL: Low HDL-cholesterol (major risk factor for CHD) >= 60 mg/dL: High HDL-cholesterol (negative risk factor for CHD) HDL-cholesterol is affected by a number of factors, e.g. smoking, exercise, hormones, sex and age. Performed By: #### L 100.0100, L500.4050, L500.4100 #### [facility] [address] [place], [address] Cholesterol in LDL [Mass/Vol] 166 mg/dL Normal [facility] Comment on above: Result Comment: Bord rzikxg=489-657 mg/dL Higher Wfye=320 mg/dL or greater Performed By: #### L 100.0100, L500.4050, L500.4100 #### [facility] [address] [place], [address] Cholesterol in VLDL [Mass/Vol] 53 mg/dL High 5-40 [facility] Comment on above: Performed By: #### L 100.0100, L500.4050, L500.4100 #### [facility] [address] [place], [address] Triglyceride [Mass/Vol] 264 mg/dL High [facility] Comment on above: Result Comment: The drugs N-Acetylcysteine and Metamizole may falsely depress this assay. Normal range: <150 mg/dL Borderline High: 150-199 mg/dL High: 200-499 mg/dL Very High: >500 mg/dL Performed By: #### L 100.0100, L500.4050, L500.4100 #### [facility] [place], [address] MCV (mean corpuscular volume ) determinationOrdered By: Leela Ingram on 03-24-2025 MCV (RBC) [Entitic vol] 89.9 fL 81-99 [facility] Mean corpuscular hemoglobin (MCH) determinationOrdered By: Leela Ingram on 03-24-2025 MCH (RBC) [Entitic mass] 28.7 pg 27.0-32.0 [facility] Mean corpuscular hemoglobin concentration (MCHC) determinationOrdered By: Leela Ingram on 03-24-2025 MCHC (RBC) [Mass/Vol] 31.9 g/dL Low 32-36 [facility] Mean platelet volume determi nationOrdered By: Leela Ingram on 03-24-2025 Platelet mean volume (Bld) [Entitic vol] 8.9 fL 6.2-12.0 [facility] Monocyte percentageOrdered B y: Leela Ingram on 03-24-2025 Monocytes/100 WBC (Bld) 6.0 % 0-10 [facility] Neutrophil percentageOrdered By: [place] Ingram on 03-24-2025 Neutrophils/100 WBC (Bld) 58.9 % 47-70 [facility] Nucleated red blood cell per centageOrdered By: Leela Ingram on 03-24-2025 Nucleated RBC/100 WBC (Bld) [Ratio] 0 % 0-5 [facility] Platelet countOrdered By: Jeremiah Ingram on 03-24-2025 Platelets (Bld) [#/Vol] 357 10*3/uL 150-450 [facility] Potassium measurement (mass/ volume)Ordered By: Leela Ingram on 03-24-2025 Potassium (Unsp spec) [Mass/Vol] 4.1 mmol/L 3.3-5.1 [facility] RBC Auto (Bld) [#/Vol]Ordere d By: Leela Ingram on 03-24-2025 RBC (Bld) [#/Vol] 3.87 10*6/uL Low 4.2-5.4 [facility] Screening total cholesterol/ high density lipoprotein (HDL) cholesterol ratioOrdered By: Leela Ingram on 03-24-2025 Cholesterol.total/Chol esterol in HDL [Mass ratio] 5.43 {ratio} [facility] Serum creatinine measurement (mass/volume)Ordered By: Leela Ingram on 03-24-2025 Creatinine [Mass/Vol] 0.76 mg/dL 0.70-1.20 [facility] Serum globulin measurementOr dered By: Leela Ingram on 03-24-2025 Globulin (S) [Mass/Vol] 2.8 g/dL 2.2-4.2 [facility] Serum glucose measurement (m ass/volume)Ordered By: Leela Ingram on 03-24-2025 Glucose [Mass/Vol] 94 mg/dL 70-99 [facility] Serum or plasma alanine zhao otransferase (ALT) measurementOrdered By: Leela Ingram on 03-24-2025 ALT [Catalytic activity/Vol] 15 U/L <35 [facility] Serum or plasma albumin gladys urement (mass/volume)Ordered By: Leela Ingram on 03-24-2025 Albumin [Mass/Vol] 4.1 g/dL 3.4-4.8 [facility] Serum or plasma albumin/glob ulin mass ratioOrdered By: Leela Ingram on 03-24-2025 Albumin/Globulin [Mass ratio] 1.5 {ratio} 0.9-2.4 [facility] Serum or plasma alkaline evan sphatase measurementOrdered By: Leela Ingram on 03-24-2025 ALP [Catalytic activity/Vol] 82 U/L 35-104 [facility] Serum or plasma calcium gladys urement (mass/volume)Ordered By: Leela Ingram on 03-24-2025 Calcium [Mass/Vol] 9.2 mg/dL 7.6-11.0 [facility] Serum or plasma cholesterol in HDL measurement (mass/volume)Ordered By: Leela Ingram on 03-24-2025 Cholesterol in HDL [Mass/Vol] 49 mg/dL >40 [facility] Comment on above: National Cholesterol Education Program (NCEP) guidelines:<40 mg/dL: Low HDL-cholesterol (major risk factor for CHD)>= 60 mg/dL: High HDL-cholesterol (negative risk factor for CHD)HDL-cholesterol is affected by a number of factors, e.g. smoking, exercise, hormones, sex and age. Serum or plasma cholesterol measurement (mass/volume)Ordered By: Leela Ingram on 03-24-2025 Cholesterol [Mass/Vol] 268 mg/dL High <201 [facility] Comment on above: Cholesterol level, D esirable <200 mg/dLBorderline high cholesterol 200-239 mg/dLHigh cholesterol >=240 mg/dLRecommendations of the NCEP Adult Treatment Panel for the following risk-cutoff thresholds for the [place] population. Serum or plasma urea nitroge n measurement (mass/volume)Ordered By: Leela Ingram on 03-24-2025 Urea nitrogen [Mass/Vol] 12 mg/dL 4-19 [facility] Sodium levelOrdered By: Clyde Ingram on 03-24-2025 Sodium [Moles/Vol] 138 mmol/L 133-145 [facility] Total proteinOrdered By: Ankush Ingram on 03-24-2025 Protein [Mass/Vol] 7.0 g/dL 5.9-8.4 [facility] Triglycerides measurementOrd ered By: Leela Ingram on 03-24-2025 Triglyceride [Mass/Vol] 264 mg/dL High <199 [facility] Comment on above: The drugs N-Acetylcy steine and Metamizole may falsely depress this assay. Normal range: <150 mg/dLBorderline High: 150-199 mg/dLHigh: 200-499 mg/dLVery High: >500 mg/dL White blood cell (WBC) count Ordered By: Leela Ingram on 03-24-2025 WBC (Bld) [#/Vol] 10.0 10*3/uL 4.4-11.0 [facility] US BREAST LEFT LIMITEDon 06- 02-2025 US BREAST LEFT LIMITED ORIGINAL FROM: [address] [address] PROCEDURE FOR: DANIELLE Degroot [address] [place] [address] Home: PID#: [id number] Exam#: [id number] : 1960 Age: 64 TO: ADRIAN PINEDA MD [address] [address] Fax: NO FAX EXAMINATION: ULTRASOUND OF THE [...] BI-RADS 1 and 2 Interpreted by: Gabriel Mnedoza MD Preliminary Report By: Gabriel Mendoza MD Electronically signed By Gabriel Mendoza MD Dictated Date: 03/20/2025 1:09:37 PM Prelim Date: 03/20/2025 1:11:06 PM Sign Date: 03/20/2025 1:11:06 PM Ordering Provider: ADRIAN PINEDA Siding Installer: DOUG CAMPOS RT (R, CT), RDMS letter sent: Normal BI-RADS 1 and 2 Ultrasound BI-RADS: 1 Negative [address] [facility] MAMMOGRAM DIAGNOSTIC LEFT W/TOMOon 03-17-2025 MA MAMMOGRAM DIAGNOSTIC LEFT W/NORM ORIGINAL FROM: [address] [place], [place] [address] PROCEDURE FOR: DANIELLE PARRA [address] [place] [address] Home: PID#: [id number] Exam#: [id number] : 1960 Age: 64 TO: ADRIAN PINEDA MD [address] [facility] [address] [place], [place] [address] Fax: NO FAX EXAMINATION: DIAGNOSTIC DIGITAL LEFT [...] 03/17/2025 1:35:14 PM Ordering Provider: ADRIAN PINEDA Siding Installer: LUIS CUTLER RT (R)(M) letter sent: Normal-Needs additional work up BI-RADS 0 Mammogram BI-RADS: [address] [facility] BD BONE DENSITY DEXA AXIAL S [...] 03/14/2025 5:24:52 PM Ordering Provider: ADRIAN Pollard [facility] MA MAMMOGRAM SCREENING LEFT W/Aarti 03-13-2025 RI MAMMOGRAM SCREENING LEFT W/NORM ORIGINAL FROM: [place] [place], [place] [address] PROCEDURE FOR: DANIELLE PARRA [address] [place] [address] Home: PID#: [id number] Exam#: [id number] : 1960 Age: 64 TO: ADRIAN PINEDA MD [address] [facility] [address] [place], [place] [address] Fax: NO FAX EXAMINATION: SCREENING DIGITAL LEFT [...] 03/13/2025 9:27:58 PM Ordering Provider: ADRIAN PINEDA Siding Installer: LUIS CUTLER RT (R)(M) letter sent: Abnormal-Needs additional work up BI-RADS 0 Mammogram BI-RADS: [address] [facility] Internal Medicine Office Vis gautam 08-29-2024 Internal Medicine Office Visit [facility] [address] [place] [id number] OFFICE VISIT Date of Service: 08/29/24 MR#: [id number] Acct: [id number] Name: DANIELLE PARRA Rep #: [id number] : 1960 Provider: Dr. 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 [facility] Medical History Hypertension Wears glasses Cancer Restless [...] habits, cons (more content not included)... Normal [facility] MA MAMMOGRAM SCREENING LEFT W/TOMOon 07-24-2023 MA MAMMOGRAM SCREENING LEFT W/NORM [facility] [address] [place], [place] [address] PROCEDURE FOR: DANIELLE Degroot [address] [place] [address] Home: PID#: [id number] Exam#: [id number] : 1960 Age: 62 TO: ADRIAN PINEDA MD [address] [facility] [address] [place], [place] [address] Fax: NO FAX EXAMINATION: SCREENING DIGITAL LEFT [...] 07/24/2023 4:51:01 PM Ordering Provider: ADRIAN PINEDA Siding Installer: NEWTON MATHUR RT(R) (M) letter sent: Normal BI-RADS 1 and 2 Mammogram BI-RADS: 1 Negative Normal [facility] ([place] Skiagrapher Cytology Reporton 2022 Skiagrapher Cytology Report . Pathology Reports Accession: Collected Date/Time: Received Date/Time: Pathologist: [id number] 07/15/2023 14:42 EDT 07/16/2023 18:00 EDT Skiagrapher Cytology Report SPECIMEN: Specimen Description: Liquid Prep [...] and evaluated with the assistance of the pfwaterworksPrep Test Imaging System. Pathology Reports Accession: Collected Date/Time: Received Date/Time: Pathologist: [id number] 07/15/2023 14:42 EDT 07/16/2023 18:00 EDT Electronically Signed by Pathology report verified by [facility] Screened by: [place] Electronically signed by Gayle NOE (ASCP) Sign-Out Date: 07/22/2023 10:57 Performing Lab: [facility], [address] [place] [address] [facility] Pathology Dept Disclaimer The Pap test is a screening test for cervical cancer. As evidenced by published data, it is subject to both inherent false negative and false positive results. Your patient's results should be interpreted in context with pertinent clinical history including gynecological examination. Normal [facility] ([place] HPVon 07-21-2023 HPV Interp Normal See Interp HPVN [facility]) Comment on above: Order Comment: Order placed by AP_HPV_ORDER rule from [id number] Result Comment: High Risk HPV Typing: NEGATIVE [...] and sufficient DNA to be detected. See Interp HPVN Performed By: #### H PV #### [address] [address] HPV Source Cervix Normal [facility] [place] Comment on above: Order Comment: Order placed by AP_HPV_ORDER rule from [id number] Performed By: #### H PV #### [address] [address] Cervical or vagninal specime n microscopic examination by cytology stain (reported [facility] 04-10-2022 Cytology report Cyto stain Doc (Cvx/Vag) Comment . [facility] Work Phone: Comment on above: The Pap [...] DNA Probe+sig amp Ql (Cvx) Negative Negative [facility] Work Phone: Comment on above: This nucleic acid am plification test detects fourteen high- risk HPV types (16,18,31,33,35,39,45,51,52,56,58,59,66,68)without differentiation.Performed at: - Lab[address] [id number] Director: Yessenia Webb MD, Phone: [phone] at: =[facility] [id number] Director: Yessenia Webb MD, Phone: [phone] Laboratory - Cytologyon 03-20 Grounds/Maintenance Specialist Cyto stain Nom (Cvx/Vag) [ID] Comment . [facility] Work Phone: Comment on above: Bharat Soni [employer] hnologist (ASCP) Laboratory - Miscellaneous t estson 04-10-2022 Service comment (Unsp spec) [Interp] Comment . [facility] Work Phone: Comment on above: This liquid based Th inPrep(R) pap test was screened withthe use of an image guided system. Service comment (Unsp spec) [Interp] . . [facility] Work Phone: No Panel Informationon 04-10 Pathology report final diagnosis Narrative Comment . [facility] Work Phone: Comment on above: NEGATIVE FOR INTRAEP ITHELIAL LESION OR MALIGNANCY.THIS SPECIMEN WAS RESCREENED PART OF OUR GARAGE SUPERVISOR PROGRAM. PROGRESSon 12-09-2019 PROGRESS HNO ID: [id number] Author: Nasima Melendez Service: ? Author Type: Pepper Picker Type: Progress Notes Filed: 12/09/2019 7:32 AM Note Text: [facility] CONDUIT WORKER QUICKNOTE Provider Action/FYI: Patient returned call and states she's NOT a patient of Dr. Reyes and she would appreciate it if we stop sending mail to her. I removed Dr. Reyes as PCP. Patient identified by name and . Nasima Melendez [facility] PROGRESSon 12-02-2019 PROGRESS HNO ID: [id number] Author: Nasima Melendez Service: ? Author Type: Pepper Picker Type: Progress Notes Filed: 12/02/2019 9:54 AM Note Text: [facility] CONDUIT WORKER QUICKNOTE Provider Action/FYI: 4th attempt - letter mailed to patient. Patient identified by name and . Nasima Melendez [facility] PROGRESS HNO ID: [id number] Author: Nasima Melendez Service: ? Author Type: Pepper Picker Type: Progress Notes Filed: 12/02/2019 9:54 AM Note Text: [facility] CONDUIT WORKER QUICKNOTE Provider Action/FYI: 3rd attempt - the number you have dialed is not in service. Patient identified by name and . Nasima Melendez [facility] PROGRESSon 11-30-2019 PROGRESS HNO ID: [id number] Author: Nasima Melendez Service: ? Author Type: Pepper Picker Type: Progress Notes Filed: 12/02/2019 9:54 AM Note Text: [facility] CONDUIT WORKER QUICKNOTE Provider Action/FYI: 2nd attempt - the number you have dialed is not in service. I will try back later. Patient identified by name and . Nasima Melendez [facility] CNPTOUTREACHon 11-22-2019 CNPTOUTREACH Patient Outreach (IN TMWS) DANIELLE PARRA ([id number]) 1960 F Date Time Provider Department 11/22/19 [...] on 09/03/2018 INFLUENZA(1) due on 06/19/2019 [facility]02/2019 9:54 AM Signed [facility] ASSISTANT QUICKNOTE Provider Action/FYI: 1st attempt - [employer] message sent. Patient identified by name and . SHANICE Abad [facility] 12/02/2019 9:54 AM Signed [facility] ASSISTANT QUICKNOTE Provider Action/FYI: 2nd attempt - the number you have dialed is not in service. I will try back later. Patient identified by name and . SHANICE Abad [facility] 12/02/2019 9:54 AM Signed [facility] ASS[facility]ANT QUICKNOTE Provider Action/FYI: 3rd attempt - the number you have dialed is not in service. Patient identified by name and . SHANICE Abad [facility] 12/02/2019 9:54 AM Signed [facility] ASS[facility] QUICKNOTE Provider Action/FYI: 4th attempt - letter mailed to patient. Patient identified by name and . SHANICE Abad [facility] 12/09/2019 7:32 AM Signed [facility] ASSISTANT QUICKNOTE Provider Action/FYI: Patient returned call and states she's NOT a patient of Dr. Reyes and she would appreciate it if we stop sending mail to her. I removed Dr. Reyes as PCP. Patient identified by name and . Nasima Melendez [facility] Allergies As of Date: 11/22/2019 Noted Allergy Reaction PENICILLINS 03/12/2011 7 - Swelling Date Reviewed: 12/19/2017 Reviewed by: Soumya Avery Ma - Fully Assessed Reason for Visit: PHMA/Care Gap Outreach [9125] Prescriptions as of 11/22/2019 Sig: VARENICLINE 1 [...] Status:Closed by NASIMA MELENDEZ CMA on 12/02/19 [facility] PROGRESSon 11-22-2019 PROGRESS HNO ID: [id number] Author: Nasima Melendez Service: ? Author Type: Pepper Picker Type: Progress Notes Filed: 12/02/2019 9:54 AM Note Text: POPULATION HEALTH CONDUIT WORKER QUICKNOTE Provider Action/FYI: 1st attempt - [employer] message sent. Patient identified by name and . Nasima Melendez CMA [facility] PROGRESS HNO ID: [id number] Author: Nasima Melendez Service: ? Author Type: Pepper Picker Type: Progress Notes Filed: 12/02/2019 9:54 AM [...] 09/03/2018 INFLUENZA(1) due on 06/19/2019 Nasima Melendez, SHANICE Normal [facility] Vital Signs Date Time Vital Sign Value Performing Clinician Faci anusha 03-24-2025 10:41-0400 Body height 162.[address] Leela Ingram MD Work Phone: [facility] 03-24-2025 10:41-0400 Body mass index (BMI) [Ratio] 28.3 kg/m2 Dr. Leela Ingram MD Work Phone: [facility] 03-24-2025 10:41-0400 Body temperature 97.4 [degF] Dr. Leela Ingram MD Work Phone: [facility] 03-24-2025 10:41-0400 Body weight 74.[address] Leela Ingram MD Work Phone: [facility] 03-24-2025 10:41-0400 Diastolic blood pressure 60 mm[Hg] Dr. Leela Ingram MD Work Phone: [facility] 03-24-2025 10:41-0400 Heart rate 81 /min Dr. Leela Ingram MD Work Phone: [facility] 03-24-2025 10:41-0400 Respiratory rate 18 /min Dr. Leela Ingram MD Work Phone: [facility] 03-24-2025 10:41-0400 SaO2% (BldA) [Mass fraction] 95 % Dr. Leela Ingram MD Work Phone: [facility] 03-24-2025 10:41-0400 Systolic blood pressure 136 mm[Hg] Dr. Leela Ingram MD Work Phone: [facility] 02-25-2024 19:57-0400 Body temperature 98.3 [degF] Dr. Leela Ingram Work Phone: [facility] 02-25-2024 19:57-0400 Diastolic blood pressure 64 mm[Hg] Dr. Leela Ingram Work Phone: [facility] 02-25-2024 19:57-0400 Heart rate 92 /min Dr. Leela Ingram Work Phone: [facility] 02-25-2024 19:57-0400 Respiratory rate 16 /min Dr. Leela Ingram Work Phone: [facility] 02-25-2024 19:57-0400 SaO2% (BldA) [Mass fraction] 100 % Dr. Leela Ingram Work Phone: [facility] 02-25-2024 19:57-0400 Systolic blood pressure 120 mm[Hg] Dr. Leela Ingram Work Phone: [facility] 02-25-2024 18:46-0400 Body height 162.[address] Leela Ingram Work Phone: [facility] 02-25-2024 18:46-0400 Body mass index (BMI) [Ratio] 27.9 kg/m2 Dr. Leela Ingram Work Phone: [facility] 02-25-2024 18:46-0400 Body weight 73.[address] Leela Ingram Work Phone: [facility] 02-15-2024 10:51-0400 Body temperature 96.9 [degF] Dr. Leela Ingram Work Phone: [facility] 02-15-2024 10:51-0400 Diastolic blood pressure 58 mm[Hg] Dr. Leela Ingram Work Phone: [facility] 02-15-2024 10:51-0400 Heart rate 74 /min Dr. Leela Ingram Work Phone: [facility] 02-15-2024 10:51-0400 Respiratory rate 16 /min Dr. Leela Ingram Work Phone: [facility] 02-15-2024 10:51-0400 SaO2% (BldA) [Mass fraction] 96 % Dr. Leela Ingram Work Phone: [facility] 02-15-2024 10:51-0400 Systolic blood pressure 126 mm[Hg] Dr. Leela Ingram Work Phone: [facility] 02-15-2024 09:40-0400 Body height 162.[address] Leela Ingram Work Phone: [facility] 02-15-2024 09:40-0400 Body mass index (BMI) [Ratio] 26.4 kg/m2 Dr. Leela Ingram Work Phone: [facility] 02-15-2024 09:40-0400 Body weight 69.[address] Leela Ingram Work Phone: [facility] 12-09-2023 15:01-0500 Body mass index (BMI) [Ratio] 27.3 kg/m2 Dr. Leela Ingram Work Phone: [facility] 12-09-2023 15:01-0500 Body weight 72.[address] Leela Ingram Work Phone: [facility] 12-09-2023 15:01-0500 Diastolic blood pressure 82 mm[Hg] Dr. Leela Ingram Work Phone: [facility] 12-09-2023 15:01-0500 Heart rate 79 /min Dr. Leela Ingram Work Phone: [facility] 12-09-2023 15:01-0500 Respiratory rate 17 /min Dr. Leela Ingram Work Phone: [facility] 12-09-2023 15:01-0500 SaO2% (BldA) [Mass fraction] 96 % Dr. Leela Ingram Work Phone: [facility] 12-09-2023 15:01-0500 Systolic blood pressure 153 mm[Hg] Dr. Leela Ingram Work Phone: [facility] 12-03-2023 15:21-0500 Body height 162.[address] Leela Ingram Work Phone: [facility] 11-05-2023 16:13-0500 Body mass index (BMI) [Ratio] 27.5 kg/m2 Dr. Leela Ingram Work Phone: [facility] 11-05-2023 16:13-0500 Body temperature 98 [degF] Dr. Leela Ingram Work Phone: [facility] 11-05-2023 16:13-0500 Body weight 72.[address] Leela Ingram Work Phone: [facility] 11-05-2023 16:13-0500 Diastolic blood pressure 80 mm[Hg] Dr. Leela Ingram Work Phone: [facility] 11-05-2023 16:13-0500 Heart rate 100 /min Dr. Leela Ingram Work Phone: [facility] 11-05-2023 16:13-0500 Respiratory rate 16 /min Dr. Leela Ingram Work Phone: [facility] 11-05-2023 16:13-0500 SaO2% (BldA) [Mass fraction] 97 % Dr. Leela Ingram Work Phone: [facility] 11-05-2023 16:13-0500 Systolic blood pressure 140 mm[Hg] Dr. Leela Ingram Work Phone: [facility] Encounters Encounter Date Encounter Type Care Provider Facility Start: 07-14-2025 ambulatory Leela Ingram Facili ty:[facility] Start: 07-12-2025 End: 07-12-2025 ambulatory Leela Ingram Facility[facility] Start: 07-10-2025 End: 07-10-2025 ambulatory Louann Cabreratoro Facility:[facility] Start: 07-07-2025 ambulatory Malvin RICHARDSON Facilit y:[facility] Start: 07-07-2025 End: 07-07-2025 Emergency department patient visit Cadenchery Lazar Facility:[facility] Start: 04-20-2025 ambulatory Leela Ingram Facili ty:[facility] Start: 04-20-2025 Non-patient / Non-visit Dr. Elaine DUNLAP -[facility] Start: 04-20-[address] Primo Ingram MD -Cat Scan [facility] Work Phone: Start: 04-20-2025 End: 04-20-[address] Leela Ingram MD Work Phone: -Cat Scan [facility] Start: 04-20-2025 End: 04-20-[address] Leela Ingram MD -Cat Scan [facility] Work Phone: Start: 04-20-2025 End: 04-20-2025 ambulatory Leela Ingram Facility:[facility] Start: 04-05-2025 Encounter for genera l adult medical examination without abnormal findings Leela Ingram [facility] Start: 03-24-2025 End: 03-24-[address] Leela Ingram MD -[facility] Work Phone: Start: 03-24-2025 End: 03-24-[address] Leela Ingram MD [facility] Start: 03-24-2025 End: 03-24-[address] Leela Ingram MD Work Phone: [facility] Work Phone: Start: 03-24-2025 End: 03-24-2025 ambulatory Leela Ingram Facility:[facility] Start: 03-17-2025 End: 03-17-2025 ambulatory LEELA INGRAM MD Facility:[facility] Start: 03-17-2025 End: 03-17-2025 Patient encounter procedure ADRIAN PINEDA MD [facility] Start: 03-10-2025 End: 03-10-2025 ambulatory ADRIAN PINEDA MD Facility:[facility] Start: 08-29-2024 End: 08-29-2024 ambulatory Leela Ingram Facility:[facility] Start: 02-25-2024 End: 02-25-2024 Emergency department patient visit Dr. Leela Ingram Work Phone: [facility]Emergency Department Work Phone: Start: 02-15-2024 Non-patient / Non-visit Dr. Jeremiah Ingram Work Phone: [facility] Start: 02-15-2024 End: 02-15-2024 Admission to same day surgery center Dr. Leela Ingram Work Phone: [facility]-Endoscopy Work Phone: Start: 02-15-2024 End: 02-15-[address] Leela Ingram Work Phone: [facility] Work Phone: Start: 12-09-2023 End: 12-09-[address] Leela Ingram Work Phone: [facility] Work Phone: Start: 12-03-2023 End: 12-03-[address] Leela Ingram Work Phone: [facility] Work Phone: Start: 12-03-2023 End: 12-03-[address] Leela Ingram Work Phone: [facility]-Outpatient Bone Densitometry Work Phone: Start: 11-05-2023 End: 11-05-[address] Leela Ingram Work Phone: [facility] Work Phone: Start: 07-23-2023 End: 07-24-2023 ambulatory ADRIAN PINEDA MD Facility:[facility] Start: 07-15-2023 End: 07-20-2023 ambulatory ADRIAN PINEDA MD Facility:[facility] Start: 07-15-2023 End: 07-20-2023 Encounter for gynecological examination (general) (routine) without abnormal findings ADRIAN PINEDA MD Facility:[facility] Start: 07-15-2023 End: 07-19-2023 Outreach Lab ADRIAN PINEDA MD [facility] Start: 04-28-2022 End: 04-28-2022 Patient encounter procedure [facility]-Outpatient Breast Imaging Start: 04-10-2022 End: 04-10-2022 Patient encounter procedure [facility]-Laboratory, Specimen Procedures Date Procedure Procedure Detail Performing [...] Treatment Date Care Activity Detail Author Start: 08-31-2025 ambulatory Ambulatory Facility:[facility] Start: 03-24-2025 CBC W Auto Differential panel - Blood [facility] Start: 03-24-2025 Comprehensive metabolic 2000 panel - Serum or Plasma [facility] Start: 03-24-2025 Lipid 1996 panel - Serum or Plasma [facility] Start: 02-25-2024 [facility] Start: 02-15-2024 Colonoscopy w/biopsy single/multiple COLONOSCOPY AND BIOPSY [facility] Start: 02-15-2024 Colsc flx w/rmvl of tumor polyp lesion snare tq COLONOSCOPY W/LESION REMOVAL [facility] Start: 02-15-2024 Egd transoral biopsy single/multiple EGD BIOPSY SINGLE/MULTIPLE [facility] Start: 02-15-2024 Patient discharge [facility] Start: 11-05-2023 Patient referral [facility] Work Phone: Alanine aminotransfe rase [Enzymatic activity/volume] in Serum or Plasma [facility] Albumin [Mass/volume ] in Serum or Plasma [facility] Alkaline phosphatase [Enzymatic activity/volume] in Serum or Plasma [facility] Anion gap in Serum o r Plasma [facility] Bilirubin, total measurement [facility] BUN/Creatinine ratio [facility] Calcium [Mass/volume ] in Serum or Plasma [facility] Carbon dioxide, tota l [Moles/volume] in Central venous blood [facility] Cholesterol [Mass/vo lume] in Serum or Plasma [facility] Cholesterol in HDL [Mass/volume] in Serum or Plasma [facility] Colonoscopy [facility] Creatinine [Mass/vol ume] in Serum or Plasma [facility] CT Chest [facility] Erythrocyte mean corpuscular volume determination [facility] Glucose [Mass/volume ] in Serum or Plasma [facility] Hematocrit [Volume Fraction] of Blood [facility] Hemoglobin [Mass/vol ume] in Blood [facility] Leukocytes [#/volume ] in Blood [facility] Low density lipoprot ein cholesterol measurement [facility] Mean corpuscular hem oglobin concentration determination [facility] Mean corpuscular hem oglobin determination [facility] Measurement of renal function [facility] Neutrophil count [facility] Neutrophil percent differential count [facility] Path report.final Dx Spec [facility] Work Phone: Patient Education ED Allergic Re action Local Other [facility] Work Phone: Patient referral [facility] Work Phone: Platelets [#/volume] in Blood [facility] Potassium measurement [facility] Red blood cell count [facility] Red cell distributio n width determination [facility] Serum chloride measurement [facility] Sodium measurement [facility] Total cholesterol:HD L ratio measurement [facility] Total protein measurement [facility] Triglycerides measurement [facility] Urea nitrogen [Mass/ volume] in Serum or Plasma [facility] VLDL cholesterol measurement [facility] Payers Date Payer Category Payer Unknown 2025 Medicare [id number] 2025 Private Health Insurance [id number] 2025 Medicare [id number] 2025 Private Health Insurance [id number] 2024 Self-pay [id number] 2024 Private Health Insurance [id number] 2022 Private Health Insurance [id number] 2005 Private Health Insurance [facility] [id number] 1960 Unknown [id number] [id number] 27 1958 Unknown [id number] 2.16.840.1.021373.3.579.2.6 27 1958 Unknown [id number] 2.16.840.1.491082.3.579.2.6 27 1958 Unknown [id number] 2.16.840.1.738782.3.579.2.6 27 Unknown [id number] 2.16.840.1.087820.3.579.2.4 62 Unknown [id number] 2.16.840.1.424019.3.579.2.4 62 Unknown [id number] 2.16.840.1.973767.3.579.2.4 62 Unknown [id number] 2.16.840.1.610493.3.579.2.4 62 Unknown [id number] 2.16.840.1.502314.3.579.2.4 62 Unknown [id number] 2.16.840.1.083116.3.579.2.4 62 Unknown [id number] 2.16.840.1.493656.3.579.2.4 62 Unknown [id number] 2.16.840.1.083802.3.579.2.4 62 Unknown [id number] 2.16.840.1.142276.3.579.2.4 62 Unknown [id number] 2.16.840.1.619354.3.579.2.4 62 Unknown [id number] 2.16.840.1.701962.3.579.2.4 62 Unknown [id number] 2.16.840.1.737666.3.579.2.4 62 Unknown [id number] 2.16.840.1.677188.3.579.2.4 62 Social History Date Type Detail Facility Start: 10-22-2021 End: 02-25-2024 Tobacco smoking status NHIS Unknown if ever smoked [facility] Start: 12-07-2018 Cigarettes [facility] Start: 1960 Sex Assigned At Female A [facility] Start: 07-15-2023 Tobacco smoking status Heavy t obacco smoker (finding) [facility] Sexual Orientation Herrin Shweta osbernice [facility] Sex Female (finding) [facility] Start: 02-25-2024 Tobacco smoking stat us CTIS Smokes tobacco daily (finding) [facility] NEGATED: Highlighted row [facility] Goals Date Patient Goal Desired Activity /State Mental Status Date Assessment Result Facility 02-15-2024 Cognitive function Awake;Alert;Appropriat e [facility] Work Phone: 02-15-2024 Cognitive function Arousable To Voice/Nam e [facility] Work Phone: Clinical Notes 04-10-2022 to 04-20-2025 Note Date & Type Note Facility 04-20-2025 Radiology Diagnostic study note [facility] Imaging Services [address] [place] [address] 04/20/25 1322 MR#: [id number] Acct: [id number] Name: DANIELLE PARRA Rep #:[id number] : 1960 64 From: Justin Liu MD PCP: Dr. Leela Ingram MD Status:R EG CLI Y Location: CT Calcium Scoring [...] MD; Dr. Leela Ingram MD ~ Signed [facility] Work Phone: 07-03-2025 Radiology Diagnostic study note [facility] Services [address] [place] [address] Lung Screening MR#: [id number] Acct: [id number] Name: DANIELLE PARRA Rep #: [id number] : 1960 F 64 From: Evelyn Glass MD PCP: Dr. Leela Ingram MD Status: R EG CLI Study:Low Dose CT Lung Screening Date of Exam : 04/20/25 Exam# [id number] Ordering Dr: Jenaro Ingram MD PROCEDURE: LOW [...] use of iterative reconstruction technique). REFERENCE LINK: [facility] Lung-RADS RADIATION DOSE SUMMARY: CTDlvol: 12.19 mGy [...] SCREENING LDCT. Other Significant Findings: Reading Location: [facility] CC: Dr. Leela Ingram MD ~ Supervisor Maintenance: Signed [facility] 03-24-2025 Evaluation note Diagnosis Onset Date Resolution Health care maintenance acute J une 2024 10:31am Chronic gastritis chronic March 10:31am Hyperlipidemia chronic March 24, 2025 10:31am Hypertension chronic March 24 10:31am Osteopenia chronic March 24, 2025 10:31am [facility] Work Phone: 1(836) 883-845005-30-2025 Note* Exam Date Time Procedure Performing Provider Status 03/17/25 8:41 AM MA Mammo Diagnostic Left w/GABRIEL Soliz MD; Auth (Verified) [id number] ORIGINAL FROM: [address] [address] PROCEDURE FOR: DANIELLE SINGHTeddy [address] [place] [address] Home: PID#: [id number] Exam#: [id number] : 1960 Age: 64 TO: ADRIAN PINEDA MD [address] [facility] [address] [place] [address] Fax: NO FAX EXAMINATION: DIAGNOSTIC DIGITAL LEFT [...] 03/17/2025 1:35:14 PM Ordering Provider: ADRIAN PINEDA Siding Installer: LUIS CUTLER RT (R)(M) letter sent: Normal-Needs additional work up BI-RADS 0 Mammogram BI-RADS: 0 Indeterminate [place]05-27-2025 Evaluation + Plan note Future Scheduled Tests Laboratory* [facility] Send out (Blood Specimens) 03/14/25 [place] 05-09-2024 Discharge summary Author Henry Phillips [facility] February 25, 2024 7:40pm Note Date/Time February 25, 2024 7:40pm [facility] Medical Records Department [address] [place] [address] Emergency Department Summary 02/25/24 MR#: [id number] Acct: [id number] Name: DANIELLE PARRA Rep #:[id number] : 1960 63 From: Henry Gonzales PCP: [...] use disorder, continuous Wears glasses Home Medications vxdgjgkc-nbs-eakhn ac 400 mcg-calcium carb 500 mg-vit K1 [...] clinician: N/A This note was generated with [employer] dictation software. It may contain incorrectwords, spelling, [...] 1,000 MG capsule 2,000 mg PO DAILY ph-nls-ugcsm-calcium carb-K1 1 EACH tablet 1 ea PO DAILY sucralfate [sucralfate] 1 gram tablet 1 g PO 4X/DAY Qty: 56 0RF Rx Instructions: Take 1 hour before meals and at bedtime pantoprazole 40 mg tablet,delayed release (DR/EC) 40 mg PO DAILY Qty: 30 3RF Primary Care Provider: Leela Ingram Referrals: eLela Ingram MD [Primary Care Provider] - 1 [...] your Primary Care Provider. Call [facility] ([phone]) or report to the closest Emergency Room. Call 911 if necessary. 02/25/241939 <Electronically signed by Henry Gonzales> Cosigner Signature (if applicable): CC: Dr. Leela Ingram MD ~ Signed [facility] Work Phone: 1(639) 993-213304-29-2024 Procedure [facility] 02-15-2024 Procedure [facility]04-29-2024 Procedure note [facility]04-29-2024 Procedure [facility] 04-10-2022 NotePap Smear Specimen AdequacyJune 2021 3:45pmComment. Satisfactory for evaluation. Endocervical and/or squamous metaplasticcells (endocervical component)are present.[facility] A#[id number] Work Phone: Comment on above:Satisfactory for evaluation. Endocervical and/or squamous metaplasticcells (endocervical component)are present.04-10-2022 NotePap Smear QC ReviewJune 2021 3:45pmComment.Octavia [place], Supervisory Desktop Analyst (ASCP)[facility] A#[id number] [facility] Work Phone: Comment on above:Octavia Toledo, Supervisory Desktop Analyst (ASCP)Evaluation + Plan note Future Appointments Appointment Date:07/23/2023 03:00:00 PM Scheduled Provider: Location:[facility] Appointment Type:MA Mammogram Screening Left w/ Norm Future Scheduled Tests Radiology* MA Mammo Screening Left w/ Norm 07/23/23 [place] Evaluation noteNo assessment information available [facility] Work Phone: Evaluation note* Diagnosis Onset Date Resolution Status Colon cancer screening acute Sol esophagus chronic Hyperlipidemia chronic Osteopenia chronic Tobacco use disorder, continuous chronic [facility] Work Phone: Evaluation note* Diagnosis Onset Date Resolution Status Colon cancer screening acute Sol esophagus chronic Hyperlipidemia chronic Osteopenia chronic Tobacco use disorder, continuous chronic FH: colon cancer acute Hx of colonic polyp acute Sol esophagus chronic FH: colon cancer acute Hx of colonic polyp acute Sol esophagus chronic [facility] Work Phone: Evaluation note* Diagnosis Onset Date Resolution Status Admit Date Health care maintenance acute J une 2024 10:31am Chronic gastritis chronic March 10:31am Hyperlipidemia chronic March 24, 2025 10:31am Hypertension chronic March 24 10:31am Osteopenia chronic March 24, 2025 10:31am [facility] Work Phone: History and physical note Author Merissa Best [facility] February 15, 2024 9:47am Note Date/Time February 15, 2024 9:4 5am [facility] Medical Records Department [address] [place] [address] History & Physical Exam 02/15/24 0942 MR#: [id number] Acct: [id number] Name: DANIELLE PARRA Rep #:[id number] : 1960 63 From: Merissa Best MD PCP: Dr. Leela Ingram MD Status:R [facility] Location: [place] [address] HPI - General General Date of Service: [...] any chronic abdominal pain nausea or vomiting. [facility] Medical History (Updated 02/10/24 @ 14:13 by [...] use disorder, continuous Wears glasses Home Medications zyrtgplr-ctu-vxlfu ac 400 mcg-calcium carb 500 mg-vit K1 [...] Surgeries: TONSILLECTOMY CHILD WISDOM TEETH REMOVED ADULT 1980 RIGHT MOD RAD MASTECTOMY 2002 2017 COLONOSCOPY/EGD [...] Swelling Discharge Is Pt Admitted From a Skilled Nursing, or a Skilled Nursing: No After D/C, Where Do you Plan [...] Ingram MD; Dr. Merissa Best MD~ Signed [facility] Work Phone: Hospital course Narrative No data available for this section [facility] Discharge instructions No data available for this section [facility] Discharge instructions Additional Instructions Your symptoms are improving while in the ED. You declined the medications. May use Benadryl 25 mg every 6 hours as needed. Use Pepcid daily for the next 5 days. If symptoms worsens, return to the ED for reevaluation.[facility] Work Phone: Progress note No data available for this section [place] Reason for referral (narrative)No [facility] for [facility] Work [facility]: Summary Purpose Family History No [...] Yes December 07, 019 3:07pm Power of Zmt Operator Yes December 07, 2018 3:07pm Advance Directive Response Recorded Date/ Time Living Will Yes December 07 019 2:07pm Power of Zmt Operator Yes December 07, 2018 2:07pm Advance Directive Response Recorded Date/ Time Name of Medical Power of Zmt Operator BROTHER February 10, 2024 2:03pm Living Will Yes February 10, 2024 2:03pm Power of Zmt Operator Yes February 09 2:03pm Advance Directive Response Recorded Date/ Time Living Will No February 25, 2024 7: 05pm Power of Zmt Operator No February 25, 2024 7:05pm Name of Medical Power of Zmt Operator BROTHER February 10, 2024 2:03pm Chief Complaint [...] section and content) DATE CREATED AUTHOR 12/10/2019 [facility] DATE CREATED AUTHOR AUTHOR'S ORGANIZ ATION 08/21/2023 [facility] ([place]) DATE CREATED AUTHOR AUTHOR'S ORGANIZ ATION 03/24/2025 [facility] DATE CREATED AUTHOR AUTHOR'S ORGANIZ ATION 07/12/2025 [facility] Goals (unrecognized section and content) Goals may [...] Dr. Leela Ingram MD Primary Care P rovider, Attending Provider, Referring Provider Active Team Status: [...] BE BASED ON THE PRIMARY CLINICAL RECORDS. [facility] provides no warranty or guarantee of the accuracy or completeness of information in this document.
[2025-07-14] MEDS: Lactated Ringers 1,000 ML 15 ML IV (10:16)
--- NOTE | 2025-07-14 10:26 | PCM.HP.BLA ---
History and Physical Date of Admission: 07/14/25 Date of Service: 07/12/25 MR#: [id number] Acct: [id number] Name: DANIELLE PARRA Rep #: [id number] : 1960 Provider: TALI Rosas Age/Sex: 64/F Location: [facility] Status: Signed Intake Vital Signs 07/10/2515:02 07/12/2509:30 Height 5 ft 4 in 5 ft 4 in Weight: 161 lb 160 lb BMI 27.6 27.4 BP 158/72 H 150/73 H Blood Pressure Location Lt brachial Lt brachial Position Sitting Sitting Respiration 16 18 Pulse 80 87 Pulse Source Monitor Monitor Temp 97.8 F 97.5 F L Temp Source Temporal Temporal Pulse Oximetry (%) 99 97 Oxygen Delivery Method room air room air Intake Visit Reasons: RECTAL BLEEDING & ABNORMAL LABS Chief Complaint: rectal bleeding & abdnormal labs Is patient in pain?: No Allergies Penicillins Allergy (Verified 07/12/25 09:31) Swelling Medications ?Medication ?Instructions ?Recorded ?Confirmed ?Type buwssyjh-xkf-hroar ac 400 1 ea PO DAILY SUPPLEMENT 12/07/18 07/12/25 History mcg-calcium carb 500 mg-vit K1 20 mcg tablet omega-3 fatty acids 1,000 mg 2,000 mg PO DAILY SUPPLEMENT 12/07/18 07/12/25 History capsule cholecalciferol (vitamin D3) 50 50 mcg PO DAILY 10/09/20 07/12/25 History mcg (2,000 unit) capsule Have you fallen in the past year?: No PFSH Medical History Post-menopausal Anemia Injury of head and neck History of GI bleed Gastric reflux Leg cramps Wears glasses Cancer Restless legs Smoker History of stress test Osteopenia Sol esophagus High cholesterol Surgical History History of tooth extraction (~08/2023) History of esophagogastroduodenoscopy (EGD) H/O LEEP History of colonoscopy with polypectomy History of tonsillectomy History of wisdom tooth extraction History of lumpectomy of right breast History of section History of right mastectomy Family History Sister Colon cancer Thyroid disorder Mother Arthritis Hypertension Mental disorder Psychiatric care Thyroid disorder Father Hypertension Thyroid disorder Grandmother Mental disorder Brother Thyroid disorder Social History Smoking Status: Current every day smoker tobacco type: cigarettes Tobacco: How many years used: 50 Electronic Cigarette Use: not used second hand exposure: No quit status: considering quitting alcohol intake: never substance use type: does not use what type of physical activity do you participate in: other details: AROUND THE HOUSE HPI HPI HPI: Patient is a 64 y/o F who I am seeing for new onset of rectal bleeding and anemia. Patient states since she completed chemotherapy approximately 22 years ago she has been diagnosed with anemia. She made a diet change at that time to include more bulk and grains. She notes her bowel habits are more on the looser side with intermittent constipation. 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 She states she has a gait belt that she keeps around him to help her guide him. She notes right after this incident she had pain across her shoulders and had a large belch, which tasted horrible. Patient states a couple hours later she went to the bathroom and had bright red blood per rectum. She states 15 minutes later she had another bloody bowel movement. She is unaware if she has hemorrhoids. She states the rectal bleeding continued for the remaining of last week. She notes having a machine at home that will test your hemoglobin. She notes last Thursday her Hgb was 11.0 and by Thursday it had dropped to 8 something. She notes this was a little frightening so she proceeded to the ED on Thursday for evaluation. 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 She notes her insurance since jail has been a struggle to figure out. She states she was offered admission however declined and left against medical advice because she wanted Dr. Best to perform her scope and due to her insurance willing to pay better doing the procedure as an outpatient instead of a hospital stay. Patient followed up with her PCP this past Thursday. She states they repeated her Hgb, which was 8.2. They had recommended a referral to GI. Again, patient was adamant she wanted Dr. Best, who performed her last colonoscopy in 2023. Patient notes a personal history of breast cancer, which she had a mastectomy and chemotherapy for. She notes a sister who had colon cancer in 2019 and underwent a colectomy with Dr. Reece. Patient notes a history of Sol's esophagus, however she denies taking any PPI medication as she does not want to take this medication. She controls this by not eating after 6 pm. She has denied abdominal pain throughout this entire episode. She notes today was the first day she has not noticed any blood per rectum. She notes as the days went on, the bleeding became darker. Previous colonoscopy and EGD report: C-scope: Findings: The perianal and digital rectal examinations were normal. Two semi-pedunculated polyps were found in the sigmoid colon. The polyps were 3 to 5 mm in size. These polyps were removed with a hot snare. Resection and retrieval were complete. A less than 5 mm polyp was found in the rectum. The polyp was sessile. The polyp was removed with a cold biopsy forceps. Resection and retrieval were complete. The exam was otherwise without abnormality EGD: Findings: The Z-line was irregular. Biopsies were taken with a cold forceps for histology. A few localized less than 5 mm erosions with stigmata of recent bleeding were found in the prepyloric region of the stomach. Biopsies were taken with a cold forceps for histology. Biopsies were taken with a cold forceps for Helicobacter pylori cultures. The examined duodenum was normal. The exam was otherwise without abnormality. Pathology: MICROSCOPIC DIAGNOSIS A. Pre-pyloric erosion, biopsy: Chronic gastritis. B. Gastroesophageal junction, biopsy: Mild chronic inflammation. Focal change of reflux. Intestinal metaplasia (goblet cell metaplasia) is not identified. See comment. C. Sigmoid polyp, biopsy: Fragments of colonic mucosa with focal hyperplastic change and mucosal denudation. D. Rectal polyp, biopsy: Hyperplastic polyp. ROS General General: Yes fatigue and breast cancer; No weight change, appetite, colon cancer or weakness HEENT HEENT: No difficulty swallowing, eye injury, eye surgery, swollen glands or hoarseness Endo Endocrine: No thyroid disease, diabetes mellitus, thyroid cancer, Hair loss, heat intolerance or cold intolerance Skin Skin: No rash or changing moles Musc Musculoskeletal: No back problems, arthritis, rheumatoid arthritis, gout or joint pain Cardio Cardiovascular: No murmur, pacemaker, heart disease, atrial fibrillation, high blood pressure, heart attack, heart stent, palpitations, shortness of breath with exertion or chest pain Psych Psychiatric: No depression, anxiety or hearing voices Resp Respiratory: No shortness of breath, No sleep apnea, No cough, No COPD, No asthma, No emphysema and No wheezing Gastro Gastrointestinal: No abdominal pain, No nausea or vomiting, No diarrhea, No constipation, Yes blood in stool, Yes acid reflux, No hemorrhoids, No ulcers, No gallbladder problem and No black,tarry stools Jacky Hematologic: No blood thinners, No blood disorders, Yes bleeding, Yes anemia and No blood clots Neuro Neurologic: No numbness, No tingling and No weakness Exam Const General: cooperative, healthy appearing, comfortable and no acute distress HENMT Head: normal to inspection Eyes General: appearance normal, both eyes and all related structures Neck Neck: normal visual inspection Neck mass: No Resp Effort & Inspection: normal respiratory effort Auscultation: clear to auscultation bilaterally Cardio Rate: regular rate Rhythm: regular rhythm GI Inspection: normal to inspection and non-distended Palpation: soft, no guarding and nontender Auscultation: normal bowel sounds Musc Cervical Spine: normal cervical lordosis Skin General: no rashes or lesions noted Neuro General: no focal motor deficits and CN's II-XI intact bilaterally Extrem General: normal to inspection Psych Appearance: grossly normal Affect: normal affect Assessment and Plan Assessment and Plan (1) GI bleed: Status: Acute (2) FH: colon cancer: Status: Acute Comment: Sister diagnosed at age 61 (3) GERD (gastroesophageal reflux disease): Status: Chronic Plan Patient is a 64 y/o F who had an acute onset of bright red rectal bleeding following lifting and assisting a friend to a chair. Patient notes her Hgb has remained stable according to her at home machine and from her last official blood test on 07/10. She notes the rectal bleeding has stopped as of today. She is unsure of the cause of the rectal bleeding other than possible hemorrhoids. She has refrained from returning to a regular diet and is just eating a soft food/liquid diet. 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 Likely etiology of bright red rectal bleeding is hemorrhoids versus diverticular bleed versus colon mass versus gastritis. Dr. Best will plan to perform an upper and lower scope with possible biopsies. She has held her fish oil since Thursday. Procedure details, risks and benefits have been explained. Patient verbally confirms understanding and has no further questions about the procedures. She is noted to have a tortuous colon. She denies any difficulties with her previous scopes. Patient will have a 1 day Miralax prep. We have the patient added on for this Thursday, 07/14. Patient is very grateful for our urgency with her appointment and getting her scheduled for the procedure. Coding Level of Care Code Off vis,est,level 4 Diagnoses GI bleed K92.2 FH: colon cancer Z80.0 GERD (gastroesophageal reflux disease) K21.9 Clinical Quality Measures Falls Risk Screening/Assistive Devices Have you fallen in the past year?: No 07/12/25 1155 <Electronically signed by Opal RICHARDSON PA-C> Date Opal RICHARDSON PA-C
--- NOTE | 2025-07-14 10:43 | PCM.PRE.AN2 ---
ASA Classification* ASA Classification ASA Classification: 2 Assessment & Plan Anesthesia* Anesthesia Assessment Anesthesia Assessment: Discussed sedation and/or anesthesia options, risks, benefits, and alternatives with patient/parents/legal guardian/POA. Questions invited. The patient/parents/legal guardian/POA seems to understand and agrees to proceed with anesthesia plan. Reviewed the physical assessment, medical history, allergy history and patient home medications list prior to surgery/procedure/anesthetic and documented any changes. Performed airway and anesthesia risk assessments. Anesthesia Type Anesthesia Type: MAC History Source History Obtained from:: Patient and Chart Anesthesia Focused Assessment* Temperature: 98.3 F Pulse Rate: 102 Blood Pressure: 134/66 Respiratory Rate: 16 Pulse Ox: 99 Oxygen Delivery Method: Room Air Airway Assessment Mouth opens: >3 cm Mallampati Score: II Teeth Condition: Chipped/Broken and Missing Neck Range of motion (ROM): Limited ROM Labs Anesthesia Preop lab: CBC WBC, (4.4-11.0) 8.6 K/mm3 07/10/25, 15:51 RBC, (4.2-5.4) 2.66 M/mm3 L 07/10/25, 15:51 Hgb, (12.0-15.0) 8.2 g/dL L 07/10/25, 15:51 Hct, (37-47) 25.0 % L 07/10/25, 15:51 Plt Count, (150-450) 358 K/mm3 07/10/25, 15:51 CHEMISTRY Potassium, (3.3-5.1) 4.2 mmol/L 07/10/25, 15:51 Sodium, (133-145) 141 mmol/L 07/10/25, 15:51 BUN, (4-19) 11 mg/dL 07/10/25, 15:51 Creatinine, (0.70-1.20) 0.76 mg/dL 07/10/25, 15:51 Glucose, (70-99) 97 mg/dL 07/10/25, 15:51 COAG PT, (11.7-14.9) 12.3 SECONDS 12/08/18, 10:23 Pre-Assessment Diagnosis/Proposed Procedure Planned Operative Procedure(s): EGD/CSCOPE Anesthesia History 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 When Was Last Pacemaker Check QUESTION #4 FULL TEXT: You/Your Family Experience fever (hyperthermia) with Anesthesia Last Oral Intake Last Oral intake: Last Oral Intake NPO since 22:30 07/14/25 10:07 Meds taken in AM with sips of No 07/14/25 10:07 water? Meds patient instructed to take am of surgery PONV PONV - deckhand shrimp boat: PONV - deckhand shrimp boat Female Yes 07/12/25 08:43 HX of Motion Sickness No 07/12/25 08:43 HX of N/V After Surgery No 07/12/25 08:43 Non-Smoker No 07/12/25 08:43 Duration of Surgery greater No 07/12/25 08:43 than 60 minutes Number of Risk Factors 1 07/12/25 08:43 PONV Score Low Risk 07/12/25 08:43 Height & Weight Height & Weight: Anesthesia: Height & Weight Height 5 ft 4 in 07/14/25 10:07 Weight: 69.4 kg 07/14/25 10:07 Body Mass Index (BMI) 26.2 07/14/25 10:07 Respiratory Assessment Respiratory Assessment - deckhand shrimp boat: Respiratory Tract Infection Hx - deckhand shrimp boat Hx Respiratory Tract Infection No 07/12/25 08:43 STOP Sleep Apnea STOP Sleep Apnea - deckhand shrimp boat: STOP Sleep Apnea - deckhand shrimp boat Hx Hypertension No 07/12/25 08:43 Hx Sleep Apnea No 07/12/25 08:43 CPAP No 02/15/24 10:41 BIPAP Do you snore loudly (louder Yes 07/12/25 08:43 than talking or can be heard Do you often feel tired/ Yes 07/12/25 08:43 fatigued/ sleepy during daytime? Has anyone observed you stop No 07/12/25 08:43 breathing during sleep? STOP Results Positive 07/12/25 08:43 QUESTION #5 FULL TEXT : Do you snore loudly (louder than talking or can be heard through closed doors)? 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 Specify any problems Hx of Preganancy in last 3 No 07/12/25 08:43 Months Nurse Filling Out Transfusion DSCHRIBER 07/12/25 08:43 & Questions: Date: 07/12/25 07/12/25 08:43 Time: 08:45 07/12/25 08:43 Patient unable to answer at this time (ie. confused, unrespo /Reproduction History /Reproductive History - deckhand shrimp boat: /Reproductive Hx- deckhand shrimp boat Hx Now No 07/12/25 08:43 Gestational Age (in weeks): EDC: Hx Hx Para Hx Section SAB No 07/12/25 08:43 Active Medications Active Medications: Current Medications Generic Name Dose Route Start Last Admin Trade Name Elodia PRN Reason Stop Dose Admin Lactated Ringer's 1,000 mls @ 15 mls/hr 07/14/25 10:00 07/14/25 10:16 IV 15 mls/hr .Q48H JANELL Administration PFSH Medical History Post-menopausal Anemia Injury of head and neck History of GI bleed Gastric reflux Leg cramps Wears glasses Cancer Restless legs Smoker History of stress test Osteopenia Sol esophagus High cholesterol Home Medications ?Medication ?Instructions ?Recorded ?Last Taken ?Type fnvuiibw-edj-ihcpi ac 400 1 ea PO DAILY SUPPLEMENT 12/07/18 07/05/25 History mcg-calcium carb 500 mg-vit K1 20 mcg tablet omega-3 fatty acids 1,000 mg 2,000 mg PO DAILY SUPPLEMENT 12/07/18 07/05/25 History capsule cholecalciferol (vitamin D3) 50 50 mcg PO DAILY 10/09/20 07/05/25 History mcg (2,000 unit) capsule Allergy/AdvReac Type Severity Reaction Status Date / Time Penicillins Allergy Swelling Verified 07/14/25 10:06 Family History Sister Colon cancer Thyroid disorder Mother Arthritis Hypertension Mental disorder Psychiatric care Thyroid disorder Father Hypertension Thyroid disorder Grandmother Mental disorder Brother Thyroid disorder Surgical History History of tooth extraction (~08/2023) History of esophagogastroduodenoscopy (EGD) H/O LEEP History of colonoscopy with polypectomy History of tonsillectomy History of wisdom tooth extraction History of lumpectomy of right breast History of section History of right mastectomy Social History Smoking Status: Current every day smoker tobacco type: cigarettes Tobacco: How many years used: 50 Electronic Cigarette Use: not used second hand exposure: No quit status: considering quitting alcohol intake: never substance use type: does not use what type of physical activity do you participate in: other details: AROUND THE HOUSE Review of Systems (Anesthesia) ROS Narrative System reviewed and no additional complaints, except as documented.
--- NOTE | 2025-07-14 11:00 | COLBX_PTH ---
PATIENT: DANIELLE PARRA LOC: EN U#:[id number] AGE/SX: 64/F ROOM: RE07/14/[address]: Dr. Merissa Best MD : 1960 BED: DIS: 07/14/2025 SPEC #: [id number] RECD: 07/14/25 12:36 STATUS: NEDA RESonny #: [id number] ANAI: 07/14/25 11:[address]: Merissa Best DEPT: SURGICAL PATHOLOGY RECD BY: Austin Kaplan ENTERED: 07/14/25 13:38 SP TYPE: COLON BX OT DR: Dr. Naomi Ingram MD Tissues: A - Esophagus, NOS B - Sigmoid colon biopsy Procedures: Immunohistochemical Stains Surgery Specimen Level IV HEADER OPERATION: Colonoscopy, EGD PRE-OP DIAGNOSIS: GI bleed, family history of colon cancer, GERD TISSUE SUBMITTED: A- GE junction biopsy, B- Sigmoid polyp biopsy MICROSCOPIC DIAGNOSIS A. Esophagus, GE junction, biopsy: - Columnar mucosa with goblet cell metaplasia - see note. - Focal scant benign squamous mucosa. - IHC negative for H.pylori organisms. Note: The diagnosis depends on the location of the biopsy and the extent of the mucosal irregularity. If the biopsy originates from the tubular esophagus and the mucosal irregularity extends at least 1 cm above the top of the gastric folds, this represents Sol mucosa. If the biopsy originates from the gastric cardia and or the mucosal irregularity is less than 1 cm in extent, this represents intestinal metaplasia. B. Sigmoid colon, polyp, biopsy: * Hyperplastic polyp. MICROSCOPIC DESCRIPTION Slides are reviewed. All matched controls reacted appropriately. These tests were developed and their performance characteristics determined by [facility]. They may not have been cleared or approved by the U.[place]. Food and Drug Administration. The FDA has determined that such clearance or approval is not necessary. The above immunohistochemical markers and/or special stains have been reviewed by the Pathologist.. GROSS DESCRIPTION A. Received in fixative is one container labeled with the patient's name and designated GE junction biopsy. The specimen consists of one irregular fragment of kennedy tissue that measures 0.4 cm. The specimen is totally submitted in one cassette. B. Received in fixative is one container labeled with the patient's name and designated Sigmoid polyp biopsy. The specimen consists of one irregular fragment of kennedy tissue that measures 0.5 cm. The specimen is totally submitted in one cassette. HI 07/14/2025 CPT:[id number]
--- NOTE | 2025-07-14 11:40 | PCM.POST.ANE ---
Anesthesia: Postop Eval I Current Vital Signs Temperature: 97 F Pulse Rate: 77 Blood Pressure: 98/52 Respiratory Rate: 14 Pulse Ox: 97 Oxygen Delivery Method: Room Air Assessment Airway patent: Yes Spontaneous unlabored respirations: Yes Mental status: Awake nausea: No Vomiting: No Anesthesia Complication: No Fluid Hydration Crystalloid volume administer (ml): 800 Total IV fluid infused: 800 Progress Note Anesthesia document: Postop Eval 1 completed: Yes
--- NOTE | 2025-07-14 11:49 | OP.PROVAT_ITS ---
07/14/2025 Naomi Ingram MD [address] [place] [address] [place] [address] Re : Upper GI endoscopy procedure for Alicia Berry Dear Dr. Ingram This procedure was performed on Monday, July 14, 2025. My impressions and recommendations are as follows: Impressions : - Z-line irregular. Biopsied. - Normal examined duodenum. - Erythematous mucosa in the antrum. Recommendations : - Await pathology results. - Discharge patient to home. - Resume previous diet. - Use Protonix (pantoprazole) 40 mg PO daily. - Continue present medications. My findings are described in the full procedure note, which is enclosed. If I can be of further assistance, please feel free to contact me at Doctor phone number(s): , Work: . Sincerely, MD Merissa Sun MD 07/14/2025 11:48:48 AM This report has been signed electronically.
--- NOTE | 2025-07-14 11:49 | OP.EGD_ITS ---
Patient Name: Alicia Berry Procedure Date: 07/14/2025 11:04 AM Date of : 1960 Age: 64 Procedure: Upper GI endoscopy Indications: Occult blood in stool, Sol's esophagus Providers: Merissa Best MD Medicines: Monitored Anesthesia Care Patient Profile: This is a 64 year old female. Complications: No immediate complications. Procedure: Pre-Anesthesia Assessment: - Prior to the procedure, a History and Physical was performed, and patient medications and allergies were reviewed. The patient's tolerance of previous anesthesia was also reviewed. The risks and benefits of the procedure and the sedation options and risks were discussed with the patient. All questions were answered, and informed consent was obtained. Prior Anticoagulants: The patient has taken no anticoagulant or antiplatelet agents. ASA Grade Assessment: Per anesthesia. After reviewing the risks and benefits, the patient was deemed in satisfactory condition to undergo the procedure. After obtaining informed consent, the endoscope was passed under direct vision. Throughout the procedure, the patient's blood pressure, pulse, and oxygen saturations were monitored continuously. The colonoscope was introduced through the mouth, and advanced to the second part of duodenum. The upper GI endoscopy was accomplished without difficulty. The patient tolerated the procedure well. Scope In: 11:10:02 AM Scope Out: 11:16:35 AM Total Procedure Duration Time 0 hours 6 minutes 33 seconds Findings: The Z-line was irregular. Biopsies were taken with a cold forceps for histology. The examined duodenum was normal. Mildly erythematous mucosa without bleeding was found in the gastric antrum. The cardia and gastric fundus were normal on retroflexion. Impression: - Z-line irregular. Biopsied. - Normal examined duodenum. - Erythematous mucosa in the antrum. Recommendation: - Await pathology results. - Discharge patient to home. - Resume previous diet. - Use Protonix (pantoprazole) 40 mg PO daily. - Continue present medications. Procedure Code(s): --- Professional --- 56829, Esophagogastroduodenoscopy, flexible, transoral; with biopsy, single or multiple Diagnosis Code(s): --- Professional --- K22.89, Other specified disease of esophagus K22.70, Sol's esophagus without dysplasia K31.89, Other diseases of stomach and duodenum R19.5, Other fecal abnormalities CPT copyright 2021 [employer]. All rights reserved. The codes documented in this report are preliminary and upon inpatient coder review may be revised to meet current compliance requirements. MD Merissa Sun MD 07/14/2025 11:48:48 AM This report has been signed electronically. Number of Addenda: 0 Note Initiated On: 07/14/2025 11:04 AM
--- NOTE | 2025-07-14 11:57 | OP.PROVAT_ITS ---
07/14/2025 Naomi Ingram MD [address] [place] [address] [place] [address] Re : Colonoscopy procedure for Alicia Berry Dear Dr. Ingram This procedure was performed on Monday, July 14, 2025. My impressions and recommendations are as follows: Impressions : - One less than 5 mm polyp in the sigmoid colon, removed with a cold biopsy forceps. Resected and retrieved. - A few colonic angioectasias. Treated with bipolar cautery. - The examination was otherwise normal. - Non-bleeding internal hemorrhoids. Recommendations : - Discharge patient to home. - Resume previous diet. - Continue present medications. - Await pathology results. - Repeat colonoscopy in 3 years for surveillance based on pathology results. - If having additional bleeding will need to go to ER and have colonoscopy at that time likely by GI; if colon isn't the source may need capsule endoscopy. My findings are described in the full procedure note, which is enclosed. If I can be of further assistance, please feel free to contact me at Doctor phone number(s): , Work: . Sincerely, MD Merissa Sun MD 07/14/2025 11:57:13 AM This report has been signed electronically.
--- NOTE | 2025-07-14 11:57 | OP.COLON_ITS ---
Patient Name: Alicia Berry Procedure Date: 07/14/2025 11:16 AM Date of : 1960 Age: 64 Procedure: Colonoscopy Indications: Rectal bleeding Providers: Merissa Best MD Medicines: Monitored Anesthesia Care Patient Profile: This is a 64 year old female. Last Colonoscopy: 2023. Complications: No immediate complications. Procedure: Pre-Anesthesia Assessment: - Prior to the procedure, a History and Physical was performed, and patient medications and allergies were reviewed. The patient's tolerance of previous anesthesia was also reviewed. The risks and benefits of the procedure and the sedation options and risks were discussed with the patient. All questions were answered, and informed consent was obtained. Prior Anticoagulants: The patient has taken no anticoagulant or antiplatelet agents. ASA Grade Assessment: Per anesthesia. After reviewing the risks and benefits, the patient was deemed in satisfactory condition to undergo the procedure. After I obtained informed consent, the scope was passed under direct vision. Throughout the procedure, the patient's blood pressure, pulse, and oxygen saturations were monitored continuously. The colonoscope was introduced through the anus and advanced to the cecum, identified by the appendiceal orifice, ileocecal valve and palpation. The colonoscopy was performed without difficulty. The patient tolerated the procedure well. The quality of the bowel preparation was good. Scope In: 11:17:43 AM Scope Withdrawal Time 0 hours 14 minutes 20 seconds Scope Out: 11:41:14 AM Total Procedure Duration Time 0 hours 23 minutes 31 seconds Findings: A less than 5 mm polyp was found in the sigmoid colon. The polyp was sessile. The polyp was removed with a cold biopsy forceps. Resection and retrieval were complete. A few small angioectasias with bleeding on contact were found in the cecum. Coagulation for bleeding prevention using bipolar probe was successful. The exam was otherwise without abnormality. Non-bleeding internal hemorrhoids were found [Method Found]. The hemorrhoids were Grade I (internal hemorrhoids that do not prolapse). Impression: - One less than 5 mm polyp in the sigmoid colon, removed with a cold biopsy forceps. Resected and retrieved. - A few colonic angioectasias. Treated with bipolar cautery. - The examination was otherwise normal. - Non-bleeding internal hemorrhoids. Recommendation: - Discharge patient to home. - Resume previous diet. - Continue present medications. - Await pathology results. - Repeat colonoscopy in 3 years for surveillance based on pathology results. - If having additional bleeding will need to go to ER and have colonoscopy at that time likely by GI; if colon isn't the source may need capsule endoscopy. Procedure Code(s): --- Professional --- 38007, 59, Colonoscopy, flexible; with control of bleeding, any method 73772, Colonoscopy, flexible; with biopsy, single or multiple Diagnosis Code(s): --- Professional --- D12.5, Benign neoplasm of sigmoid colon K55.20, Angiodysplasia of colon without hemorrhage K62.5, Hemorrhage of anus and rectum CPT copyright 2021 [employer]. All rights reserved. The codes documented in this report are preliminary and upon sales representatives review may be revised to meet current compliance requirements. MD Merissa Sun MD 07/14/2025 11:57:13 AM This report has been signed electronically. Number of Addenda: 0 Note Initiated On: 07/14/2025 11:16 AM
--- NOTE | 2025-07-14 15:07 | POSTOPAN2_ITS ---
Anesthesia Postop Eval I Sum Postop Eval Completion status Anesthesia document: Postop Eval 1 completed: Yes Anesthesia Postop Eval I Summary Anesthesia Postop Eval I Summary: Anesthesia Postop Eval I: Assessment Summary Airway patent Yes 07/14/25 11:41 VIDEO PRODUCTION [email or web address] Spontaneous unlabored Yes 07/14/25 11:41 VIDEO PRODUCTION [email or web address] respirations Mental status Awake 07/14/25 11:41 VIDEO [email or web address] [email or web address] nausea No 07/14/25 11:41 VIDEO PRODUCTION [email or web address] Vomiting No 07/14/25 11:41 VIDEO [email or web address] Anesthesia Postop Eval I: Fluid Summary Crystalloid volume administer 800 07/14/25 11:41 VIDEO [email or web address] [email or web address] (ml) Colloids volume administered ( ml) Blood Product volume administered (ml) Total IV fluid infused 800 07/14/25 11:41 VIDEO [email or web address] [email or web address] Anesthesia Postop Eval I: Summary Notes Anesthesia Complication No 07/14/25 11:41 VIDEO [email or web address] Anesthesia Complication Comment: Post-operative progress note Anesthesia: Postop Eval II Evaluation Mental status: Awake and Calm Pain Level: 1 nausea: No Vomiting: No Complications Anesthesia Complication: No
--- NOTE | 2025-07-14 15:07 | PCM.POSTANE2 ---
Anesthesia Postop Eval I Sum Postop Eval Completion status Anesthesia document: Postop Eval 1 completed: Yes Anesthesia Postop Eval I Summary Anesthesia Postop Eval I Summary: Anesthesia Postop Eval I: Assessment Summary Airway patent Yes 07/14/25 11:41 LEARNING SUPPORT [email or web address] Spontaneous unlabored Yes 07/14/25 11:41 LEARNING SUPPORT [email or web address] respirations Mental status Awake 07/14/25 11:41 LEARNING SUPPORT [email or web address] nausea No 07/14/25 11:41 LEARNING SUPPORT AIDE.[email or web address] Vomiting No 07/14/25 11:41 LEARNING SUPPORT [email or web address] Anesthesia Postop Eval I: Fluid Summary Crystalloid volume administer 800 07/14/25 11:41 LEARNING SUPPORT [email or web address] (ml) Colloids volume administered ( ml) Blood Product volume administered (ml) Total IV fluid infused 800 07/14/25 11:41 LEARNING SUPPORT [email or web address] Anesthesia Postop Eval I: Summary Notes Anesthesia Complication No 07/14/25 11:41 LEARNING SUPPORT [email or web address] Anesthesia Complication Comment: Post-operative progress note Anesthesia: Postop Eval II Evaluation Mental status: Awake and Calm Pain Level: 1 nausea: No Vomiting: No Complications Anesthesia Complication: No
== END 2025-07-14 12:20 | disposition home or self-care (01) ==
LOC: EN 09:44 → AC 09:46
PROVIDERS: PCP Internal Medicine; Referring Provider Internal Medicine; Visit Provider Surgery
PROC: 0DJD8ZZ Inspection of Lower Intestinal Tract, Via Natural or Artificial Opening Endoscopic (ICD-10-PCS; CPT 45378; principal; 2025-07-14 10:55)
DX: K62.5 Hemorrhage of anus and rectum (principal); Z92.21 Personal history of antineoplastic chemotherapy; K64.0 First degree hemorrhoids; E78.00 Pure hypercholesterolemia, unspecified; D64.9 Anemia, unspecified; K22.70 Barrett's esophagus without dysplasia; K22.89 Other specified disease of esophagus; Z90.11 Acquired absence of right breast and nipple; F17.210 Nicotine dependence, cigarettes, uncomplicated; Z85.3 Personal history of malignant neoplasm of breast; K21.9 Gastro-esophageal reflux disease without esophagitis; K31.89 Other diseases of stomach and duodenum; R19.5 Other fecal abnormalities; K63.5 Polyp of colon; K55.20 Angiodysplasia of colon without hemorrhage
CPT/HCPCS: 45380; 43239; 45382; 88305; 88342; C1889

== ENCOUNTER → 2025-09-07 | Outpatient (CLI) | payer MEDICARE, OTHER, SELFPAY ==
[2025-09-07 14:15] LABS: Hematocrit 34.0 % (37-47); Hemoglobin 10.8 g/dL (12.0-15.0); Immature Granulocytes Count 0.020 X10^3/uL (0.0-0.0); Mean Corp Hgb Conc 31.8 g/dL (32-36); Mean Corpuscular Volume 87.2 fL (81-99); Mean Platelet Vol. 8.5 fl (6.2-12.0); NRBC Flagged by Analyzer 0 % (0-5); Platelet Count 382 K/mm3 (150-450); RBC Distribution Width CV 14.3 % (11.6-14.6); RBC Distribution Width SD 46.0 fl (35.1-43.9); Red Blood Count 3.90 M/mm3 (4.2-5.4); White Blood Count 9.2 K/mm3 (4.4-11.0)
[2025-09-07 14:37] LABS: Iron Binding Capacity,Total 426 ug/dL (250-450)
[2025-09-07 14:39] LABS: Iron 28 ug/dL (50-170); Iron Binding Capacity,Unsat 398 ug/dL (228-428)
--- OUTSIDE RECORDS SUMMARY | 2025-09-07 19:00 | XMS RPT_ITS | CCD ---
Author Organization [facility] Care Team Providers Care Customer Professional Name Role Phone LEELA INGRAM MD Primary Care Physician [phone] EDWIN DUNLAP, ADRIAN Attending LEELA Owens MD Primary Care Darlyn Duncan MD, ADRIAN Attending LEELA Owens MD Primary Care Dr. Leela Devine Primary Care Provider [phone] Dr. Leela Ingram Attending Provider [phone] Dr. Leela Ingram Referring Provider [phone] Dr. Leela Ingram Primary Care Provider [phone] Dr. Leela Ingram Attending Provider [phone] Dr. Leela Ingram Referring Provider [phone] Dr. Merissa Best Attending Provider Dr. Merissa Best Other Provider ADRIAN PINEDA MD Attending LEELA Owens MD Primary Care LEELA Devine MD Primary Care ADRIAN Paez MD Attending Dr. Leela Owens MD Primary Care Provider Dr. Leela Ingram MD Attending Provider [phone] Dr. Leela Ingram MD Referring Provider [phone] Dr. Leela Ingram MD Other Provider [phone] Dr. Justin Liu MD Attending Provider Nataly DUNLAP Dr. Salgado Primary Care Physician Nataly DUNLAP, Dr. Salgado Attending Physician [phone] Nataly DUNLAP, Dr. Salgado Nurse Practitioner [phone] Alexa DUNLAP, Dr. Anderson Attending Physician Dr. Caden Lazar DO Attending Physician Dr. Caden Lazar DO Emergency Department Physi dorian Ungerer MANUAL WRITER-C, Louann Attending Physician Ungerer MANUAL WRITER-C, Louann Referring Provider [phone] Opal Rosas PA-C Attending Physician Nasir DUNLAP, Dr. Craven Attending Physician Nasir DUNLAP, Dr. Craven Nurse Practitioner Oleghe, Efewongbe Primary Care Unavailable Ungerer, Louann Referring Unavailable Ungerer, Louann Attending Unavailable Oleghe, Efewongbe Attending Unavailable Oleghe, Efewongbe Primary Care Unavailable Oleghe, Efewongbe Referring Unavailable Oleghe, Efewongbe Primary Care Unavailable Oleghe, Efewongbe Referring Unavailable Oleghe, Efewongbe Attending Unavailable Caden Lazar Attending Unavailable Oleghe, Efewongbe Primary Care Unavailable Merissa Best Attending Unavailable Oleghe, Efewongbe Primary Care Unavailable Oleghe, Efewongbe Referring Unavailable Oleghe, Efewongbe Primary Care Unavailable Oleghe, Efewongbe Referring Unavailable Malvin Barnett Attending Unavailable Mary Jo Bartlett Attending Unavailable Oleghe, Efewongbe Primary Care Unavailable Oleghe, Efewongbe Referring Unavailable Oleghe, Efewongbe Consulting Unavailable Oleghe, Efewongbe Primary Care Unavailable Oleghe, Efewongbe Referring Unavailable Justin Liu Attending Unavailable Merissa Best Attending Unavailable Merissa Best Consulting Unavailable Oleghe, Efewongbe Primary Care Unavailable Oleghe, Efewongbe Referring Unavailable Oleghe, Efewongbe Primary Care Unavailable Oleghe, Efewongbe Referring Unavailable Oleghe, Efewongbe Attending Unavailable Opal Nowak Attending Unavailable Oleghe, Efewongbe Primary Care Unavailable Oleghe, Efewongbe Referring Unavailable Oleghe, Efewongbe Primary Care Unavailable Oleghe, Efewongbe Referring Unavailable Louann Washington Attending Unavailable Oleghe, Efewongbe Primary Care Unavailable Oleghe, Efewongbe Referring Unavailable Oleghe, Efewongbe Attending Unavailable Oleghe, Efewongbe Attending Unavailable Oleghe, Efewongbe Primary Care Unavailable Oleghe, Efewongbe Referring Unavailable Allergies Allergy Classification Reported Allergen(s) Allergy Type Date of Onset Reaction(s) Facility (14 sources) Penicillins; Translations: [Penicillins] Allergy to substance 2 Swelling [facility] (2 sources) Penicillin; Translations: [penicillin] Drug Allergy as a young child, thinks she had swelling [facility] Medications Current Medications Medication Drug Class(es) Dates Sig (Normalized) Sig (Original) boswalia (3 sources) Start: 03-24-2025 boswalia Active PO DAILY March 24, 2025 12:00am joint pain daily cholecalciferol 0.05 mg oral capsule (13 sources) Vitamin D Start: 10-09-2020 take 1 capsule by mouth once daily Fish Oils (2 sources) Start: 07-15-2023 Fish [...] 0 Refill(s) Start Date: 07/15/23 Status: Ordered Vc-Gvq-Qsupn-Calcium Carb-K1 (5 sources) Start: 12-07-2018 Co-Luk-Ljpjl-C alcium Carb-K1 Active 1 EACH PO DAILY December 07, 2018 12:00am Start: 12-07-2018 Ko-Kup-Otcwo-C alcium Carb-K1 Active 1 EACH PO DAILY December 07, 2018 1:00am Eh-Ifx-Yzopk-Calcium Carb-K1 1 EACH tablet (8 sources) Start: 12-07-2018 take 1 tablet by yadira th once daily Start: 12-07-2018 take 1 tablet by yadira th once daily Lf-Tfa-Dxmup-Calcium Carb-K1 1 EACH tablet Active 1 NMA PO DAILY December 07, 2018 1:00am SUPPLEMENT Start: 12-07-2018 take 1 tablet by yadira th once daily Vt-Cpm-Nuuda-Calcium Carb-K1 1 EACH tablet Active 1 NMA PO DAILY December 07, 2018 1:00am [place]-3 Fatty Acids (5 sources) Start: 12-07-2018 take 2000 mg by mout h once daily [place]-3 Fatty Acids Active 2000 MG PO DAILY December 07, 2018 12:00am Start: 12-07-2018 take 2000 mg by mouth once ciera ly [place]-3 Fatty Acids Active 2000 MG PO DAILY December 07, 2018 1:00am [place]-3 Fatty Acids 1,000 MG capsule (8 sources) Start: 12-07-2018 take 1 capsule by mo ut once daily Start: 12-07-2018 take 1 capsule by mo uth once daily [place]-3 Fatty Acids 1,000 MG capsule Active 2000 mg PO DAILY December 07, 2018 1:00am SUPPLEMENT Start: 12-07-2018 take 1 capsule by mo uth once daily [place]-3 Fatty Acids 1,000 MG capsule Active 2000 mg PO DAILY December 07, 2018 1:00am pantoprazole 40 mg delayed release oral tablet (20 sources) Proton Pump Inhibitor Start: 07-14-2025 take 1 tablet by mouth once daily Start: 07-14-2025 take 1 tablet by yadira th once daily Start: 07-14-2025 take 1 tablet by yadira th once daily Start: 07-14-2025 take 1 tablet by yadira th once daily Start: 07-07-2025 End: 07-10-2025 take 40 mg by mouth once daily Pantoprazole (Protonix) [address] for susp in packet Discontinued 40 mg PO DAILY 30 30 0 July 07, 2025 12:00am July 10, 2025 2:57pm Start: 02-15-2024 End: 07-07-2025 take 1 tablet by mouth once daily 30 minutes before breakfast Pantoprazole 40 mg tablet,delayed release (DR/EC) Discontinued 40 mg PO DAILY 90 3 March 24, 2025 1:20pm July 07, 2025 1:17pm Take 30 minutes before breakfast Vitamin D3 (2 sources) Start: 07-15-2023 Vitamin D3 qDa y, 0 Refill(s) Start Date: 07/15/23 Status: Ordered Repeat number: 1 Start: 07-15-2023 Vitamin D3 qDa y, 0 Refill(s) Start Date: 07/15/23 Status: Ordered Completed/Discontinued Medications Medication Drug Class(es) Dates Sig (Normalized) Sig (Original) boswal[place] 500 mg capsule (5 sources) Start: 03-24-2025 End: 07-10-2025 take 1 capsule by mouth once daily [place] 500 mg capsule Discontinued 500 mg PO DAILY March 24, 2025 12:00am July 10, 2025 2:56pm joint pain daily 24 hr nicotine 0.875 mg/hr transdermal system (11 sources) Cholinergic Nicotinic Agonist Start: 07-17-2023 End: 02-10-2024 apply 1 dose transdermal route every twenty-four hours Nicotine 21 mg/24 hr patch 24 hour Discontinued 1 NMA TD Q24H 16 12July 17, 2023 12:00am February 10, 2024 2:01pm Start: 07-17-2023 End: 02-10-2024 apply 1 dose transdermal route every twenty-four hours Nicotine Discontinued 1 PATCH TD Q24H July 17, 2023 12:00am February 10, 2024 2:01pm olopatadine 2 mg/ml ophthalmic solution (11 sources) Histamine-1 Receptor Inhibitor Start: 07-17-2023 End: 07-07-2025 take 0.2 drop(s) into the eye(s) once daily in the morning as needed Olopatadine (Pataday Once Daily Relief) 0.2 % drops Discontinued 1 NMA OPHTHALMIC EVERY MORNING as needed for itching July 17, 2023 12:00am July 07, 2025 1:17pm Start: 07-17-2023 take 0.2 drop(s) int o the eye(s) once daily in the morning Olopatadine (Pataday Once Daily Relief) 0.2 % drops Active 1 DRP OPHTHALMIC EVERY MORNING July 17, 2023 12:00am omeprazole 40 mg delayed release oral capsule (20 sources) Proton Pump Inhibitor Start: 11-05-2023 End: [...] 2018 1:00am October 25, 2020 6:57pm GERD sucralfate 1000 mg oral tablet (10 sources) Aluminum Complex Start: 02-15-2024 End: 04-28-2024 take 1 tablet by mouth four times daily 1 hour(s) before bedtime Sucralfate 1 gram tablet Discontinued 1 g PO 4 TIMES DAILY 56 0 February 15, 2024 12:00am April 28, 2024 1:53pm Take 1 hour before meals and at bedtime Problems Active Problems Problem Classification Problem Date Documented Da te Episodic/Chronic Allergic reactions (9 sources) Allergic reaction; Translations: [Allergy, unspecified, initial encounter] 02-25-2024 Episodic Disorders of lipid metabolism (20 sources) Hyperlipidemia; Translations: [Hyperlipidemia, unspecified] Onset: 5 07-17-2023 Chronic Esophageal disorders (20 sources) Sol's esophagus; Translations: [Sol's esophagus without dysplasia] 11-05-2023 Chronic Essential hypertension (17 sources) Hypertensive disorder; Translations: [Essential (primary) hypertension] Onset: 5 04-28-2024 Chronic Gastritis and duodenitis (20 sources) Chronic gastritis; Translations: [Unspecified chronic gastritis without bleeding] Onset: 5 03-24-2025 Chronic Gastrointestinal hemorrhage (20 sources) Gastrointestinal hemorrhage; Translations: [Gastrointestinal hemorrhage, unspecified] Onset: 5 Episodic Gastrointestinal hemorrhage (5 sources) Gastrointestinal hemorrhage Nonmalignant breast conditions (1 source) Other specified disorders of breast; Translations: [Other specified disorders of breast] Onset: 5 Episodic Other and unspecified benign neoplasm (10 sources) History of polyp of colon; Translations: [Personal history of colonic polyps] 12-09-2023 Episodic Other and unspecified benign neoplasm (4 sources) Personal history of colonic polyps; Translations: [Personal history of colonic polyps] 12-09-2023 Episodic Other bone disease and musculoskeletal deformities (19 sources) Osteopenia; Translations: [Other specified disorders of bone density and structure, unspecified site] 11-05-2023 Episodic Other bone disease and musculoskeletal deformities (1 source) Other specified disorders of bone density and structure, left thigh; Translations: [Other specified disorders of bone density and structure, left thigh] Onset: 5 Episodic Other connective tissue disease (10 sources) Muscle pain; Translations: [Myalgia, other site] 07-10-2025 Episodic Other connective tissue disease (1 source) Myalgia, other site; Translations: [Myalgia, other site] Onset: 5 Episodic Other female genital disorders (2 sources) Dysplasia of cervix uteri, unspecified; Translations: [Dysplasia of cervix uteri, unspecified] Onset: 3 Episodic Other lower respiratory disease (1 source) Shortness of breath; Translations: [Shortness of breath] Onset: 5 Episodic Other non-traumatic joint disorders (11 sources) Effusion of right knee joint; Translations: [Effusion, right knee] 07-27-2023 Episodic Other non-traumatic joint disorders (11 sources) Pain in right knee; Translations: [Right knee pain] 07-17-2023 Episodic Other screening for suspected conditions (not mental disorders or infectious disease) (20 sources) Patient encounter status; Translations: [Encounter for screening for malignant neoplasm of respiratory organs] Onset: 5 10-22-2021 Episodic Other skin disorders (9 sources) Facial swelling ; Translations: [Localized swelling, mass and lump, head] 02-25-2024 Episodic Residual codes; unclassified (15 sources) Family history of cancer of colon; Translations: [Family history of malignant neoplasm of digestive organs] 12-09-2023 Episodic Comment on above: Sister diagnosed at age 61 Residual codes; unclassified (4 sources) Family history of malignant neoplasm of digestive organs; Translations: [Family history of malignant neoplasm of gastrointestinal tract] 12-09-2023 Episodic Substance-related disorders (18 sources) Tobacco dependence, continuous; Translations: [Nicotine dependence, unspecified, with unspecified nicotine-induced disorders] Onset: 07-17-2023 Chronic Unclassified (1 source) Mammographic fibroglandular density, left breast; Translations: [Mammographic fibroglandular density, left breast] Onset: Past or Other Problems Problem Classification Problem Date Documented Da te Episodic/Chronic Other bone disease and musculoskeletal deformities (4 sources) Other specified disorders of bone density and structure, unspecified site; Translations: [Disorder of bone and cartilage, unspecified] Onset: 04-05-2025 11-05-2023 Episodic Unclassified (11 sources) [place] 05-09-2022 Results Test Name Value Interpretation Reference Range Facility Colonoscopy Reporton 025 Colonoscopy Report [facility] Medical Records Department [address] [place] [address] Colonoscopy Report MR#: [id number] Acct: [id number] Name: DANIELLE BERRY Rep #: [id number] : 1960 64 From: Merissa Best MD PCP: Dr. Leela Ingram MD Status:[facility] Patient Name: Danielle Berry Procedure Date: 07/14/2025 11:16 AM Date of : 1960 Age: 64 Procedure: Colonoscopy Indications: Rectal bleeding Providers: Merissa Best MD Medicines: Monitored Anesthesia Care Patient Profile: This is a 64 year old female. Last Colonoscopy: 2023. Complications: No immediate complications. Procedure: Pre-Anesthesia Assessment: - Prior to the procedure, a History and Physical was performed, and patient medications and allergies were reviewed. The patient's tolerance of previous anesthesia was also reviewed. The risks and benefits of the procedure and the sedation options and risks were discussed with the patient. All questions were answered, and informed consent was obtained. Prior Anticoagulants: The patient has taken no anticoagulant or antiplatelet agents. ASA Grade Assessment: Per anesthesia. After reviewing the risks and benefits, the patient was deemed in satisfactory condition to undergo the procedure. After I obtained informed consent, the scope was passed under direct vision. Throughout the procedure, the patient's blood pressure, pulse, and oxygen saturations were monitored continuously. The colonoscope was introduced through the anus and advanced to the cecum, identified by the appendiceal orifice, ileocecal valve and palpation. The colonoscopy was performed without difficulty. The patient tolerated the procedure well. The quality of the bowel preparation was good. Scope In: 11:17:43 AM Scope Withdrawal Time 0 hours 14 minutes 20 seconds Scope Out: 11:41:14 AM Total Procedure Duration Time 0 hours 23 minutes 31 seconds Findings: A less than 5 mm polyp was found in the sigmoid colon. The polyp was sessile. The polyp was removed with a cold biopsy forceps. Resection and retrieval were complete. A few small angioectasias with bleeding on contact were found in the cecum. Coagulation for bleeding prevention using bipolar probe was successful. The exam was otherwise without abnormality. Non-bleeding internal hemorrhoids were found [Method Found]. The hemorrhoids were Grade I (internal hemorrhoids that do not prolapse). Impression: - One less than 5 mm polyp in the sigmoid colon, removed with a cold biopsy forceps. Resected and retrieved. - A few colonic angioectasias. Treated with bipolar cautery. - The examination was otherwise normal. - Non-bleeding internal hemorrhoids. Recommendation: - Discharge patient to home. - Resume previous diet. - Continue present medications. - Await pathology results. - Repeat colonoscopy in 3 years for surveillance based on pathology results. - If having additional bleeding will need to go to ER and have colonoscopy at that time likely by GI; if colon isn't the source may need capsule endoscopy. Procedure Code(s): --- Professional --- 04080, 59, Colonoscopy, flexible; with control of bleeding, any method 85734, Colonoscopy, flexible; with biopsy, single or multiple Diagnosis Code(s): --- Professional --- D12.5, Benign neoplasm of sigmoid colon K55.20, Angiodysplasia of colon without hemorrhage K62.5, Hemorrhage of anus and rectum CPT copyright 2021 [employer]. All rights reserved. The codes documented in this report are preliminary and upon library paraprofessional review may be revised to meet current compliance requirements. MD Merissa Sun MD 07/14/2025 11:57:13 AM This report has been signed electronically. Number of Addenda: 0 Note Initiated On: 07/14/2025 11:16 AM 07/14/25 1157 Date Merissa Best MD Cosigner Signature: Date (if indicated) CC: Dr. Leela Ingram MD; Dr. Merissa Best MD Date Dictated: 07/14/25 1116 Date Transcribed: Take Out Waiter: GRETEL Signed [facility] EGD Reporton 07-14-2025 EGD Report [facility] Medical Records Department [address] [place] [address] EGD Report MR#: [id number] Acct: [id number] Name: DANIELLE BERRY Rep #: [id number] : 1960 64 From: Merissa Best MD PCP: Dr. Leela Ingram MD Status:[facility] Patient Name: Danielle Berry Procedure Date: 07/14/2025 11:04 AM Date of : 1960 Age: 64 Procedure: Upper GI endoscopy Indications: Occult blood in stool, Sol's esophagus Providers: Merissa Best MD Medicines: Monitored Anesthesia Care Patient Profile: This is a 64 year old female. Complications: No immediate complications. Procedure: Pre-Anesthesia Assessment: - Prior to the procedure, a History and Physical was performed, and patient medications and allergies were reviewed. The patient's tolerance of previous anesthesia was also reviewed. The risks and benefits of the procedure and the sedation options and risks were discussed with the patient. All questions were answered, and informed consent was obtained. Prior Anticoagulants: The patient has taken no anticoagulant or antiplatelet agents. ASA Grade Assessment: Per anesthesia. After reviewing the risks and benefits, the patient was deemed in satisfactory condition to undergo the procedure. After obtaining informed consent, the endoscope was passed under direct vision. Throughout the procedure, the patient's blood pressure, pulse, and oxygen saturations were monitored continuously. The colonoscope was introduced through the mouth, and advanced to the second part of duodenum. The upper GI endoscopy was accomplished without difficulty. The patient tolerated the procedure well. Scope In: 11:10:02 AM Scope Out: 11:16:35 AM Total Procedure Duration Time 0 hours 6 minutes 33 seconds Findings: The Z-line was irregular. Biopsies were taken with a cold forceps for histology. The examined duodenum was normal. Mildly erythematous mucosa without bleeding was found in the gastric antrum. The cardia and gastric fundus were normal on retroflexion. Impression: - Z-line irregular. Biopsied. - Normal examined duodenum. - Erythematous mucosa in the antrum. Recommendation: - Await pathology results. - Discharge patient to home. - Resume previous diet. - Use Protonix (pantoprazole) 40 mg PO daily. - Continue present medications. Procedure Code(s): --- Professional --- 31282, Esophagogastroduodenoscopy, flexible, transoral; with biopsy, single or multiple Diagnosis Code(s): --- Professional --- K22.89, Other specified disease of esophagus K22.70, Sol's esophagus without dysplasia K31.89, Other diseases of stomach and duodenum R19.5, Other fecal abnormalities CPT copyright 2021 [employer]. All rights reserved. The codes documented in this report are preliminary and upon library paraprofessional review may be revised to meet current compliance requirements. MD Merissa Sun MD 07/14/2025 11:48:48 AM This report has been signed electronically. Number of Addenda: 0 Note Initiated On: 07/14/2025 11:04 AM 07/14/25 1149 Date Merissa Villegaser Signature: Date (if indicated) CC: Dr. Leela Ingram MD; Dr. Merissa Best MD Date Dictated: 07/14/25 1104 Date Transcribed: Take Out Waiter: GRETEL Signed [facility] Immunohistochemical Stainson 07-14-2025 Immunohistochemical Stains Patient Age/Sex Location Account Attending Physician DANIELLE BERRY 64/F EN [id number] Dr. Merissa Best MD Specimen: [id number] Received: 07/14/25 Status: NEDA Marla Num: [id number] Spec Type: COLON BX Subm Dr: Dr. Merissa Best MD HEADER OPERATION: Colonoscopy, EGD PRE-OP DIAGNOSIS: GI bleed, family history of colon cancer, GERD TISSUE SUBMITTED: A- GE junction biopsy, B- Sigmoid polyp biopsy MICROSCOPIC DIAGNOSIS A. Esophagus, GE junction, biopsy: - Columnar mucosa with goblet cell metaplasia - see note. - Focal scant benign squamous mucosa. - IHC negative for H.pylori organisms. Note: The diagnosis depends on the location of the biopsy and the extent of the mucosal irregularity. If the biopsy originates from the tubular esophagus and the mucosal irregularity extends at least 1 cm above the top of the gastric folds, this represents Sol mucosa. If the biopsy originates from the gastric cardia and or the mucosal irregularity is less than 1 cm in extent, this represents intestinal metaplasia. B. Sigmoid colon, polyp, biopsy: * Hyperplastic polyp. MICROSCOPIC DESCRIPTION Slides are reviewed. All matched controls reacted appropriately. These tests were developed and their performance characteristics determined by [facility]. They may not have been cleared or approved by the U.S. Food and Drug Administration. The FDA has determined that such clearance or approval is not necessary. The above immunohistochemical markers and/or special stains have been reviewed by the Pathologist.. GROSS DESCRIPTION A. Received in fixative is one container labeled with the patient's name and designated "GE junction biopsy." The specimen consists of one irregular fragment of kennedy tissue that measures 0.4 cm. The specimen is totally submitted in one cassette. B. Received in fixative is one container labeled with the patient's name and designated "Sigmoid polyp biopsy." The specimen consists of one irregular fragment of kennedy tissue that measures 0.5 cm. The specimen is totally submitted in one cassette. [place] 07/14/2025 [facility]:[id number] Patient Age/Sex Location Account Attending Physician DANIELLE BERRY 64/F EN [id number] Dr. Merissa Best MD Signed (signature on file) Dr. Sasha Cruz MD 07/25/25 0820 Normal [facility] Comment on above: Performed By: #### P NAHID ####[facility] [id number] [place], [address] MR/OP.[facility] 07-14-2025 [facility] Medical Records Department [address] [place] [address] Provation Physician Letter MR#: [id number] Acct: [id number] Name: DANIELLE BERRY Rep #: [id number] : 1960 64 From: Merissa Best MD PCP: Dr. Leela Ingram MD Status:[facility] [place] 07/14/2025 Leela Ingram MD [address] [place] [address] [place] [address] Re : Colonoscopy procedure for Danielle Berry Dear Dr. Ingram This procedure was performed on Monday, July 14, 2025. My impressions and recommendations are as follows: Impressions : - One less than 5 mm polyp in the sigmoid colon, removed with a cold biopsy forceps. Resected and retrieved. - A few colonic angioectasias. Treated with bipolar cautery. - The examination was otherwise normal. - Non-bleeding internal hemorrhoids. Recommendations : - Discharge patient to home. - Resume previous diet. - Continue present medications. - Await pathology results. - Repeat colonoscopy in 3 years for surveillance based on pathology results. - If having additional bleeding will need to go to ER and have colonoscopy at that time likely by GI; if colon isn't the source may need capsule endoscopy. My findings are described in the full procedure note, which is enclosed. If I can be of further assistance, please feel free to contact me at Doctor phone number(s): , Work: . Sincerely, MD Merissa Sun MD 07/14/2025 11:57:13 AM This report has been signed electronically. 07/14/25 1157 Date Merissa Best MD Cosigner Signature: Date (if indicated) CC: Dr. Leela Ingram MD; Dr. Merissa Best MD Date Dictated: 07/14/25 1116 Date Transcribed: Take Out Waiter: TR Signed [facility] MR/OP.[facility] Medical Records Department [address] [facility] [address] Provation Physician Letter MR#: [id number] Acct: [id number] Name: DANIELLE BERRY Rep #: [id number] : 1960 64 From: Merissa Best MD PCP: Dr. Leela Ingram MD Status:REG [facility] 07/14/2025 Leela Ingram MD [address] [place] [address] [place] [address] Re : Upper GI endoscopy procedure for Danielle Berry Dear Dr. Ingram This procedure was performed on Monday, July 14, 2025. My impressions and recommendations are as follows: Impressions : - Z-line irregular. Biopsied. - Normal examined duodenum. - Erythematous mucosa in the antrum. Recommendations : - Await pathology results. - Discharge patient to home. - Resume previous diet. - Use Protonix (pantoprazole) 40 mg PO daily. - Continue present medications. My findings are described in the full procedure note, which is enclosed. If I can be of further assistance, please feel free to contact me at Doctor phone number(s): , Work: . Sincerely, MD Merissa Sun MD 07/14/2025 11:48:48 AM This report has been signed electronically. 07/14/25 1149 Date Merisas Best MD Cosigner Signature: Date (if indicated) CC: Dr. Leela Ingram MD; Dr. Merissa Best MD Date Dictated: 07/14/25 1104 Date Transcribed: Take Out Waiter: TR Signed [facility] MR/POSTOP.TIM 07-14-2025 MR/POSTOP.[facility] Medical Records Department [address] [facility] [place] [address] Anesthesia Postop Eval I 07/14/25 1140 MR#: [id number] Acct: [id number] Name: DANIELLE BERRY Rep #: [id number] : 1960 64 From: Desiree Plummer CRNA PCP: Dr. Leela Ingram MD Status:[facility] Y Race: C Location: [place] [address] Anesthesia: Postop Eval I Current Vital Signs Temperature: 97 F Pulse Rate: 77 Blood Pressure: 98/52 Respiratory Rate: 14 Pulse Ox: 97 Oxygen Delivery Method: Room Air Assessment Airway patent: Yes Spontaneous unlabored respirations: Yes Mental status: Awake nausea: No Vomiting: No Anesthesia Complication: No Fluid Hydration Crystalloid volume administer (ml): 800 Total IV fluid infused: 800 Progress Note Anesthesia document: Postop Eval 1 completed: Yes 07/14/25 1146 Date Desiree Plummer DEPARTMENT MGR Cosigner Signature: Date CC: Signed Normal [facility] MR/IGMDJGRO9mj 07-14-2025 MR/POSTOPAN2 [facility] Medical Records Department [address] [facility] [place] [address] Anesthesia Postop Eval II 07/14/25 1507 MR#: [id number] Acct: [id number] Name: DANIELLE BERRY Rep #: [id number] : 1960 64 From: Bryce Lopez MD PCP: Dr. Leela Ingram MD Status:[facility] Y Race: C Location: EN Anesthesia Postop Eval I Sum Postop Eval Completion status Anesthesia document: Postop Eval 1 completed: Yes Anesthesia Postop Eval I Summary Anesthesia Postop Eval I Summary: Anesthesia Postop Eval I: Assessment Summary Airway patent Yes 07/14/25 11:41 DEPARTMENT MGR.HBARR Spontaneous unlabored Yes 07/14/25 11:41 DEPARTMENT MGR.HBARR respirations Mental status Awake 07/14/25 11:41 DEPARTMENT MGR.HBARR nausea No 07/14/25 11:41 DEPARTMENT MGR.HBARR Vomiting No 07/14/25 11:41 DEPARTMENT MGR.HBARR Anesthesia Postop Eval I: Fluid Summary Crystalloid volume administer 800 07/14/25 11:41 DEPARTMENT MGR.HBARR (ml) Colloids volume administered ( ml) Blood Product volume administered (ml) Total IV fluid infused 800 07/14/25 11:41 DEPARTMENT MGR.HBARR Anesthesia Postop Eval I: Summary Notes Anesthesia Complication No 07/14/25 11:41 DEPARTMENT MGR.HBARR Anesthesia Complication Comment: Post-operative progress note Anesthesia: Postop Eval II Evaluation Mental status: Awake and Calm Pain Level: 1 nausea: No Vomiting: No Complications Anesthesia Complication: No 07/14/25 1507 Date Bryce Lopez MD Cosigner Signature: Date CC: Signed Normal [facility] MR/PATCHERELLEon 07-12-2025 /PAT.[facility] Medical Records Department [address] [place] [address] PAT - Anesthesia 07/12/25 1457 MR#: [id number] Acct: [id number] Name: DANIELLE BERRY Rep #: [id number] : 1960 64 From: Bryce Lopez MD PCP: Dr. 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 Female Yes 07/12/25 08:43 HX of Motion [...] 07/10/25 15:02 Respiratory Assessment Respiratory Assessment - 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: Respiratory Tract Infection Hx - 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 Hx Respiratory Tract Infection No 07/12/25 08:43 STOP Sleep Apnea STOP Sleep Apnea - 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: STOP Sleep Apnea - 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 Hx Hypertension No 07/12/25 08:43 Hx Sleep [...] Tobacco Use History Tobacco Use History - 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: Tobacco Use History - 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 Tobacco Use Smoking Status Current every day smoker 07/12/25 08:43 Hx Tobacco Use Yes 07/12/25 08:43 Years Smoking Packs Smoked per Day Smoking Cessation Date was within the last 15 years Hx Smoking Cessation Date Hx Smoking Cessation Counseling Hematologic Medial History Hematologic Hx - 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: Hematologic 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??Type hfnguxdl-ctn-quhsw ac 400 1 ea PO DAILY SUPPLEMENT [...] Thyroid disorde (more content not included)... Normal [facility] Surgery Visit Reporton 07-12 Surgery Visit Report [facility] 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 She notes her insurance since detention has been a struggle to figure out. [...] She not (more content not included)... Normal [facility] Absolute lymphocyte countOrd ered By: Louann Washington on 07-10-2025 Lymphocytes Auto (Unsp spec) [#/Vol] 3.69 10*3/uL 0.83-4.51 [facility] Absolute neutrophil countOrd ered By: [facility] Padmini on 07-10-2025 Neutrophils (Bld) [#/Vol] 4.0 10*3/uL 2.0-7.7 [facility] Anion gap in Serum or Plasma Ordered By: Louannrebeka Washington on 07-10-2025 Anion gap [Moles/Vol] 12 mmol/L 5-15 [facility] Automated lymphocyte count a s percentage of total leukocytesOrdered By: Louannrebeka Washington on 07-10-2025 Lymphocytes/100 WBC Auto (Unsp spec) 43.1 % High 19-41 [facility] BUN/creatinine ratioOrdered By: Louannrebeka Washington on 07-10-2025 Urea nitrogen/Creatinine [Mass ratio] 14.2 mg/mg 10-20 [facility] Basophil percentageOrdered B y: Louannrebeka Washington on 07-10-2025 Basophils/100 WBC (Bld) 0.6 % 0-1 [facility] Bilirubin, totalOrdered By: Louannrebeka Washington on 07-10-2025 Bilirubin [Mass/Vol] mg/dL 0.00-1.30 [facility] CBC W/Diff, Automatedon 06-20 Absolute Lymph 3.69 X10 3/uL Normal 0.83-4.51 [facility] Comment on above: Performed By: #### L 100.0100, L500.4050 ####[facility] [address] [place], [address] Absolute Neut 4.0 X10 3/uL Normal 2.0-7.7 [facility] Comment on above: Performed By: #### L 100.0100, L500.4050 ####[facility] [address] [place], [address] Basophils/100 WBC (Bld) 0.6 % Normal 0-1 [facility] Comment on above: Performed By: #### L 100.0100, L500.4050 ####[facility] [address] [place], [address] Eosinophils/100 WBC (Bld) 2.8 % Normal 0-5 [facility] Comment on above: Performed By: #### L 100.0100, L500.4050 ####[facility] [address] [place], [address] Erythrocyte distribution width (RBC) [Ratio] 14.3 % Normal 11.6-14.6 [facility] Comment on above: Performed By: #### L 100.0100, L500.4050 ####[facility] [address] [place], [address] Hematocrit (Bld) [Volume fraction] 25.0 % Low 37-47 [facility] Comment on above: Performed By: #### L 100.0100, L500.4050 ####[facility] [address] [place], [address] Hemoglobin (Bld) [Mass/Vol] 8.2 g/dL Low 12.0-15.0 [facility] Comment on above: Performed By: #### L 100.0100, L500.4050 ####[facility] [address] [place], [address] IG% 0.200 Normal 0.0-0.9 [facility] Comment on above: Result Comment: IG% - Immature Granulocytes (promyelocytes, myelocytes and metamyelocytes) > 1% indicates that a LEFT SHIFT is Present. Performed By: #### L 100.0100, L500.4050 ####[facility] [address] [place], [address] Lymphocytes/100 WBC (Bld) 43.1 % High 19-41 [facility] Comment on above: Performed By: #### L 100.0100, L500.4050 ####[facility] [address] [place], [address] MCH (RBC) [Entitic mass] 30.8 pg Normal 27.0-32.0 [facility] Comment on above: Performed By: #### L 100.0100, L500.4050 ####[facility] [address] [place], [address] MCHC (RBC) [Mass/Vol] 32.8 g/dL Normal 32-36 [facility] Comment on above: Performed By: #### L 100.0100, L500.4050 ####[facility] [address] [place], [address] MCV (RBC) [Entitic vol] 94.0 fL Normal 81-99 [facility] Comment on above: Performed By: #### L 100.0100, L500.4050 ####[facility] [address] [place], [address] Monocytes/100 WBC (Bld) 6.2 % Normal 0-10 [facility] Comment on above: Performed By: #### L 100.0100, L500.4050 ####[facility] [address] [place], [address] Neutrophils/100 WBC (Bld) 47.1 % Normal 47-70 [facility] Comment on above: Performed By: #### L 100.0100, L500.4050 ####[facility] [address] [place], [address] Nucleated RBC (Bld) [#/Vol] 0 10*3/uL Normal 0-5 [facility] Comment on above: Performed By: #### L 100.0100, L500.4050 ####[facility] [address] [place], [address] Platelet mean volume (Bld) [Entitic vol] 8.6 fL Normal 6.2-12.0 [facility] Comment on above: Performed By: #### L 100.0100, L500.4050 ####[facility] [address] [place], [address] Platelets (Bld) [#/Vol] 358 10*3/uL Normal 150-450 [facility] Comment on above: Performed By: #### L 100.0100, L500.4050 ####[facility] [address] [place], [address] RBC (Bld) [#/Vol] 2.66 10*6/uL Low 4.2-5.4 [facility] Comment on above: Performed By: #### L 100.0100, L500.4050 ####[facility] [address] [place], [address] RDW SD 48.2 fl High 35.1-43.9 [facility] Comment on above: Performed By: #### L 100.0100, L500.4050 ####[facility] [address] [place], [address] WBC (Bld) [#/Vol] 8.6 10*3/uL Normal 4.4-11.0 [facility] Comment on above: Performed By: #### L 100.0100, L500.4050 ####[facility] [address] [place], [address] Carbon dioxide, total [Moles /volume] in Central venous bloodOrdered By: Louann Washington on 07-10-2025 CO2 [Moles/Vol] 21.6 mmol/L Normal 21.0-32.0 [facility] Comment on above: Performed By: #### L 100.0100, L500.4050 ####[facility] [address] [place], [address] Chloride assayOrdered By: Hoang Drummondr on 07-10-2025 Chloride [Moles/Vol] 107 mmol/L Normal 98-108 [facility] Comment on above: Performed By: #### L 100.0100, L500.4050 ####[facility] [address] [place], [address] Comprehensive Metabolic Prof ilon 07-10-2025 ALK PHOS 64 U/L Normal 35-104 [facility] Comment on above: Performed By: #### L 100.0100, L500.4050 ####[facility] [address] [place], [address] BUN/CRE 14.2 RATIO Normal 10-20 [facility] Comment on above: Performed By: #### L 100.0100, L500.4050 ####[facility] [address] [place], [address] GAP 12 Normal 5-15 [facility] Comment on above: Performed By: #### L 100.0100, L500.4050 ####[facility] [address] [place], [address] Potassium [Moles/Vol] 4.2 mmol/L Normal 3.3-5.1 [facility] Comment on above: Performed By: #### L 100.0100, L500.4050 ####[facility] [address] [place], [address] T BILI < 0.15 Normal 0.00-1.30 [facility] Comment on above: Performed By: #### L 100.0100, L500.4050 ####[facility] [address] [place], [address] T PROT 6.5 g/dL Normal 5.9-8.4 [facility] Comment on above: Performed By: #### L 100.0100, L500.4050 ####[facility] [address] [place], [address] Comprehensive Metabolic Prof ilOrdered By: Louann Washington on 07-10-2025 AST [Catalytic activity/Vol] 19 U/L Normal <=31 [facility] Comment on above: Performed By: #### L 100.0100, L500.4050 ####[facility] [address] [place], [address] Eosinophil percentageOrdered By: Louann Washington on 07-10-2025 Eosinophils/100 WBC (Bld) 2.8 % 0-5 [facility] Erythrocyte distribution wid th ratioOrdered By: Louannrebeka Washington on 07-10-2025 Erythrocyte distribution width (RBC) [Ratio] 14.3 % 11.6-14.6 [facility] Erythrocyte distribution wid th standard deviationOrdered By: Louannrebeka Washington on 07-10-2025 Erythrocyte distribution width (RBC) [Ratio] 48.2 fl High 35.1-43.9 [facility] Glomerular filtration rate ( GFR) estimation/1.73 sq m using serum, plasma, or whole bOrdered By: Louann Washington on 07-10-2025 GFR/1.73 sq M.predicted among non-blacks MDRD (S/P/Bld) [Vol rate/Area] 87 mL/min/{1.73_m2} Normal >60 [facility] Comment on above: mL/min/1.73m2 CKD-EP I Creatinine Equation (2020) Result Comment: mL/m in/1.73m2 CKD-EPI Creatinine Equation (2020) Performed By: #### L 100.0100, L500.4050 ####[facility] [address] [place], [address] Hematocrit Auto (Bld) [Volum e fraction]Ordered By: oLuann Washington on 07-10-2025 Hematocrit (Bld) [Volume fraction] 25.0 % Low 37-47 [facility] Hemoglobin measurementOrdere d By: Louann Washington on 07-10-2025 Hemoglobin (Bld) [Mass/Vol] 8.2 g/dL Low 12.0-15.0 [facility] Immature granulocytes/100 WB C Auto (Bld)Ordered By: Louann Washington on 07-10-2025 Immature granulocytes/100 WBC (Bld) 0.200 % 0.0-0.9 [facility] Comment on above: IG% - Immature Granu locytes (promyelocytes, myelocytes and metamyelocytes) > 1% indicates that a LEFT SHIFT is Present. Internal Medicine Office Vis iton 07-10-2025 Internal Medicine Office Visit [facility] [place] [address] [place] [address] OFFICE VISIT Date of Service: 07/10/25 MR#: [id number] Acct: [id number] Name: DANIELLE BERRY Rep #: [id number] : 1960 Provider: CHIRAG moser Age/Sex: 64/F Location: [facility] Status: Signed Intake Vital Signs 07/07/25 11:22 07/10/25 15:02 Height 5 ft 4 in 5 ft 4 in Weight: 161 lb BMI 27.6 BP 158/72 H Blood Pressure Location Lt brachial Position Sitting Respiration 16 Pulse 80 Pulse Source Monitor Temp 97.8 F Temp Source Temporal Pulse Oximetry (%) 99 Oxygen Delivery Method room air 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 Normal [facility] MCV (mean corpuscular volume ) determinationOrdered By: Louann Washington on 07-10-2025 MCV (RBC) [Entitic vol] 94.0 fL 81-99 [facility] Mean corpuscular hemoglobin (MCH) determinationOrdered By: Louann Washington on 07-10-2025 MCH (RBC) [Entitic mass] 30.8 pg 27.0-32.0 [facility] Mean corpuscular hemoglobin concentration (MCHC) determinationOrdered By: Louann Washington on 07-10-2025 MCHC (RBC) [Mass/Vol] 32.8 g/dL 32-36 [facility] Mean platelet volume determi nationOrdered By: Louann Washington on 07-10-2025 Platelet mean volume (Bld) [Entitic vol] 8.6 fL 6.2-12.0 [facility] Monocyte percentageOrdered B y: Louann Washington on 07-10-2025 Monocytes/100 WBC (Bld) 6.2 % 0-10 [facility] Neutrophil percentageOrdered By: Louann Washington on 07-10-2025 Neutrophils/100 WBC (Bld) 47.1 % 47-70 [facility] Nucleated red blood cell per centageOrdered By: Louann Washington on 07-10-2025 Nucleated RBC/100 WBC (Bld) [Ratio] 0 % 0-5 [facility] Platelet countOrdered By: Hoang Washington on 07-10-2025 Platelets (Bld) [#/Vol] 358 10*3/uL 150-450 [facility] Potassium measurement (mass/ volume)Ordered By: Louann Washington on 07-10-2025 Potassium (Unsp spec) [Mass/Vol] 4.2 mmol/L 3.3-5.1 [facility] RBC Auto (Bld) [#/Vol]Ordere d By: Louann Washington on 07-10-2025 RBC (Bld) [#/Vol] 2.66 10*6/uL Low 4.2-5.4 [facility] Serum creatinine measurement (mass/volume)Ordered By: Louann Washington on 07-10-2025 Creatinine [Mass/Vol] 0.76 mg/dL Normal 0.70-1.20 [facility] Comment on above: Performed By: #### L 100.0100, L500.4050 ####[facility] [address] [place], [place], [address] Serum globulin measurementOr dered By: Louann Washington on 07-10-2025 Globulin (S) [Mass/Vol] 2.5 g/dL Normal 2.2-4.2 [facility] Comment on above: Performed By: #### L 100.0100, L500.4050 ####[facility] [address] [place], [address] Serum glucose measurement (m ass/volume)Ordered By: Louann Washington on 07-10-2025 Glucose [Mass/Vol] 97 mg/dL Normal 70-99 [facility] Comment on above: Performed By: #### L 100.0100, L500.4050 ####[facility] [address] [place], [address] Serum or plasma alanine zhao otransferase (ALT) measurementOrdered By: Louann Washington on 07-10-2025 ALT [Catalytic activity/Vol] 13 U/L Normal <=34 [facility] Comment on above: Performed By: #### L 100.0100, L500.4050 ####[facility] [address] [place], [address] Serum or plasma albumin gladys urement (mass/volume)Ordered By: Louann Washington on 07-10-2025 Albumin [Mass/Vol] 4.0 g/dL Normal 3.4-4.8 [facility] Comment on above: Performed By: #### L 100.0100, L500.4050 ####[facility] [address] [place], [address] Serum or plasma albumin/glob ulin mass ratioOrdered By: Louann Washington on 07-10-2025 Albumin/Globulin [Mass ratio] 1.6 {ratio} Normal 0.9-2.4 [facility] Comment on above: Performed By: #### L 100.0100, L500.4050 ####[facility] [address] [place], [address] Serum or plasma alkaline evan sphatase measurementOrdered By: Louann Washington on 07-10-2025 ALP [Catalytic activity/Vol] 64 U/L 35-104 [facility] Serum or plasma calcium gladys urement (mass/volume)Ordered By: Louann Washington on 07-10-2025 Calcium [Mass/Vol] 9.0 mg/dL Normal 7.6-11.0 [facility] Comment on above: Performed By: #### L 100.0100, L500.4050 ####[facility] [address] [place], [address] Serum or plasma urea nitroge n measurement (mass/volume)Ordered By: Louann Washington on 07-10-2025 Urea nitrogen [Mass/Vol] 11 mg/dL Normal 4- [facility] Comment on above: Performed By: #### L 100.0100, L500.4050 ####[facility] [address] [place], [address] Sodium levelOrdered By: Yolanda Washington on 07-10-2025 Sodium [Moles/Vol] 141 mmol/L Normal 133-145 [facility] Comment on above: Performed By: #### L 100.0100, L500.4050 ####[facility] [address] [place], [address] Total proteinOrdered By: Ileana Washington on 07-10-2025 Protein [Mass/Vol] 6.5 g/dL 5.9-8.4 [facility] White blood cell (WBC) count Ordered By: Louann Washington on 07-10-2025 WBC (Bld) [#/Vol] 8.6 10*3/uL 4.4-11.0 [facility] 12 Lead EKGon 07-07-2025 12 Lead EKG [facility] [address] [place] [address] 12 Lead EKG 07/07/25 1130 MR#: [id number] Acct: [id number] Name: DANIELLE BERRY Rep #: [id number] : 1960 64 From: Justin Liu MD [...] T wave abnormality Abnormal ECG Confirmed by ALEXA MD, JUSTIN ([id number]), editor city ALEXA DIAL ([id number]) on 07/10/2025 8:08:40 AM Referred By: JOSE M/ERIC Confirmed By: JUSTIN LIU MD 07/10/25 0808 Date Justin Liu MD CC: Dr. Leela Ingram MD; Dr. Caden Lazar, DO Signed [facility] [facility] Absolute lymphocyte countOrd ered By: Caden Lazar on 07-07-2025 Lymphocytes Auto (Unsp spec) [#/Vol] 3.52 10*3/uL 0.83-4.51 [facility] Absolute neutrophil countOrd ered By: Caden Lazar on 07-07-2025 Neutrophils (Bld) [#/Vol] 7.0 10*3/uL 2.0-7.7 [facility] Anion gap in Serum or Plasma Ordered By: Caden Lazar on 07-07-2025 Anion gap [Moles/Vol] 12 mmol/L 5-15 [facility] Automated lymphocyte count a s percentage of total leukocytesOrdered By: Caden Lazar on 07-07-2025 Lymphocytes/100 WBC Auto (Unsp spec) 31.1 % 19-41 [facility] BUN/creatinine ratioOrdered By: Caden Lazar on 07-07-2025 Urea nitrogen/Creatinine [Mass ratio] 22.7 mg/mg High 10- [facility] Basic Metabolic Profile (BMP )on 07-07-2025 BUN/CRE 22.7 RATIO High 08-07 [facility] Comment on above: Performed By: #### M 100.7900, L100.0100, L500.2500, L501.4021 ####[facility] [address] [place], [address] Calcium [Mass/Vol] 9.1 mg/dL Normal 7.6-11.0 [facility] Comment on above: Performed By: #### M 100.7900, L100.0100, L500.2500, L501.4021 ####[facility] [address] [place], [address] Chloride [Moles/Vol] 105 mmol/L Normal 98-108 [facility] Comment on above: Performed By: #### M 100.7900, L100.0100, L500.2500, L501.4021 ####[facility] [address] [place], [address] CO2 [Moles/Vol] 20.7 mmol/L Low 21.0-32.0 [facility] Comment on above: Performed By: #### M 100.7900, L100.0100, L500.2500, L501.4021 ####[facility] [address] [place], [address] Creatinine [Mass/Vol] 0.71 mg/dL Normal 0.70-1.20 [facility] Comment on above: Performed By: #### M 100.7900, L100.0100, L500.2500, L501.4021 ####[facility] [address] [place], [address] ECRCL 67.73 ml/min Normal 50-250 [facility] Comment on above: Performed By: #### M 100.7900, L100.0100, L500.2500, L501.4021 ####[facility] [address] [place], [address] GAP 12 Normal 5-15 [facility] Comment on above: Performed By: #### M 100.7900, L100.0100, L500.2500, L501.4021 ####[facility] [address] [place], [address] GFR/1.73 sq M.predicted among non-blacks MDRD (S/P/Bld) [Vol rate/Area] 95 mL/min/{1.73_m2} Normal >60 [facility] Comment on above: Result Comment: mL/m in/1.73m2 CKD-EPI Creatinine Equation (2020) Performed By: #### M 100.7900, L100.0100, L500.2500, L501.4021 ####[facility] [address] [place], [address] Glucose [Mass/Vol] 104 mg/dL High 70-99 [facility] Comment on above: Performed By: #### M 100.7900, L100.0100, L500.2500, L501.4021 ####[facility] [address] [place], [address] Potassium [Moles/Vol] 3.8 mmol/L Normal 3.3-5.1 [facility] Comment on above: Performed By: #### M 100.7900, L100.0100, L500.2500, L501.4021 ####[facility] [address] [place], [address] Sodium [Moles/Vol] 138 mmol/L Normal 133-145 [facility] Comment on above: Performed By: #### M 100.7900, L100.0100, L500.2500, L501.4021 ####[facility] [address] [place], [address] Urea nitrogen [Mass/Vol] 16 mg/dL Normal 4-19 [facility] Comment on above: Performed By: #### M 100.7900, L100.0100, L500.2500, L501.4021 ####[facility] [address] [place], [address] Basophil percentageOrdered B y: Caden Lazar on 07-07-2025 Basophils/100 WBC (Bld) 0.5 % 0-1 [facility] CBC W/Diff, Automatedon 06-19 Absolute Lymph 3.52 X10 3/uL Normal 0.83-4.51 [facility] Comment on above: Performed By: #### M 100.7900, L100.0100, L500.2500, L501.4021 ####[facility] [address] [place], [address] Absolute Neut 7.0 X10 3/uL Normal 2.0-7.7 [facility] Comment on above: Performed By: #### M 100.7900, L100.0100, L500.2500, L501.4021 ####[facility] [address] [place], [address] Basophils/100 WBC (Bld) 0.5 % Normal 0-1 [facility] Comment on above: Performed By: #### M 100.7900, L100.0100, L500.2500, L501.4021 ####[facility] [address] [place], [address] Eosinophils/100 WBC (Bld) 1.1 % Normal 0-5 [facility] Comment on above: Performed By: #### M 100.7900, L100.0100, L500.2500, L501.4021 ####[facility] [address] [place], [address] Erythrocyte distribution width (RBC) [Ratio] 13.8 % Normal 11.6-14.6 [facility] Comment on above: Performed By: #### M 100.7900, L100.0100, L500.2500, L501.4021 ####[facility] [address] [place], [address] Hematocrit (Bld) [Volume fraction] 26.0 % Low 37-47 [facility] Comment on above: Performed By: #### M 100.7900, L100.0100, L500.2500, L501.4021 ####[facility] [address] [place], [address] Hemoglobin (Bld) [Mass/Vol] 8.7 g/dL Low 12.0-15.0 [facility] Comment on above: Performed By: #### M 100.7900, L100.0100, L500.2500, L501.4021 ####[facility] [address] [place], [address] IG% 0.500 Normal 0.0-0.9 [facility] Comment on above: Result Comment: IG% - Immature Granulocytes (promyelocytes, myelocytes and metamyelocytes) > 1% indicates that a LEFT SHIFT is Present. Performed By: #### M 100.7900, L100.0100, L500.2500, L501.4021 ####[facility] [address] [place], [address] Lymphocytes/100 WBC (Bld) 31.1 % Normal 19-41 [facility] Comment on above: Performed By: #### M 100.7900, L100.0100, L500.2500, L501.4021 ####[facility] [address] [place], [address] MCH (RBC) [Entitic mass] 30.4 pg Normal 27.0-32.0 [facility] Comment on above: Performed By: #### M 100.7900, L100.0100, L500.2500, L501.4021 ####[facility] [address] [place], [address] MCHC (RBC) [Mass/Vol] 33.5 g/dL Normal 32-36 [facility] Comment on above: Performed By: #### M 100.7900, L100.0100, L500.2500, L501.4021 ####[facility] [address] [place], [address] MCV (RBC) [Entitic vol] 90.9 fL Normal 81-99 [facility] Comment on above: Performed By: #### M 100.7900, L100.0100, L500.2500, L501.4021 ####[facility] [address] [place], [address] Monocytes/100 WBC (Bld) 4.9 % Normal 0-10 [facility] Comment on above: Performed By: #### M 100.7900, L100.0100, L500.2500, L501.4021 ####[facility] [address] [place], [address] Neutrophils/100 WBC (Bld) 61.9 % Normal 47-70 [facility] Comment on above: Performed By: #### M 100.7900, L100.0100, L500.2500, L501.4021 ####[facility] [address] [place], [address] Nucleated RBC (Bld) [#/Vol] 0 10*3/uL Normal 0-5 [facility] Comment on above: Performed By: #### M 100.7900, L100.0100, L500.2500, L501.4021 ####[facility] [address] [place], [address] Platelet mean volume (Bld) [Entitic vol] 8.8 fL Normal 6.2-12.0 [facility] Comment on above: Performed By: #### M 100.7900, L100.0100, L500.2500, L501.4021 ####[facility] [address] [place], [address] Platelets (Bld) [#/Vol] 328 10*3/uL Normal 150-450 [facility] Comment on above: Performed By: #### M 100.7900, L100.0100, L500.2500, L501.4021 ####[facility] [address] [place], [address] RBC (Bld) [#/Vol] 2.86 10*6/uL Low 4.2-5.4 [facility] Comment on above: Performed By: #### M 100.7900, L100.0100, L500.2500, L501.4021 ####[facility] [address] [place], [address] RDW SD 46.1 fl High 35.1-43.9 [facility] Comment on above: Performed By: #### M 100.7900, L100.0100, L500.2500, L501.4021 ####[facility] [address] [place], [address] WBC (Bld) [#/Vol] 11.3 10*3/uL High 4.4-11.0 [facility] Comment on above: Performed By: #### M 100.7900, L100.0100, L500.2500, L501.4021 ####[facility] [address] [place], [address] Carbon dioxide, total [Moles /volume] in Central venous bloodOrdered By: Caden Lazar on 07-07-2025 CO2 [Moles/Vol] 20.7 mmol/L Low 21.0-32.0 [facility] Chest 1 View (Portable)on Chest 1 View (Portable) [facility] [address] [place] [address] Chest 1 View (Portable) MR#: [id number] Acct: [id number] Name: DANIELLE BERRY Rep #: [id number] : 1960 F 64 From: Angel Fletcher MD PCP: Dr. Leela Ingram MD Status: [facility] ER Study: Chest 1 View (Portable) Date of Exam: 07/07/25 Exam# [id number] Ordering Dr: Caden Lazar DO PROCEDURE: CHEST 1 VIEW (PORTABLE) 07/07/2025 REASON FOR EXAM: SHORTNESS OF BREATH TECHNIQUE: Frontal view of the chest. COMPARISON: None FINDINGS: Hardware: Monitoring electrodes overlying chest wall. Heart: Cardiac and mediastinal contours are stable. Lungs: The lungs are clear. Bones: The bones are unremarkable. RAD/Chest 1 View (Portable) IMPRESSION: No acute cardiopulmonary abnormality Reading Location: [id number] CC: Dr. Leela Ingram MD; Dr. Caden Lazar DO Take Out Waiter: Signed Normal [facility] Chloride assayOrdered By: Nikko Lazar on 07-07-2025 Chloride [Moles/Vol] 105 mmol/L 98-108 [facility] Electrocardiogram reportOrde red By: Justin Liu on 07-07-2025 EKG study [facility] [address] [place] [address] 12 Lead EKG 07/07/25 1130 MR#: [id number] Acct: [id number] Name: DANIELLE BERRY Rep #:[id number] : 1960 64 From: Justin Liu MD Attending Dr: Status: DEP E R Ordering Dr: Caden Lazar DO Date: 07/07/25 [...] Abnormal ECG Confirmed by JUSTIN LIU MD ([id number]), editor city [facility] ([id number]) on 07/10/2025 8:08:40 AM Referred By: JOSE M/ERIC Confirmed By: JUSTIN LIU MD 07/10/25 0808 Date _ Justin Liu MD CC: Dr. Leela Ingram MD; Dr. Caden Lazar DO ~ Signed [facility] Work Phone: Emergency Department Summary on 07-07-2025 Emergency Department Summary [facility] Medical Records Department [address] [place] [address] Emergency Department Summary 07/07/25 MR#: [id number] Acct: [id number] Name: DANIELLE BERRY Rep #: [id number] : 1960 64 From: Caden Lazar DO PCP: Dr. Leela Ingram MD Status:DEP ER Location: ED HPI History of Present Illness Chief Complaint: Shortness of Breath PFSH PFS Medical History Screening for cardiovascular condition Health [...] Medications ???Medication ???Instructions ???Recorded ???Last Taken ???Type zwcwrenb-chq-eekth ac 400 1 ea PO DAILY SUPPLEMENT [...] reviewed Co (more content not included)... Normal [facility] Eosinophil percentageOrdered By: Caden Lazar on 07-07-2025 Eosinophils/100 WBC (Bld) 1.1 % 0-5 [facility] Erythrocyte distribution wid th ratioOrdered By: Caden Lazar on 07-07-2025 Erythrocyte distribution width (RBC) [Ratio] 13.8 % 11.6-14.6 [facility] Erythrocyte distribution wid th standard deviationOrdered By: Caden Lazar on 07-07-2025 Erythrocyte distribution width (RBC) [Ratio] 46.1 fl High 35.1-43.9 [facility] Glomerular filtration rate ( GFR) estimation/1.73 sq m using serum, plasma, or whole bOrdered By: Caden Lazar on 07-07-2025 GFR/1.73 sq M.predicted among non-blacks MDRD (S/P/Bld) [Vol rate/Area] 95 mL/min/{1.73_m2} >60 [facility] Comment on above: mL/min/1.73m2 CKD-EP I Creatinine Equation (2020) Hematocrit Auto (Bld) [Volum e fraction]Ordered By: Caden Lazar on 07-07-2025 Hematocrit (Bld) [Volume fraction] 26.0 % Low 37-47 [facility] Hemoglobin measurementOrdere d By: Caden Lazar on 07-07-2025 Hemoglobin (Bld) [Mass/Vol] 8.7 g/dL Low 12.0-15.0 [facility] Immature granulocytes/100 WB C Auto (Bld)Ordered By: Caden Lazar on 07-07-2025 Immature granulocytes/100 WBC (Bld) 0.500 % 0.0-0.9 [facility] Comment on above: IG% - Immature Granu locytes (promyelocytes, myelocytes and metamyelocytes) > 1% indicates that a LEFT SHIFT is Present. L501.4021on 07-07-2025 Trop T High Sen 6 ng/L Normal <=14 [facility] Comment on above: Performed By: #### M 100.7900, L100.0100, L500.2500, L501.4021 ####[facility] [address] [place], [place], [address] MCV (mean corpuscular volume ) determinationOrdered By: Caden Lazar on 07-07-2025 MCV (RBC) [Entitic vol] 90.9 fL 81-99 [facility] Mean corpuscular hemoglobin (MCH) determinationOrdered By: Caden Lazar on 07-07-2025 MCH (RBC) [Entitic mass] 30.4 pg 27.0-32.0 [facility] Mean corpuscular hemoglobin concentration (MCHC) determinationOrdered By: Caden Lazar on 07-07-2025 MCHC (RBC) [Mass/Vol] 33.5 g/dL 32-36 [facility] Mean platelet volume determi nationOrdered By: Caden Lazar on 07-07-2025 Platelet mean volume (Bld) [Entitic vol] 8.8 fL 6.2-12.0 [facility] Monocyte percentageOrdered B y: Caden Lazar on 07-07-2025 Monocytes/100 WBC (Bld) 4.9 % 0-10 [facility] Neutrophil percentageOrdered By: Caden Lazar on 07-07-2025 Neutrophils/100 WBC (Bld) 61.9 % 47-70 [facility] Nucleated red blood cell per centageOrdered By: Caden Lazar on 07-07-2025 Nucleated RBC/100 WBC (Bld) [Ratio] 0 % 0-5 [facility] Platelet countOrdered By: lexy Lazar on 07-07-2025 Platelets (Bld) [#/Vol] 328 10*3/uL 150-450 [facility] Potassium measurement (mass/ volume)Ordered By: Caden Lazar on 07-07-2025 Potassium (Unsp spec) [Mass/Vol] 3.8 mmol/L 3.3-5.1 [facility] RBC Auto (Bld) [#/Vol]Ordere d By: Caden Lazar on 07-07-2025 RBC (Bld) [#/Vol] 2.86 10*6/uL Low 4.2-5.4 [facility] Serum creatinine measurement (mass/volume)Ordered By: Caden Lazar on 07-07-2025 Creatinine [Mass/Vol] 0.71 mg/dL 0.70-1.20 [facility] Serum glucose measurement (m ass/volume)Ordered By: Caden Lazar on 07-07-2025 Glucose [Mass/Vol] 104 mg/dL High 70-99 [facility] Serum or plasma calcium gladys urement (mass/volume)Ordered By: Caden Lazar on 07-07-2025 Calcium [Mass/Vol] 9.1 mg/dL 7.6-11.0 [facility] Serum or plasma urea nitroge n measurement (mass/volume)Ordered By: Caden Lazar on 07-07-2025 Urea nitrogen [Mass/Vol] 16 mg/dL 4-19 [facility] Sodium levelOrdered By: Michael Lazar on 07-07-2025 Sodium [Moles/Vol] 138 mmol/L 133-145 [facility] Stool Occult Blood iFOBon STOB Normal Reference Ran ge = Negative Immunochemical Fecal Occult Blood (iFOBT) method. Hemoccult Stl Ql IA Limitation: Menstrual bleeding, constipation bleeding, bleeding hemorrhoids, and urinary bleeding conditions may interfere with test. Occult Blood A Positive A OCCULT BLOOD POSITIVE Normal [facility] Comment on above: Performed By: #### M 100.7900, L100.0100, L500.2500, L501.4021 ####[facility] [address] [place], [address] Stool gastrointestinal hemog lobin detection by immunologic methodOrdered By: Caden Lazar on 07-07-2025 Lower GI hemoglobin IA Ql (Stl) Positive Abnormal [facility] Troponin T HS 2 HRon 025 Trop T High Sen Normal <=14 [facility] Comment on above: Result Comment: Jeanette corral via OM: Ordered Performed By: #### L 499.0042 ####[facility] [address] [place], [place], [address] Troponin T HS 4 HRon 025 Trop T High Sen Normal <=14 [facility] Comment on above: Result Comment: Jeanette corral via OM: Ordered Performed By: #### L 499.0043 ####[facility] [address] [place], [address] Troponin T.cardiac [Mass/vol ume] in Serum or Plasma by High sensitivity methodOrdered By: Caden Lazar on 07-07-2025 Troponin T.cardiac High sensitivity method [Mass/Vol] 6 ng/L <14 [facility] White blood cell (WBC) count Ordered By: Caden Lazar on 07-07-2025 WBC (Bld) [#/Vol] 11.3 10*3/uL High 4.4-11.0 [facility] Coronary Angiography CTon Coronary Angiography CT [facility] [address] [place] [address] 04/20/25 1322 MR#: [id number] Acct: [id number] Name: DANIELLE BERRY Rep #: [id number] : 1960 64 From: Justin Liu MD [...] MD; Dr. Leela Ingram MD Signed Normal [facility] Limited Chest CT Cardiac Onl yon 04-20-[address] Cardiac Only [facility] [address] [place] [address] Cardiac Only MR#: [id number] Acct: [id number] Name: DANIELLE BERRY Rep #: [id number] : 1960 F 64 From: Dk Ramos PCP: Dr. Leela Ingram MD Status: REG REF Study: Limited Chest CT Cardiac Only Date of Exam: Exam# [id number] Ordering Dr: Leela Ingram MD PROCEDURE: LIMITED [...] demonstrates no other significant abnormality. Reading Location: [place] [address] CC: Dr. Leela Ingram MD Take Out Waiter: Signed Normal [facility] Low Dose CT Lung Screeningon 04-20-[address] Lung Screening [facility] [address] [place], [place] [address] Low Dose CT Lung Screening MR#: [id number] Acct: [id number] Name: DANIELLE BERRY Rep #: [id number] : 1960 F 64 From: Jann Glass MD PCP: Dr. Leela Ingram MD Status: [facility] CLI Study: Low Dose CT Lung Screening Date of Exam: 04/20 Exam# [id number] Ordering Dr: Leela Ingram MD PROCEDURE: LOW [...] use of iterative reconstruction technique). REFERENCE LINK: [employer] Lung-RADS RADIATION DOSE SUMMARY: CTDlvol: 12.19 mGy [...] SCREENING LDCT. Other Significant Findings: Reading Location: [id number] CC: Dr. Leela Ingram MD Take Out Waiter: Signed Normal [facility] Absolute lymphocyte countOrd ered By: Leela Ingram on 03-24-2025 Lymphocytes Auto (Unsp spec) [#/Vol] 3.17 10*3/uL 0.83-4.51 [facility] Absolute neutrophil countOrd ered By: Leela Ingram on 03-24-2025 Neutrophils (Bld) [#/Vol] 5.9 10*3/uL 2.0-7.7 [facility] Anion gap in Serum or Plasma Ordered By: Leela Ingram on 03-24-2025 Anion gap [Moles/Vol] 10 mmol/L 5-15 [facility] Automated lymphocyte count a s percentage of total leukocytesOrdered By: Leela Ingram on 03-24-2025 Lymphocytes/100 WBC Auto (Unsp spec) 31.8 % 19-41 [facility] BUN/creatinine ratioOrdered By: Leela Ingram on 03-24-2025 Urea nitrogen/Creatinine [Mass ratio] 15.8 mg/mg 10-20 [facility] Basophil percentageOrdered B y: Leela Ingram on 03-24-2025 Basophils/100 WBC (Bld) 0.7 % 0-1 [facility] Bilirubin, totalOrdered By: Leela Ingram on 03-24-2025 Bilirubin [Mass/Vol] 0.15 mg/dL 0.00-1.30 [facility] CBC W/Diff, Automatedon Absolute Lymph 3.17 X10 3/uL Normal 0.83-4.51 [facility] Comment on above: Performed By: #### L 100.0100, L500.4050, L500.4100 ####[facility] [address] [place], [address] Absolute Neut 5.9 X10 3/uL Normal 2.0-7.7 [facility] Comment on above: Performed By: #### L 100.0100, L500.4050, L500.4100 ####[facility] [address] [place], [address] Basophils/100 WBC (Bld) 0.7 % Normal 0-1 [facility] Comment on above: Performed By: #### L 100.0100, L500.4050, L500.4100 ####[facility] [address] [place], [address] Eosinophils/100 WBC (Bld) 2.3 % Normal 0-5 [facility] Comment on above: Performed By: #### L 100.0100, L500.4050, L500.4100 ####[facility] [address] [place], [address] Erythrocyte distribution width (RBC) [Ratio] 13.2 % Normal 11.6-14.6 [facility] Comment on above: Performed By: #### L 100.0100, L500.4050, L500.4100 ####[facility] [address] [place], [address] Hematocrit (Bld) [Volume fraction] 34.8 % Low 37-47 [facility] Comment on above: Performed By: #### L 100.0100, L500.4050, L500.4100 ####[facility] [address] [place], [address] Hemoglobin (Bld) [Mass/Vol] 11.1 g/dL Low 12.0-15.0 [facility] Comment on above: Performed By: #### L 100.0100, L500.4050, L500.4100 ####[facility] [address] [place], [address] IG% 0.300 Normal 0.0-0.9 [facility] Comment on above: Result Comment: IG% - Immature Granulocytes (promyelocytes, myelocytes and metamyelocytes) > 1% indicates that a LEFT SHIFT is Present. Performed By: #### L 100.0100, L500.4050, L500.4100 ####[facility] [address] [place], [address] Lymphocytes/100 WBC (Bld) 31.8 % Normal 19-41 [facility] Comment on above: Performed By: #### L 100.0100, L500.4050, L500.4100 ####[facility] [address] [place], [address] MCH (RBC) [Entitic mass] 28.7 pg Normal 27.0-32.0 [facility] Comment on above: Performed By: #### L 100.0100, L500.4050, L500.4100 ####[facility] [address] [place], [address] MCHC (RBC) [Mass/Vol] 31.9 g/dL Low 32-36 [facility] Comment on above: Performed By: #### L 100.0100, L500.4050, L500.4100 ####[facility] [address] [place], [address] MCV (RBC) [Entitic vol] 89.9 fL Normal 81-99 [facility] Comment on above: Performed By: #### L 100.0100, L500.4050, L500.4100 ####[facility] [address] [place], [address] Monocytes/100 WBC (Bld) 6.0 % Normal 0-10 [facility] Comment on above: Performed By: #### L 100.0100, L500.4050, L500.4100 ####[facility] [address] [place], [address] Neutrophils/100 WBC (Bld) 58.9 % Normal 47-70 [facility] Comment on above: Performed By: #### L 100.0100, L500.4050, L500.4100 ####[facility] [address] [place], [address] Nucleated RBC (Bld) [#/Vol] 0 10*3/uL Normal 0-5 [facility] Comment on above: Performed By: #### L 100.0100, L500.4050, L500.4100 ####[facility] [address] [place], [address] Platelet mean volume (Bld) [Entitic vol] 8.9 fL Normal 6.2-12.0 [facility] Comment on above: Performed By: #### L 100.0100, L500.4050, L500.4100 ####[facility] [address] [place], [address] Platelets (Bld) [#/Vol] 357 10*3/uL Normal 150-450 [facility] Comment on above: Performed By: #### L 100.0100, L500.4050, L500.4100 ####[facility] [address] [place], [address] RBC (Bld) [#/Vol] 3.87 10*6/uL Low 4.2-5.4 [facility] Comment on above: Performed By: #### L 100.0100, L500.4050, L500.4100 ####[facility] [address] [place], [address] RDW SD 43.8 fl Normal 35.1-43.9 [facility] Comment on above: Performed By: #### L 100.0100, L500.4050, L500.4100 ####[facility] [address] [place], [address] WBC (Bld) [#/Vol] 10.0 10*3/uL Normal 4.4-11.0 [facility] Comment on above: Performed By: #### L 100.0100, L500.4050, L500.4100 ####[facility] [address] [place], [address] Calculated very low density lipoprotein (VLDL) cholesterol measurementOrdered By: Leela Ingram on 03-24-2025 Calculated very low density lipoprotein (VLDL) cholesterol measurement 53 mg/dL High 5-40 [facility] Carbon dioxide, total [Moles /volume] in Central venous bloodOrdered By: Leela Ingram on 03-24-2025 CO2 [Moles/Vol] 21.6 mmol/L 21.0-32.0 [facility] Chloride assayOrdered By: Jeremiah Ingram on 03-24-2025 Chloride [Moles/Vol] 107 mmol/L 98-108 [facility] Comprehensive Metabolic Prof ilon 03-24-2025 Albumin [Mass/Vol] 4.1 g/dL Normal 3.4-4.8 [facility] Comment on above: Performed By: #### L 100.0100, L500.4050, L500.4100 ####[facility] [address] [place], [address] Albumin/Globulin [Mass ratio] 1.5 {ratio} Normal 0.9-2.4 [facility] Comment on above: Performed By: #### L 100.0100, L500.4050, L500.4100 ####[facility] [address] [place], [address] ALK PHOS 82 U/L Normal 35-104 [facility] Comment on above: Performed By: #### L 100.0100, L500.4050, L500.4100 ####[facility] [address] [place], [address] ALT [Catalytic activity/Vol] 15 U/L Normal <=34 [facility] Comment on above: Performed By: #### L 100.0100, L500.4050, L500.4100 ####[facility] [address] [place], [address] AST [Catalytic activity/Vol] 20 U/L Normal <=31 [facility] Comment on above: Performed By: #### L 100.0100, L500.4050, L500.4100 ####[facility] [address] [place], [address] Bilirubin [Mass/Vol] 0.15 mg/dL Normal 0.00-1.30 [facility] Comment on above: Performed By: #### L 100.0100, L500.4050, L500.4100 ####[facility] [address] [place], [address] BUN/CRE 15.8 RATIO Normal 10-20 [facility] Comment on above: Performed By: #### L 100.0100, L500.4050, L500.4100 ####[facility] [address] [place], [address] Calcium [Mass/Vol] 9.2 mg/dL Normal 7.6-11.0 [facility] Comment on above: Performed By: #### L 100.0100, L500.4050, L500.4100 ####[facility] [address] [place], [address] Chloride [Moles/Vol] 107 mmol/L Normal 98-108 [facility] Comment on above: Performed By: #### L 100.0100, L500.4050, L500.4100 ####[facility] [address] [place], [address] CO2 [Moles/Vol] 21.6 mmol/L Normal 21.0-32.0 [facility] Comment on above: Performed By: #### L 100.0100, L500.4050, L500.4100 ####[facility] [address] [place], [address] Creatinine [Mass/Vol] 0.76 mg/dL Normal 0.70-1.20 [facility] Comment on above: Performed By: #### L 100.0100, L500.4050, L500.4100 ####[facility] [address] [place], [address] GAP 10 Normal 5-15 [facility] Comment on above: Performed By: #### L 100.0100, L500.4050, L500.4100 ####[facility] [address] [place], [address] GFR/1.73 sq M.predicted among non-blacks MDRD (S/P/Bld) [Vol rate/Area] 86 mL/min/{1.73_m2} Normal >60 [facility] Comment on above: Result Comment: mL/m in/1.73m2 CKD-EPI Creatinine Equation (2020) Performed By: #### L 100.0100, L500.4050, L500.4100 ####[facility] [address] [place], [address] Globulin (S) [Mass/Vol] 2.8 g/dL Normal 2.2-4.2 [facility] Comment on above: Performed By: #### L 100.0100, L500.4050, L500.4100 ####[facility] [address] [place], [address] Glucose [Mass/Vol] 94 mg/dL Normal 70-99 [facility] Comment on above: Performed By: #### L 100.0100, L500.4050, L500.4100 ####[facility] [address] [place], [address] Potassium [Moles/Vol] 4.1 mmol/L Normal 3.3-5.1 [facility] Comment on above: Performed By: #### L 100.0100, L500.4050, L500.4100 ####[facility] [address] [place], [address] Sodium [Moles/Vol] 138 mmol/L Normal 133-145 [facility] Comment on above: Performed By: #### L 100.0100, L500.4050, L500.4100 ####[facility] [address] [place], [address] T PROT 7.0 g/dL Normal 5.9-8.4 [facility] Comment on above: Performed By: #### L 100.0100, L500.4050, L500.4100 ####[facility] [address] [place], [address] Urea nitrogen [Mass/Vol] 12 mg/dL Normal 4-19 [facility] Comment on above: Performed By: #### L 100.0100, L500.4050, L500.4100 ####[facility] [address] [place], [address] Eosinophil percentageOrdered By: Leela Ingram on 03-24-2025 Eosinophils/100 WBC (Bld) 2.3 % 0-5 [facility] Erythrocyte distribution wid th ratioOrdered By: Leela Ingram on 03-24-2025 Erythrocyte distribution width (RBC) [Ratio] 13.2 % 11.6-14.6 [facility] Erythrocyte distribution wid th standard deviationOrdered By: Leela Ingram on 03-24-2025 Erythrocyte distribution width (RBC) [Ratio] 43.8 fl 35.1-43.9 [facility] Glomerular filtration rate ( GFR) estimation/1.73 sq m using serum, plasma, or whole bOrdered By: Leela Ingram on 03-24-2025 GFR/1.73 sq M.predicted among non-blacks MDRD (S/P/Bld) [Vol rate/Area] 86 mL/min/{1.73_m2} >60 [facility] Comment on above: mL/min/1.73m2 CKD-EP I Creatinine Equation (2020) Hematocrit Auto (Bld) [Volum e fraction]Ordered By: Leela Ingram on 03-24-2025 Hematocrit (Bld) [Volume fraction] 34.8 % Low 37-47 [facility] Hemoglobin measurementOrdere d By: Leela Ingram on 03-24-2025 Hemoglobin (Bld) [Mass/Vol] 11.1 g/dL Low 12.0-15.0 [facility] Immature granulocytes/100 WB C Auto (Bld)Ordered By: Leela Ingram on 03-24-2025 Immature granulocytes/100 WBC (Bld) 0.300 % 0.0-0.9 [facility] Comment on above: IG% - Immature Granu locytes (promyelocytes, myelocytes and metamyelocytes) > 1% indicates that a LEFT SHIFT is Present. Internal Medicine Office Vis gautam 03-24-2025 Internal Medicine Office Visit [facility] [place] [address] [place] [address] OFFICE VISIT Date of Service: 03/24/25 MR#: [id number] Acct: [id number] Name: DANIELLE BERRY Rep #: [id number] : 1960 Provider: Dr. Leela swenson MD Age/Sex: 64/F Location: [facility] Status: Signed Intake Vital Signs 08/29/24 15:06 [...] Swelling Medications ???Medication ???Instructions ???Recorded ???Confirmed ???Type qhfdvccl-txv-srniq ac 400 1 ea PO DAILY SUPPLEMENT [...] HPI Chief Complaint: 6 month Details: DANIELLE BERRY, is a 64 F who presents to [...] on her age-appropriate screenings. Follows up with [facility] in [place] and recently had a mammogram/bone density scan. [...] nosebleed/epistaxis, nasal (more content not included)... Normal [facility] LDL calc ser/plasOrdered By: Leela Ingram on 03-24-2025 Cholesterol in LDL [Mass/Vol] 166 mg/dL [facility] Comment on above: Xgnhaxohjk=689-854 m g/dL & Higher Fzbk=170 mg/dL or greater Laboratory - Chemistry and C hemistry - challengeOrdered By: Leela Ingram on 03-24-2025 AST [Catalytic activity/Vol] 20 U/L <32 [facility] Lipid Profileon 03-24-2025 CHOL:HDL 5.43 Normal [facility] Comment on above: Performed By: #### L 100.0100, L500.4050, L500.4100 ####[facility] [address] [place], [address] Cholesterol [Mass/Vol] 268 mg/dL High <=200 [facility] Comment on above: Result Comment: Chol esterol level, Desirable <200 mg/dL Borderline high cholesterol 200-239 mg/dL High cholesterol >=240 mg/dL Recommendations of the NCEP Adult Treatment Panel for the following risk-cutoff thresholds for the [place] population. Performed By: #### L 100.0100, L500.4050, L500.4100 ####[facility] [address] [place], [address] Cholesterol in HDL [Mass/Vol] 49 mg/dL Normal [facility] Comment on above: Result Comment: [place] onal Cholesterol Education Program (NCEP) guidelines: <40 mg/dL: Low HDL-cholesterol (major risk factor for CHD) >= 60 mg/dL: High HDL-cholesterol (negative risk factor for CHD) HDL-cholesterol is affected by a number of factors, e.g. smoking, exercise, hormones, sex and age. Performed By: #### L 100.0100, L500.4050, L500.4100 ####[facility] [address] [place], [address] Cholesterol in LDL [Mass/Vol] 166 mg/dL Normal [facility] Comment on above: Result Comment: Bord halmlf=274-772 mg/dL Higher Jbst=662 mg/dL or greater Performed By: #### L 100.0100, L500.4050, L500.4100 ####[facility] [address] [place], [address] Cholesterol in VLDL [Mass/Vol] 53 mg/dL High 5-40 [facility] Comment on above: Performed By: #### L 100.0100, L500.4050, L500.4100 ####[facility] [address] [facility] [place], [address] Triglyceride [Mass/Vol] 264 mg/dL High [facility] Comment on above: Result Comment: The drugs N-Acetylcysteine and Metamizole may falsely depress this assay. Normal range: <150 mg/dL Borderline High: 150-199 mg/dL High: 200-499 mg/dL Very High: >500 mg/dL Performed By: #### L 100.0100, L500.4050, L500.4100 ####[facility] [address] [facility] [place], [address] MCV (mean corpuscular volume ) determinationOrdered By: Leela Ingram on 03-24-2025 MCV (RBC) [Entitic vol] 89.9 fL 81-99 [facility] Mean corpuscular hemoglobin (MCH) determinationOrdered By: Leela Ingram on 03-24-2025 MCH (RBC) [Entitic mass] 28.7 pg 27.0-32.0 [facility] Mean corpuscular hemoglobin concentration (MCHC) determinationOrdered By: Leela Ingram on 03-24-2025 MCHC (RBC) [Mass/Vol] 31.9 g/dL Low 32-36 [facility] Mean platelet volume determi nationOrdered By: Leela Ingram on 03-24-2025 Platelet mean volume (Bld) [Entitic vol] 8.9 fL 6.2-12.0 [facility] Monocyte percentageOrdered B y: Leela Ingram on 03-24-2025 Monocytes/100 WBC (Bld) 6.0 % 0-10 [facility] Neutrophil percentageOrdered By: Leela Ingram on 03-24-2025 Neutrophils/100 WBC (Bld) 58.9 % 47-70 [facility] Nucleated red blood cell per centageOrdered By: Leela Ingram on 03-24-2025 Nucleated RBC/100 WBC (Bld) [Ratio] 0 % 0-5 [facility] Platelet countOrdered By: Jeremiah Ingram on 03-24-2025 Platelets (Bld) [#/Vol] 357 10*3/uL 150-450 [facility] Potassium measurement (mass/ volume)Ordered By: Leela Ingram on 03-24-2025 Potassium (Unsp spec) [Mass/Vol] 4.1 mmol/L 3.3-5.1 [facility] RBC Auto (Bld) [#/Vol]Ordere d By: Leela Ingram on 03-24-2025 RBC (Bld) [#/Vol] 3.87 10*6/uL Low 4.2-5.4 [facility] Screening total cholesterol/ high density lipoprotein (HDL) cholesterol ratioOrdered By: Leela Ingram on 03-24-2025 Cholesterol.total/Chol esterol in HDL [Mass ratio] 5.43 {ratio} [facility] Serum creatinine measurement (mass/volume)Ordered By: Leela Ingram on 03-24-2025 Creatinine [Mass/Vol] 0.76 mg/dL 0.70-1.20 [facility] Serum globulin measurementOr dered By: Leela Ingram on 03-24-2025 Globulin (S) [Mass/Vol] 2.8 g/dL 2.2-4.2 [facility] Serum glucose measurement (m ass/volume)Ordered By: Leela Ingram on 03-24-2025 Glucose [Mass/Vol] 94 mg/dL 70-99 [facility] Serum or plasma alanine zhao otransferase (ALT) measurementOrdered By: Leela Ingram on 03-24-2025 ALT [Catalytic activity/Vol] 15 U/L <35 [facility] Serum or plasma albumin gladys urement (mass/volume)Ordered By: Leela Ingram on 03-24-2025 Albumin [Mass/Vol] 4.1 g/dL 3.4-4.8 [facility] Serum or plasma albumin/glob ulin mass ratioOrdered By: Leela Ingram on 03-24-2025 Albumin/Globulin [Mass ratio] 1.5 {ratio} 0.9-2.4 [facility] Serum or plasma alkaline evan sphatase measurementOrdered By: Leela Ingram on 03-24-2025 ALP [Catalytic activity/Vol] 82 U/L 35-104 [facility] Serum or plasma calcium gladys urement (mass/volume)Ordered By: Leela Ingram on 03-24-2025 Calcium [Mass/Vol] 9.2 mg/dL 7.6-11.0 [facility] Serum or plasma cholesterol in HDL measurement (mass/volume)Ordered By: Leela Ingram on 03-24-2025 Cholesterol in HDL [Mass/Vol] 49 mg/dL >40 [facility] Comment on above: National Cholesterol Education Program (NCEP) guidelines:<40 mg/dL: Low HDL-cholesterol (major risk factor for CHD)>= 60 mg/dL: High HDL-cholesterol (negative risk factor for CHD)HDL-cholesterol is affected by a number of factors, e.g. smoking, exercise, hormones, sex and age. Serum or plasma cholesterol measurement (mass/volume)Ordered By: Leela Ingram on 03-24-2025 Cholesterol [Mass/Vol] 268 mg/dL High <201 [facility] Comment on above: Cholesterol level, D esirable <200 mg/dLBorderline high cholesterol 200-239 mg/dLHigh cholesterol >=240 mg/dLRecommendations of the NCEP Adult Treatment Panel for the following risk-cutoff thresholds for the [place] population. Serum or plasma urea nitroge n measurement (mass/volume)Ordered By: Leela Ingram on 03-24-2025 Urea nitrogen [Mass/Vol] 12 mg/dL 4-19 [facility] Sodium levelOrdered By: Clyde Ingram 03-24-2025 Sodium [Moles/Vol] 138 mmol/L 133-145 [facility] Total proteinOrdered By: Ankush Ingram on 03-24-2025 Protein [Mass/Vol] 7.0 g/dL 5.9-8.4 [facility] Triglycerides measurementOrd ered By: Leela Ingram 03-24-2025 Triglyceride [Mass/Vol] 264 mg/dL High <199 [facility] Comment on above: The drugs N-Acetylcy steine and Metamizole may falsely depress this assay. Normal range: <150 mg/dLBorderline High: 150-199 mg/dLHigh: 200-499 mg/dLVery High: >500 mg/dL White blood cell (WBC) count Ordered By: Leela Ingram on 03-24-2025 WBC (Bld) [#/Vol] 10.0 10*3/uL 4.4-11.0 [facility] US BREAST LEFT LIMITEDon US BREAST LEFT LIMITED [facility] [address] [place], [place] [address] PROCEDURE FOR: DANIELLE BERRY [address] [place] [address] Home: PID#: [id number] Exam#: [id number] : 1960 Age: 64 TO: ADRIAN PINEDA MD [address] [facility] [address] [place] [address] Fax: NO FAX EXAMINATION: ULTRASOUND OF THE [...] 03/20/2025 1:11:06 PM Ordering Provider: ADRIAN PINEDA E Learning Developer: DOUG CAMPOS RT (R, CT), [facility] letter sent: Normal BI-RADS 1 and 2 Ultrasound BI-RADS: 1 Negative Normal [facility] MA MAMMOGRAM DIAGNOSTIC LEFT W/TOMOon 03-17-2025 MA MAMMOGRAM DIAGNOSTIC LEFT W/NORM ORIGINAL FROM: [facility] [address] [place], [place] [address] PROCEDURE FOR: DANIELLE BERRY [address] [place] [address] Home: PID#: [id number] Exam#: [id number] : 1960 Age: 64 TO: ADRIAN PINEDA MD [address] [facility] [address] [place] [address] Fax: NO FAX EXAMINATION: DIAGNOSTIC DIGITAL LEFT [...] 03/17/2025 1:35:14 PM Ordering Provider: ADRIAN PINEDA E Learning Developer: LUIS CUTLER RT (R)(M) letter sent: Normal-Needs additional work up BI-RADS 0 Mammogram BI-RADS: 0 Indeterminate Normal [facility] BD BONE DENSITY DEXA AXIAL S Tahir [...] 03/14/2025 5:24:52 PM Ordering Provider: ADRIAN Pollard [facility] MAMMOGRAM SCREENING LEFT W/TOMKylee 03-13-2025 MA MAMMOGRAM SCREENING LEFT W/NORM ORIGINAL FROM: [facility] [address] [place], [place] [address] PROCEDURE FOR: DANIELLE BERRY [address] [place] [address] Home: PID#: [id number] Exam#: [id number] : 1960 Age: 64 TO: ADRIAN PINEDA MD [address] [facility] [address] [place], [place] [address] Fax: NO FAX EXAMINATION: SCREENING DIGITAL LEFT [...] 03/13/2025 9:27:58 PM Ordering Provider: ADRIAN PINEDA E Learning Developer: LUIS CUTLER RT (R)(M) letter sent: Abnormal-Needs additional work up BI-RADS 0 Mammogram BI-RADS: 0 Indeterminate Normal [facility] Internal Medicine Office Vis gautam 08-29-2024 Internal Medicine Office Visit [facility] [address] [place] [address] [place] [address] OFFICE VISIT Date of Service: 08/29/24 MR#: [id number] Acct: [id number] Name: DANIELLE BERRY Rep #: [id number] : 1960 Provider: Dr. 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 [facility] Medical History Hypertension Wears glasses Cancer [...] HPI Chief Complaint: 6 month Details: DANIELLE BERRY, is a 63 F who presents to the office today for follow-up. No acute concerns at this time. She states that she feels well. Blood pressure remains elevated. She states that her readings at home have been "normal". She however also states that her brother [...] habits, cons (more content not included)... Normal [facility] MA MAMMOGRAM SCREENING LEFT W/TOMOon 07-24-2023 MA MAMMOGRAM SCREENING LEFT W/NORM ORIGINAL FROM: [place] [id number] PROCEDURE FOR: DANIELLE Degroot AIDA [address] [place], [place] [address] Home: PID#: [id number] Exam#: [id number] : 1960 Age: 62 TO: ADRIAN PINEDA MD [address] [facility] [address] [place], [place] [address] Fax: NO FAX EXAMINATION: SCREENING DIGITAL LEFT [...] Normal BI-RADS 1 and 2 Interpreted by: Yocatsa Santizo Preliminary Report By: Yocasta Santizo Electronically signed By Yocasta Santizo Dictated Date: 07/24/2023 4:46:23 PM Prelim Date: 07/24/2023 4:51:01 PM Sign Date: 07/24/2023 4:51:01 PM Ordering Provider: ADRIAN PINEDA E Learning Developer: NEWTON SANDY(Martina) (M) letter sent: Normal BI-RADS 1 and 2 Mammogram BI-RADS: 1 Negative Normal [facility] [place] [facility] Cytology Reporton 2022 [facility] Cytology Report . Pathology Reports Accession: Collected Date/Time: Received Date/Time: Pathologist: [id number] 07/15/2023 14:42 EDT 07/16/2023 18:00 EDT [facility] Cytology Report SPECIMEN: Specimen Description: Liquid Prep [...] and evaluated with the assistance of the [employer] ThinPrep Test Imaging System. Pathology Reports Accession: Collected Date/Time: Received Date/Time: Pathologist: [id number] 07/15/2023 14:42 EDT 07/16/2023 18:00 EDT Electronically Signed by Pathology report verified by [facility] Screened by: [place] Electronically signed by Gayle NOE (ASCP) Sign-Out Date: 07/22/2023 10:57 Performing Lab: [facility], [address] [place] [address] Pathology Dept Disclaimer The Pap test is a screening test for cervical cancer. As evidenced by published data, it is subject to both inherent false negative and false positive results. Your patient's results should be interpreted in context with pertinent clinical history including gynecological examination. Normal [facility] [place] HPVon 07-21-2023 HPV Interp Normal See Interp HPVN [facility] [place] Comment on above: Order Comment: Order placed by AP_HPV_ORDER rule from [id number] Result Comment: High Risk HPV Typing: NEGATIVE [...] HPVN Performed By: #### H PV #### [place] [address] HPV Source Cervix Normal [facility] [place] Comment on above: Order Comment: Order placed by AP_HPV_ORDER rule from [id number] Performed By: #### H PV #### [place] [address] Cervical or vagninal specime n microscopic examination by cytology stain (reported ason 04-10-2022 Cytology report Cyto stain Doc (Cvx/Vag) Comment . [facility] Work Phone: Comment on above: [...] DNA Probe+sig amp Ql (Cvx) Negative Negative [facility] Work Phone: Comment on above: This nucleic acid am plification test detects fourteen high- risk HPV types (16,18,31,33,35,39,45,51,52,56,58,59,66,68)without differentiation.Performed at: - [facility] [id number] Director: Yessenia Webb MD, Phone: [phone] at: = - [facility] [address] [id number] Director: Yessenia Webb MD, Phone: [phone] Laboratory - Cytologyon 03-20 Shield Installer Cyto stain Nom (Cvx/Vag) [ID] Comment . [facility] Work Phone: Comment on above: Kota Lopeztec hnologist (ASCP) Laboratory - Miscellaneous t estson 04-10-2022 Service comment (Unsp spec) [Interp] Comment . [facility] Work Phone: Comment on above: This liquid based Th inPrep(R) pap test was screened withthe use of an image guided system. Service comment (Unsp spec) [Interp] . . [facility] Work Phone: No Panel Informationon 04-10 Pathology report final diagnosis Narrative Comment . [facility] Work Phone: Comment on above: NEGATIVE FOR INTRAEP ITHELIAL LESION OR MALIGNANCY.THIS SPECIMEN WAS RESCREENED PART OF OUR [employer] DEVELOPER PROGRAM. PROGRESSon 12-09-2019 PROGRESS HNO ID: [id number] Author: Nasima Rico Service: ? Author Type: Tunnel Mucker Type: Progress Notes Filed: 12/09/2019 7:32 AM Note Text: [facility] SNOWBOARDING INSTRUCTOR QUICKNOTE Provider Action/FYI: Patient returned call and states she's NOT a patient of Dr. Reyes and she would appreciate it if we stop sending mail to her. I removed Dr. Reyes as PCP. Patient identified by name and . Nasima Rico CMA [facility] PROGRESSon 12-02-2019 PROGRESS HNO ID: [id number] Author: Nasima Rico Service: ? Author Type: Tunnel Mucker Type: Progress Notes Filed: 12/02/2019 9:54 AM Note Text: [facility] SNOWBOARDING INSTRUCTOR QUICKNOTE Provider Action/FYI: 4th attempt - letter mailed to patient. Patient identified by name and . Nasima Rico CMA [facility] PROGRESS HNO ID: [id number] Author: Nasima Rico Service: ? Author Type: Tunnel Mucker Type: Progress Notes Filed: 12/02/2019 9:54 AM Note Text: [facility] SNOWBOARDING INSTRUCTOR QUICKNOTE Provider Action/FYI: 3rd attempt - "the number you have dialed is not in service". Patient identified by name and . Nasima Rico CMA [facility] PROGRESSon 11-30-2019 PROGRESS HNO ID: [id number] Author: Nasima Rico Service: ? Author Type: Tunnel Mucker Type: Progress Notes Filed: 12/02/2019 9:54 AM Note Text: [facility] SNOWBOARDING INSTRUCTOR QUICKNOTE Provider Action/FYI: 2nd attempt - "the number you have dialed is not in service". I will try back later. Patient identified by name and . Nasima Rico CMA Normal [facility] CNPTOUTREACHon 11-22-2019 CNPTOUTREA Patient Outreach (IN TMWS) DANIELLE BERRY ([id number]) 1960 F Date Time Provider Department 11/22/19 NASIMA RICO ([facility]) INTMWS During your visit today, we recorded the following information about you: Nasima Rico CMA 12/02/2019 9:54 AM Signed [facility] TEAMLET [...] on 09/03/2018 INFLUENZA(1) due on 06/19/2019 Nasima Rico SURFACE GRINDING MACHINE HAND [facility] 12/02/2019 9:54 AM Signed [facility] ASS[facility]ANT QUICKNOTE Provider Action/FYI: 1st attempt - Valder[employer] message sent. Patient identified by name and . [facility] 12/02/2019 9:54 AM Signed [facility] ASS[facility] QUICKNOTE Provider Action/FYI: 2nd attempt - "the number you have dialed is not in service". I will try back later. Patient identified by name and . [facility] 12/02/2019 9:54 AM Signed [facility] QUICKNOTE Provider Action/FYI: 3rd attempt - "the number you have dialed is not in service". Patient identified by name and . [facility] 12/02/2019 9:54 AM Signed [facility] QUICKNOTE Provider Action/FYI: 4th attempt - letter mailed to patient. Patient identified by name and . [facility] 12/09/2019 7:32 AM Signed [facility] QUICKNOTE Provider Action/FYI: Patient returned call and states she's NOT a patient of Dr. Reyes and she would appreciate it if we stop sending mail to her. I removed Dr. Reyes as PCP. Patient identified by name and . Nasima Rico CMA Allergies As of Date: 11/22/2019 Noted Allergy Reaction PENICILLINS 03/12/2011 7 - Swelling Date Reviewed: 12/19/2017 Reviewed by: Soumya Avery Ma - Fully Assessed Reason for Visit: PHMA/Care Gap Outreach [[id number]] Prescriptions as of 11/22/2019 Sig: VARENICLINE 1 [...] More... Letter Text Encounter Status:Closed by NASIMA RICO CMA on 12/02/19 [facility] PROGRESSon 11-22-2019 PROGRESS HNO ID: [id number] Author: Nasima Rico Service: ? Author Type: Tunnel Mucker Type: Progress Notes Filed: 12/02/2019 9:54 AM Note Text: [facility] SNOWBOARDING INSTRUCTOR QUICKNOTE Provider Action/FYI: 1st attempt - [employer] message sent. Patient identified by name and . Nasima Rico CMA [facility] PROGRESS HNO ID: [id number] Author: Nasima Rico Service: ? Author Type: Tunnel Mucker Type: Progress Notes Filed: 12/02/2019 9:54 AM [...] on 09/03/2018 INFLUENZA(1) due on 06/19/2019 Nasima Rico, SURFACE GRINDING MACHINE HAND Normal [facility] Vital Signs Date Time Vital Sign Value Performing Clinician Magnoliai anusha 07-14-2025 12:00-0400 Body temperature 98 [degF] Dr. Leela Ingram MD Work Phone: [facility] 07-14-2025 12:00-0400 Diastolic blood pressure 56 mm[Hg] Dr. Leela Ingram MD Work Phone: [facility] 07-14-2025 12:00-0400 Heart rate 80 /min Dr. Leela Ingram MD Work Phone: [facility] 07-14-2025 12:00-0400 Respiratory rate 16 /min Dr. Leela Ingram MD Work Phone: [facility] 07-14-2025 12:00-0400 SaO2% (BldA) [Mass fraction] 100 % Dr. Leela Ingram MD Work Phone: [facility] 07-14-2025 12:00-0400 Systolic blood pressure 115 mm[Hg] Dr. Leela Ingram MD Work Phone: [facility] 07-14-2025 10:07-0400 Body height 162.[address] Leela Ingram MD Work Phone: [facility] 07-14-2025 10:07-0400 Body mass index (BMI) [Ratio] 26.2 kg/m2 Dr. Leela Ingram MD Work Phone: [facility] 07-14-2025 10:07-0400 Body weight 69.[address] Leela Ingram MD Work Phone: [facility] 07-12-2025 09:30-0400 Body mass index (BMI) [Ratio] 27.4 kg/m2 Dr. Leela Ingram MD Work Phone: [facility] 07-12-2025 09:30-0400 Body temperature 97.5 [degF] Dr. Leela Ingram MD Work Phone: [facility] 07-12-2025 09:30-0400 Body weight 72.[address] Leela Ingram MD Work Phone: [facility] 07-12-2025 09:30-0400 Diastolic blood pressure 73 mm[Hg] Dr. Leela Ingram MD Work Phone: [facility] 07-12-2025 09:30-0400 Heart rate 87 /min Dr. Leela Ingram MD Work Phone: [facility] 07-12-2025 09:30-0400 Respiratory rate 18 /min Dr. Leela Ingram MD Work Phone: [facility] 07-12-2025 09:30-0400 SaO2% (BldA) [Mass fraction] 97 % Dr. Leela Ingram MD Work Phone: [facility] 07-12-2025 09:30-0400 Systolic blood pressure 150 mm[Hg] Dr. Leela Ingram MD Work Phone: [facility] 07-10-2025 15:02-0400 Body mass index (BMI) [Ratio] 27.6 kg/m2 Dr. Leela Ingram MD Work Phone: [facility] 07-10-2025 15:02-0400 Body temperature 97.8 [degF] Dr. Leela Ingram MD Work Phone: [facility] 07-10-2025 15:02-0400 Body weight 73.[address] Leela Ingram MD Work Phone: [facility] 07-10-2025 15:02-0400 Diastolic blood pressure 72 mm[Hg] Dr. Leela Ingram MD Work Phone: [facility] 07-10-2025 15:02-0400 Heart rate 80 /min Dr. Leela Ingram MD Work Phone: [facility] 07-10-2025 15:02-0400 Respiratory rate 16 /min Dr. Leela Ingram MD Work Phone: [facility] 07-10-2025 15:02-0400 SaO2% (BldA) [Mass fraction] 99 % Dr. Leela Ingram MD Work Phone: [facility] 07-10-2025 15:02-0400 Systolic blood pressure 158 mm[Hg] Dr. Leela Ingram MD Work Phone: [facility] 07-07-2025 14:23-0400 Diastolic blood pressure 58 mm[Hg] Dr. Leela Ingram MD Work Phone: [facility] 07-07-2025 14:23-0400 Heart rate 91 /min Dr. Leela Ingram MD Work Phone: [facility] 07-07-2025 14:23-0400 Respiratory rate 14 /min Dr. Leela Ingram MD Work Phone: [facility] 07-07-2025 14:23-0400 Systolic blood pressure 143 mm[Hg] Dr. Leela Ingram MD Work Phone: [facility] 07-07-2025 13:18-0400 Body temperature 96.9 [degF] Dr. Leela Ingram MD Work Phone: [facility] 07-07-2025 13:18-0400 SaO2% (BldA) [Mass fraction] 96 % Dr. Leela Ingram MD Work Phone: [facility] 07-07-2025 11:22-0400 Body mass index (BMI) [Ratio] 27.6 kg/m2 Dr. Leela Ingram MD Work Phone: [facility] 07-07-2025 11:22-0400 Body weight [address] Leela Ingram MD Work Phone: [facility] 03-24-2025 10:41-0400 Body height 162.[address] Leela Ingram MD Work Phone: [facility] 03-24-2025 10:41-0400 Body mass index (BMI) [Ratio] 28.3 kg/m2 Dr. Leela Ingram MD Work Phone: [facility] 03-24-2025 10:41-0400 Body temperature 97.4 [degF] Dr. Leela Ingram MD Work Phone: [facility] 03-24-2025 10:41-0400 Body weight 74.[address] Leela Ingram MD Work Phone: [facility] 03-24-2025 10:41-0400 Diastolic blood pressure 60 mm[Hg] Dr. Leela Ingram MD Work Phone: [facility] 03-24-2025 10:41-0400 Heart rate 81 /min Dr. Leela Ingram MD Work Phone: [facility] 03-24-2025 10:41-0400 Respiratory rate 18 /min Dr. Leela Ingram MD Work Phone: [facility] 03-24-2025 10:41-0400 SaO2% (BldA) [Mass fraction] 95 % Dr. Leela Ingram MD Work Phone: [facility] 03-24-2025 10:41-0400 Systolic blood pressure 136 mm[Hg] Dr. Leela Ingram MD Work Phone: [facility] 02-25-2024 19:57-0400 Body temperature 98.3 [degF] Dr. Leela Ingram Work Phone: [facility] 02-25-2024 19:57-0400 Diastolic blood pressure 64 mm[Hg] Dr. Leela Ingram Work Phone: [facility] 02-25-2024 19:57-0400 Heart rate 92 /min Dr. Leela Ingram Work Phone: [facility] 02-25-2024 19:57-0400 Respiratory rate 16 /min Dr. Leela Ingram Work Phone: [facility] 02-25-2024 19:57-0400 SaO2% (BldA) [Mass fraction] 100 % Dr. Leela Ingram Work Phone: [facility] 02-25-2024 19:57-0400 Systolic blood pressure 120 mm[Hg] Dr. Leela Ingram Work Phone: [facility] 02-25-2024 18:46-0400 Body height 162.[address] Leela Ingram Work Phone: [facility] 02-25-2024 18:46-0400 Body mass index (BMI) [Ratio] 27.9 kg/m2 Dr. Leela Ingram Work Phone: [facility] 02-25-2024 18:46-0400 Body weight 73.[address] Leela Ingram Work Phone: [facility] 02-15-2024 10:51-0400 Body temperature 96.9 [degF] Dr. Leela Ingram Work Phone: [facility] 02-15-2024 10:51-0400 Diastolic blood pressure 58 mm[Hg] Dr. Leela Ingram Work Phone: [facility] 02-15-2024 10:51-0400 Heart rate 74 /min Dr. Leela Ingram Work Phone: [facility] 02-15-2024 10:51-0400 Respiratory rate 16 /min Dr. Leela Ingram Work Phone: [facility] 02-15-2024 10:51-0400 SaO2% (BldA) [Mass fraction] 96 % Dr. Leela Ingram Work Phone: [facility] 02-15-2024 10:51-0400 Systolic blood pressure 126 mm[Hg] Dr. Leela Ingram Work Phone: [facility] 02-15-2024 09:40-0400 Body height 162.[address] Leela Ingram Work Phone: [facility] 02-15-2024 09:40-0400 Body mass index (BMI) [Ratio] 26.4 kg/m2 Dr. Leela Ingram Work Phone: [facility] 02-15-2024 09:40-0400 Body weight 69.[address] Leela Ingram Work Phone: [facility] 12-09-2023 15:01-0500 Body mass index (BMI) [Ratio] 27.3 kg/m2 Dr. Leela Ingram Work Phone: [facility] 12-09-2023 15:01-0500 Body weight 72.[address] Leela Ingram Work Phone: [facility] 12-09-2023 15:01-0500 Diastolic blood pressure 82 mm[Hg] Dr. Leela Ingram Work Phone: [facility] 12-09-2023 15:01-0500 Heart rate 79 /min Dr. Leela Ingram Work Phone: [facility] 12-09-2023 15:01-0500 Respiratory rate 17 /min Dr. Leela Ingarm Work Phone: [facility] 12-09-2023 15:01-0500 SaO2% (BldA) [Mass fraction] 96 % Dr. Leela Ingram Work Phone: [facility] 12-09-2023 15:01-0500 Systolic blood pressure 153 mm[Hg] Dr. Leela Ingram Work Phone: [facility] 12-03-2023 15:21-0500 Body height 162.[address] Leela Ingram Work Phone: [facility] 11-05-2023 16:13-0500 Body mass index (BMI) [Ratio] 27.5 kg/m2 Dr. Leela Ingram Work Phone: [facility] 11-05-2023 16:13-0500 Body temperature 98 [degF] Dr. Leela Ingram Work Phone: [facility] 11-05-2023 16:13-0500 Body weight 72.[address] Leela Ingram Work Phone: [facility] 11-05-2023 16:13-0500 Diastolic blood pressure 80 mm[Hg] Dr. Leela Ingram Work Phone: [facility] 11-05-2023 16:13-0500 Heart rate 100 /min Dr. Leela Ingram Work Phone: [facility] 11-05-2023 16:13-0500 Respiratory rate 16 /min Dr. Leela Ingram Work Phone: [facility] 11-05-2023 16:13-0500 SaO2% (BldA) [Mass fraction] 97 % Dr. Leela Ingram Work Phone: [facility] 11-05-2023 16:13-0500 Systolic blood pressure 140 mm[Hg] Dr. Leela Ingram Work Phone: [facility] Encounters Encounter Date Encounter Type Care Provider Facility Start: 09-07-2025 ambulatory Mary Jo Bartlett Bienvenido ty:[facility] Start: 07-14-2025 Non-patient / Non-visit Dr. Jose M Best MD -[facility] Start: 07-14-2025 End: 07-14-2025 Admission to same day surgery center Dr. Merissa Best MD -Endoscopy Work Phone: Start: 07-14-2025 End: 07-14-[address] Leela Ingram MD Work Phone: -Endoscopy Start: 07-12-2025 End: 07-12-2025 Patient encounter procedure Opal Rosas PA-C -[facility] Work Phone: Start: 07-12-2025 End: 07-12-[address] Leela Ingram MD Work Phone: -[facility] Start: 07-10-2025 End: 07-10-2025 Patient encounter procedure Louann Washington MANUAL WRITER-C -[facility] Work Phone: Start: 07-10-2025 End: 07-10-[address] Leela Ingram MD Work Phone: -[facility] Start: 07-10-2025 End: 07-10-2025 ambulatory [facility] Facility:[facility] Start: 07-07-2025 [facility] Start: 07-07-2025 End: 07-07-2025 Emergency department patient visit Dr. Caden Lazar DO -Emergency Department Work Phone: Start: 04-20-2025 ambulatory [facility] Adisaramjenaro Facili ty:[facility] Start: 04-20-2025 Non-patient / Non-visit Dr. Elaine DUNLAP -[facility] Start: 04-20-[address] Primo Ingram MD -Cat Scan [facility] Work Phone: Start: 04-20-2025 End: 04-20-[address] Leela Ingram MD Work Phone: -Cat Scan [facility] Start: 04-20-2025 End: 04-20-[address] Leela Ingram MD -Cat Scan [facility] Work Phone: Start: 04-20-2025 End: 04-20-2025 ambulatory [facility] Facility:[facility] Start: 04-05-2025 Encounter for genera l adult medical examination without abnormal findings [facility] Start: 03-24-2025 End: 03-24-[address] Leela Ingram MD [facility] Work Phone: Start: 03-24-2025 End: 03-24-[address] Leela Ingram MD [facility] Start: 03-24-2025 End: 03-24-[address] Leela Ingram MD Work Phone: [facility] Work Phone: Start: 03-24-2025 End: 03-24-2025 ambulatory Leela Ingram Facility:[facility] Start: 03-17-2025 End: 03-17-2025 ambulatory LEELA INGRAM MD Facility:[facility] Start: 03-17-2025 End: 03-17-2025 Patient encounter procedure ADRIAN PINEDA MD [facility] Start: 03-10-2025 End: 03-10-2025 ambulatory ADRIAN PINEDA MD Facility:[facility] Start: 08-29-2024 End: 08-29-2024 ambulatory Leela Ingram Facility:[facility] Start: 02-25-2024 End: 02-25-2024 Emergency department patient visit Dr. Leela Ingram Work Phone: [facility]-Emergency Department Work Phone: Start: 02-15-2024 Non-patient / Non-visit Dr. Jeremiah Ingram Work Phone: [facility] Start: 02-15-2024 End: 02-15-2024 Admission to same day surgery center Dr. Leela Ingram Work Phone: [facility]-Endoscopy Work Phone: Start: 02-15-2024 End: 02-15-[address] Leela Ingram Work Phone: [facility] Work Phone: Start: 12-09-2023 End: 12-09-[address] Leela Ingram Work Phone: [facility] Work Phone: Start: 12-03-2023 End: 12-03-[address] Leela Ingram Work Phone: [facility] Work Phone: Start: 12-03-2023 End: 12-03-[address] Leela Ingram Work Phone: [facility]-Outpatient Bone Densitometry Work Phone: Start: 11-05-2023 End: 11-05-[address] Leela Ingram Work Phone: [facility] Work Phone: Start: 07-23-2023 End: 07-24-2023 ambulatory ADRIAN PINEDA MD Facility:[facility] Start: 07-15-2023 End: 07-20-2023 ambulatory ADRIAN PINEDA MD Facility:[facility] Start: 07-15-2023 End: 07-20-2023 Encounter for gynecological examination (general) (routine) without abnormal findings ADRIAN PINEDA MD Facility:[facility] Start: 07-15-2023 End: 07-19-2023 Outreach Lab ADRIAN PINEDA MD [facility] Start: 04-28-2022 End: 04-28-2022 Patient encounter procedure [facility]-Outpatient Breast Imaging Start: 04-10-2022 End: 04-10-2022 Patient encounter procedure [facility]-Laboratory, Specimen Procedures Date Procedure Procedure Detail Performing Clinician Start: 07-14-[address] Primo Ingram MD Work Phone: Start: 07-07-2025 Measurement of occul t blood in stool specimen using immunoassay Dr. Leela Ingram MD Work Phone: Start: 07-07-2025 Plain chest X-ray Dr. Jenaro Ingram MD Work Phone: Start: 07-07-[address] Leela Ingram MD Work Phone: Start: 04-20-2025 CT angiography of co ronary [...] Treatment Date Care Activity Detail Author Start: 07-14-2025 Colonoscopy Colonoscopy,EGD (Not Applicable) [facility] Start: 07-14-2025 Non-patient / Non-visit Non-patient / Non-visit -[facility] Start: 07-14-2025 End: 07-14-2025 Admission to same day surgery center [facility] Work Phone: Start: 07-14-2025 Patient discharge [facility] Start: 07-12-2025 End: 07-12-2025 Patient encounter procedure FH: colon cancer -[facility] Work Phone: Start: 07-10-2025 End: 07-10-2025 Patient encounter procedure -[facility] Work Phone: Start: 07-07-2025 [facility] Start: 07-07-2025 [facility] Start: 03-24-2025 CBC W Auto Differential panel - Blood [facility] Start: 03-24-2025 Comprehensive metabolic 2000 panel - Serum or Plasma [facility] Start: 03-24-2025 Lipid 1996 panel - Serum or Plasma [facility] Start: 02-25-2024 [facility] Start: 02-15-2024 Colonoscopy w/biopsy single/multiple COLONOSCOPY AND BIOPSY [facility] Start: 02-15-2024 Colsc flx w/rmvl of tumor polyp lesion snare tq COLONOSCOPY W/LESION REMOVAL [facility] Start: 02-15-2024 Egd transoral biopsy single/multiple EGD BIOPSY SINGLE/MULTIPLE [facility] Start: 02-15-2024 Patient discharge [facility] Start: 11-05-2023 Patient referral [facility] Work Phone: Alanine aminotransfe rase [Enzymatic activity/volume] in Serum or Plasma [facility] Albumin [Mass/volume ] in Serum or Plasma [facility] Alkaline phosphatase [Enzymatic activity/volume] in Serum or Plasma [facility] Anion gap in Serum o r Plasma [facility] Bilirubin, total measurement [facility] BUN/Creatinine ratio [facility] Calcium [Mass/volume ] in Serum or Plasma [facility] Carbon dioxide, tota l [Moles/volume] in Central venous blood [facility] Cholesterol [Mass/vo lume] in Serum or Plasma [facility] Cholesterol in HDL [Mass/volume] in Serum or Plasma [facility] Colonoscopy [facility] Creatinine [Mass/vol ume] in Serum or Plasma [facility] CT Chest [facility] Erythrocyte mean corpuscular volume determination [facility] Glucose [Mass/volume ] in Serum or Plasma [facility] Hematocrit [Volume Fraction] of Blood [facility] Hemoglobin [Mass/vol ume] in Blood [facility] Leukocytes [#/volume ] in Blood [facility] Low density lipoprot ein cholesterol measurement [facility] Mean corpuscular hem oglobin concentration determination [facility] Mean corpuscular hem oglobin determination [facility] Measurement of renal function [facility] Neutrophil count [facility] Neutrophil percent differential count [facility] Path report.final Dx Spec [facility] [facility] Work Phone: Patient Education [facility] Work Phone: Patient referral [facility] Work Phone: Platelets [#/volume] in Blood [facility] Potassium measurement [facility] Red blood cell count [facility] Red cell distributio n width determination [facility] Serum chloride measurement [facility] Sodium measurement [facility] Total cholesterol:HD L ratio measurement [facility] Total protein measurement [facility] Triglycerides measurement [facility] Urea nitrogen [Mass/ volume] in Serum or Plasma [facility] VLDL cholesterol measurement [facility] Payers Date Payer Category Payer Unknown 2025 Medicare [id number] 2025 Private Health Insurance [id number] 2025 Medicare [id number] 2025 Private Health Insurance [id number] 2024 Self-pay [id number] 2024 Private Health Insurance [id number] 2022 Private Health Insurance [id number] 2005 Private Health Insurance [facility] [id number] 1960 Unknown [id number] [id number] 27 1958 Unknown [id number] 2.16.840.1.175645.3.579.2.6 27 1958 Unknown [id number] 2.16.840.1.551318.3.579.2.6 27 1958 Unknown [id number] 2.16.840.1.296175.3.579.2.6 27 Unknown [id number] 2.16.840.1.775122.3.579.2.4 62 Unknown [id number] 2.16.840.1.051005.3.579.2.4 62 Unknown [id number] 2.16.840.1.350251.3.579.2.4 62 Unknown [id number] 2.16.840.1.911371.3.579.2.4 62 Unknown [id number] 2.16.840.1.237996.3.579.2.4 62 Unknown [id number] 2.16.840.1.439940.3.579.2.4 62 Unknown [id number] 2.16.840.1.908842.3.579.2.4 62 Unknown [id number] 2.16.840.1.422247.3.579.2.4 62 Unknown [id number] 2.16.840.1.938719.3.579.2.4 62 Unknown [id number] 2.16.840.1.161085.3.579.2.4 62 Unknown [id number] 2.16.840.1.361179.3.579.2.4 62 Unknown [id number] 2.16.840.1.067017.3.579.2.4 62 Unknown [id number] 2.16.840.1.600173.3.579.2.4 62 Unknown [id number] 2.16.840.1.560334.3.579.2.4 62 Social History Date Type Detail Facility Start: 10-22-2021 End: 02-25-2024 Tobacco smoking status FLIS Unknown if ever smoked [facility] Start: 12-07-[address] [facility] Start: 1960 Sex Assigned At Female A [facility] Start: 07-15-2023 Tobacco smoking status Heavy t obacco smoker (finding) [facility] Sexual Orientation Jerrod Breenltman [place] Sex Female (finding) [facility] Start: 02-25-2024 End: 07-12-2025 Tobacco smoking status NHIS Smokes tobacco daily (finding) [facility] Not [facility] NEGATED: Highlighted row [facility] Goals Date Patient Goal Desired Activity /State Mental Status Date Assessment Result Facility 07-14-2025 Cognitive function Light Pain [facility] Work Phone: 02-15-2024 Cognitive function Awake;Alert;Appropriat e [facility] Work Phone: 02-15-2024 Cognitive function Arousable To Voice/Nam e [facility] Work Phone: Clinical Notes 04-10-2022 to 07-14-2025 Note Date & Type Note Facility 07-14-2025 Procedure note [facility] 07-14-2025 Procedure note [facility] 07-14-2025 Procedure note [facility] 07-14-2025 Procedure note [facility] 07-14-2025 Consult note [facility] 07-14-2025 History and physi chon note [facility] 07-14-2025 Consult note [facility] 07-14-2025 Note [facility] Medical Records Department [address] [place] [address] History Physical Exam 07/14/25 1026 MR#: [id number] Acct: [id number] Name: DANIELLE BERRY Rep #: [id number] : 1960 64 From: Merissa Best MD PCP: Dr. Leela Ingram MD Status:[facility] Location: [place] [address] History and Physical Date of Admission: 07/14/25 Date of Service: 07/12/25 MR#: [id number] Acct: [id number] Name: DANIELLE BERRY Rep #: [id number] : 1960 Provider: TALI Rosas Age/Sex: 64/F Location: [facility] Status: Signed Intake Vital Signs 07/10/2515:02 07/12/2509:30 Height 5 ft 4 in 5 ft [...] Swelling Medications ???Medication ???Instructions ???Recorded ???Confirmed ???Type hgfmixjt-ljz-xkuiz ac 400 1 ea PO DAILY SUPPLEMENT 12/07/18 07/12/25 History mcg-calcium carb 500 mg-vit K1 20 mcg tablet omega-3 fatty acids 1,000 mg 2,000 mg PO DAILY SUPPLEMENT 12/07/18 07/12/25 His tory capsule cholecalciferol (vitamin D3) 50 50 mcg [...] 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 She notes her insurance since detention has been a struggle to figure out. She states she was offered admission however declined and left against medical advice because she wanted Dr. Best to perform her scope and due to her insurance (more content not included)... [facility] 07-12-2025 Progress note [facility] 07-10-2025 Progress note Note Date/Time July 10, 2025 3:49pm [facility] [address] [place] [address] [place] [address] OFFICE VISIT Date of Service: 07/10/25 MR#: [id number] Acct: [id number] Name: DANIELLE BERRY Rep #: [id number] : 1960 Provider: CHIRAG Washington Age/Sex: 64/F Location: [facility] Status: Signed Intake Vital Signs 07/07/25 11:22 07/10/25 15:02 Height 5 ft 4 in 5 ft 4 in Weight: 161 lb BMI 27.6 BP 158/72 H Blood Pressure Location Lt brachial Position Sitting Respiration 16 Pulse 80 Pulse Source Monitor Temp 97.8 F Temp Source Temporal Pulse Oximetry (%) 99 Oxygen Delivery Method room air 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: No Accompanied by: Self Is patient in pain?: No Allergies Penicillins Allergy (Verified 07/10/25 14:56) Swelling Medications ?Medication ?Instructions ?Recorded ?Confirmed ?Type xebwijeu-gwh-bjjge ac 400 1 ea PO DAILY SUPPLEMENT 07/10/25 History mcg-calcium carb 500 mg-vit K1 20 mcg tablet omega-3 fatty acids 1,000 mg 2,000 mg PO DAILY SUPPLEM ENT 12/07/18 07/10/25 History capsule cholecalciferol (vitamin D3) 50 50 mcg PO DAILY 07/10/25 History mcg (2,000 unit) capsule Have [...] smoker with 30pack year history or greater Sol esophagus GERD (gastroesophageal reflux disease) GI problem History of breast cancer Seasonal allergies leep cone High cholesterol Breast cancer, right Surgical History History of tooth extraction (~08/2023) History of esophagogastroduodenoscopy (EGD) H/O LEEP History [...] you participate in: other details: AROUND THEHOUSE HPI HPI Details: DANIELLE BERRY, is a 64 F who presents to [...] was recommended to be admitted to the hospitalhowever she chose to leave AGAINST MEDICAL ADVICE. Patient states she called GIto make an appointment and she needed a referral. She states she continues to have some left lower quadrant pain as well as having blood in her stools. She also complains of some leg and hip cramping. She has denies shortness of breathat this time no headache no nausea or vomiting. She does not complain of diarrhea. She states the muscles in her legs feel somewhat weak. ROS Const Constitutional: Positive for fatigue and weakness; No body ache, chills, excessive sweating, fever(s), frequent falls, headache(s),snoring, weight change, sleep problems, abnormal sleep pattern [...] at rest, chest pain with exertion, excessive sweating,shortness of breath, dyspnea on exertion, lightheadedness, orthopnea or palpitations Gastro GI: Positive for change in bowel habits, change in stool character and Blood in stool; No abdominal pain, bloating, constipation, cramping, diarrhea, heartburn, Vomiting blood/hematemesis, nausea/dyspepsia or vomiting Genitourinary-Female: No burning urination, painful urination, urinary incontinence, urinary frequency, suprapubic fullness, side pain, abnormal vaginal bleeding or pelvic pain Musc Musculoskeletal: Positive for joint pain (B/L hip pain); No abnormal gait, back pain, limited range of motion, neck pain, numbness or tingling Skin Skin: No dry skin, redness, excessive hair growth, yellowing of the eye, lesions, itchy eyes, rash or wounds Neuro Neurology: Positive for weakness; No abnormal gait, abnormal hearing, behavioral changes, unsteady gait/balance, frequent falls, headache(s), memory loss, numbness, tingling or visual disturbances Psych Psychiatric: No abnormal sleep pattern, No anxiety, No behavioral changes, No change in appetite, No irritability, No memory loss and No Thoughts of harming yourself/Others Endo Endocrine: Positive for fatigue; No cold intolerance, excessive sweating, flushing, heat intolerance, increased thirst/drinking, increased hunger or weight change Aller/Imm Allergy/Immunologic: No itchy eyes, seasonal allergy symptoms, hives or wheezing Jacky/Lymp Hematologic/Lymphatic: No easy bleeding, easy bruising, enlarged lymph nodes or other Exam Const General: cooperative, no acute distress, well groomed and well hydrated Nutritional Appearance: well nourished Orientation: alert and oriented x3 [facility] Head: normal to inspection Ears: hearing grossly normal bilaterally Nose: external nose normal and nares normal Face and sinus: normal facial exam Mouth: oral mucosae normal, lip normal and moist mucous membranes Eyes General: appearance normal, both eyes and all related structures Pupils: PERRL Neck Neck: normal visual inspection and trachea midline Chest Chest palpation & inspection: normal inspection of the chest Resp Effort & Inspection: normal respiratory effort, able to speak in complete sentences and symmetric chest movement Auscultation: Bilateral: Clear to Auscultation Cardio Palpation: normal PMI Rate: regular rate Rhythm: regular rhythm Heart Sounds: S1 normal and S2 normal Pulses: radial pulses present GI Inspection: normal to inspection Auscultation: normal bowel sounds Palpation: soft and tender (LLQ) Musc Musculoskeletal: No joint tenderness, joint redness or muscle weakness Skin General: no rashes or lesions noted Lesions: no lesions Rashes: no rashes Trauma: no lacerations or abrasions Wounds: no wounds Neuro General: patient alert, patient oriented x3 and deep tendon reflexes 2+ bilaterally Speech: speech normal Motor: muscle tone normal throughout Extrem General: normal to inspection and capillary refill normal Psych Appearance: grossly normal and well kempt Coding Level of Care Code Established Pt Off vis,est,level 3 Patient Type Established History Expanded Problem Focused Exam Expanded Problem Focused Medical Decision Making Moderate Complexity Diagnoses GI bleed K92.2 Muscle ache of extremity M79.18 Time Spent (min) 50 Assessment and Plan Assessment and Plan (1) GI bleed: Status: Acute Plan: Patient was diagnosed with GI bleed at [facility] ER and was recommended to be admitted to the hospital however she left the hospital AMA. At this time will refer to GI as well as repeat labs to reassess hemoglobin. Patient educated that if any worsening or changes in condition to go to the ER for further evaluation. Patient verbalizes understanding. (2) Muscle ache of extremity: Status: Acute Plan: Mild performed CMP to assess electrolyte status. Orders: Orders CBC W/Diff, Automated Today K29.50 - Unspecified chronic gastritis without bleeding, K92.2 - Gastrointestinal hemorrhage, unspecified, M79.18 - Myalgia, other site Comprehensive Metabolic Profil Today K29.50 - Unspecified chronic gastritis without bleeding, M79.18 - Myalgia, other site Referrals Gastroenterology K29.50 - Unspecified chronic gastritis without bleeding, K92.2 - Gastrointestinal hemorrhage, unspecified Plan Details Follow Up: As needed Clinical Quality Measures Falls Risk Screening/Assistive Devices Have you fallen in the past year?: No 07/10/25 1549 <Electronically signed by Louann tapia MANUAL WRITER-C> Date _ Louann JOHNSONC Cosigner Signature: Date (if applicable) CC: ~ [facility] Work Phone: 1(988) 769-977609-22-2025 [facility] [address] [place] [address] [place] [address] OFFICE VISIT Date of Service: 07/10/25 MR#: [id number] Acct: [id number] Name: DANIELLE BERRY Rep #: [id number] : 1960 Provider: CHIRAG Washington Age/Sex: 64/F Location: [facility] Status: Signed Intake Vital Signs 07/07/25 11:22 07/10/25 15:02 Height 5 ft 4 in 5 ft 4 in Weight: 161 lb BMI 27.6 BP 158/72 H Blood Pressure Location Lt brachial Position Sitting Respiration 16 Pulse 80 Pulse Source Monitor Temp 97.8 F Temp Source Temporal Pulse Oximetry (%) 99 Oxygen Delivery Method room air 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: No Accompanied by: Self Is patient in pain?: No Allergies Penicillins Allergy (Verified 07/10/25 14:56) Swelling Medications ?Medication ?Instructions ?Recorded ?Confirmed ?Type bpliuswq-jlm-idkfw ac 400 1 ea PO DAILY SUPPLEMENT 07/10/25 History mcg-calcium carb 500 mg-vit K1 20 mcg tablet omega-3 fatty acids 1,000 mg 2,000 mg PO DAILY SUPPLEM ENT 12/07/18 07/10/25 History capsule cholecalciferol (vitamin D3) 50 50 mcg PO DAILY 07/10/25 History mcg (2,000 unit) capsule Have [...] smoker with 30pack year history or greater Sol esophagus GERD (gastroesophageal reflux disease) GI problem History of breast cancer Seasonal allergies leep cone High cholesterol Breast cancer, right Surgical History History of tooth extraction (~08/2023) History of esophagogastroduodenoscopy (EGD) H/O LEEP History [...] do you participate in: other details: AROUND THEHYE HPI HPI Details: DANIELLE BERRY, is a 64 F who presents to [...] was recommended to be admitted to the hospitalhowever she chose to leave AGAINST MEDICAL ADVICE. Patient states she called [facility] make an appointment and she needed a referral. She states she continues to have some left lower quadrant pain as well as having blood in her stools. She also complains of some leg and hip cramping. She has denies shortness of breathat this time no headache no nausea or vomiting. She does not complain of diarrhea. She states the muscles in her legs feel somewhat weak. ROS Const Constitutional: Positive for fatigue and weakness; No body ache, chills, excessive sweating, fever(s), frequent falls, headache(s),snoring, weight change, sleep problems, abnormal sleep pattern [...] at rest, chest pain with exertion, excessive sweating,shortness of breath, dyspnea on exertion, lightheadedness, orthopnea or palpitations Gastro GI: Positive for change in bowel habits, change in stool character and Blood in stool; No abdominal pain, bloating, constipation, cramping, diarrhea, heartburn, Vomiting blood/hematemesis, nausea/dyspepsia or vomiting Genitourinary-Female: No burning urination, painful urination, urinary incontinence, urinary frequency, suprapubic fullness, side pain, abnormal vaginal bleeding or pelvic pain Musc Musculoskeletal: Positive for joint pain (B/L hip pain); No abnormal gait, back pain, limited range of motion, neck pain, numbness or tingling Skin Skin: No dry skin, redness, excessive hair growth, yellowing of the eye, lesions, itchy eyes, rash or wounds Neuro Neurology: Positive for weakness; No abnormal gait, abnormal hearing, behavioral changes, unsteady gait/balance, frequent falls, headache(s), memory loss, numbness, tingling or visual disturbances Psych Psychiatric: No abnormal sleep pattern, No anxiety, No behavioral changes, No change in appetite, No irritability, No memory loss and No Thoughts of harming yourself/Others Endo Endocrine: Positive for fatigue; No cold intolerance, excessive sweating, flushing, heat intolerance, increased thirst/drinking, increased hunger or weight change Aller/Imm Allergy/Immunologic: No itchy eyes, seasonal allergy symptoms, hives or wheezing Jacky/Lymp Hematologic/Lymphatic: No easy bleeding, easy bruising, enlarged lymph nodes or other Exam Const General: cooperative, no acute distress, well groomed and well hydrated Nutritional Appearance: well nourished Orientation: alert and [facility] Head: normal to inspection Ears: hearing grossly normal bilaterally Nose: external nose normal and nares normal Face and sinus: normal facial exam Mouth: oral mucosae normal, lip normal and moist mucous membranes Eyes General: appearance normal, both eyes and all related structures Pupils: PERRL Neck Neck: normal visual inspection and trachea midline Chest Chest palpation & inspection: normal inspection of the chest Resp Effort & Inspection: normal respiratory effort, able to speak in complete sentences and symmetric chest movement Auscultation: Bilateral: Clear to Auscultation Cardio Palpation: normal PMI Rate: regular rate Rhythm: regular rhythm Heart Sounds: S1 normal and S2 normal Pulses: radial pulses present GI Inspection: normal to inspection Auscultation: normal bowel sounds Palpation: soft and tender (LLQ) Musc Musculoskeletal: No joint tenderness, joint redness or muscle weakness Skin General: no rashes or lesions noted Lesions: no lesions Rashes: no rashes Trauma: no lacerations or abrasions Wounds: no wounds Neuro General: patient alert, patient oriented x3 and deep tendon reflexes 2+ bilaterally Speech: speech normal Motor: muscle tone normal throughout Extrem General: normal to inspection and capillary refill normal Psych Appearance: grossly normal and well kempt Coding Level of Care Code Established Pt Off vis,est,level 3 Patient Type Established History Expanded Problem Focused Exam Expanded Problem Focused Medical Decision Making Moderate Complexity Diagnoses GI bleed K92.2 Muscle ache of extremity M79.18 Time Spent (min) 50 Assessment and Plan Assessment and Plan (1) GI bleed: Status: Acute Plan: Patient was diagnosed with GI bleed at [facility] ER and was recommended to be admitted to the hospital however she left the hospital AMA. At this time will refer to GI as well as repeat labs to reassess hemoglobin. Patient educated that if any worsening or changes in condition to go to the ER for further evaluation. Patient verbalizes understanding. (2) Muscle ache of extremity: Status: Acute Plan: Mild performed CMP to assess electrolyte status. Orders: Orders CBC W/Diff, Automated Today K29.50 - Unspecified chronic gastritis without bleeding, K92.2 - Gastrointestinal hemorrhage, unspecified, M79.18 - Myalgia, other site Comprehensive Metabolic Profil Today K29.50 - Unspecified chronic gastritis without bleeding, M79.18 - Myalgia, other site Referrals Gastroenterology K29.50 - Unspecified chronic gastritis without bleeding, K92.2 - Gastrointestinal hemorrhage, unspecified Plan Details Follow Up: As needed Clinical Quality Measures Falls Risk Screening/Assistive Devices Have you fallen in the past year?: No 07/10/25 1549 er MANUAL WRITER-C> Date _ Louann Drummondmartina MORA-C Melody Signature: Date (if applicable) CC: ~ [facility]09-19-2025 Discharge summary [facility] Medical Records Department [address] [place] [address] Emergency Department Summary 07/07/25 MR#: [id number] Acct: [id number] Name: DANIELLE BERRY Juan Rep #:[id number] : 1960 64 From: Caden Espinal PCP: Dr. Leela Ingram MD Status:D EP ER Location: ED HPI History of Present [...] smoker with 30pack year history or greater Sol esophagus GERD (gastroesophageal reflux disease) GI problem History of breast cancer Seasonal allergies leep cone High cholesterol Breast cancer, right Home Medications ?Medication ?Instructions ?Recorded ?Last Taken ?Type jkphrczo-twb-qgqhp ac 400 1 ea PO DAILY SUPPLEMENT 07/04/25 History mcg-calcium carb 500 mg-vit K1 20 mcg tablet omega-3 fatty acids 1,000 mg 2,000 mg PO DAILY SUPPLEM ENT 12/07/18 07/04/25 History capsule cholecalciferol (vitamin D3) 50 50 mcg PO DAILY 07/04/25 History mcg (2,000 unit) capsule boswal[place] 500 mg PO DAILY 03/24/25 History pantoprazole 40 mg granules 40 mg PO DAILY 30 days #30 ea 07/07/25 Unknown Rx delayed-release for susp in packet (Protonix) Allergy/AdvReac Type Severity Reaction Status Date / Time Penicillins Allergy Swelling Verified 03/24/25 10:42 Family History Sister Colon cancer Thyroid disorder Mother Arthritis Hypertension Mental disorder Psychiatric care Thyroid disorder Father Hypertension Thyroid disorder Grandmother Mental disorder Brother Thyroid disorder Surgical History History of tooth extraction (~08/2023) History of esophagogastroduodenoscopy (EGD) H/O LEEP History [...] you participate in: other details: AROUND THEHOUSE EXAM Physical Exam Const Vital Signs: 07/07/25 [...] with prior blood per rectum. 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 She [...] Nursing triage notes reviewed, Vital signs reviewed Constitutional: please see mdm HENT: MMM Eyes: Pupils equal round and reactive to light, Extraocular muscles intact Neck: No stridor, no JVD, full neck ROM Lungs: Clear to auscultation, No wheezing or rales. No increased work of breathing, no conversational dyspnea, no accessory muscle use, no nasal flaring. No respiratory distress noted Heart: Regular rate and rhythm, No murmurs, No rubs and No gallops, 2+ distal pulses (radial, femoral, posterior tibial) in all extremities Abdomen: Soft, there is no tenderness, rigidity, rebound or guarding, no obvious peritoneal signs, no palpable pulsatile abdominal masses, no auscultated abdominal bruit : No CVAT Extremities: No edema Rectal: Performed with meter setter nurse Chloe present. Verbal consent obtained. Rectal exam showed Neuro: No n alert and oriented x3, neuro exam at baseline, cranial nerves II through XII are intact. No pain with extraocular muscle movement. There is negative test of skew. 5 of 5 strength in upperand lower extremities in flexion extension. Intact sensation to light touch in upper and lower extremity dermatomes. No truncal or extremity ataxia. No dysdiadochokinesia. Normal gait. 2+ reflexes inupper and lower extremities. No meningeal signs. Negative Babinski. NIH of 0. Skin: No rash or lesions noted MEDICAL DECISION MAKING: Chief Complaint: please see HPI External records reviewed: Reviewed prior imaging studies Factors affecting care: History of colon cancer, Sol's esophagus, hyperlipidemia, tobacco abuse Social determinants of health: none History obtained from others: Friend Consults: Gastroenterology (Dr. Zaragoza) recommended admission for urgent scope. Discussed with hospitalist (Dr. Farnsworth) [facility] Narrative: The patient was initially hypertensive with a blood pressure 174/76, tachycardic with heart rate of114, afebrile saturating 98% room air I considered the following differential diagnosis: Anemia, GI bleed, arrhythmia, ACS, pneumonia I obtained a broad lab and imaging evaluation to further determine if the patient was suffering from a life-threatening etiology. ALL IMAGES (IF OBTAINED) HAVE BEEN PERSONALLY REVIEWED AND INTERPRETED BY MYSELF. Stool occult sample positive High-sensitivity troponin is negative, no evidence of myocardial ischemia CBC with leukocytosis suggestive of systemic elevation, noted severe anemia High-sensitivity troponin is negative, no evidence of myocardial ischemia EKG with sinus tachycardia rate of 103, normal axis, normal intervals, no STEMI Given symptomatic GI bleed with significant drop in hemoglobin and initial tachycardia I opted to admit the patient. Discussed with GI and medicine who agreed. Once this was discussed with patient she was concerned about her pets as well as insurance coverage and potential cost. She was alert and oriented x 3 and had capacity to make own medical decisions. She chose to leave AGAINST MEDICAL ADVICE. AMA note: I have recommended admission to the hospital, but the patient refuses. The risks (including but notlimited to suffering and ) as well as the benefits were explained to the patient. Questions were sought and answered, the patient voiced understanding and accepts these risks. I have encouraged the patient to return to have their evaluation completed as we are glad to do so. Patient had capacity to make his or her own medical decisions. Patient was alert and orient x3 and of sound mind at time of discussion. I have also instructed the patient on the importance of follow-up and to return for any worsening or worrisome concerns. The patient appears competent to make medical decisions at this time. The patient and/or family, caregivers express understanding. The patient and/or family, caregivers agrees with the plan. Shared decision making: I will have a discussion with the patient and or visitors regarding risk/benefits of further testing or admission. They will be made aware of of the risk/benefits inherent in this decision they will be given the opportunity to voice understanding. Total critical care time today provided was at least 0 minutes. This excludes separately billable procedures. Critical care time (if documented) is secondary to the patient having high probability ofclinically significant/life threatening deterioration in the patient's condition which required my urgent intervention. Impression: 1. Shortness of breath 2. GI bleed Dispo: Discharge AMA This note was generated with Rooster Teethation software. It may contain incorrect words, spelling, and punctuation that were not noted in review of the chart prior to signing. Lab Data Attestation: I reviewed the patient's lab results. Labs: Laboratory Results - last 24 hr 07/07/25 12:10 WBC 11.3 H RBC 2.86 L Hgb 8.7 L Hct 26.0 L MCV 90.9 MCH 30.4 MCHC 33.5 RDW Std Deviation 46.1 H RDW Coeff of Jean 13.8 Plt Count 328 MPV 8.8 Immature Gran % (Auto) 0.500 Neut % (Auto) 61.9 Lymph % (Auto) 31.1 Riverside % (Auto) 4.9 Eos % (Auto) 1.1 Baso % (Auto) 0.5 Absolute Neuts (auto) 7.0 Absolute Lymphs (auto) 3.52 Nucleated RBC % 0 Sodium 138 Potassium 3.8 Chloride 105 Carbon Dioxide 20.7 L Anion Gap 12 BUN 16 Creatinine 0.71 Estim Creat Clear Calc 67.73 Est GFR (MDRD) Non-Af 95 BUN/Creatinine Ratio 22.7 H Glucose 104 H Calcium 9.1 Troponin T High Sens 6 Radiography Diagnostic Testing: Clinical Impression(s) from Imaging Studies Chest X-Ray 07/07/25 12:25 IMPRESSION: No acute cardiopulmonary abnormality Reading Location: [facility] Discharge Plan Triage Chief Complaint: Shortness of Breath ED Provider: Caden Lazar Dx/Rx/DC Orders Instructions: Anemia Prescriptions: New pantoprazole [Protonix] [address] for susp in packet 40 mg PO DAILY 30 Days Qty: 30 0RF No Action cholecalciferol (vitamin D3) 50 mcg (2,000 unit) capsule 50 mcg PO DAILY boswalia 500 mg capsule 500 mg PO DAILY Rx Instructions: joint pain daily omega-3 fatty acids 1,000 MG capsule 2,000 mg PO DAILY cg-txs-hvhjg-calcium carb-K1 1 EACH tablet 1 ea PO DAILY Primary Care Provider: Leela Ingram Referrals: Leela Ingram MD [Primary Care Provider, Internal Medicine] Friend,DO Jerry [Med Staff - Active Staff, Gastroenterology] Activity Restrictions/Additional Instructions: Thank you for trusting us with your care today! Please take Protonix as prescribed. Please return to the emergency department if your symptoms change or worsen. Specifically if you develop loss of conscious, heavy bleeding, chest pain, shortness of breath. If your hemoglobin is lessthan 7. Please follow with your primary care physician and Gastroenterology for furtheroutpatient evaluation and management. Print Language: South African Disposition Disposition: Home, Self Care Discharge Date/Time: 07/07/25 14:37 What to do if you have Problems For any increased pain, shortness of breath, bleeding, nausea or vomiting, chestpain, or any unexpected problems, contact your Primary Care Provider. Call [facility] ([phone]) or report tothe closest Emergency Room. Call 911 if necessary. 07/07/25 1528 Cosigner Signature (if applicable): CC: Dr. Leela Ingram MD ~ Signed [facility]09-19-2025 Discharge summary Author Caedn Lazar [facility] Note Date/Time July 07, 2025 2:37pm [facility] Medical Records Department [address] [place] [address] Emergency Department Summary 07/07/25 MR#: [id number] Acct: [id number] Name: DANIELLE BERRY Rep #:[id number] : 1960 64 From: Caden Espinal PCP: Dr. Leela Ingram MD Status:D EP ER Location: ED HPI History of Present [...] smoker with 30pack year history or greater Sol esophagus GERD (gastroesophageal reflux disease) GI problem History of breast cancer Seasonal allergies leep cone High cholesterol Breast cancer, right Home Medications ?Medication ?Instructions ?Recorded ?Last Taken ?Type xkbrluky-rxt-cuhoz ac 400 1 ea PO DAILY SUPPLEMENT 07/04/25 History mcg-calcium carb 500 mg-vit K1 20 mcg tablet omega-3 fatty acids 1,000 mg 2,000 mg PO DAILY SUPPLEM ENT 12/07/18 07/04/25 History capsule cholecalciferol (vitamin D3) 50 50 mcg PO DAILY 07/04/25 History mcg (2,000 unit) capsule boswalia 500 mg PO DAILY 03/24/25 History pantoprazole 40 mg granules 40 mg PO DAILY 30 days #30 ea 07/07/25 Unknown Rx delayed-release for susp in packet (Protonix) Allergy/AdvReac Type Severity Reaction Status Date / Time Penicillins Allergy Swelling Verified 03/24/25 10:42 Family History Sister Colon cancer Thyroid disorder Mother Arthritis Hypertension Mental disorder Psychiatric care Thyroid disorder Father Hypertension Thyroid disorder Grandmother Mental disorder Brother Thyroid disorder Surgical History History of tooth extraction (~08/2023) History of esophagogastroduodenoscopy (EGD) H/O LEEP History [...] you participate in: other details: AROUND THEHOUSE EXAM Physical Exam Const Vital Signs: 07/07/25 [...] Nursing triage notes reviewed, Vital signs reviewed Constitutional: please see mdm HENT: MMM Eyes: Pupils equal round and reactive to light, Extraocular muscles intact Neck: No stridor, no JVD, full neck ROM Lungs: Clear to auscultation, No wheezing or rales. No increased work of breathing, no conversational dyspnea, no accessory muscle use, no nasal flaring. No respiratory distress noted Heart: Regular rate and rhythm, No murmurs, No rubs and No gallops, 2+ distal pulses (radial, femoral, posterior tibial) in all extremities Abdomen: Soft, there is no tenderness, rigidity, rebound or guarding, no obvious peritoneal signs, no palpable pulsatile abdominal masses, no auscultated abdominal bruit : No CVAT Extremities: No edema Rectal: Performed with meter setter nurse Chloe present. Verbal consent obtained. Rectal exam showed Neuro: No n alert and oriented x3, neuro exam at baseline, cranial nerves II through XII are intact. No pain with extraocular muscle movement. There is negative test of skew. 5 of 5 strength in upper and lower extremities in flexion extension. Intact sensation to light touch in upper and lower extremity dermatomes. No truncal or extremity ataxia. No dysdiadochokinesia. Normal gait. 2+ reflexes in upper and lower extremities. No meningeal signs. Negative Babinski. NIH of 0. Skin: No rash or lesions noted MEDICAL DECISION MAKING: Chief Complaint: please see HPI External records reviewed: Reviewed prior imaging studies Factors affecting care: History of colon cancer, Sol's esophagus, hyperlipidemia, tobacco abuse Social determinants of health: none History obtained from others: Friend Consults: Gastroenterology (Dr. Zaragoza) recommended admission for urgent scope. Discussed with hospitalist (Dr. Farnsworth) MDM Narrative: The patient was initially hypertensive with a blood pressure 174/76, tachycardic with heart rate of 114, afebrile saturating 98% room air I considered the following differential diagnosis: Anemia, GI bleed, arrhythmia, ACS, pneumonia I obtained a broad lab and imaging evaluation to further determine if the patient was suffering from a life-threatening etiology. ALL IMAGES (IF OBTAINED) HAVE BEEN PERSONALLY REVIEWED AND INTERPRETED BY MYSELF. Stool occult sample positive High-sensitivity troponin is negative, no evidence of myocardial ischemia CBC with leukocytosis suggestive of systemic elevation, noted severe anemia High-sensitivity troponin is negative, no evidence of myocardial ischemia EKG with sinus tachycardia rate of 103, normal axis, normal intervals, no STEMI Given symptomatic GI bleed with significant drop in hemoglobin and initial tachycardia I opted to admit the patient. Discussed with GI and medicine who agreed. Once this was discussed with patient she was concerned about her pets as well as insurance coverage and potential cost. She was alert and oriented x 3 and had capacity to make own medical decisions. She chose to leave AGAINST MEDICAL ADVICE. AMA note: I have recommended admission to the hospital, but the patient refuses. The risks (including but not limited to suffering and ) as well as the benefits were explained to the patient. Questions were sought and answered, the patient voiced understanding and accepts these risks. I have encouraged the patient to return to have their evaluation completed as we are glad to do so. Patient had capacity to make his or her own medical decisions. Patient was alert and orient x3 and of sound mind at time of discussion. I have also instructed the patient on the importance of follow-up and to return for any worsening or worrisome concerns. The patient appears competent to make medical decisions at this time. The patient and/or family, caregivers express understanding. The patient and/or family, caregivers agrees with the plan. Shared decision making: I will have a discussion with the patient and or visitors regarding risk/benefits of further testing or admission. They will be made aware of of the risk/benefits inherent in this decision they will be given the opportunity to voice understanding. Total critical care time today provided was at least 0 minutes. This excludes separately billable procedures. Critical care time (if documented) is secondary to the patient having high probability of clinically significant/life threatening deterioration in the patient's condition which required my urgent intervention. Impression: 1. Shortness of breath 2. GI bleed Dispo: Discharge AMA This note was generated with [employer] dictation software. It may contain incorrect words, spelling, and punctuation that were not noted in review of the chart prior to signing. Lab Data Attestation: I reviewed the patient's lab results. Labs: Laboratory Results - last 24 hr 07/07/25 12:10 WBC 11.3 H RBC 2.86 L Hgb 8.7 L Hct 26.0 L MCV 90.9 MCH 30.4 MCHC 33.5 RDW Std Deviation 46.1 H RDW Coeff of Jean 13.8 Plt Count 328 MPV 8.8 Immature Gran % (Auto) 0.500 Neut % (Auto) 61.9 Lymph % (Auto) 31.1 [place] % (Auto) 4.9 Eos % (Auto) 1.1 Baso % (Auto) 0.5 Absolute Neuts (auto) 7.0 Absolute Lymphs (auto) 3.52 Nucleated RBC % 0 Sodium 138 Potassium 3.8 Chloride 105 Carbon Dioxide 20.7 L Anion Gap 12 BUN 16 Creatinine 0.71 Estim Creat Clear Calc 67.73 Est GFR (MDRD) Non-Af 95 BUN/Creatinine Ratio 22.7 H Glucose 104 H Calcium 9.1 Troponin T High Sens 6 Radiography Diagnostic Testing: Clinical Impression(s) from Imaging Studies Chest X-Ray 07/07/25 12:25 IMPRESSION: No acute cardiopulmonary abnormality Reading Location: [facility] Discharge Plan Triage Chief Complaint: Shortness of Breath ED Provider: Caden Lazar Dx/Rx/DC Orders Instructions: Anemia Prescriptions: New pantoprazole [Protonix] [address] for susp in packet 40 mg PO DAILY 30 Days Qty: 30 0RF No Action cholecalciferol (vitamin D3) 50 mcg (2,000 unit) capsule 50 mcg PO DAILY boswalia 500 mg capsule 500 mg PO DAILY Rx Instructions: joint pain daily omega-3 fatty acids 1,000 MG capsule 2,000 mg PO DAILY ip-bfm-ghdha-calcium carb-K1 1 EACH tablet 1 ea PO DAILY Primary Care Provider: Leela Ingram Referrals: Leela Ingram MD [Primary Care Provider, Internal Medicine] Friend,DO Jerry [Med Staff - Active Staff, Gastroenterology] Activity Restrictions/Additional Instructions: Thank you for trusting us with your care today! Please take Protonix as prescribed. Please return to the emergency department if your symptoms change or worsen. Specifically if you develop loss of conscious, heavy bleeding, chest pain, shortness of breath. If your hemoglobin is less than 7. Please follow with your primary care physician and Gastroenterology for furtheroutpatient evaluation and management. Print Language: South African Disposition Disposition: Home, Self Care Discharge Date/Time: 07/07/25 14:37 What to do if you have Problems For any increased pain, shortness of breath, bleeding, nausea or vomiting, chestpain, or any unexpected problems, contact your Primary Care Provider. Call [facility] ([phone]) or report to the closest Emergency Room. Call 911 if necessary. 07/07/25 1528 <Electronically signed by Caden Lazar DO> Cosigner Signature (if applicable): CC: Dr. Leela Ingram MD ~ Signed [facility] Work Phone: 1(340) 291-653609-19-2025 Radiology Diagnostic study note [facility] Imaging Services [address] [place], [place] [address] Chest 1 View (Portable) MR#: [id number] Acct: [id number] Name: DANIELLE BERRY Rep #: [id number] : 1960 F 64 From: Irlanda Fletcher MD PCP: Dr. Leela Ingram MD Status: R EG ER Study:Chest 1 View (Portable) Date of Exam: 07/07/25 Exam# [id number] Ordering Dr: Rosanna Lazar DO PROCEDURE: CHEST 1 VIEW (PORTABLE) 07/07/2025 REASON FOR EXAM: SHORTNESS OF BREATH TECHNIQUE: Frontal view of the chest. COMPARISON: None FINDINGS: Hardware: Monitoring electrodes overlying chest wall. Heart: Cardiac and mediastinal contours are stable. Lungs: The lungs are clear. Bones: The bones are unremarkable. RAD/Chest 1 View (Portable) IMPRESSION: No acute cardiopulmonary abnormality Reading Location: [id number] CC: Dr. Leela Ingram MD; Dr. Caden Lazar DO ~ Take Out Waiter: Signed [facility]07-03-2025 Radiology Diagnostic study note [facility] Imaging Services [address] [address] 04/20/25 1322 MR#: [id number] Acct: [id number] Name: DANIELLE BERRY Rep #:[id number] : 1960 64 From: Justin Liu MD [...] in a single vessel. 04/20/25 1323 Date _ Justin Liu MD Cosigner Signature (if applicable): Date CC: Dr. Justin Liu MD; Dr. Leela Ingram MD ~ Signed [facility] Work Phone: 1(957) 711-596007-03-2025 Radiology Diagnostic study note [facility] Imaging Services [address] [place], [place] [id number] Low Dose CT Lung Screening MR#: [id number] Acct: [id number] Name: DANIELLE BERRY Rep #: [id number] : 1960 F 64 From: Evelyn Galss MD PCP: Dr. Leela Ingram MD Status: R EG CLI Study:Low Dose CT Lung Screening Date of Exam : 04/20/25 Exam# [id number] Ordering Dr: Jenaro Ingram MD PROCEDURE: LOW [...] use of iterative reconstruction technique). REFERENCE LINK: [employer] Lung-RADS RADIATION DOSE SUMMARY: CTDlvol: 12.19 mGy [...] SCREENING LDCT. Other Significant Findings: Reading Location: [id number] CC: Dr. Leela Ingram MD ~ Take Out Waiter: Signed [facility]06-06-2025 Evaluation note* Diagnosis Onset Date Resolution Status Admit Date Health care maintenance acute J [facility] 2024 10:31am Chronic gastritis chronic March 10:31am Hyperlipidemia chronic March 24, 2025 10:31am Hypertension chronic March 24 10:31am Osteopenia chronic March 24, 2025 10:31am [facility] Work Phone: 1(812) 988-100206-06-2025 Evaluation note* Diagnosis Onset Date Resolution Status Admit Date Health care maintenance acute J [facility] 2024 10:31am Chronic gastritis chronic March 10:31am Hyperlipidemia chronic March 24, 2025 10:31am Hypertension chronic March 24 10:31am Osteopenia chronic March 24, 2025 10:31am GI bleed acute June 2:51pm Muscle ache of extremity acute July 10, 2025 2:51pm FH: colon cancer acute Septemb2024 9:16am GI bleed acute June 9:16am GERD (gastroesophageal reflu x disease) chronic July 12, 2025 9:16am [facility] Work Phone: 1([phone]) 632-235605-30-2025 Note* Exam Date Time Procedure Performing Provider Status 03/17/25 8:41 AM MA Mammo Diagnostic Left w/GABRIEL Soliz MD; Auth (Verified) [id number] ORIGINAL FROM: JERROD PATRICK [address] [place], [place] [address] PROCEDURE FOR: DANIELLE BERRY [address] [place] [address] Home: PID#: [id number] Exam#: [id number] : 1960 Age: 64 TO: ADRIAN PINEDA MD [address] [facility] [address] [place], [place] [address] Fax: NO FAX EXAMINATION: DIAGNOSTIC DIGITAL LEFT [...] 03/17/2025 1:35:14 PM Ordering Provider: ADRIAN PINEDA E Learning Developer: LUIS CUTLER RT (R)(M) letter sent: Normal-Needs additional work up BI-RADS 0 Mammogram BI-RADS: 0 Indeterminate [facility]05-27-2025 Evaluation + Plan note Future Scheduled Tests Laboratory* [facility] Send out (Blood Specimens) 03/14/25 [facility] 05-09-2024 Discharge summary Author Henry Phillips [facility] February 25, 2024 7:40pm Note Date/Time February 25, 2024 7:40pm [facility] Medical Records Department [address] [place] [address] Emergency Department Summary 02/25/24 MR#: [id number] Acct: [id number] Name: DANIELLE BERRY Rep #:[id number] : 1960 63 From: Henry Gonzales PCP: [...] use disorder, continuous Wears glasses Home Medications meuaipme-aid-pgpfq ac 400 mcg-calcium carb 500 mg-vit K1 [...] do you participate in: other details: [facility]OUND [facility] ED Constitutional Constitutional ED: Denies chills, fever(s) [...] clinician: N/A This note was generated with Rooster Teethation software. It may contain incorrectwords, spelling, and [...] 1,000 MG capsule 2,000 mg PO DAILY qr-cex-gnass-calcium carb-K1 1 EACH tablet 1 ea PO [...] your Primary Care Provider. Call [facility] ([phone]) or report to the closest Emergency Room. Call 911 if necessary. 02/25/241939 <Electronically signed by Henry Gonzales> Cosigner Signature (if applicable): CC: Dr. Leela Ingram MD ~ Signed [facility] Work Phone: 1(184) 918-656204-29-2024 Procedure [facility] 02-15-2024 Procedure [facility]04-29-2024 Procedure note [facility]04-29-2024 Procedure [facility] 04-10-2022 NotePap Smear Specimen AdequacyJune 2021 3:45pmComment. Satisfactory for evaluation. Endocervical and/or squamous metaplasticcells (endocervical component)are present.[facility] INTERFACED A#[id number] Work Phone: Comment on above:Satisfactory for evaluation. Endocervical and/or squamous metaplasticcells (endocervical component)are present.04-10-2022 NotePap Smear QC ReviewJune 2021 3:45pmComment.Octavia Toledo, Supervisory Online Journalist (ASCP)[facility] INTERFACED A#[id number] [facility] Work Phone: Comment on above:Octavia Toledo, Supervisory Online Journalist (ASCP)Consult note [facility] Medical Records Department [address] [place] [address] Anesthesia Postop Eval II 07/14/25 1507 MR#: [id number] Acct: [id number] Name: DANIELLE BERRY Juan Rep #:[id number] : 1960 64 From: Bryce Ramos PCP: Dr. Leela Ingram MD Status:D EP [facility] Y Race: C Location: EN Anesthesia Postop Eval I Sum Postop Eval Completion status Anesthesia document: Postop Eval 1 completed: Yes Anesthesia Postop Eval I Summary Anesthesia Postop Eval I Summary: Anesthesia Postop Eval I: Assessment Summary Airway patent Yes 07/14/25 11:41 DEPARTMENT [email or web address] Spontaneous unlabored Yes 07/14/25 11:41 DEPARTMENT [email or web address].HBARR respirations Mental status Awake 07/14/25 11:41 DEPARTMENT [email or web address].HBARR nausea No 07/14/25 11:41 DEPARTMENT [email or web address].HBARR Vomiting No 07/14/25 11:41 DEPARTMENT [email or web address].HBARR Anesthesia Postop Eval I: Fluid Summary Crystalloid volume administer 800 07/14/25 11:41 DEPARTMENT MGR.HBARR (ml) Colloids volume administered ( ml) Blood Product volume administered (ml) Total IV fluid infused 800 07/14/25 11:41 DEPARTMENT [email or web address].HBARR Anesthesia Postop Eval I: Summary Notes Anesthesia Complication No 07/14/25 11:41 DEPARTMENT [email or web address].HBARR Anesthesia Complication Comment: Post-operative progress note Anesthesia: Postop Eval II Evaluation Mental status: Awake and Calm Pain Level: 1 nausea: No Vomiting: No Complications Anesthesia Complication: No 07/14/25 1507 MD> Date _ Bryce Lopez MD Cosigner Signature: Date CC: ~ Signed [facility] Author Bryce Lopez [facility] Note Date/Time July 14, 2025 10:47am [facility] Medical Records Department [address] [facility] [place] [address] Pre-Anesthesia Evaluation 07/14/25 1043 MR#: [id number] Acct: [id number] Name: DANIELLE BERRY Rep #:[id number] : 1960 64 From: Bryce Ramos PCP: Dr. Leela Ingram MD Status:R EG WYC Y Race: C Location: [place] [address] ASA Classification* ASA Classification ASA Classification: 2 Assessment & Plan Anesthesia* Anesthesia Assessment Anesthesia Assessment: Discussed sedation and/or anesthesia options, risks, benefits, and alternatives with patient/parents/legal guardian/POA. Questions invited. The patient/parents/legal guardian/POA seems to understand and agrees to proceedwith anesthesia plan. Reviewed the physical assessment, medical history, allergy history and patient home medications list prior to surgery/procedure/anesthetic and documented any changes. Performed airway and anesthesia risk assessments. Anesthesia Type Anesthesia Type: MAC History Source History Obtained from:: Patient and Chart Anesthesia Focused Assessment* Temperature: 98.3 F Pulse Rate: 102 Blood Pressure: 134/66 Respiratory Rate: 16 Pulse Ox: 99 Oxygen Delivery Method: Room Air Airway Assessment Mouth opens: >3 cm Mallampati Score: II Teeth Condition: Chipped/Broken and Missing Neck Range of motion (ROM): Limited ROM Labs Anesthesia Preop lab: CBC WBC, (4.4-11.0) 8.6 K/mm3 07/10/25, 15:51 RBC, (4.2-5.4) 2.66 M/mm3 L 07/10/25, 15:51 Hgb, (12.0-15.0) 8.2 g/dL L 07/10/25, 15:51 Hct, (37-47) 25.0 % L 07/10/25, 15:51 Plt Count, (150-450) 358 K/mm3 07/10/25, 15:51 CHEMISTRY Potassium, (3.3-5.1) 4.2 mmol/L 07/10/25, 15:51 Sodium, (133-145) 141 mmol/L 07/10/25, : BUN, (4-19) 11 mg/dL 07/10/25, 15: Creatinine, (0.70-1.20) 0.76 mg/dL 07/10/25, 15: Glucose, (70-99) 97 mg/dL 07/10/25, 15:51 COAG PT, (11.7-14.9) 12.3 SECONDS 12/08/18, 10:23 Pre-Assessment Diagnosis/Proposed Procedure Planned Operative Procedure(s): EGD/CSCOPE Anesthesia History 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 When Was Last Pacemaker Check QUESTION #4 FULL TEXT: You/Your Family Experience fever (hyperthermia) with Anesthesia Last Oral Intake Last Oral intake: Last Oral Intake NPO since 22:30 07/14/25 10:07 Meds taken in AM with sips of No 07/14/25 10:07 water? 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: Respiratory Tract Infection Hx - 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 Hx Respiratory Tract Infection No 07/12/25 08:43 STOP Sleep Apnea STOP Sleep Apnea - 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: STOP Sleep Apnea - 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 Hx Hypertension No 07/12/25 08:43 Hx Sleep [...] Tobacco Use History Tobacco Use History - 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: Tobacco Use History - 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 Tobacco Use Smoking Status Current every day smoker 07/12/25 08:43 Hx Tobacco Use Yes 07/12/25 08:43 Years Smoking Packs Smoked per Day Smoking Cessation Date was within the last 15 years Hx Smoking Cessation Date Hx Smoking Cessation Counseling Hematologic Medial History Hematologic Hx - 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 Specify any problems Hx of Preganancy in last 3 No 07/12/25 08:43 Months Nurse Filling Out Transfusion DSCHRIBER 07/12/25 08:43 & Questions: Date: 07/12/25 07/12/25 08:43 Time: 08:45 07/12/25 08:43 Patient unable to answer at this time (ie. confused, unrespo /Reproduction History /Reproductive History - 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: /Reproductive Hx- 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 Hx Now No 07/12/25 08:43 Gestational Age (in weeks): EDC: Hx Hx Para Hx Section SAB No 07/12/25 08:43 Active Medications Active Medications: Current Medications Generic Name Dose Route Start Last Admin Trade Name Freq PRN Reason Stop Dose Admin Lactated Ringer's 1,000 mls @ 15 mls/hr 07/14/25 10:00 07/14/25 10:16 IV 15 mls/hr .Q48H JANELL Administration PFSH Medical History Post-menopausal Anemia Injury of head and neck History of GI bleed Gastric reflux Leg cramps Wears glasses Cancer Restless legs Smoker History of stress test Osteopenia Sol esophagus High cholesterol Home Medications ?Medication ?Instructions ?Recorded ?Last Taken ?Type plcyuqop-afc-gdbox ac 400 1 ea PO DAILY SUPPLEMENT 07/05/25 History mcg-calcium carb 500 mg-vit K1 20 mcg tablet omega-3 fatty acids 1,000 mg 2,000 mg PO DAILY SUPPLEM ENT 12/07/18 07/05/25 History capsule cholecalciferol (vitamin D3) 50 50 mcg PO DAILY 07/05/25 History mcg (2,000 unit) capsule Allergy/AdvReac Type Severity Reaction Status Date / Time Penicillins Allergy Swelling Verified 07/14/25 10:06 Family History Sister Colon cancer Thyroid disorder Mother Arthritis Hypertension Mental disorder Psychiatric care Thyroid disorder Father Hypertension Thyroid disorder Grandmother Mental disorder Brother Thyroid disorder Surgical History History of tooth extraction (~08/2023) History of esophagogastroduodenoscopy (EGD) H/O LEEP History [...] you participate in: other details: AROUND THEHOUSE Review of Systems (Anesthesia) ROS Narrative System reviewed and no additional complaints, except as documented. 07/14/25 1047 <Electronically signed by Bryce Lopez MD> Date _ Bryce Lopez MD Cosigner Signature: Date CC: ~ Signed [facility] Work Phone: Consult note Author [facility] Note Date/Time July 14, 2025 11:46am [facility] Medical Records Department [address] [place] [address] Anesthesia Postop Eval I 07/14/25 1140 MR#: [id number] Acct: [id number] Name: DANIELLE BERRY Juan Rep #:[id number] : 1960 64 From: Desiree Plummer CRNA PCP: Dr. Leela Ingram MD Status:R EG SDC Y Race: C Location: [place] [address] Anesthesia: Postop Eval I Current Vital Signs Temperature: 97 F Pulse Rate: 77 Blood Pressure: 98/52 Respiratory Rate: 14 Pulse Ox: 97 Oxygen Delivery Method: Room Air Assessment Airway patent: Yes Spontaneous unlabored respirations: Yes Mental status: Awake nausea: No Vomiting: No Anesthesia Complication: No Fluid Hydration Crystalloid volume administer (ml): 800 Total IV fluid infused: 800 Progress Note Anesthesia document: Postop Eval 1 completed: Yes 07/14/25 1146 <Electronically signed by Desiree GRANT> Date _ Desiree Plummer DEPARTMENT MGR Cosigner Signature: Date CC: ~ Signed [facility] Work Phone: Consult note Author Bryce Lopez [facility] Note Date/Time July 14, 2025 3:07pm [facility] Medical Records Department [address] [place] [address] Anesthesia Postop Eval II 07/14/25 1507 MR#: [id number] Acct: [id number] Name: DANIELLE BERRY Rep #:[id number] : 1960 64 From: Bryce Ramos PCP: Dr. Leela Ingram MD Status:D [facility] Y Race: C Location: [place] Anesthesia Postop Eval I Sum Postop Eval Completion status Anesthesia document: Postop Eval 1 completed: Yes Anesthesia Postop Eval I Summary Anesthesia Postop Eval I Summary: Anesthesia Postop Eval I: Assessment Summary Airway patent Yes 07/14/25 11:41 DEPARTMENT [email or web address] Spontaneous unlabored Yes 07/14/25 11:41 DEPARTMENT [email or web address] respirations Mental status Awake 07/14/25 11:41 DEPARTMENT [email or web address] nausea No 07/14/25 11:41 DEPARTMENT [email or web address] Vomiting No 07/14/25 11:41 DEPARTMENT [email or web address] Anesthesia Postop Eval I: Fluid Summary Crystalloid volume administer 800 07/14/25 11:41 DEPARTMENT [email or web address] (ml) Colloids volume administered ( ml) Blood Product volume administered (ml) Total IV fluid infused 800 07/14/25 11:41 DEPARTMENT [email or web address] Anesthesia Postop Eval I: Summary Notes Anesthesia Complication No 07/14/25 11:41 DEPARTMENT [email or web address] Anesthesia Complication Comment: Post-operative progress note Anesthesia: Postop Eval II Evaluation Mental status: Awake and Calm Pain Level: 1 nausea: No Vomiting: No Complications Anesthesia Complication: No 07/14/25 1507 <Electronically signed by Bryce Lopez MD> Date _ Bryce Lopez MD Cosigner Signature: Date CC: ~ Signed [facility] Work Phone: Evaluation + Plan note Future Appointments Appointment Date:07/23/2023 03:00:00 PM Scheduled Provider: Location:[facility] Appointment Type:MA Mammogram Screening Left w/ Norm Future Scheduled Tests Radiology* MA Mammo Screening Left w/ Norm 07/23/23 [facility] Evaluation noteNo assessment information available [facility] Work Phone: evaluation note* Diagnosis Onset Date Resolution Status Colon cancer screening acute Sol esophagus chronic Hyperlipidemia chronic Osteopenia chronic Tobacco use disorder, continuous chronic [facility] Work Phone: Evaluation note* Diagnosis Onset Date Resolution Status Colon cancer screening acute Sol esophagus chronic Hyperlipidemia chronic Osteopenia chronic Tobacco use disorder, continuous chronic FH: colon cancer acute Hx of colonic polyp acute Sol esophagus chronic FH: colon cancer acute Hx of colonic polyp acute Sol esophagus chronic [facility] Work Phone: Evaluation note* Diagnosis Onset Date Resolution Status Admit Date Health care maintenance acute J 2024 10:31am Chronic gastritis chronic March 10:31am Hyperlipidemia chronic March 24, 2025 10:31am Hypertension chronic March 24 10:31am Osteopenia chronic March 24, 2025 10:31am [facility] Work Phone: History and physical note Author Merissa Best [facility] February 15, 2024 9:47am Note Date/Time February 15, 2024 9:4 5am [facility] Medical Records Department [address] [place] [address] History & Physical Exam 02/15/24 0942 MR#: [id number] Acct: [id number] Name: DANIELLE BERRY Rep #:[id number] : 1960 63 From: Merissa Best MD PCP: Dr. Leela Ingram MD Status:R EG [facility] Location: [place] [address] HPI - General General Date of Service: 02/15/24 HPI Narrative DANIELLE BERRY, is a 63 F who presents for [...] and also had some questionable skin issuefelt "weird" so she came off the omeprazole patient [...] any chronic abdominal pain nausea or vomiting. [facility] Medical History (Updated 02/10/24 @ 14:13 [...] use disorder, continuous Wears glasses Home Medications ihevksnc-zxm-nttyq ac 400 mcg-calcium carb 500 mg-vit K1 [...] Swelling Discharge Is Pt Admitted From a Penitentiary, or a Skilled Nursing: No After D/C, Where Do you Plan to Go: Return Home From the [facility] History Number of Risk Factors: 1 [...] Ingram MD; Dr. Merissa Best MD~ Signed [facility] Work Phone: History and physical note Author Merissa Best [facility] Note Date/Time July 14, 2025 10:51am [facility] Medical Records Department [address] [place] [address] History & Physical Exam 07/14/25 1026 MR#: [id number] Acct: [id number] Name: DANIELLE BERRY Rep #:[id number] : 1960 64 From: Merissa Best MD PCP: Dr. Leela Ingram MD Status:R EG [facility] Location: [facility]-1 History and Physical Date of Admission: 07/14/25 Date of Service: 07/12/25 MR#: [id number] Acct: [id number] Name: DANIELLE BERRY Rep #: [id number] : 1960 Provider: TALI Rosas Age/Sex: 64/F Location: [facility] Status: Signed Intake Vital Signs 07/10/2515:02 07/12/2509:30 Height 5 ft 4 in 5 ft [...] room air Intake Visit Reasons: RECTAL BLEEDING & ABNORMAL LABS Chief Complaint: rectal bleeding & abdnormal labs Is patient in pain?: No Allergies Penicillins Allergy (Verified 07/12/25 09:31) Swelling Medications ?Medication ?Instructions ?Recorded ?Confirmed ?Type jidjxjib-uqp-eszcv ac 400 1 ea PO DAILY SUPPLEMENT 12/07/18 History mcg-calcium carb 500 mg-vit K1 20 mcg tablet omega-3 fatty acids 1,000 mg 2,000 mg PO DAILY SUPPLEMENT 12/07/18 History capsule cholecalciferol (vitamin D3) 50 50 mcg PO DAILY 10/09/20 07/12/25 Histor y mcg (2,000 unit) capsule Have you fallen in the past year?: No PFSH Medical History Post-menopausal Anemia Injury of head and neck History of GI bleed Gastric reflux Leg cramps Wears glasses Cancer Restless legs Smoker History of stress test Osteopenia Sol esophagus High cholesterol Surgical History History of tooth extraction (~08/2023) History of esophagogastroduodenoscopy (EGD) H/O LEEP History [...] you participate in: other details: AROUND THEHOUSE HPI HPI HPI: Patient is a 64 [...] help her guide him. She notes right afterthis incident she had pain across her shoulders and had a large belch, which tasted horrible. Patient states a couple hours later she went to the bathroom and had bright red blood per rectum. She states 15 minutes later she had anotherbloody bowel movement. 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 [...] had a mastectomy and chemotherapy for. She notes a sister who had colon cancer in 2019 and underwent a colectomy with Dr. Reece. Patient notes a historyof Sol's esophagus, however she denies taking any PPI medication as she doesnot want to take this medication. She controls this by not eating after 6 pm. She has denied abdominal pain throughout this entire episode. She notes today was the first day she has not noticed any blood per rectum. She notes as the days went on, the bleeding became darker. Previous colonoscopy and EGD report: C-scope: Findings: The perianal and digital rectal examinations were normal. Two semi-pedunculated polyps were found in the sigmoid colon. The polyps were 3 to 5 mm in size. These polyps were removed with a hot snare. Resection and retrieval were complete. A less than 5 mm polyp was found in the rectum. The polyp was sessile. The polyp was removed with a cold biopsy forceps. Resection and retrieval were complete. The exam was otherwise without abnormality EGD: Findings: The Z-line was irregular. Biopsies were taken with a cold forceps for histology. A few localized less than 5 mm erosions with stigmata of recent bleeding were found in the prepyloric region of the stomach. Biopsies were taken with a cold forceps for histology. Biopsies were taken with a cold forceps for Helicobacter pylori cultures. The examined duodenum was normal. The exam was otherwise without abnormality. Pathology: MICROSCOPIC DIAGNOSIS A. Pre-pyloric erosion, biopsy: Chronic gastritis. B. Gastroesophageal junction, biopsy: Mild chronic inflammation. Focal change of reflux. Intestinal metaplasia (goblet cell metaplasia) is not identified. See comment. C. Sigmoid polyp, biopsy: Fragments of colonic mucosa with focal hyperplastic change and mucosal denudation. D. Rectal polyp, biopsy: Hyperplastic polyp. ROS General General: Yes fatigue and breast cancer; No weight change, appetite, colon cancer or weakness HEENT HEENT: No difficulty swallowing, eye injury, eye surgery, swollen glands or hoarseness Endo Endocrine: No thyroid disease, diabetes mellitus, thyroid cancer, Hair loss, heat intolerance or cold intolerance Skin Skin: No rash or changing moles Musc Musculoskeletal: No back problems, arthritis, rheumatoid arthritis, gout or joint pain Cardio Cardiovascular: No murmur, pacemaker, heart disease, atrial fibrillation, high blood pressure, heart attack, heart stent, palpitations, shortness of breath with exertion or chest pain Psych Psychiatric: No depression, anxiety or hearing voices Resp Respiratory: No shortness of breath, No sleep apnea, No cough, No COPD, No asthma, No emphysema and No wheezing Gastro Gastrointestinal: No abdominal pain, No nausea or vomiting, No diarrhea, No constipation, Yes blood in stool, Yes acid reflux, No hemorrhoids, No ulcers, Nogallbladder problem and No black,tarry stools Jacky Hematologic: No blood thinners, No blood disorders, Yes bleeding, Yes anemia andNo blood clots Neuro Neurologic: No numbness, No tingling and No weakness Exam Const General: cooperative, healthy appearing, comfortable and no acute distress HENMT Head: normal to inspection Eyes General: appearance normal, both eyes and all related structures Neck Neck: normal visual inspection Neck mass: No Resp Effort & Inspection: normal respiratory effort Auscultation: clear to auscultation bilaterally Cardio Rate: regular rate Rhythm: regular rhythm GI Inspection: normal to inspection and non-distended Palpation: soft, no guarding and nontender Auscultation: normal bowel sounds Musc Cervical Spine: normal cervical lordosis Skin General: no rashes or lesions noted Neuro General: no focal motor deficits and CN's II-XI intact bilaterally Extrem General: normal to inspection Psych Appearance: grossly normal Affect: normal affect Assessment and Plan Assessment and Plan (1) GI bleed: Status: Acute (2) FH: colon cancer: Status: Acute Comment: Sister diagnosed at age 61 (3) GERD (gastroesophageal reflux disease): Status: Chronic Plan Patient is a 64 y/o F who had an acute onset of bright red rectal bleeding following lifting and assisting a friend to a chair. Patient notes her Hgb has remained stable according to her at home machine and from her last official blood test on 07/10. She notes the rectal bleeding has stopped as of today. She is unsure of the cause of the rectal bleeding other than possible hemorrhoids. She has refrained from returning to a regular diet and is just eating a soft food/liquid diet. 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 Likely etiology of bright red rectal bleeding is hemorrhoids versus diverticular bleed versus colon mass versus gastritis. Dr. Best will plan to perform an upper and lower scope with possible biopsies. She has held her fish oil since Thursday. Procedure details, risks and benefits have been explained. Patient verbally confirms understanding and has no further questions about the procedures. She is noted tohave a tortuous colon. She denies any difficulties with her previous scopes. Patient will have a 1 day Miralax prep. We have the patient added on for this Thursday, 07/14. Patient is very grateful for our urgency with her appointment and getting her scheduled for the procedure. Coding Level of Care Code Off vis,est,level 4 Diagnoses GI bleed K92.2 FH: colon cancer Z80.0 GERD (gastroesophageal reflux disease) K21.9 Clinical Quality Measures Falls Risk Screening/Assistive Devices Have you fallen in the past year?: No 07/12/25 1155 <Electronically signed by Opal RICHARDSON PA-C> Date Opal RICHARDSON PA-C 07/14/25 1026 <Electronically signed by Merissa Best MD> Cosigner Signature (if applicable): CC: Dr. Leela Ingram MD; Dr. Merissa Best MD~ Signed ADDENDUM by Dr. Merissa Best MD on 07/14/25 at 1051 Addendum I have examined the patient the following changes are noted: Patient still states she is having no blood per rectum since the office visit. Patient statesthat back in the winter she noticed she did have a small amount of blood with bowel movements but nothing like she had more recently. Merissa Best M.D. Pager: [phone] [facility] [address] [place] [address], [address] [place] [address] Office: [phone] 07/14/25 1051<Electronically signed by Merissa Best MD> Cosigner Signature (if applicable): cc: Dr. Leela Ingram MD; Dr. Merissa Best MD ~* Signed [facility] Work Phone: Hospital course Narrative No data available for this section [facility] Hospital Discharge instructions No data available for this section [facility] Hospital Discharge instructions Additional Instructions Your symptoms are improving while in the ED. You declined the medications. May use Benadryl 25 mg every 6 hours as needed. Use Pepcid daily for the next 5 days. If symptoms worsens, return to the ED for reevaluation.[facility] Work Phone: Hospital Discharge instructionsAdditional Instructions Thank you for trusting us with your care today! Please take Protonix as prescribed. Please return to the emergency department if your symptoms change or worsen. Specifically if you develop loss of conscious, heavy bleeding, chest pain, shortness of breath. If your hemoglobin is less than 7. Please follow with your primary care physician and Gastroenterology for further outpatient evaluation and management.[facility] Work Phone: Hospital Discharge instructionsAmbulatory Orders* Gastroenterology Location: None Selected [facility] Work Phone: Progress note No data available for this section [facility] Progress note Author Opal Rosas [facility] Note Date/Time July 12, 2025 10:00am [facility] [address] [place] [address] OFFICE VISIT Date of Service: 07/12/25 MR#: [id number] Acct: [id number] Name: ILIA BERRYShiva Martinez Rep #: [id number] : 1960 Provider: TALI Rosas Age/Sex: 64/F Location: [facility] Status: Signed Intake Vital Signs 07/10/25 15:02 [...] room air Intake Visit Reasons: RECTAL BLEEDING & ABNORMAL LABS Chief Complaint: rectal bleeding & abdnormal labs Is patient in pain?: No Allergies Penicillins Allergy (Verified 07/12/25 09:31) Swelling Medications ?Medication ?Instructions ?Recorded ?Confirmed ?Type tblxhgxj-vwk-ewamm ac 400 1 ea PO DAILY SUPPLEMENT 07/12/25 History mcg-calcium carb 500 mg-vit K1 20 mcg tablet omega-3 fatty acids 1,000 mg 2,000 mg PO DAILY SUPPLEM ENT 12/07/18 07/12/25 History capsule cholecalciferol (vitamin D3) 50 50 mcg PO DAILY 07/12/25 History mcg (2,000 unit) capsule Have you fallen in the past year?: No PFSH Medical History Post-menopausal Anemia Injury of head and neck History of GI bleed Gastric reflux Leg cramps Wears glasses Cancer Restless legs Smoker History of stress test Osteopenia Sol esophagus High cholesterol Surgical History History of tooth extraction (~08/2023) History of esophagogastroduodenoscopy (EGD) H/O LEEP History [...] you participate in: other details: AROUND THEHOUSE HPI HPI HPI: Patient is a 64 [...] help her guide him. She notes right afterthis incident she had pain across her shoulders and had a large belch, which tasted horrible. Patient states a couple hours later she went to the bathroom and had bright red blood per rectum. She states 15 minutes later she had anotherbloody bowel movement. 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 [...] had a mastectomy and chemotherapy for. She notes a sister who had colon cancer in 2019 and underwent a colectomy with Dr. Reece. Patient notes a historyof Sol's esophagus, however she denies taking any PPI medication as she doesnot want to take this medication. She controls this by not eating after 6 pm. She has denied abdominal pain throughout this entire episode. She notes today was the first day she has not noticed any blood per rectum. She notes as the days went on, the bleeding became darker. Previous colonoscopy and EGD report: C-scope: Findings: The perianal and digital rectal examinations were normal. Two semi-pedunculated polyps were found in the sigmoid colon. The polyps were 3 to 5 mm in size. These polyps were removed with a hot snare. Resection and retrieval were complete. A less than 5 mm polyp was found in the rectum. The polyp was sessile. The polyp was removed with a cold biopsy forceps. Resection and retrieval were complete. The exam was otherwise without abnormality EGD: Findings: The Z-line was irregular. Biopsies were taken with a cold forceps for histology. A few localized less than 5 mm erosions with stigmata of recent bleeding were found in the prepyloric region of the stomach. Biopsies were taken with a cold forceps for histology. Biopsies were taken with a cold forceps for Helicobacter pylori cultures. The examined duodenum was normal. The exam was otherwise without abnormality. Pathology: MICROSCOPIC DIAGNOSIS A. Pre-pyloric erosion, biopsy: Chronic gastritis. B. Gastroesophageal junction, biopsy: Mild chronic inflammation. Focal change of reflux. Intestinal metaplasia (goblet cell metaplasia) is not identified. See comment. C. Sigmoid polyp, biopsy: Fragments of colonic mucosa with focal hyperplastic change and mucosal denudation. D. Rectal polyp, biopsy: Hyperplastic polyp. ROS General General: Yes fatigue and breast cancer; No weight change, appetite, colon cancer or weakness HEENT HEENT: No difficulty swallowing, eye injury, eye surgery, swollen glands or hoarseness Endo Endocrine: No thyroid disease, diabetes mellitus, thyroid cancer, Hair loss, heat intolerance or cold intolerance Skin Skin: No rash or changing moles Musc Musculoskeletal: No back problems, arthritis, rheumatoid arthritis, gout or joint pain Cardio Cardiovascular: No murmur, pacemaker, heart disease, atrial fibrillation, high blood pressure, heart attack, heart stent, palpitations, shortness of breath with exertion or chest pain Psych Psychiatric: No depression, anxiety or hearing voices Resp Respiratory: No shortness of breath, No sleep apnea, No cough, No COPD, No asthma, No emphysema and No wheezing Gastro Gastrointestinal: No abdominal pain, No nausea or vomiting, No diarrhea, No constipation, Yes blood in stool, Yes acid reflux, No hemorrhoids, No ulcers, Nogallbladder problem and No black,tarry stools Jacky Hematologic: No blood thinners, No blood disorders, Yes bleeding, Yes anemia andNo blood clots Neuro Neurologic: No numbness, No tingling and No weakness Exam Const General: cooperative, healthy appearing, comfortable and no acute distress [facility] Head: normal to inspection Eyes General: appearance normal, both eyes and all related structures Neck Neck: normal visual inspection Neck mass: No Resp Effort & Inspection: normal respiratory effort Auscultation: clear to auscultation bilaterally Cardio Rate: regular rate Rhythm: regular rhythm GI Inspection: normal to inspection and non-distended Palpation: soft, no guarding and nontender Auscultation: normal bowel sounds Musc Cervical Spine: normal cervical lordosis Skin General: no rashes or lesions noted Neuro General: no focal motor deficits and CN's II-XI intact bilaterally Extrem General: normal to inspection Psych Appearance: grossly normal Affect: normal affect Assessment and Plan Assessment and Plan (1) GI bleed: Status: Acute (2) FH: colon cancer: Status: Acute Comment: Sister diagnosed at age 61 (3) GERD (gastroesophageal reflux disease): Status: Chronic Plan Patient is a 64 y/o F who had an acute onset of bright red rectal bleeding following lifting and assisting a friend to a chair. Patient notes her Hgb has remained stable according to her at home machine and from her last official blood test on 07/10. She notes the rectal bleeding has stopped as of today. She is unsure of the cause of the rectal bleeding other than possible hemorrhoids. She has refrained from returning to a regular diet and is just eating a soft food/liquid diet. 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 Likely etiology of bright red rectal bleeding is hemorrhoids versus diverticular bleed versus colon mass versus gastritis. Dr. Best will plan to perform an upper and lower scope with possible biopsies. She has held her fish oil since Thursday. Procedure details, risks and benefits have been explained. Patient verbally confirms understanding and has no further questions about the procedures. She is noted tohave a tortuous colon. She denies any difficulties with her previous scopes. Patient will have a 1 day Miralax prep. We have the patient added on for this Thursday, 07/14. Patient is very grateful for our urgency with her appointment and getting her scheduled for the procedure. Coding Level of Care Code Off vis,est,level 4 Diagnoses GI bleed K92.2 FH: colon cancer Z80.0 GERD (gastroesophageal reflux disease) K21.9 Clinical Quality Measures Falls Risk Screening/Assistive Devices Have you fallen in the past year?: No 07/12/25 1155 <Electronically signed by Opal RICHARDSON PA-C> Date _ Opal RICHARDSON PA-C Cosigner Signature: Date (if applicable) CC: Dr. Leela Ingram MD; Dr. Merissa Best MD ~ [facility] Work Phone: Reason for referral (narrative)No reason for referral information availableBlJohn C. [facility] Work Phone: Summary Purpose Family History [...] Yes December 07, 019 3:07pm Power of Investigation Division Lieutenant Yes December 07, 2018 3:07pm Advance Directive Response Recorded Date/ Time Living Will Yes December 07, 019 2:07pm Power of Investigation Division Lieutenant Yes December 07, 2018 2:07pm Advance Directive Response Recorded Date/ Time Name of Medical Power of Investigation Division Lieutenant BROTHER February 10, 2024 2:03pm Living Will Yes February 10, 2024 2:03pm Power of Investigation Division Lieutenant Yes February 09 2:03pm Advance Directive Response Recorded Date/ Time Living Will No February 25, 2024 7: 05pm Power of Investigation Division Lieutenant No February 25, 2024 7:05pm Name of Medical Power of Investigation Division Lieutenant BROTHER February 10, 2024 2:03pm Advance Directive Response Recorded Date/ Time Do you have a Healthcare Power of Investigation Division Lieutenant? Yes July 07, 2025 12:14pm Do you have a Healthcare Power of Investigation Division Lieutenant? No July 12, 2025 8:43am Chief Complaint and Reason for Visit Chief [...] m SCREENING April 20, 2025 1:22p m Chief Complaint Admit Date 6 M FU March 24, 2025 10:31 am SCREENING April 20, 2025 7:56a m HYPERLIPIDEMIA April 20, 2025 7:58a m SCREENING April 20, 2025 1:22p m SOB July 07, 2025 11:21am Hospital FU July 10, 2025 2:51pm RECTAL BLEEDING & ABNORMAL LABS 2024 9:16am Reason for Visit Admit Date Health care maintenance March 24, 2025 1 0:31am Chronic gastritis March 24, 2025 10:31 am Hyperlipidemia March 24, 2025 10:31 am Hypertension March 24, 2025 10:31 am Osteopenia March 24, 2025 10:31 am GI bleed July 10, 2025 2:51pm Muscle ache of extremity July 10, 2025 2:51pm FH: colon cancer July 12, 2025 9:16am GI bleed July 12, 2025 9:16am GERD (gastroesophageal reflux disease) S eptember 2024 9:16am Additional Source Comments INFORMATION SOURCE (unrecogn ized section and content) DATE CREATED AUTHOR 12/10/2019 [facility] DATE CREATED AUTHOR AUTHOR'S ORGANIZ ATION 08/21/2023 [facility] ([place] DATE CREATED AUTHOR AUTHOR'S ORGANIZ ATION 03/24/2025 [facility] DATE CREATED AUTHOR AUTHOR'S ORGANIZ ATION 07/27/2025 [facility] Goals (unrecognized section and content) Goals [...] Provider Active S tart: April 20, 2025 Team Status: Active Member Role/Relationship Status Dates Dr. Leela Ingram MD Primary care physician Activ e Team Status: Inactive Member Role/Relationship Status Dates Dr. Leela Ingram MD Primary care physician Activ e Start: March 24, 2025 End: March 24, 2025 Dr. Leela Ingram MD Attending physician Active Start: March 24, 2025 End: March 24, 2025 Dr. Leela Ingram MD Referring Provider Active Start: March 24, 2025 End: March 24, 2025 Team Status: Inactive Member Role/Relationship Status Dates Dr. Leela Ingram MD Primary care physician Activ e Start: March 24, 2025 End: March 24, 2025 Dr. Leela Ingram MD Attending physician Active Start: March 24, 2025 End: March 24, 2025 Dr. Leela Ingram MD Referring Provider Active Start: March 24, 2025 End: March 24, 2025 Team Status: Inactive Member Role/Relationship Status Dates Dr. Leela Ingram MD Primary care physician Activ e Start: April 20, 2025 End: April 20, 2025 Dr. Leela Ingram MD Attending physician Active Start: April 20, 2025 End: April 20, 2025 Dr. Leela Ingram MD Referring Provider Active Start: April 20, 2025 End: April 20, 2025 Team Status: Active Member Role/Relationship Status Dates Dr. Leela Ingram MD Primary care physician Activ e Start: April 20, 2025 Dr. Leela Ingram MD Attending physician Active Start: April 20, 2025 Dr. Leela Ingram MD Referring Provider Active Start: April 20, 2025 Team Status: Active Member Role/Relationship Status Dates Dr. Leela Ingram MD Primary care physician Activ e Start: April 20, 2025 Dr. Leela Ingram MD Referring Provider Active Start: April 20, 2025 Dr. Leela Ingram MD Nurse Practitioner Active Start: April 20, 2025 Dr. Justin Liu MD Attending physician Active Start: April 20, 2025 Team Status: Inactive Member Role/Relationship Status Dates Dr. Leela Ingram MD Primary care physician Activ e Start: July 07, 2025 End: July 07, 2025 Dr. Caden Lazar DO Attending physician Active Start: July 07, 2025 End: July 07, 2025 Dr. Caden Lazar DO Emergency Depart ent Physician Active Start: July 07, 2025 End: July 07, 2025 Team Status: Inactive Member Role/Relationship Status Dates Dr. Leela Ingram MD Primary care physician Activ e Start: July 10, 2025 End: July 10, 2025 Dr. Leela Ingram MD Referring Provider Active Start: July 10, 2025 End: July 10, 2025 Louann Washington MANUAL WRITER-C Attending physician Active Start: July 10, 2025 End: July 10, 2025 Team Status: Inactive Member Role/Relationship Status Dates Dr. Leela Ingram MD Primary care physician Activ e Start: July 10, 2025 End: July 10, 2025 Louann Washington MANUAL WRITER-C Attending physician Active Start: July 10, 2025 End: July 10, 2025 Louann Washington MANUAL WRITER-C Referring Provider Active Start: July 10, 2025 End: July 10, 2025 Team Status: Inactive Member Role/Relationship Status Dates Dr. Leela Ingram MD Primary care physician Activ e Start: July 12, 2025 End: July 12, 2025 Dr. Leela Ingram MD Referring Provider Active Start: July 12, 2025 End: July 12, 2025 DEBRA Esquivel-C Attending physician Active Start: July 12, 2025 End: July 12, 2025 Team Status: Inactive Member Role/Relationship Status Dates Dr. Leela Ingram MD Primary care physician Activ e Start: July 14, 2025 End: July 14, 2025 Dr. Leela Ingram MD Referring Provider Active Start: July 14, 2025 End: July 14, 2025 Dr. Merissa Best MD Attending physician Active Start: July 14, 2025 End: July 14, 2025 Team Status: Active Member Role/Relationship Status Dates Dr. Leela Ingram MD Primary care physician Activ e Start: July 14, 2025 Dr. Leela Ingram MD Referring Provider Active Start: July 14, 2025 Dr. Merissa Best MD Attending physician Active Start: July 14, 2025 Dr. Merissa Best MD Nurse Practitioner Active Start: July 14, 2025 FOR RECORDS PERTAINING TO PATIENTS WHO [...] BE BASED ON THE PRIMARY CLINICAL RECORDS. [employer] provides no warranty or guarantee of the accuracy or completeness of information in this document.
== END | disposition home or self-care (01) ==
LOC: LAB 13:48
PROVIDERS: PCP Internal Medicine; Referring Provider Student in an Organized Health Care Education/Training Program; Visit Provider Student in an Organized Health Care Education/Training Program
DX: K92.2 Gastrointestinal hemorrhage, unspecified (principal)
CPT/HCPCS: 36415; 83540; 83550; 85025